=== PATIENT | male | born 1960 | race Caucasian/White ===

== ENCOUNTER 2017-11-12 08:33 | Emergency (ER) | payer MEDICAID ==
[~2017-11-12] VITALS: Ht 172.7 cm; Wt 99.8 kg
[~2017-11-12 08:33] MED LIST: ALPR1T; ASP325T PO; ATN50T; BPR100T PO; CLOP75TA PO; ENAL20TA PO; ENLP5T; HCT25T PO; HYDR-3714; HYDR-3714 PO; HYDR-3720; ISOS20TA6; LEVO500T69 PO; NAPROSYN; NFMULT50DR; NTR.4SL PO; OMEP20CA12; OMG1KC PO; PRED20TA PO; RISP2TAB18 PO; SIMV40TA2; SIMV80TA3; [UNRECOGNIZED DRUG - OTHER]
[2017-11-12] MEDS ORDERED: NS IV 1000 ML 1,000 ML IV SCH ×2 (08:42→11:15)
[2017-11-12] MEDS ORDERED: RT-ALBUTEROL/IPRATROPIUM 3 ML (DUONEB) VIAL INH ONE (08:45)
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
[2017-11-12 09:00] LABS: BASOPHILS % (AUTO) 0 % (0-10); EOSINOPHILS % (AUTO) 0 % (0-10); HEMATOCRIT 43 % (40-54); HEMOGLOBIN 13.7 G/DL (13.3-17.7); LYMPHOCYTES # (AUTO) 2.1 X 10^3 (1.0-4.0); LYMPHOCYTES % (AUTO) 14 % (12-44); MEAN CORPUSCULAR HEMOGLOBIN 27 PG (25-34); MEAN CORPUSCULAR HGB CONC 32 G/DL (32-36); MEAN CORPUSCULAR VOLUME 84 FL (80-99); MEAN PLATELET VOLUME 10.7 FL (7.4-10.4); MONOCYTES # (AUTO) 1.2 X 10^3 (0.0-1.0); MONOCYTES % (AUTO) 8 % (0-12); NEUTROPHILS # (AUTO) 12.1 X 10^3 (1.8-7.8); NEUTROPHILS % (AUTO) 78 % (42-75); PLATELET COUNT 323 10^3/uL (130-400); RED BLOOD COUNT 5.13 10^6/uL (4.35-5.85); RED CELL DISTRIBUTION WIDTH 16.3 % (10.0-14.5); WHITE BLOOD COUNT 15.4 10^3/uL (4.3-11.0)
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
--- OUTSIDE RECORDS SUMMARY | 2017-11-12 09:12 | XMS REPORT ---
Author Author PAOLA LEE [facility] eClinicalWorks Address Unknown Phone Unavailable Care Team Providers Care Engagement Quality Consultant Name Role Phone PAOLA LEE CP Unavailable Allergies No Known Allergies Problems Problem Type Condition ICD-9 Code Onset Dates Condition Status Problem BPH (benign prostatic hyperplasia) 600.00 Active Problem Hyperlipidemia 272.4 Active Problem Depression 311 Active Problem Cervicalgia 723.1 Active Problem Hypopotassemia 276.8 Active Problem Simple schizophrenia, unspecified condition 295.00 Active Problem Carotid occlusion, right 433.10 Active Problem Hypertension 401.9 Active Problem Pain in joint, forearm 719.43 Active Problem Nondependent tobacco use disorder 305.1 Active Problem Pulmonary hypertension 416.8 Active Problem Peripheral arterial disease 443.9 Active Problem 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 Medications No Known Medications Results No Known Results Summary Purpose eClinicalWorks Submission
--- OUTSIDE RECORDS SUMMARY | 2017-11-12 09:13 | XMS REPORT ---
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 Active Problem Hypokalemia E87.6 Active Problem Paranoid schizophrenia F20.0 Active Problem Carotid occlusion, right I65.21 Active Problem Essential hypertension I10 Active Problem Primary osteoarthritis of wrist, 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
--- OUTSIDE RECORDS SUMMARY | 2017-11-12 09:13 | XMS REPORT ---
Author Author PAOLA LEE [facility] eClinicalWorks Address Unknown Phone Unavailable Care Team Providers Care Archaeologist Name Role Phone PAOLA LEE CP Unavailable [...]
--- OUTSIDE RECORDS SUMMARY | 2017-11-12 09:13 | XMS REPORT ---
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 Active Problem Essential hypertension I10 Active Problem Mixed hyperlipidemia E78.2 Active Problem Paranoid schizophrenia F20.0 Active Problem Osteoarthritis of spine with radiculopathy, 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 Active Problem Oral candidiasis B37.0 Active Problem Tobacco use Z72.0 Active Problem Carotid occlusion, right I65.21 Active Problem Hypokalemia E87.6 Active Problem Primary osteoarthritis of wrist, 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 Active Assessment Hematuria R31.9 Active Assessment Essential hypertension I10 Active Assessment Ureteropelvic junction calculus N20.0 Active Problem Peripheral arterial disease I73.9 Active Problem History of intravenous drug use in remission Z87.898 Active Problem Chronic diastolic congestive heart failure I50.32 Active Problem Benign non-nodular prostatic hyperplasia with lower urinary tract symptoms N40.1 Active Problem Pulmonary hypertension I27.2 Active Problem History of suicide attempt Z91.5 Active Medications Medication Code System Code Instructions Start Date End Date Status Dosage Zocor [facility] 20359102171 80 TAKE ONE TABLET BY MOUTH DAILY MUST HAVE FASTING LIPIDS FOR REFILL Risperdal [facility] [address]-61 1 MG Orally in morning Once a day Jun 26, 2015 1 tablet Risperdal [facility] [address]-62 2 MG Orally at bedtime Once a day Jun 26, 2015 1 tablet Plavix [facility] 37944590681 75 TAKE ONE TABLET BY MOUTH DAILY Hydrochlorothiazide [facility] 52541362488 25 TAKE ONE TABLET BY MOUTH DAILY Flomax [facility] 11344780130 0.4 TAKE ONE CAPSULE BY MOUTH DAILY Nitrostat [facility] [address]405040851 0.[address] PL[address] ONE TABLET UNDER THE TONGUE THREE TIMES A DAY NEEDED FOR CHEST PAIN. MAY REPEAT TWO TIMES EVERY FIVE MINUTES. Mirtazapine [facility] [address]-68 15 MG Orally Once a day Jun 26, 2015 1 tablet before bedtime in the evening Isosorbide Dinitrate [facility] 88634513118 20 TAKE TWO TABLETS ( 40MG ) BY MOUTH DAILY Fish Oil [facility] [address]-04 1000 MG Orally Once a day 2 capsule Aspirin Adult Low Dose [facility] [address]-14 81 MG Orally Once a day 1 tablet Colace [facility] [address]-47 100 MG Orally Once a day 2 capsules as needed Wellbutrin XL [facility] [address]-45 300 Orally Once a day 1 tablet in the morning Ativan [facility] [address]-28 0.5 MG Orally Twice a day 1 tablet as needed Multi-Vitamin [facility] [address]-49 - Orally Once a day 2 tablets Procedures Procedure Coding System Code Date URINALYSIS, AUTO, W/O SCOPE CPT-4 76286 Jan 14, 2016 VENIPUNCT, ROUTINE* CPT-4 89893 Jan 14, 2016 [facility] CPT-4 NOBLL Jan 14, 2016 Office Visit, Est Pt., Level 4 CPT-4 21990 Jan 14, 2016 Vital Signs Date/Time: Jan 14, 2016 Cardiac Monitoring Heart Rate 84 bpm Weight 207.5 lbs Height 67 in BMI 32.50 Index Blood Pressure Diastolic 90 mmHg Blood Pressure Systolic 144 mmHg Results No Known Results Summary Purpose eClinicalWorks Submission
--- OUTSIDE RECORDS SUMMARY | 2017-11-12 09:13 | XMS REPORT ---
Author Author PAOLA LEE eClinicalWorks Address Unknown Phone Unavailable Care Team Providers Care Reverse Unit Operator Name Role Phone PAOLA LEE CP Unavailable [...]
--- OUTSIDE RECORDS SUMMARY | 2017-11-12 09:13 | XMS REPORT ---
Author Author MIRELLA GONZALES Organization 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 Active 467014473 Problem Neuropathy G62.9 Active 906629724 Problem Cigarette nicotine dependence without complication F17.210 Active 33734514 Problem Essential hypertension I10 Active 50509519 Problem History of suicide attempt Z91.5 Active 867050586 Problem Coronary artery disease involving [place] coronary artery of [place] heart without angina pectoris I25.10 Active 3211671477890 Problem Oral candidiasis B37.0 Active 35375554 Problem Hypokalemia E87.6 Active 377721168 Problem Mixed hyperlipidemia E78.2 Active 999790020 Problem Tobacco use Z72.0 Active 448195441 Problem Paranoid schizophrenia F20.0 Active 05972392 Problem Benign non-nodular prostatic hyperplasia with lower urinary tract symptoms N40.1 Active 109035963 Problem Peripheral arterial disease I73.9 Active 197712486 Problem Pulmonary hypertension I27.2 Active 28247086 Problem History of intravenous drug use in remission Z87.898 Active 47410686 Problem Chronic diastolic congestive heart failure I50.32 Active 372246488 Problem 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 [address] [id number] [address] Jul, Essential hypertension I10 [facility] [address] [id number], [place] [address] Jul, [facility] [id number] [place] [address] 04526- 8494 Jul, [facility] [id number] [place] [address] 31351 -6299 May, Left foot pain M79.672 and Contusion of left foot, initial encounter S90.32XA [place] [address] [address] Apr, [facility] [id number] [place] [address] 86121- 2654 Apr, [place] [address] 67248- 5289 Mar, Neuropathy G62.9 and Essential hypertension I10 [place] [address] [address]50- 7674 Mar, [place] [address] 61472- 8385 Mar, Essential hypertension I10 ; Neuropathy G62.9 ; Coronary artery disease involving [place] coronary artery of [place] heart without angina pectoris I25.10 and Cigarette nicotine dependence without complication F17.210 [place] [id number] [place] [address] 31838- 2134 Jan, [facility] [id number] [place] [address] 40202 -0227 Dec, Neuropathy G62.9 [facility] [id number] [place] [address] 39561- 0573 Nov, Essential hypertension I10 [place] [address] 52399- 2492 Mar, [place] [id number] [place] [address] 40384- 9485 Feb, [place] [address] 28039- 4966 Feb, [facility] [id number] [place] [address] 18782- 1059 07 Feb, 2016 Essential hypertension I10 ; Peripheral arterial disease I73.9 ; Coronary artery disease involving [place] coronary artery of [place] heart without angina pectoris I25.10 ; Cigarette nicotine dependence without complication F17.210 and Encounter for immunization Z23 [facility] [address] [address]- [address]20 Dec, [facility] [address] 09799- 2967 Dec, Essential hypertension I10 ; Hematuria R31.9 and Ureteropelvic junction calculus N20.0 [facility] [address] [address] -[address]49 Dec, Kellie infection of mouth B37.0 [facility] [address] 25058 [address]013 Nov, Oral candidiasis B37.0 [facility] [id number] [place] [address] 02613- 6728 Nov, [facility] [address] [address]441- 9878 Nov, [facility] [id number] [place] [address] 99279- 1025 Nov, Hematuria R31.9 [facility] [address] [address]72- 3994 Oct, [facility] [id number] [place] [address] 95895- 5658 Jul, [facility] [address] 62115- 7226 Jul, [facility] [id number] [place] [address] 47565- 9363 Jul, [facility] [address] 60802- 3113 Jul, [facility] [id number] [place] [address] 18362- 8267 Jul, [facility] [id number] [place] [address] 30406- 1096 May, Paranoid schizophrenia F20.0 ; Major depression F32.9 and Generalized anxiety disorder F41.1 [facility] [id number] [place] [address] 33813- 1565 May, [facility] [id number] [place] [address] 31423- 6497 May, [facility] [id number] [place] [address] 19712- 8913 May, Paranoid schizophrenia F20.0 ; Essential hypertension I10 [address] [facility] [id number] [place] [address] 41280- 9547 Apr, Paranoid schizophrenia F20.0 [facility] [id number] [place] [address] 20176- 7921 Apr, [facility] [id number] [place] [address] 96381- 2959 Mar, [facility] [id number] [place] [address] 14614- 7173 Mar, [facility] [id number] [place] [address] 45355- 5724 Feb, 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 [id number] [place] [address] 58763- 6839 Feb, [facility] [address] [id number] [address]- 9639 Jan, Cervicalgia 723.1 ; 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 and Traumatic hematoma of left hand 923.20 [facility] [address], [place] [address] 1556 Jan, [facility] [id number] [place] [address] 36447- 3787 Jan, [facility] [id number] [place] [address] 20886- 4320 Dec, [facility] [id number] [place] [address] 174044- 1884 Dec, Pain in joint, forearm 719.43 ; Cervicalgia 723.[address] [facility] [address] [id number] [address] Dec, [facility] [id number] [place] [address] 31222- 6571 Nov, Cervicalgia 723.1 ; Hyperlipidemia 272.4 ; 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 ; Carotid occlusion, right 433.10 and Peripheral arterial disease 443.9 [facility] [address] [address] 7617 Nov, [facility] [address] [address]- 8057 Oct, [facility] [id number] [place] [address] 99806- 2332 Oct, [facility] [address] [place] [address] 69122- 6496 Oct, [facility] [address] [place] [address] 43518744- 9742 September, [facility] [address] [address] [address] Aug, [facility] [address] [address]- 5502 Aug, [facility] [place] [facility] [address] [id number] [place] [address]- 0495 Jul, [facility] [place] [facility] [address] [id number] [place] [address]- 0979 Jul, [facility] [place] [facility] [address] [id number] [place] [address]- 2146 Jul, [facility] [place] [facility] [address] [id number] [place] [address]- 3488 Jul, [facility] [place] [facility] [address] [id number] [place] [address]- 5736 Jul, [facility] [place] [facility] [address] [facility] [id number] [place] [address]- 3503 Jul, [facility] [place] [facility] [address] [facility] [id number] [place] [address]- 2568 Jul, [facility] [place] [facility] [address] [id number] [place] [address]- 7164 Jul, [facility] [place] [facility] [address] [facility] [id number] [place] [address]- 0792 Jul, [facility] [place] [facility] [address] [facility] [id number] [place] [address]- 4958 Jul, [facility] [place] [facility] [address] [facility] [id number] [place] [address]- 3493 Jul, [facility] [place] [facility] [address] [facility] [id number] [place] [address]- 7228 Jul, [facility] [place] [facility] [address] [id number] [place] [address]- 8823 Jul, [facility] [place] [facility] [address] [facility] [id number] [place] 9145 May, [facility] [place] [facility] [address] [facility] [id number] [place] [address]- 7578 May, [facility] [place] [facility] [address] [id number] [place] [address]- 4221 May, [facility] [place] [facility] [address] [id number] [place] [address]- 3178 May, [facility] [place] [facility] [address] [id number] [place] [address]- 6192 May, [facility] [place] [facility] [address] [id number] [place] [address]- 9147 May, [facility] [place] [facility] [address] [id number] [place] [address]- 9223 May, [facility] [place] [facility] [address] [id number] [place] [address]- 1522 May, [facility] [place] [facility] [address] [id number] [place] [address]- 4185 May, [facility] [place] [facility] [address] [id number] [place] [address]- 1938 May, [facility] [place] [facility] [address] [id number] [place] [address]- 2023 May, [facility] [place] [facility] [address] [id number] [place] [address]- 4072 May, [facility] [place] [facility] [address] [id number] [address]- 6689 May, [facility] [place] [facility] [address] [id number], [place] [address]- 6879 May, [facility] [place] [facility] [address] [id number] [place] [address]- 1030 May, [facility] [place] [facility] [address] [id number] [place] [address]- 1083 May, [facility] [place] [facility] [address] [id number] [place] [address]- 3650 May, [facility] [place] [facility] [address] [id number] [place] [address]- 1039 30 Apr, 2014 [facility] [place] [facility] [address] [id number] [place] [address]- 0576 Apr, [facility] [place] [facility] [address] [id number] [place] [address]- 6006 Apr, [facility] [place] [facility] [address] [id number] [place] [address]- 9636 Apr, [facility] [place] [facility] [address] [id number] [place] [address]- 0935 Apr, [facility] [place] [facility] [address] [id number] [place] 2793 Apr, [facility] [place] [facility] [address] [id number] [place] [address]- 2503 Apr, [facility] [place] [facility] [address] [id number] [place] [address]- 7694 Apr, [facility] [place] [facility] [address] [id number] [place] [address]- 4371 Apr, [facility] [place] [facility] [address] [id number] [place] [address]- 4212 Apr, [facility] [place] [facility] [address] [id number] [place] [address]- 6751 Apr, [facility] [place] [facility] [address] [id number] [place] [address]- 9462 Apr, [facility] [place] [facility] [address] [id number] [place] [address]- 2329 Mar, [facility] [place] [facility] [address] [id number] [place] [address]- 0517 Mar, [facility] [place] [facility] [address] [id number] [place] [address]- 3366 Mar, [facility] [place] [facility] [address] [id number] [place] [address]- 1500 Mar, [facility] [place] [facility] [address] [id number] [place] [address]- 8032 Feb, [facility] [place] [facility] [address] [id number] [place] [address]- 7870 Feb, [facility] [place] [facility] [address] [id number] [place] [address]- 4997 Feb, [facility] [place] [facility] [address] [id number] [place] [address]- 0163 Feb, [facility] [place] [facility] [address] [id number] [place] [address]- 2465 Feb, [facility] [place] [facility] [address] [id number] [place] [address]- 6832 Feb, [facility] [place] [facility] [address] [id number] [place] [address]- 2092 Nov, [facility] [place] [facility] [address] [id number] [place] [address]- 0349 Nov, [facility] [place] [facility] [address] [id number] [place] [address]- 3181 Oct, [facility] [place] [facility] [address] [id number] [place] [address]- 3243 Oct, [facility] [place] [facility] [address] [id number] [place] [address]- 1456 Oct, [facility] [place] [facility] [address] [id number] [place] [address]- 1929 Oct, [facility] [place] [facility] [address] [id number] [place] [address]- 9265 Oct, [facility] [place] [facility] [address] [id number] [place] [address]- 1276 Oct, [facility] [place] [facility] [address] [id number] [place] [address]- 4594 Oct, [facility] [place] [facility] [address] [id number] [place] [address]- 1914 Oct, [facility] [place] [facility] [address] [id number] [place] [address]- 5874 Oct, [facility] [place] [facility] [address] [id number] [place] [address]- 0122 Oct, [facility] [place] [facility] [address] [id number] [place] [address]- 8234 September, [facility] [place] [facility] [address] [id number] [place] [address]- 5264 September, [facility] [place] [facility] [address] [id number] [place] 6394 September, [facility] [place] [facility] [address] [id number] [place] [address]- 6842 September, [facility] [place] [facility] [address] [id number] [place] [address]- 8467 September, [facility] [place] [facility] [address] [id number] [place] [address]- 5298 September, [facility] [place] [facility] [address] [id number] [place] [address]- 0657 Aug, [facility] [place] [facility] [address] [id number] [place] [address]- 9716 Aug, [facility] [place] [facility] [address] [id number] [place] [address]- 3551 Aug, [facility] [place] [facility] [address] [id number] [place] [address]- 6206 Aug, [facility] [place] [facility] [address] [id number] [place] [address]- 8712 Jul, [facility] [place] [facility] [address] [id number] [place] [address]- 3989 Jul, [facility] [place] [facility] [address] [id number] [place] [address]- 6995 Jul, [facility] [place] [facility] [address] [id number] [place] [address]- 0820 Jul, [facility] [place] [facility] [address] [id number] [place] [address]- 0430 Jul, [facility] [place] [facility] [address] [id number] [place] [address]- 7061 Jul, [facility] [place] [facility] [address] [id number] [place] [address]- 1508 Jul, [facility] [place] [facility] [address] [id number] [place] [address]- 3847 Jul, [facility] [place] [facility] [address] [id number] [place] [address]- 7531 Jul, [facility] [place] [facility] [address] [id number] [place] [address]- 2886 Jul, [facility] [place] [facility] [address] [id number] [place] [address]- 0900 May, [facility] [place] [facility] [address] [id number] [place] [address]- 9301 May, [facility] [place] [facility] [address] [id number] [place] [address]- 2434 May, [facility] [place] [facility] [address] [id number] [place] [address]- 5056 May, [facility] [place] [facility] [address] [id number] [place] [address]- 8778 Apr, [facility] [place] [facility] [address] [id number] [place] [address]- 5796 Apr, [facility] [place] [facility] [address] [id number] [place] [address]- 2301 Mar, [facility] [place] [facility] [address] [id number] [place] 9090 Mar, [facility] [place] [facility] [address] [id number] [place] [address]- 9454 Mar, [facility] [place] [facility] [address] [id number] [place] [address]- 3874 Mar, [facility] [place] [facility] [address] [id number] [place] [address]- 8115 Mar, [facility] [place] [facility] [address] [id number] [place] [address]- 9217 Mar, [facility] [place] [facility] [address] [id number] [place] [address]- 4963 Feb, [facility] [place] [facility] [address] [id number] [place] [address]- 1659 Feb, [facility] [place] [facility] [address] [id number] [place] [address]- 0715 Feb, [facility] [place] [facility] [address] [id number] [place] [address]- 0915 Feb, [facility] [place] [facility] [address] [id number] [place] [address]- 4961 Feb, [facility] [place] [facility] [address] [id number] [place] [address]- 4295 Jan, [facility] [place] [facility] [address] [id number] [place] [address]- 3755 Jan, [facility] [place] [facility] [address] [id number] [place] [address]- 0210 Jan, [facility] [place] [facility] [address] [id number] [place] [address]- 7204 Jan, [facility] [place] [facility] [address] [id number] [place] [address]- 9360 Dec, [facility] [place] [facility] [address] [id number] [place] [address]- 6185 Dec, [facility] [place] [facility] [address] [id number] [place] [address]- 6114 Dec, [facility] [place] [facility] [address] [id number] [place] [address]- 1619 15 Dec, 2012 [facility] [address] [id number] [place] [address]- 8492 Dec, [facility] [address] [id number] [place] [address]- 0112 Dec, [facility] [address] [id number] [place] [address]- 3027 Nov, [facility] [address] [id number] [place] [address]- 4105 Nov, [facility] [address] [id number] [place] [address]- 2236 Oct, [facility] [address] [id number] [place] [address]- 0096 Oct, [facility] [address] [id number] [place] [address]- 6930 Oct, [facility] [address] [id number] [place] [address]- 2741 September, [facility] [address] [id number] [place] [address]- 5247 Aug, [facility] [address] [id number] [place] [address] Aug, [facility] [address] [id number] [place] [address] Aug, [facility] [address] [id number] [place] [address] Aug, [facility] [address] [id number] [place] [address] Aug, [facility] [address] [id number] [place] [address] Aug, [facility] [address] [id number] [place] [address] Aug, [facility] [address] [id number] [place] [address] 26 Jul, 2012 [facility] [place] [facility] [address] [id number] [place] [address] 21 Jul, 2012 [facility] [address] [id number] [place] [address] 15 Jul, 2012 [facility] [place] [facility] [address] [id number] [place] [address] 14 Jul, 2012 [facility] [address] [id number] [place] [address] Jul, [facility] [place] [facility] [address] [id number] [place] [address]- [address] 13 Jul, 2012 [facility] [address] [id number] [place] [address] Jul, [facility] [address] [id number] [place] [address] 04 Jul, 2012 [facility] [address] [id number] [place] [address] 18 Jul, 2012 [facility] [place] [facility] [address] [id number] [place] [address] Jul, [facility] [place] [facility] [address] [id number] [place] [address] May, [facility] [place] [facility] [address] [id number], [place] [address] May, [facility] [place] [facility] [address] [id number] [place] [address]47 15 May, 2012 [facility] [place] [facility] [address] [id number] [place] [address] 14 May, 2012 [facility] [place] [facility] [address] [id number] [place] [address] 18 Apr, 2012 [facility] [place] [facility] [address] [id number] [place] [address] Apr, [facility] [place] [facility] [address] [id number] [place] [address] Apr, [facility] [place] [facility] [address] [id number] [place] [address] Apr, [facility] [place] [facility] [address] [id number] [place] [address] Apr, [facility] [place] [facility] [address] [id number] [place] [address] Mar, [facility] [place] [facility] [address] [id number] [place] [address] Mar, [facility] [place] [facility] [address] [id number] [place] [address] Feb, [facility] [place] [facility] [address] [id number] [place] [address] Dec, [facility] [place] [facility] [address] [id number] [place] [address] Dec, [facility] [place] [facility] [address] [id number] [place] [address] Nov, [facility] [place] [facility] [address] [id number] [place] [address] Nov, [facility] [place] [facility] [address] [id number] [place] [address] Nov, [facility] [place] [facility] [address] [id number] [place] [address] Oct, [facility] [place] [facility] [address] [id number] [place] [address] Aug, [facility] [place] [facility] [address] [id number] [place] [address] Aug, [facility] [place] [facility] [address] [id number] [place] [address] [address], [address] [facility] [address] [facility] [id number] [address] [address], [address] [facility] [address] [facility] [id number], [place] [address] Aug, [facility] [address] [facility] [id number], [place] [address] [address], [address] [facility] [id number] [address] [address], [address] [facility] [address] [facility] [id number], [place] [address] 15 Mar, [address] [facility] [id number] [address] [address] [address], [address] [facility] [id number] [address] [address] Apr, [facility] [id number], [place] [address] 30 Mar, [address] [facility] [id number], [place] [address] 18 Feb, [address] [facility] [id number], [place] [address] 14 Apr, 2009 [facility] [id number], [place] [address] [address], [address] [facility] [id number], [place] [address] Mar, [facility] [address] [id number], [place] [id number] 15 Feb, 2009 [facility] [id number], [place] [id number] 15 Feb, 2009 IMMUNIZATIONS No Known Immunizations SOCIAL HISTORY Never Assessed REASON FOR VISIT At- 04/06 PLAN OF CARE VITAL SIGNS MEDICATIONS Medication Instructions Dosage Frequency Start Date End Date Duration Status Ativan 0.5 mg Orally 2 times a day 1 tablet 12h 30 Active RESULTS No Results PROCEDURES No Known procedures INSTRUCTIONS MEDICATIONS ADMINISTERED No Known Medications MEDICAL (GENERAL) HISTORY Type Description Date Medical History cardiovascular disorder-multi vessel CAD-nonoperable, PVD- carotid artery disease (right 100% blockage, left 40% block) Medical History hypertension Medical History hyperlipidemia Medical History chronic pain-neck and back Medical History depression Medical History anxiety Medical History heart disease Medical History Hx of drug addiction (meth-IV) was clean 5-6 years prior to relapse 02/2009 Medical History schizophrenia Surgical History cholecystectomy Hospitalization History drug OD/suicide attempt (required mechanical vent) Hospitalization History suicide attempt-cut wrists 03/2010 Hospitalization History suicide attempt-injected insulin 04/2010 Hospitalization History [facility] Methamphetamine 2015
--- OUTSIDE RECORDS SUMMARY | 2017-11-12 09:14 | XMS REPORT ---
Author Author PAOLA LEE [facility] [employer] Address Unknown Phone Unavailable Care Team Providers Care Primary Care Provider Name Role Phone PAOLA LEE CP Unavailable [...]
--- OUTSIDE RECORDS SUMMARY | 2017-11-12 09:14 | XMS REPORT ---
Author Author PAOLA LEE [facility] [employer] Address Unknown Phone Unavailable Care Team Providers Care Pick Up Worker Name Role Phone PAOLA LEE CP Unavailable [...]
--- OUTSIDE RECORDS SUMMARY | 2017-11-12 09:14 | XMS REPORT ---
Author Author MIRELLA GONZALES Organization [employer] Address Unknown Phone Unavailable Care Team Providers Care Bottle Capper Name Role Phone MIRELLA GONZALES CP Unavailable Allergies No Known Allergies Problems Problem Type Condition Code Onset Dates Condition Status Problem Essential hypertension I10 Active Problem Tobacco use Z72.0 Active Problem Carotid occlusion, right I65.21 Active Problem Cigarette nicotine dependence without complication F17.210 Active Problem Oral candidiasis B37.0 Active Problem Coronary artery disease involving [place] coronary artery of [place] heart without angina pectoris I25.10 Active Problem Hypokalemia E87.6 Active Problem Primary osteoarthritis of wrist, 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 Active Problem Paranoid schizophrenia F20.0 Active Problem Osteoarthritis of spine with radiculopathy, 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 Active Problem Chronic diastolic congestive heart failure I50.32 Active Problem Pulmonary hypertension I27.2 Active Problem Benign non-nodular prostatic hyperplasia with lower urinary tract symptoms N40.1 Active Problem History of suicide attempt Z91.5 Active Problem Peripheral arterial disease I73.9 Active Problem 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 Active Problem History of intravenous drug use in remission Z87.898 Active Problem Mixed hyperlipidemia E78.2 Active Medications Medication Code System Code Instructions Start Date End Date Status Dosage Meloxicam [facility] [address]-25 15 MG Orally Once a day 1 tablet Flomax [facility] 50295303783 0.4 TAKE ONE CAPSULE BY MOUTH DAILY Isosorbide Dinitrate [facility] 06033089453 20 TAKE TWO TABLETS ( 40MG ) BY MOUTH DAILY Wellbutrin XL [facility] [address]-39 300 Orally Once a day 1 tablet in the morning Plavix [facility] 82415097631 75 TAKE ONE TABLET BY MOUTH DAILY Zocor [facility] 12023037521 80 TAKE ONE TABLET BY MOUTH DAILY Hydrochlorothiazide [facility] 15529925819 25 TAKE ONE TABLET BY MOUTH DAILY Results No Known Results Summary Purpose eClinicalWorks Submission
--- OUTSIDE RECORDS SUMMARY | 2017-11-12 09:14 | XMS REPORT ---
Author Author MIRELLA GONZALES Organization 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 Active 583228024 Problem Neuropathy G62.9 Active 761028154 Problem Cigarette nicotine dependence without complication F17.210 Active 51309755 Problem Essential hypertension I10 Active 98532952 Problem History of suicide attempt Z91.5 Active 976742642 Problem Coronary artery disease involving [place] coronary artery of [place] heart without angina pectoris I25.10 Active 3006961798823 Problem Oral candidiasis B37.0 Active 75392101 Problem Hypokalemia E87.6 Active 799897303 Problem Mixed hyperlipidemia E78.2 Active 053582692 Problem Tobacco use Z72.0 Active 324916059 Problem Paranoid schizophrenia F20.0 Active 80140313 Problem Benign non-nodular prostatic hyperplasia with lower urinary tract symptoms N40.1 Active 873785575 Problem Peripheral arterial disease I73.9 Active 472214208 Problem Pulmonary hypertension I27.2 Active 80551205 Problem History of intravenous drug use in remission Z87.898 Active 64976964 Problem Chronic diastolic congestive heart failure I50.32 Active 850536254 Problem 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 [address] [id number], [place] [address] Jul, Essential hypertension I10 [facility] [address] [id number], [place] [address] Jul, [facility] [id number] [place] [address] 05787- 7946 Jul, [facility] [id number] [place] [address]71 -6920 May, Left foot pain M79.672 and Contusion of left foot, initial encounter S90.32XA [place] [address] [address] Apr, [facility] [id number] [place] [address] 39725- 9869 Apr, [place] [address] [address]- [address]31 Mar, Neuropathy G62.9 and Essential hypertension I10 [place] [address] [address]- [address] Mar, [place] [address] [address]- 5497 Mar, Essential hypertension I10 ; Neuropathy G62.9 ; Coronary artery disease involving [place] coronary artery of [place] heart without angina pectoris I25.10 and Cigarette nicotine dependence without complication F17.210 [place] [id number] [place] [address] 82830- 4602 Jan, [facility] [id number] [place] [address]38 -[address]681 Dec, [address]62.9 [facility] [id number] [place] [address] 64671- 7503 Nov, Essential hypertension I10 [place] [address] 87889- 4411 Mar, [place] [id number] [place] [address] 79969- 7779 Feb, [place] [address] [address]- [address] Feb, [facility] [id number] [place] [address] 85086- 3843 07 Feb, 2016 Essential hypertension I10 ; Peripheral arterial disease I73.9 ; Coronary artery disease involving [place] coronary artery of [place] heart without angina pectoris I25.10 ; Cigarette nicotine dependence without complication F17.210 and Encounter for immunization Z23 [facility] [address] [address]- [address]16 Dec, [facility] [address] 92192- 9464 Dec, Essential hypertension I10 ; Hematuria R31.9 and Ureteropelvic junction calculus N20.0 [facility] [address] [address] -[address]605 Dec, Kellie infection of mouth B37.0 [facility] [address] [address]67 Nov, Oral candidiasis B37.0 [facility] [id number] [place] [address] 11052- 0421 Nov, [facility] [address] [address]81- 6252 Nov, [facility] [id number] [place] [address] 61944- 1378 Nov, Hematuria R31.9 [facility] [address] 87786- 8807 Oct, [facility] [id number] [place] [address] 82015- 4926 Jul, [facility] [address] [address]245- 3348 Jul, [facility] [id number] [place] [address] 25536- 3073 Jul, [facility] [address] 79972- 1383 Jul, [facility] [id number] [place] [address] 36945- 5080 Jul, [facility] [id number] [place] [address] 98371- 2972 May, Paranoid schizophrenia F20.0 ; Major depression F32.9 and Generalized anxiety disorder F41.1 [facility] [id number] [place] [address] 77425- 0284 May, [facility] [id number] [place] [address] 05689- 9739 May, [facility] [id number] [place] [address] 57582- 1508 May, Paranoid schizophrenia F20.0 ; Essential hypertension I10 [address]45[address]1 [facility] [id number] [place] [address] 24017- 2039 Apr, Paranoid schizophrenia F20.0 [facility] [id number] [place] [address] 20288- 1485 Apr, [facility] [id number] [place] [address] 05451- 2894 Mar, [facility] [id number] [place] [address] 36694- 9602 Mar, [facility] [id number] [place] [address] 41722- 2806 Feb, 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 [id number] [place] [address] 94222- 3336 Feb, [facility] [address] [id number] [address] Jan, Cervicalgia 723.1 ; 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 and Traumatic hematoma of left hand 923.20 [facility] [address], [place] [address] Jan, [facility] [id number] [place] [address] 60838- 1565 Jan, [facility] [id number] [place] [address] 81793- 8503 Dec, [facility] [id number] [place] [address] 345636- 9247 Dec, Pain in joint, forearm 719.43 ; Cervicalgia 723.[address] [facility] [id number], [place] [address] Dec, [facility] [id number] [place] [address] 56079- 7727 Nov, Cervicalgia 723.1 ; Hyperlipidemia 272.4 ; 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 ; Carotid occlusion, right 433.10 and Peripheral arterial disease 443.9 [facility] [address], [place] [address] Nov, [facility] [address] [address] 0943 Oct, [facility] [id number] [place] [address] 38468- 0275 Oct, [facility] [address] [place] [address] 38245- 1328 Oct, [facility] [address] [place] [address] 25339791- 1773 September, [facility] [address] [address] Aug, [facility] [address] [place] [address]- 8678 Aug, [facility] [place] [facility] [address] [id number] [place] [address]- 6734 Jul, [facility] [place] [facility] [address] [id number] [place] [address]- 2182 Jul, [facility] [place] [facility] [address] [id number] [place] [address]- 3565 Jul, [facility] [place] [facility] [address] [id number] [place] [address]- 4413 Jul, [facility] [place] [facility] [address] [id number] [place] [address]- 6817 Jul, [facility] [place] [facility] [address] [facility] [id number] [place] [address]- 2520 Jul, [facility] [place] [facility] [address] [facility] [id number] [place] [address]- 5547 Jul, [facility] [place] [facility] [address] [id number] [place] [address]- 1418 Jul, [facility] [place] [facility] [address] [facility] [id number] [place] [address]- 8475 Jul, [facility] [place] [facility] [address] [facility] [id number] [place] [address]- 0843 Jul, [facility] [place] [facility] [address] [facility] [id number] [place] [address]- 7349 Jul, [facility] [place] [facility] [address] [facility] [id number] [place] [address]- 6387 Jul, [facility] [place] [facility] [address] [id number] [place] [address]- 1485 Jul, [facility] [place] [facility] [address] [facility] [id number] [place] 6701 May, [facility] [place] [facility] [address] [facility] [id number] [place] [address]- 9654 May, [facility] [place] [facility] [address] [id number] [place] [address]- 2610 May, [facility] [place] [facility] [address] [id number] [place] [address]- 1267 May, [facility] [place] [facility] [address] [id number] [place] [address]- 8384 May, [facility] [place] [facility] [address] [id number] [place] [address]- 8943 May, [facility] [place] [facility] [address] [id number] [place] [address]- 6608 May, [facility] [place] [facility] [address] [id number] [place] [address]- 5237 May, [facility] [place] [facility] [address] [id number] [place] [address]- 5539 May, [facility] [place] [facility] [address] [id number] [place] [address]- 7927 May, [facility] [place] [facility] [address] [id number] [place] [address]- 9648 May, [facility] [place] [facility] [address] [id number] [place] [address]- 7513 May, [facility] [place] [facility] [address] [id number] [address]- 7298 May, [facility] [place] [facility] [address] [id number], [place] [address]- 3432 May, [facility] [place] [facility] [address] [id number] [place] [address]- 6234 May, [facility] [place] [facility] [address] [id number] [place] [address]- 2044 May, [facility] [place] [facility] [address] [id number] [place] [address]- 8709 May, [facility] [place] [facility] [address] [id number] [place] [address]- 8674 30 Apr, 2014 [facility] [place] [facility] [address] [id number] [place] [address]- 6636 Apr, [facility] [place] [facility] [address] [id number] [place] [address]- 5186 Apr, [facility] [place] [facility] [address] [id number] [place] [address]- 3576 Apr, [facility] [place] [facility] [address] [id number] [place] [address]- 6379 Apr, [facility] [place] [facility] [address] [id number] [place] 9318 Apr, [facility] [place] [facility] [address] [id number] [place] [address]- 3895 Apr, [facility] [place] [facility] [address] [id number] [place] [address]- 1933 Apr, [facility] [place] [facility] [address] [id number] [place] [address]- 1098 Apr, [facility] [place] [facility] [address] [id number] [place] [address]- 5489 Apr, [facility] [place] [facility] [address] [id number] [place] [address]- 5701 Apr, [facility] [place] [facility] [address] [id number] [place] [address]- 4276 Apr, [facility] [place] [facility] [address] [id number] [place] [address]- 9210 Mar, [facility] [place] [facility] [address] [id number] [place] [address]- 2029 Mar, [facility] [place] [facility] [address] [id number] [place] [address]- 1775 Mar, [facility] [place] [facility] [address] [id number] [place] [address]- 1614 Mar, [facility] [place] [facility] [address] [id number] [place] [address]- 3040 Feb, [facility] [place] [facility] [address] [id number] [place] [address]- 3281 Feb, [facility] [place] [facility] [address] [id number] [place] [address]- 1804 Feb, [facility] [place] [facility] [address] [id number] [place] [address]- 8703 Feb, [facility] [place] [facility] [address] [id number] [place] [address]- 6513 Feb, [facility] [place] [facility] [address] [id number] [place] [address]- 7103 Feb, [facility] [place] [facility] [address] [id number] [place] [address]- 7663 Nov, [facility] [place] [facility] [address] [id number] [place] [address]- 5915 Nov, [facility] [place] [facility] [address] [id number] [place] [address]- 3712 Oct, [facility] [place] [facility] [address] [id number] [place] [address]- 3434 Oct, [facility] [place] [facility] [address] [id number] [place] [address]- 4716 Oct, [facility] [place] [facility] [address] [id number] [place] [address]- 4676 Oct, [facility] [place] [facility] [address] [id number] [place] [address]- 3729 Oct, [facility] [place] [facility] [address] [id number] [place] [address]- 5652 Oct, [facility] [place] [facility] [address] [id number] [place] [address]- 6307 Oct, [facility] [place] [facility] [address] [id number] [place] [address]- 1990 Oct, [facility] [place] [facility] [address] [id number] [place] [address]- 3632 Oct, [facility] [place] [facility] [address] [id number] [place] [address]- 7587 Oct, [facility] [place] [facility] [address] [id number] [place] [address]- 2793 September, [facility] [place] [facility] [address] [id number] [place] [address]- 4974 September, [facility] [place] [facility] [address] [id number] [place] 6385 September, [facility] [place] [facility] [address] [id number] [place] [address]- 1089 September, [facility] [place] [facility] [address] [id number] [place] [address]- 1624 September, [facility] [place] [facility] [address] [id number] [place] [address]- 3306 September, [facility] [place] [facility] [address] [id number] [place] [address]- 4832 Aug, [facility] [place] [facility] [address] [id number] [place] [address]- 7689 Aug, [facility] [place] [facility] [address] [id number] [place] [address]- 4070 Aug, [facility] [place] [facility] [address] [id number] [place] [address]- 7362 Aug, [facility] [place] [facility] [address] [id number] [place] [address]- 0709 Jul, [facility] [place] [facility] [address] [id number] [place] [address]- 0112 Jul, [facility] [place] [facility] [address] [id number] [place] [address]- 2994 Jul, [facility] [place] [facility] [address] [id number] [place] [address]- 4146 Jul, [facility] [place] [facility] [address] [id number] [place] [address]- 0694 Jul, [facility] [place] [facility] [address] [id number] [place] [address]- 4898 Jul, [facility] [place] [facility] [address] [id number] [place] [address]- 5960 Jul, [facility] [place] [facility] [address] [id number] [place] [address]- 2941 Jul, [facility] [place] [facility] [address] [id number] [place] [address]- 1971 Jul, [facility] [place] [facility] [address] [id number] [place] [address]- 8632 Jul, [facility] [place] [facility] [address] [id number] [place] [address]- 8891 May, [facility] [place] [facility] [address] [id number] [place] [address]- 9783 May, [facility] [place] [facility] [address] [id number] [place] [address]- 5043 May, [facility] [place] [facility] [address] [id number] [place] [address]- 8237 May, [facility] [place] [facility] [address] [id number] [place] [address]- 5163 Apr, [facility] [place] [facility] [address] [id number] [place] [address]- 4977 Apr, [facility] [place] [facility] [address] [id number] [place] [address]- 1523 Mar, [facility] [place] [facility] [address] [id number] [place] 4546 Mar, [facility] [place] [facility] [address] [id number] [place] [address]- 2572 Mar, [facility] [place] [facility] [address] [id number] [place] [address]- 6447 Mar, [facility] [place] [facility] [address] [id number] [place] [address]- 1927 Mar, [facility] [place] [facility] [address] [id number] [place] [address]- 6113 Mar, [facility] [place] [facility] [address] [id number] [place] [address]- 9235 Feb, [facility] [place] [facility] [address] [id number] [place] [address]- 8755 Feb, [facility] [place] [facility] [address] [id number] [place] [address]- 8736 Feb, [facility] [place] [facility] [address] [id number] [place] [address]- 7557 Feb, [facility] [place] [facility] [address] [id number] [place] [address]- 4102 Feb, [facility] [place] [facility] [address] [id number] [place] [address]- 5388 Jan, [facility] [place] [facility] [address] [id number] [place] [address]- 9269 Jan, [facility] [place] [facility] [address] [id number] [place] [address]- 6822 Jan, [facility] [place] [facility] [address] [id number] [place] [address]- 6910 Jan, [facility] [place] [facility] [address] [id number] [place] [address]- 2510 Dec, [facility] [place] [facility] [address] [id number] [place] [address]- 3977 Dec, [facility] [place] [facility] [address] [id number] [place] [address]- 5507 Dec, [facility] [place] [facility] [address] [id number] [place] [address]- 7497 15 Dec, 2012 [facility] [address] [id number] [place] [address]- 1334 Dec, [facility] [address] [id number] [place] [address]- 8053 Dec, [facility] [address] [id number] [place] [address]- 8898 Nov, [facility] [address] [id number] [place] [address]- 0765 Nov, [facility] [address] [id number] [place] [address]- 5716 Oct, [facility] [address] [id number] [place] [address]- 9924 Oct, [facility] [address] [id number] [place] [address]- 4520 Oct, [facility] [address] [id number] [place] [address]- 8567 September, [facility] [address] [id number] [place] [address]- 3124 Aug, [facility] [address] [id number] [place] [address]- 6285 Aug, [facility] [address] [id number] [place] [address]- 8431 Aug, [facility] [address] [id number] [place] [address] Aug, [facility] [address] [id number] [place] [address] Aug, [facility] [address] [id number] [place] [address] Aug, [facility] [address] [id number] [place] [address] Aug, [facility] [address] [id number] [place] [address] 26 Jul, 2012 [facility] [place] [facility] [address] [id number] [place] [address] 21 Jul, 2012 [facility] [address] [id number] [place] [address] 15 Jul, 2012 [facility] [place] [facility] [address] [id number] [place] [address] 14 Jul, 2012 [facility] [address] [id number] [place] [address] Jul, [facility] [place] [facility] [address] [id number] [place] [address] 13 Jul, 2012 [facility] [address] [id number] [place] [address] Jul, [facility] [address] [id number] [place] [address] 04 Jul, 2012 [facility] [address] [id number] [place] [address] 18 Jul, 2012 [facility] [place] [facility] [address] [id number] [place] [address] Jul, [facility] [place] [facility] [address] [id number] [place] [address] May, [facility] [place] [facility] [address] [id number], [place] [address] May, [facility] [place] [facility] [address] [id number] [place] [address] 15 May, 2012 [facility] [place] [facility] [address] [id number] [place] [address] 14 May, 2012 [facility] [place] [facility] [address] [id number] [place] [address] 18 Apr, 2012 [facility] [place] [facility] [address] [id number] [place] [address] Apr, [facility] [place] [facility] [address] [id number] [place] [address] Apr, [facility] [place] [facility] [address] [id number] [place] [address] Apr, [facility] [place] [facility] [address] [id number] [place] [address] Apr, [facility] [place] [facility] [address] [id number] [place] [address] Mar, [facility] [place] [facility] [address] [id number] [place] [address] Mar, [facility] [place] [facility] [address] [id number] [place] [address] Feb, [facility] [place] [facility] [address] [id number] [place] [address] Dec, [facility] [place] [facility] [address] [id number] [place] [address] Dec, [facility] [place] [facility] [address] [id number] [place] [address] Nov, [facility] [place] [facility] [address] [id number] [place] [address] Nov, [facility] [place] [facility] [address] [id number] [place] [address] Nov, [facility] [place] [facility] [address] [id number] [place] [address] Oct, [facility] [place] [facility] [address] [id number] [place] [address] Aug, [facility] [place] [facility] [address] [id number] [place] [address] Aug, [facility] [place] [facility] [address] [id number] [place] [address]68 [address], [address] [facility] [address] [facility] [id number], [place] [address] [address], [address] [facility] [address] [facility] [id number], [place] [address] [address], [address] [facility] [address] [facility] [id number], [place] [address] [address], [address] [facility] [address] [facility] [id number], [place] [address] [address], [address] [facility] [address] [facility] [id number], [place] [address]247 [address], [address] [facility] [address] [facility] [id number], [place] [address]697 [address], [address] [facility] [address] [facility] [id number] [address], [address] [facility] [id number], [place] [address] 30 Mar, [address] [facility] [id number], [place] [address] 18 [address], [address] [facility] [id number], [place] [address] [address], [address] [facility] [id number], [place] [address] 14 Apr, 2009 [facility] [id number], [place] [address] 17 Mar, [address] [facility] [id number], [place] [address] 15 Feb, 2009 [facility] [id number], [place] [address] 15 Feb, 2009 IMMUNIZATIONS No Known Immunizations SOCIAL HISTORY Never Assessed REASON FOR VISIT Refill request PLAN OF CARE VITAL SIGNS MEDICATIONS Medication Instructions Dosage Frequency Start Date End Date Duration Status Plavix 75 mg TAKE ONE TABLET BY MOUTH DAILY 30 Active Hydrochlorothiazide 25 mg TAKE ONE TABLET BY MOUTH DAILY 90 Active Wellbutrin XL 300 mg TAKE ONE TABLET BY MOUTH EVERY MORNING 30 Active Risperdal 2 mg TAKE ONE TABLET BY MOUTH EVERY NIGHT AT BEDTIME 30 Active RESULTS No Results PROCEDURES No [...]
--- OUTSIDE RECORDS SUMMARY | 2017-11-12 09:15 | XMS REPORT ---
Author Author ИРИНА DELVALLE Organization [employer] Address Unknown Phone Unavailable Care Team Providers Care Matcher Name Role Phone ИРИНА DELVALLE CP Unavailable Allergies No Known Allergies Problems [...] Active Problem Peripheral arterial disease I73.9 Active Assessment Paranoid schizophrenia F20.0 Active Problem History of intravenous drug use in remission Z87.898 Active Problem Chronic diastolic congestive heart failure I50.32 Active Problem Benign non-nodular prostatic hyperplasia with lower urinary tract symptoms N40.1 Active Medications No Known Medications Procedures Procedure Coding System Code Date Psych diagnostic evaluation, established patient CPT-4 74673 May 28, 2015 Results No Known Results Summary Purpose [employer] Submission
--- OUTSIDE RECORDS SUMMARY | 2017-11-12 09:15 | XMS REPORT ---
Author Author PAOLA LEE [facility] [employer] Address Unknown Phone Unavailable Care Team Providers Care Fax Machine Operator Name Role Phone PAOLA LEE CP [...]
--- OUTSIDE RECORDS SUMMARY | 2017-11-12 09:15 | XMS REPORT ---
Author Author ARIEL MANNING [facility] [employer] Address Unknown Phone Unavailable Care Team Providers Care Front Office Administrator Name Role Phone ARIEL MANNING CP Unavailable Allergies, Adverse Reactions, Alerts Substance [...] of wrist, 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 Active Assessment Oral candidiasis B37.0 Active Problem Peripheral arterial disease I73.9 Active Problem History of intravenous drug use in remission Z87.898 Active Problem Chronic diastolic congestive heart failure I50.32 Active Problem Benign non-nodular prostatic hyperplasia with lower urinary tract symptoms N40.1 Active Problem Pulmonary hypertension I27.2 Active Problem History of suicide attempt Z91.5 Active Medications Medication Code System Code Instructions Start Date End Date Status Dosage Caltrate 600+D Plus Minerals [facility] [address]-81 600 mg calcium- 400 unit September 09, 2011 not defined Isosorbide Dinitrate CR [facility] [address]-51 40 MG Orally Once a day 1 capsule Furosemide [facility] [address]-39 20 mg September 14, 2012 1 tablet by Oral route 1 time per day Fish Oil [facility] [address]-82 1000 MG Orally Once a day 2 capsule Hydrochlorothiazide [facility] 48562635756 25 TAKE ONE TABLET BY MOUTH DAILY Risperdal [facility] [address]-40 2 MG Orally at bedtime Once a day Jun 26, 2015 1 tablet Potassium Chloride Janay ER [facility] [address]-89 20 MEQ Orally Twice a day 1 tablet Isosorbide Dinitrate [facility] 33612647525 20 TAKE TWO TABLETS ( 40MG ) BY MOUTH DAILY MiraLax [facility] [address]-79 17 gm/dose Orally Once a day 17 grams mixed in 8 oz of water or juice Nystatin [facility] [address]-73 239710 UNIT/ML Mouth/Throat 4 times daily, continue until 7 days past improvement, swish and swallow December 18, 2015 December 25, 2015 as directed Flomax [facility] 66879837437 0.4 TAKE ONE CAPSULE BY MOUTH DAILY Plavix [facility] 48992035501 75 TAKE ONE TABLET BY MOUTH DAILY Wellbutrin XL [facility] [address]-30 300 Orally Once a day 1 tablet in the morning Zocor [facility] 09046663518 80 TAKE ONE TABLET BY MOUTH DAILY MUST HAVE FASTING LIPIDS FOR REFILL Lisinopril [facility] [address]-54 10 MG Orally Once a day Jun 04, 2015 1 tablet Mirtazapine [facility] [address]-37 15 MG Orally Once a day Jun 26, 2015 1 tablet before bedtime in the evening Ativan [facility] [address]-60 0.5 MG Orally Twice a day 1 tablet as needed Aspirin Adult Low Dose [facility] [address]-17 81 MG Orally Once a day 1 tablet Nitrostat [facility] [address]62[address] ONE TABLET UNDER THE TONGUE THREE TIMES A DAY NEEDED FOR CHEST PAIN. MAY REPEAT TWO TIMES EVERY FIVE MINUTES. Risperdal [facility] [address]-10 1 MG Orally in morning Once a day Jun 26, 2015 1 tablet Procedures Procedure Coding System Code Date Office Visit, Est Pt., Level 3 CPT-4 87618 December 18, 2015 Vital Signs Date/Time: December 18, 2015 Cardiac Monitoring Heart Rate 104 bpm Weight 212.0 lbs Height 67 in Blood Pressure Diastolic 90 mmHg Blood Pressure Systolic 142 mmHg Results No Known Results Summary Purpose [employer] Submission
--- OUTSIDE RECORDS SUMMARY | 2017-11-12 09:15 | XMS REPORT ---
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 Active 670414094 Problem Neuropathy G62.9 Active 174980770 Problem Cigarette nicotine dependence without complication F17.210 Active 26840403 Problem Essential hypertension I10 Active 06915612 Problem History of suicide attempt Z91.5 Active 621659984 Problem Coronary artery disease involving flandreau coronary 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.10 Active 0065502255916 Problem Oral candidiasis B37.0 Active 59068516 Problem Hypokalemia E87.6 Active 410746259 Problem Mixed hyperlipidemia E78.2 Active 226199987 Problem Tobacco use Z72.0 Active 760314446 Problem Paranoid schizophrenia F20.0 Active 20889341 Problem Benign non-nodular prostatic hyperplasia with lower urinary tract symptoms N40.1 Active 429408089 Problem Peripheral arterial disease I73.9 Active 304501413 Problem Pulmonary hypertension I27.2 Active 51252808 Problem History of intravenous drug use in remission Z87.898 Active 71431529 Problem Chronic diastolic congestive heart failure I50.32 Active 218650269 Problem 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 Active 29009106 ALLERGIES No Information ENCOUNTERS Encounter Location Date Diagnosis [facility] [id number] [address] Jul, Essential hypertension I10 [facility] [address] [id number] [address] Jul, [facility] [id number] [place] [address] 65366- 2362 Jul, [facility] [id number] [place] [address] 73718 -0435 May, Left foot pain M79.672 and Contusion of left foot, initial encounter S90.32XA [place] [address] [address] Apr, [facility] [id number] [place] [address] 98199- 1815 Apr, [place] [address] 25867- 3169 Mar, Neuropathy G62.9 and Essential hypertension I10 [place] [address] 13152- 8490 Mar, [place] [address] 15713- 0548 Mar, Essential hypertension I10 ; Neuropathy G62.9 ; Coronary artery disease involving flandreau coronary 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.10 and Cigarette nicotine dependence without complication F17.210 [place] [id number] [place] [address] 75781- 4936 Jan, [facility] [id number] [place] [address] 24307 -9409 Dec, Neuropathy G62.9 [facility] [id number] [place] [address] 55548- 0087 Nov, Essential hypertension I10 [place] [address] 69613- 2034 Mar, [place] [id number] [place] [address] 36810- 2659 Feb, [place] [address] 55747- 2594 Feb, [facility] [id number] [place] [address] 46789- 5872 07 Feb, 2016 Essential hypertension I10 ; Peripheral arterial disease I73.9 ; Coronary artery disease involving flandreau coronary 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.10 ; Cigarette nicotine dependence without complication F17.210 and Encounter for immunization Z23 [facility] [address] 33072- 3781 Dec, [facility] [address] 41286- 3469 Dec, Essential hypertension I10 ; Hematuria R31.9 and Ureteropelvic junction calculus N20.0 [facility] [address] 22446 -4726 Dec, Kellie infection of mouth B37.0 [facility] [address] 52164 -3212 Nov, Oral candidiasis B37.0 [facility] [id number] [place] [address] 82377- 9643 Nov, [facility] [address] 26435- 4826 Nov, [facility] [id number] [place] [address] 82684- 0397 Nov, Hematuria R31.9 [facility] [address] 74725- 2931 Oct, [facility] [id number] [place] [address] 71716- 1378 Jul, [facility] [address] 48395- 5162 Jul, [facility] [id number] [place] [address] 99059- 8729 Jul, [facility] [address] 59512- 5678 Jul, [facility] [id number] [place] [address] 52805- 5605 Jul, [facility] [id number] [place] [address] 29552- 0224 May, Paranoid schizophrenia F20.0 ; Major depression F32.9 and Generalized anxiety disorder F41.1 [facility] [id number] [place] [address] 56556- 7508 May, [facility] [id number] [place] [address] 47374- 5636 May, [facility] [id number] [place] [address] 34061- 3740 May, Paranoid schizophrenia F20.0 ; Essential hypertension I10 and Agitation R45.1 [facility] [id number] [place] [address] 97718- 1131 Apr, Paranoid schizophrenia F20.0 [facility] [id number] [place] [address] 18280- 6764 Apr, [facility] [id number] [place] [address] 18601- 6436 Mar, [facility] [id number] [place] [address] 49652- 2642 Mar, [facility] [id number] [place] [address] 15646- 1358 Feb, [facility] [id number] [place] [address] 09039- 7974 Feb, Osteoarthritis of spine with radiculopathy, 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 ; Encounter for immunization Z23 ; Primary osteoarthritis of wrist, 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 ; Essential hypertension I10 and Opiate use F11.90 [facility] [id number] [place] [address] 44647- 5040 Feb, [facility] [address] [id number] [address] Jan, Cervicalgia 723.1 ; 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 and Traumatic hematoma of left hand 923.20 [facility] [address], [place] [address]- 6412 Jan, [facility] [id number] [place] [address] 23143- 9093 Jan, [facility] [id number] [place] [address] 34928- 1489 Dec, [facility] [id number] [place] [address] 305906- 7475 Dec, Pain in joint, forearm 719.43 ; Cervicalgia 723.1 and Hyperlipidemia 272.4 [facility] [id number] [address]- 2172 Dec, [facility] [id number] [place] [address] 93877- 2979 Nov, Cervicalgia 723.1 ; Hyperlipidemia 272.4 ; 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 ; Carotid occlusion, right 433.10 and Peripheral arterial disease 443.9 [facility] [address], [place] [address]- 0400 Nov, [facility] [address] [address]- 3422 Oct, [facility] [id number] [place] [address] 73328- 5676 Oct, [facility] [address] [place] [address] 11731- 5236 Oct, [facility] [id number] [place] [address] [id number]- 8332 September, [facility] [address] [address] [address]64 Aug, [facility] [address] [place] [address]- 4353 Aug, [facility] [place] [facility] [address] [id number] [place] [address]- 0387 Jul, [facility] [place] [facility] [address] [id number] [place] [address]- 6039 Jul, [facility] [place] [facility] [address] [id number] [place] [address]- 6577 Jul, [facility] [place] [facility] [address] [id number] [place] [address]- 4384 Jul, [facility] [place] [facility] [address] [id number] [place] [address]- 9390 Jul, [facility] [place] [facility] [address] [facility] [id number] [place] [address]- 0938 Jul, [facility] [place] [facility] [address] [facility] [id number] [place] [address]- 4071 Jul, [facility] [place] [facility] [address] [id number] [place] [address]- 2414 Jul, [facility] [place] [facility] [address] [facility] [id number] [place] [address]- 0372 Jul, [facility] [place] [facility] [address] [facility] [id number] [place] [address]- 8806 Jul, [facility] [place] [facility] [address] [facility] [id number] [place] [address]- 4444 Jul, [facility] [place] [facility] [address] [facility] [id number] [place] [address]- 9754 Jul, [facility] [place] [facility] [address] [id number] [place] [address]- 2245 Jul, [facility] [place] [facility] [address] [facility] [id number] [place] 4952 May, [facility] [place] [facility] [address] [facility] [id number] [place] [address]- 6191 May, [facility] [place] [facility] [address] [id number] [place] [address]- 2406 May, [facility] [place] [facility] [address] [id number] [place] [address]- 2106 May, [facility] [place] [facility] [address] [id number] [place] [address]- 9202 May, [facility] [place] [facility] [address] [id number] [place] [address]- 3396 May, [facility] [place] [facility] [address] [id number] [place] [address]- 4715 May, [facility] [place] [facility] [address] [id number] [place] [address]- 2266 May, [facility] [place] [facility] [address] [id number] [place] [address]- 1187 May, [facility] [place] [facility] [address] [id number] [place] [address]- 4734 May, [facility] [place] [facility] [address] [id number] [place] [address]- 6253 May, [facility] [place] [facility] [address] [id number] [place] [address]- 5730 May, [facility] [place] [facility] [address] [id number] [address]- 4444 May, [facility] [place] [facility] [address] [id number] [address]- 4818 May, [facility] [place] [facility] [address] [id number] [place] [address]- 2708 May, [facility] [place] [facility] [address] [id number] [place] [address]- 8605 May, [facility] [place] [facility] [address] [id number] [place] [address]- 8900 May, [facility] [place] [facility] [address] [id number] [place] [address]- 5756 30 Apr, 2014 [facility] [place] [facility] [address] [id number] [place] [address]- 0916 Apr, [facility] [place] [facility] [address] [id number] [place] [address]- 2736 Apr, [facility] [place] [facility] [address] [id number] [place] [address]- 8186 Apr, [facility] [place] [facility] [address] [id number] [place] [address]- 3541 Apr, [facility] [place] [facility] [address] [id number] [place]24 Apr, [facility] [place] [facility] [address] [id number] [place] [address]- 1583 Apr, [facility] [place] [facility] [address] [id number] [place] [address]- 2075 Apr, [facility] [place] [facility] [address] [id number] [place] [address]- 1690 Apr, [facility] [place] [facility] [address] [id number] [place] [address]- 5610 Apr, [facility] [place] [facility] [address] [id number] [place] [address]- 3340 Apr, [facility] [place] [facility] [address] [id number] [place] [address]- 8342 Apr, [facility] [place] [facility] [address] [id number] [place] [address]- 5194 Mar, [facility] [place] [facility] [address] [id number] [place] [address]- 0340 Mar, [facility] [place] [facility] [address] [id number] [place] [address]- 8627 Mar, [facility] [place] [facility] [address] [id number] [place] [address]- 5333 Mar, [facility] [place] [facility] [address] [id number] [place] [address]- 4214 Feb, [facility] [place] [facility] [address] [id number] [place] [address]- 3292 Feb, [facility] [place] [facility] [address] [id number] [place] [address]- 6355 Feb, [facility] [place] [facility] [address] [id number] [place] [address]- 6632 Feb, [facility] [place] [facility] [address] [id number] [place] [address]- 5830 Feb, [facility] [place] [facility] [address] [id number] [place] [address]- 8804 Feb, [facility] [place] [facility] [address] [id number] [place] [address]- 2184 Nov, [facility] [place] [facility] [address] [id number] [place] [address]- 9756 Nov, [facility] [place] [facility] [address] [id number] [place] [address]- 2479 Oct, [facility] [place] [facility] [address] [id number] [place] [address]- 7981 Oct, [facility] [place] [facility] [address] [id number] [place] [address]- 6094 Oct, [facility] [place] [facility] [address] [id number] [place] [address]- 5013 Oct, [facility] [place] [facility] [address] [id number] [place] [address]- 0309 Oct, [facility] [place] [facility] [address] [id number] [place] [address]- 4534 Oct, [facility] [place] [facility] [address] [id number] [place] [address]- 2091 Oct, [facility] [place] [facility] [address] [id number] [place] [address]- 4352 Oct, [facility] [place] [facility] [address] [id number] [place] [address]- 3122 Oct, [facility] [place] [facility] [address] [id number] [place] [address]- 2455 Oct, [facility] [place] [facility] [address] [id number] [place] [address]- 4673 September, [facility] [place] [facility] [address] [id number] [place] [address]- 2716 September, [facility] [place] [facility] [address] [id number] [place] 7073 September, [facility] [place] [facility] [address] [id number] [place] [address]- 5850 September, [facility] [place] [facility] [address] [id number] [place] [address]- 1294 September, [facility] [place] [facility] [address] [id number] [place] [address]- 0868 September, [facility] [place] [facility] [address] [id number] [place] [address]- 7579 Aug, [facility] [place] [facility] [address] [id number] [place] [address]- 8793 Aug, [facility] [place] [facility] [address] [id number] [place] [address]- 6882 Aug, [facility] [place] [facility] [address] [id number] [place] [address]- 9334 Aug, [facility] [place] [facility] [address] [id number] [place] [address]- 4858 Jul, [facility] [place] [facility] [address] [id number] [place] [address]- 7060 Jul, [facility] [place] [facility] [address] [id number] [place] [address]- 4741 Jul, [facility] [place] [facility] [address] [id number] [place] [address]- 6601 Jul, [facility] [place] [facility] [address] [id number] [place] [address]- 0304 Jul, [facility] [place] [facility] [address] [id number] [place] [address]- 7720 Jul, [facility] [place] [facility] [address] [id number] [place] [address]- 0726 Jul, [facility] [place] [facility] [address] [id number] [place] [address]- 4907 Jul, [facility] [place] [facility] [address] [id number] [place] [address]- 5154 Jul, [facility] [place] [facility] [address] [id number] [place] [address]- 9701 Jul, [facility] [place] [facility] [address] [id number] [place] [address]- 1188 May, [facility] [place] [facility] [address] [id number] [place] [address]- 5472 May, [facility] [place] [facility] [address] [id number] [place] [address]- 5527 May, [facility] [place] [facility] [address] [id number] [place] [address]- 3287 May, [facility] [place] [facility] [address] [id number] [place] [address]- 8504 Apr, [facility] [place] [facility] [address] [id number] [place] [address]- 9364 Apr, [facility] [place] [facility] [address] [id number] [place] [address]- 0876 Mar, [facility] [place] [facility] [address] [id number] [place] 3500 Mar, [facility] [place] [facility] [address] [id number] [place] [address]- 6275 Mar, [facility] [place] [facility] [address] [id number] [place] [address]- 0739 Mar, [facility] [place] [facility] [address] [id number] [place] [address]- 2834 Mar, [facility] [place] [facility] [address] [id number] [place] [address]- 6493 Mar, [facility] [place] [facility] [address] [id number] [place] [address]- 9915 Feb, [facility] [place] [facility] [address] [id number] [place] [address]- 7946 Feb, [facility] [place] [facility] [address] [id number] [place] [address]- 6767 Feb, [facility] [place] [facility] [address] [id number] [place] [address]- 0379 Feb, [facility] [place] [facility] [address] [id number] [place] [address]- 3182 Feb, [facility] [place] [facility] [address] [id number] [place] [address]- 8957 Jan, [facility] [place] [facility] [address] [id number] [place] [address]- 9208 Jan, [facility] [place] [facility] [address] [id number] [place] [address]- 5777 Jan, [facility] [place] [facility] [address] [id number] [place] [address]- 1424 Jan, [facility] [place] [facility] [address] [id number] [place] [address]- 4106 Dec, [facility] [place] [facility] [address] [id number] [place] [address]- 2868 Dec, [facility] [place] [facility] [address] [id number] [place] [address]- 2733 Dec, [facility] [place] [facility] [address] [id number] [place] [address]- 9464 15 Dec, 2012 [facility] [address] [id number] [place] [address]- 5217 Dec, [facility] [address] [id number] [place] [address]- 6251 Dec, [facility] [address] [id number] [place] [address]- 0407 Nov, [facility] [address] [id number] [place] [address]- 7240 Nov, [facility] [address] [id number] [place] [address]- 5141 Oct, [facility] [address] [id number] [place] [address] Oct, [facility] [address] [id number] [place] [address] Oct, [facility] [address] [id number] [place] [address] September, [facility] [address] [id number] [place] [address] Aug, [facility] [address] [id number] [place] [address] Aug, [facility] [address] [id number] [place] [address] Aug, [facility] [address] [id number] [place] [address] Aug, [facility] [address] [id number] [place] [address] Aug, [facility] [address] [id number] [place] [address] Aug, [facility] [address] [id number] [place] [address] Aug, [facility] [address] [id number] [place] [address] 26 Jul, 2012 [facility] [place] [facility] [address] [id number] [place] [address] 21 Jul, 2012 [facility] [address] [id number] [place] [address] 15 Jul, 2012 [facility] [place] [facility] [address] [id number] [place] [address] 14 Jul, 2012 [facility] [address] [id number] [place] [address] Jul, [facility] [place] [facility] [address] [id number] [place] [address] 13 Jul, 2012 [facility] [address] [id number] [place] [address] Jul, [facility] [address] [id number] [place] [address] 04 Jul, 2012 [facility] [address] [id number] [place] [address] 18 Jul, 2012 [facility] [place] [facility] [address] [id number] [place] [address] Jul, [facility] [place] [facility] [address] [id number] [place] [address] May, [facility] [place] [facility] [address] [id number], [place] [address] May, [facility] [place] [facility] [address] [id number] [place] [address] 15 May, 2012 [facility] [place] [facility] [address] [id number] [place] [address] 14 May, 2012 [facility] [place] [facility] [address] [id number] [place] [address] 18 Apr, 2012 [facility] [place] [facility] [address] [id number] [place] [address] Apr, [facility] [place] [facility] [address] [id number] [place] [address] Apr, [facility] [place] [facility] [address] [id number] [place] [address] Apr, [facility] [place] [facility] [address] [id number] [place] [address] Apr, [facility] [place] [facility] [address] [id number] [place] [address] Mar, [facility] [place] [facility] [address] [id number] [place] [address] Mar, [facility] [place] [facility] [address] [id number] [place] [address] Feb, [facility] [place] [facility] [address] [id number] [place] [address] Dec, [facility] [place] [facility] [address] [id number] [place] [address] Dec, [facility] [place] [facility] [address] [id number] [place] [address] Nov, [facility] [place] [facility] [address] [id number] [place] [address] Nov, [facility] [place] [facility] [address] [id number] [place] [address] Nov, [facility] [place] [facility] [address] [id number] [place] [address] Oct, [facility] [place] [facility] [address] [id number] [place] [address]47 Aug, [facility] [place] [facility] [address] [id number] [place] [address] Aug, [facility] [place] [facility] [address] [id number] [place] [address] 16 Aug, 2011 [facility] [address] [facility] [id number], [place] [address] 12 Aug, 2011 [facility] [id number], [place] [address] Aug, [facility] [id number], [place] [address] 28 Jul, 2011 [facility] [id number] [place] [address] 27 Jul, 2011 [facility] [address] [facility] [id number][place] [address] 15 Mar, 2011 [facility] [id number] [place] [address] 28 Apr, 2010 [facility] [id number] [address] Apr, [facility] [id number], [place] [address] 30 Mar, 2010 [facility] [id number], [place] [address] 18 Feb, 2010 [facility] [address] [id number], [place] [address] 14 Apr, 2009 [facility] [id number], [place] [address] 14 Apr, 2009 [facility] [id number], [place] [address] Mar, [facility] [id number] [address] 15 Feb, 2009 [facility] [id number] [id number] 15 Feb, 2009 IMMUNIZATIONS No Known Immunizations SOCIAL HISTORY Never Assessed REASON FOR VISIT [facility] PLAN OF CARE VITAL SIGNS MEDICATIONS Medication [...]
--- OUTSIDE RECORDS SUMMARY | 2017-11-12 09:16 | XMS REPORT ---
Author Author MIRELLA GONZALES [facility] eClinicalWorks Address Unknown Phone Unavailable Care Team Providers Care Stogie Packer Name Role Phone MIRELLA GONZALES CP Unavailable Allergies, Adverse Reactions, Alerts Substance Reaction Event Type morphine pale Drug Allergy Problems Problem Type Condition Code Onset Dates Condition Status Problem Essential hypertension I10 Active Problem Tobacco use Z72.0 Active Problem Carotid occlusion, right I65.21 Active Problem Cigarette nicotine dependence without complication F17.210 Active Assessment Coronary artery disease involving [place]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.10 Active Problem Oral candidiasis B37.0 Active Assessment Cigarette nicotine dependence without complication F17.210 Active Assessment Encounter for immunization Z23 Active Problem Coronary artery disease involving [place]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.10 Active Problem Hypokalemia E87.6 Active Problem Primary osteoarthritis of wrist, 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 Active Problem Paranoid schizophrenia F20.0 Active Problem Osteoarthritis of spine with radiculopathy, 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 Active Problem Chronic diastolic congestive heart failure I50.32 Active Problem Pulmonary hypertension I27.2 Active Assessment Peripheral arterial disease I73.9 Active Assessment Essential hypertension I10 Active Problem Benign non-nodular prostatic hyperplasia with [...] Instructions Start Date End Date Status Dosage Wellbutrin XL [facility] [address]-05 300 Orally Once a day 1 tablet in the morning Meloxicam [facility] [address]-14 15 MG Orally Once a day 1 tablet Ativan [facility] [address]-95 0.5 MG Orally Twice a day 1 tablet as needed Nitrostat [facility] [address]31926[address] ONE TABLET UNDER THE TONGUE THREE TIMES A DAY NEEDED FOR CHEST PAIN. MAY REPEAT TWO TIMES EVERY FIVE MINUTES. Zocor [facility] 25076188914 80 TAKE ONE TABLET BY MOUTH DAILY Hydrochlorothiazide [facility] 86905684760 25 TAKE ONE TABLET BY MOUTH DAILY Colace [facility] [address]-61 100 MG Orally Once a day 2 capsules as needed Mirtazapine [facility] [address]-27 15 MG Orally Once a day Jun 26, 2015 1 tablet before bedtime in the evening Risperdal [facility] [address]-39 2 MG Orally at bedtime Once a day Jun 26, 2015 1 tablet Fish Oil [facility] [address]-17 1000 MG Orally Once a day 2 capsule Plavix [facility] 47407600556 75 TAKE ONE TABLET BY MOUTH DAILY Isosorbide Dinitrate [facility] 47825403005 20 TAKE TWO TABLETS ( 40MG ) BY MOUTH DAILY Multi-Vitamin [facility] [address]-77 - Orally Once a day 2 tablets Flomax [facility] 24711123012 0.4 TAKE ONE CAPSULE BY MOUTH DAILY Aspirin [facility] [address]-38 325 MG Orally Once a day 1 tablet Procedures Procedure Coding System Code Date FLUARIX QUAD P-FREE 3 AND UP .50 2015 CPT-4 49142 Mar 06, 2016 SINGLE IMMUNIZATION ADMIN CPT-4 39205 Mar 06, 2016 Office Visit, Est Pt., Level 4 CPT-4 12816 Mar 06, 2016 Vital Signs Date/Time: Mar 06, 2016 Cardiac Monitoring Heart Rate 82 bpm Weight 209.3 lbs Height 67 in BMI 32.78 Index Blood Pressure Diastolic 90 mmHg Blood Pressure Systolic 120 mmHg Results No Known Results Immunizations Vaccine Administration Date FLUARIX QUAD P-FREE 3 AND UP .50 2015Mar 06, 2016 Summary Purpose eClinicalWorks Submission
--- OUTSIDE RECORDS SUMMARY | 2017-11-12 09:16 | XMS REPORT ---
Author Author PAOLA LEE eClinicalWorks Address Unknown Phone Unavailable Care Team Providers Care Logging Contractor Name Role Phone PAOLA LEE CP Unavailable [...]
--- OUTSIDE RECORDS SUMMARY | 2017-11-12 09:16 | XMS REPORT ---
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 Active Problem Chronic diastolic congestive heart failure I50.32 Active Problem Benign non-nodular prostatic hyperplasia with lower urinary tract symptoms N40.1 Active Medications Medication Code System Code Instructions Start Date End Date Status Dosage Metformin HCl [facility] 98118176911 1000 MG Orally Twice a day 1 tablet with meals Hydrochlorothiazide [facility] 08488909698 25 TAKE ONE TABLET BY MOUTH DAILY Zocor [facility] 00182903656 80 TAKE ONE TABLET BY MOUTH DAILY MUST HAVE FASTING LIPIDS FOR REFILL Wellbutrin XL [facility] [address]-93 300 Orally Once a day 1 tablet in the morning Potassium Chloride Janay ER [facility] [address]-02 20 MEQ Orally Twice a day 1 tablet MiraLax [facility] [address]-75 17 gm/dose Orally Once a day 17 grams mixed in 8 oz of water or juice Flomax [facility] 08077770350 0.4 TAKE ONE CAPSULE BY MOUTH DAILY Aspirin Adult Low Dose [facility] [address]-32 81 MG Orally Once a day 1 tablet Plavix [facility] 29894635770 75 TAKE ONE TABLET BY MOUTH DAILY Risperdal [facility] [address]-59 1 MG Orally in morning Once a day Jun 26, 2015 1 tablet Mirtazapine [facility] [address]-87 15 MG Orally Once a day Jun 26, 2015 1 tablet before bedtime in the evening Nitrostat [facility] [address] ONE TABLET UNDER THE TONGUE THREE TIMES A DAY NEEDED FOR CHEST PAIN. MAY REPEAT TWO TIMES EVERY FIVE MINUTES. Fish Oil [facility] [address]-57 1000 MG Orally Once a day 2 capsule Lisinopril [facility] [address]-25 10 MG Orally Once a day Jun 04, 2015 1 tablet Isosorbide Dinitrate [facility] 35907224114 20 TAKE TWO TABLETS ( 40MG ) BY MOUTH DAILY Caltrate 600+D Plus Minerals [facility] [address]-04 600 mg calcium- 400 unit September 09, 2011 not defined Risperdal [facility] [address]-97 2 MG Orally at bedtime Once a day Jun 26, 2015 1 tablet Isosorbide Dinitrate CR [facility] [address]-14 40 MG Orally Once a day 1 capsule Ativan [facility] [address]-27 0.5 MG Orally Twice a day 1 tablet as needed Furosemide [facility] [address]-46 20 mg September 14, 2012 1 tablet by Oral route 1 time per day Procedures Procedure Coding System Code Date Psych diagnostic evaluation w/medical services, established patient CPT-4 57297 Jun 26, 2015 Vital Signs Date/Time: Jun 26, 2015 Cardiac Monitoring Heart Rate 76 bpm Weight 215 lbs Height 67 in BMI 33.67 Index Blood Pressure Diastolic 70 mmHg Blood Pressure Systolic 122 mmHg Results No Known Results Summary Purpose eClinicalWorks Submission
--- OUTSIDE RECORDS SUMMARY | 2017-11-12 09:16 | XMS REPORT ---
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 Active 655457240 Problem Neuropathy G62.9 Active 704593147 Problem Cigarette nicotine dependence without complication F17.210 Active 24168257 Problem Essential hypertension I10 Active 29162303 Problem History of suicide attempt Z91.5 Active 870113956 Problem Coronary artery disease involving [place] coronary artery of [place] heart without angina pectoris I25.10 Active 1035423184739 Problem Oral candidiasis B37.0 Active 50973866 Problem Hypokalemia E87.6 Active 816362687 Problem Mixed hyperlipidemia E78.2 Active 925533075 Problem Tobacco use Z72.0 Active 784158912 Problem Paranoid schizophrenia F20.0 Active 11680257 Problem Benign non-nodular prostatic hyperplasia with lower urinary tract symptoms N40.1 Active 306494893 Problem Peripheral arterial disease I73.9 Active 963145988 Problem Pulmonary hypertension I27.2 Active 32756057 Problem History of intravenous drug use in remission Z87.898 Active 94196157 Problem Chronic diastolic congestive heart failure I50.32 Active 294332332 Problem 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 [address] [facility] [id number] [address] Jul, Essential hypertension I10 [facility] [id number] [place] [address] 98950- 9756 Jul, [facility] [id number] [place] [address] 29127- 4244 Jul, [facility] [id number] [place] [address] 23221 -9165 May, Left foot pain M79.672 and Contusion of left foot, initial encounter S90.32XA [facility] [address] [address]- [address]13 Apr, [facility] [address] 61439- 0157 Apr, [facility] [address] 17556- 9239 Mar, Neuropathy G62.9 and Essential hypertension I10 [place] [address] [address]- [address]40 Mar, [facility] [id number] [place] [address] 63173- 4442 Mar, Essential hypertension I10 ; Neuropathy G62.9 ; Coronary artery disease involving [place] coronary artery of [place] heart without angina pectoris I25.10 and Cigarette nicotine dependence without complication F17.210 [facility] [id number] [place] [address] 20412- 9740 Jan, [facility] [id number] [place] [address] 60690 -3349 Dec, Neuropathy G62.9 [facility] [id number] [place] [address] 98764- 1937 Nov, Essential hypertension I10 [facility] [id number] [place] [address] 34040- 5212 Mar, [facility] [id number] [place] [address] 13675- 2106 Feb, [facility] [address] 03203- 0156 Feb, [facility] [id number] [place] [address] 44365- 7571 Feb, Essential hypertension I10 ; Peripheral arterial disease I73.9 ; Coronary artery disease involving [place] coronary artery of [place] heart without angina pectoris I25.10 ; Cigarette nicotine dependence without complication F17.210 and Encounter for immunization Z23 [facility] [id number] [place] [address] 95188- 8313 Dec, [facility] [id number] [place] [address] 84272- 8024 Dec, Essential hypertension I10 ; Hematuria R31.9 and Ureteropelvic junction calculus N20.0 [facility] [id number] [place] [address] 29187 -3999 Dec, Kellie infection of mouth B37.0 [facility] [id number] [place] [address] 86058 -3357 Nov, Oral candidiasis B37.0 [facility] [id number] [place] [address] 57846- 9610 Nov, [facility] [id number] [place] [address] 15192- 9443 Nov, [facility] [id number] [place] [address] 03989- 6889 Nov, Hematuria R31.9 [facility] [id number] [place] [address] 53213- 6799 Oct, [facility] [address] [address]14 Jul, [facility] [id number] [place] [address] 57633- 4438 Jul, [facility] [address] [address] 1413 Jul, [facility] [id number] [place] [address] 25182- 3041 Jul, [facility] [address] 78712- 0083 Jul, [facility] [address] 35705- 8227 May, Paranoid schizophrenia F20.0 ; Major depression F32.9 and Generalized anxiety disorder F41.1 [facility] [address] 48046- 3999 May, [facility] [address] 45892- 7319 May, [place] [address] 56566- 2379 May, Paranoid schizophrenia F20.0 ; Essential hypertension I10 and Agitation R45.1 [place] [address] 21210- 0052 Apr, Paranoid schizophrenia F20.0 [place] [id number] [place] [address] 11438- 5969 Apr, [place] [address] 64260- 1879 Mar, [place] [id number] [place] [address] 01154- 9911 Mar, [place] [id number] [place] [address] 76964- 3910 Feb, 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 [address] 12505- 1876 Feb, [facility] [address] [address]- 4072 Jan, Cervicalgia 723.1 ; 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 and Traumatic hematoma of left hand 923.20 [facility] [address] [address] Jan, [facility] [id number] [place] [address] 26706- 2786 Jan, [facility] [id number] [place] [address] 53917- 3541 Dec, [facility] [id number] [place] [address] 308262- 0258 Dec, Pain in joint, forearm 719.43 ; Cervicalgia 723.[address] [facility] [id number] [place] [address] 37628- 1086 Dec, [facility] [id number] [place] [address] 21926- 3680 Nov, Cervicalgia 723.1 ; Hyperlipidemia 272.4 ; 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 ; Carotid occlusion, right 433.10 and Peripheral arterial disease 443.9 [facility] [address] [id number] [address]- 3501 Nov, [facility] [id number] [place] [address] 17161- 0857 Oct, [facility] [id number] [place] [address] 72647- 2956 Oct, [facility] [id number] [place] [address] 61717- 3421 Oct, [facility] [address] [id number] 1466 September, [facility] [id number] [place] [address] 781403- 2524 Aug, [facility] [place] [facility] [address] [id number] [place] [address]- 9041 Aug, [facility] [place] [facility] [address] [id number] [place] [address]- 6701 Jul, [facility] [place] [facility] [address] [id number] [place] 2960 Jul, [facility] [place] [facility] [address] [id number] [place] [address]- 3119 Jul, [facility] [place] [facility] [address] [id number] [place] [address]- 9945 Jul, [facility] [place] [facility] [address] [id number] [place] [address]- 6466 Jul, [facility] [place] [facility] [address] [facility] [id number] [place] [address]- 0487 Jul, [facility] [place] [facility] [address] [id number] [place] [address]- 8833 Jul, [facility] [place] [facility] [address] [id number] [place] [address]- 8845 Jul, [facility] [place] [facility] [address] [facility] [id number] [place] [address]- 6805 Jul, [facility] [place] [facility] [address] [facility] [id number] [place] [address]- 0998 Jul, [facility] [place] [facility] [address] [id number] [place] [address]- 2802 Jul, [facility] [place] [facility] [address] [id number] [place] [address]- 7838 Jul, [facility] [place] [facility] [address] [facility] [id number] [place] [address]- 7957 Jul, [facility] [place] [facility] [address] [facility] [id number] [place] [address]- 9520 May, [facility] [place] [facility] [address] [id number] [place] [address]- 5630 May, [facility] [address] [id number] [place] [address]- 8777 May, [facility] [place] [facility] [address] [id number] [place] [address]- 7268 May, [facility] [place] [facility] [address] [id number] [place] [address]- 2140 May, [facility] [place] [facility] [address] [id number] [place] [address]- 6679 May, [facility] [place] [facility] [address] [id number] [place] [address]- 1668 May, [facility] [place] [facility] [address] [id number] [place] [address]- 7785 May, [facility] [place] [facility] [address] [id number] [place] [address]- 9728 May, [facility] [place] [facility] [address] [id number] [place] [address]- 1987 May, [facility] [place] [facility] [address] [id number] [place] [address]- 9111 May, [facility] [place] [facility] [address] [id number] [place] [address]- 1202 May, [facility] [place] [facility] [address] [id number] [place] [address]- 8351 May, [facility] [place] [facility] [address] [id number] [place] [address]- 8765 May, [facility] [place] [facility] [address] [id number] [place] [address]- 7206 May, [facility] [place] [facility] [address] [id number] [place] [address]- 9045 May, [facility] [place] [facility] [address] [id number] [place] [address]- 1773 May, [facility] [place] [facility] [address] [id number] [place] [address]- 3714 Apr, [facility] [place] [facility] [address] [id number] [place] [address]- 4254 Apr, [facility] [place] [facility] [address] [id number] [place] [address]- 0528 Apr, [facility] [place] [facility] [address] [id number] [place] [address]- 3427 Apr, [facility] [place] [facility] [address] [id number] [place] [address]- 0125 Apr, [facility] [place] [facility] [address] [id number] [place] [address]- 8202 Apr, [facility] [place] [facility] [address] [id number] [place] [address]- 5740 Apr, [facility] [place] [facility] [address] [id number] [place] [address]- 8425 Apr, [facility] [place] [facility] [address] [id number] [place] [address]- 2710 Apr, [facility] [place] [facility] [address] [id number] [place] [address]- 0717 Apr, [facility] [place] [facility] [address] [id number] [place] [address]- 8309 Apr, [facility] [place] [facility] [address] [id number] [place] [address]- 5971 Apr, [facility] [place] [facility] [address] [id number] [place] [address]- 8499 Mar, [facility] [place] [facility] [address] [id number] [place] 6439 Mar, [facility] [place] [facility] [address] [id number] [place] 0543 Mar, [facility] [place] [facility] [address] [id number] [place] [address]- 8234 Mar, [facility] [place] [facility] [address] [id number] [place] [address]- 5987 Feb, [facility] [place] [facility] [address] [id number] [place] [address]- 0982 Feb, [facility] [place] [facility] [address] [id number] [place] [address]- 3095 Feb, [facility] [place] [facility] [address] [id number] [place] [address]- 7621 Feb, [facility] [place] [facility] [address] [id number] [place] [address]- 6116 Feb, [facility] [place] [facility] [address] [id number] [place] [address]- 1531 Feb, [facility] [place] [facility] [address] [id number] [place] [address]- 9654 Nov, [facility] [place] [facility] [address] [id number] [place] [address]- 1071 Nov, [facility] [place] [facility] [address] [id number] [place] [address]- 7586 Oct, [facility] [place] [facility] [address] [facility] [id number] [place] [address]- 1733 Oct, [facility] [place] [facility] [address] [id number] [place] [address]- 9039 Oct, [facility] [place] [facility] [address] [id number] [place] [address]- 4201 Oct, [facility] [place] [facility] [address] [id number] [place] [address]- 9008 Oct, [facility] [place] [facility] [address] [id number] [place] [address]- 6795 Oct, [facility] [place] [facility] [address] [facility] [id number] [place] [address]- 1873 Oct, [facility] [place] [facility] [address] [id number] [place] [address]- 2128 Oct, [facility] [place] [facility] [address] [id number] [place] [address]- 4791 Oct, [facility] [place] [facility] [address] [id number] [place] [address]- 5401 Oct, [facility] [place] [facility] [address] [id number] [place] [address]- 9531 September, [facility] [place] [facility] [address] [id number] [place] [address]- 6934 September, [facility] [place] [facility] [address] [id number] [place] [address]- 8512 September, [facility] [place] [facility] [address] [id number] [place] [address]- 7786 September, [facility] [place] [facility] [address] [id number] [place] [address]- 4491 September, [facility] [place] [facility] [address] [id number] [place] [address]- 3550 September, [facility] [place] [facility] [address] [id number] [place] [address]- 0820 Aug, [facility] [place] [facility] [address] [id number] [place] [address]- 7183 Aug, [facility] [place] [facility] [address] [id number] [place] [address]- 7609 Aug, [facility] [place] [facility] [address] [id number] [place] [address]- 1814 Aug, [facility] [place] [facility] [address] [id number] [place] [address]- 8398 Jul, [facility] [place] [facility] [address] [id number] [place] [address]- 6429 Jul, [facility] [place] [facility] [address] [id number] [place] [address]- 5187 Jul, [facility] [place] [facility] [address] [id number] [place] [address]- 0606 Jul, [facility] [place] [facility] [address] [id number] [place] [address]- 0087 Jul, [facility] [place] [facility] [address] [id number] [place] [address]- 5582 Jul, [facility] [place] [facility] [address] [id number] [place] [address]- 7235 Jul, [facility] [place] [facility] [address] [id number] [place] [address]- 3567 Jul, [facility] [place] [facility] [address] [id number] [place] [address]- 9168 Jul, [facility] [place] [facility] [address] [id number] [place] [address]- 9833 Jul, [facility] [place] [facility] [address] [id number] [place] [address]- 7770 May, [facility] [place] [facility] [address] [id number] [place] [address]- 6443 May, [facility] [place] [facility] [address] [id number] [place] [address]- 1388 May, [facility] [place] [facility] [address] [id number] [place] [address]- 1695 May, [facility] [place] [facility] [address] [id number] [place] [address]- 4877 Apr, [facility] [place] [facility] [address] [id number] [place] [address]- 6154 Apr, [facility] [place] [facility] [address] [id number] [place] [address]- 7436 Mar, [facility] [place] [facility] [address] [id number] [place] [address]- 3996 Mar, [facility] [place] [facility] [address] [id number] [place] [address]- 5399 Mar, [facility] [place] [facility] [address] [id number] [place] [address]- 1626 Mar, [facility] [place] [facility] [address] [id number] [place] [address]- 5805 Mar, [facility] [place] [facility] [address] [id number] [place] [address]- 0639 Mar, [facility] [place] [facility] [address] [id number] [place] [address]- 1311 Feb, [facility] [place] [facility] [address] [id number] [place] [address]- 9373 Feb, [facility] [place] [facility] [address] [id number] [place] [address]- 7086 Feb, [facility] [place] [facility] [address] [id number] [place] [address]- 7724 Feb, [facility] [place] [facility] [address] [id number] [place] [address]- 6248 Feb, [facility] [place] [facility] [address] [id number] [place] [address]- 7734 Jan, [facility] [place] [facility] [address] [id number] [place] [address]- 5641 Jan, [facility] [place] [facility] [address] [id number] [place] [address]- 2180 Jan, [facility] [place] [facility] [address] [id number] [place] [address]- 9285 Jan, [facility] [place] [facility] [address] [id number] [place] [address]- 1343 Dec, [facility] [place] [facility] [address] [id number] [place] [address]- 4456 Dec, [facility] [place] [facility] [address] [id number] [place] [address]- 9932 Dec, [facility] [address] [id number] [place] [address]- 8399 Dec, [facility] [place] [facility] [address] [id number] [place] [address] Dec, [facility] [place] [facility] [address] [id number] [place] [address] Dec, [facility] [place] [facility] [address] [id number] [place] [address] Nov, [facility] [address] [id number] [place] [address] Nov, [facility] [place] [facility] [address] [id number] [place] [address] Oct, [facility] [place] [facility] [address] [id number] [place] [address] Oct, [facility] [place] [facility] [address] [id number] [place] [address] Oct, [facility] [place] [facility] [address] [id number] [place] [address] September, [facility] [place] [facility] [address] [id number] [place] [address] Aug, [facility] [place] [facility] [address] [id number] [place] [address] 47[address] Aug, [facility] [place] [facility] [address] [id number] [address] Aug, [facility] [place] [facility] [address] [id number] [place] [address] Aug, [facility] [place] [facility] [address] [id number] [place] [address] Aug, [facility] [place] [facility] [address] [id number] [place] [address] Aug, [facility] [place] [facility] [address] [id number] [place] [address] 04 Aug, 2012 [facility] [address] [id number] [place] [address] 26 Jul, 2012 [facility] [address] [id number] [place] [address] 21 Jul, 2012 [facility] [address] [id number] [place] [address] 15 Jul, 2012 [facility] [place] [facility] [address] [id number] [place] [address] 14 Jul, 2012 [facility] [address] [id number] [place] [address]90 13 Jul, 2012 [facility] [address] [id number] [place] [address] 13 Jul, 2012 [facility] [address] [id number] [place] [address] 47[address] 11 Jul, 2012 [facility] [address] [id number] [place] [address]- [address] 04 Jul, 2012 [facility] [address] [id number] [place] [address]791 18 Jul, 2012 [facility] [address] [id number] [place] [address] Jul, [facility] [address] [id number] [place] [address] 28 May, 2012 [facility] [place] [facility] [address] [id number] [place] [address] 15 May, 2012 [facility] [place] [facility] [address] [id number] [place] [address]703 15 May, 2012 [facility] [place] [facility] [address] [id number] [place] [address]448 14 May, 2012 [facility] [place] [facility] [address] [id number] [place] [address] Apr, [facility] [place] [facility] [address] [id number] [place] [address] Apr, [facility] [place] [facility] [address] [id number] [place] [address] 9516 Apr, [facility] [place] [facility] [address] [id number] [place] [address] Apr, [facility] [place] [facility] [address] [id number] [place] [address] Apr, [facility] [place] [facility] [address] [id number] [place] [address] Mar, [facility] [place] [facility] [address] [id number] [place] [address] Mar, [facility] [address] [id number] [place] [address] Feb, [facility] [place] [facility] [address] [id number] [place] [address]277 Dec, [facility] [place] [facility] [address] [id number] [place] [address] Dec, [facility] [place] [facility] [address] [id number] [place] [address] Nov, [facility] [place] [facility] [address] [id number] [place] [address] 7968 Nov, [facility] [place] [facility] [address] [id number] [place] [address] 9916 Nov, [facility] [place] [facility] [address] [id number] [place] [address] Oct, [facility] [place] [facility] [address] [id number] [place] [address] 79[address] Aug, [facility] [place] [facility] [address] [id number] [place] [address] Aug, [facility] [place] [facility] [address] [id number], [place] [address] [address] [facility] [id number] [address] [address], [address] [facility] [address] [facility] [id number], [place] [address] Aug, [facility] [id number] [place] [address] [address], [address] [facility] [address] [facility] [id number], [place] [address] [address], [address] [facility] [address] [facility] [id number], [place] [address] [address] [address] [facility] [facility] [id number] [id number] 28 Apr, 2010 [facility] [id number] [address] [address], [address] [facility] [id number] [address] [address] Mar, [address] [facility] [id number] [address] 18 Feb, [address] [facility] [id number] [address] [address], [address] [facility] [id number] [address] [address], [address] [facility] [id number] [address] 17 Mar, [address] [facility] [id number] [address] [address] Feb, [address] [facility] [id number] [address] Feb, IMMUNIZATIONS No Known Immunizations SOCIAL HISTORY Never Assessed REASON FOR VISIT Hypertension, foot pain, needs refills on medications-Bladimir GALLOWAY PLAN OF CARE Activity Details Follow Up 3 Months Reason: VITAL SIGNS Height 67 in 2017-04-02 Weight 213.9 lbs 2017-04-02 Temperature 98.5 degrees Fahrenheit 2017-04-02 Heart Rate 82 bpm 2017-04-02 Respiratory Rate 22 2017-04-02 BMI 33.50 kg/m2 2017-04-02 Blood pressure systolic 144 mmHg 2017-04-02 Blood pressure diastolic 100 mmHg 2017-04-02 MEDICATIONS Medication Instructions Dosage Frequency Start Date End Date Duration Status Ativan 0.5 TAKE ONE TABLET BY MOUTH TWICE A DAY NEEDED FOR ANXIETY/ AGITATION . MUST LAST 30 DAYS [address] TABLET UNDER THE TONGUE THREE TIMES A DAY NEEDED FOR CHEST PAIN. MAY REPEAT TWO TIMES EVERY FIVE MINUTES. 8 Active Lisinopril-Hydrochlorothiazide 20-25 MG Orally Once a day 1 tablet 24h Mar, 30 day(s) Active Risperdal Consta 37.5 MG/2ML Active Zocor 80 TAKE ONE TABLET BY MOUTH DAILY 90 Active Clopidogrel Bisulfate 75 MG Orally Once a day 1 tablet 24h Active Risperdal 2 MG Orally at bedtime Once a day 1 tablet 24h May, 30 day(s) Active Colace 100 MG Orally Once a day 2 capsules as needed 24h Active Meloxicam 15 MG Orally Once a day 1 tablet 24h Active Flomax 0.4 TAKE ONE CAPSULE BY MOUTH DAILY 90 Active Risperdal 2 mg TAKE ONE TABLET BY MOUTH EVERY NIGHT AT BEDTIME 30 Active Plavix 75 mg TAKE ONE TABLET BY MOUTH DAILY 30 Active Aspirin 81 MG Orally Once a day 1 tablet 24h Active Neurontin 600 MG Orally 3 times a day 1 capsule 8h Dec, 30 day( s) Active Isosorbide Dinitrate 20 mg Orally 2 times a day 2 tablet 12h 90 days Active Ativan 0.5 MG Orally Twice a day 1 tablet as needed 12h Active Wellbutrin XL 300 mg TAKE ONE TABLET BY MOUTH EVERY MORNING 30 Active Mirtazapine 15 MG Orally Once a day 1 tablet before bedtime in the evening 24h May, 30 day(s) Active Multi-Vitamin - Orally Once a day 2 tablets 24h Active Fish Oil 1000 MG Orally Once a day 2 capsule 24h Active RESULTS No Results PROCEDURES No Known [...] attempt-injected insulin 04/2010 Hospitalization History [facility] Methamphetamine 2016
--- OUTSIDE RECORDS SUMMARY | 2017-11-12 09:16 | XMS REPORT ---
Author Author PAOLA LEE [facility] eClinicalWorks Address Unknown Phone Unavailable Care Team Providers Care Support Manager Name Role Phone PAOLA LEE CP Unavailable [...]
--- OUTSIDE RECORDS SUMMARY | 2017-11-12 09:16 | XMS REPORT ---
Author Author MIRELLA GONZALES [facility] eClinicalWorks Address Unknown Phone Unavailable Care Team Providers Care Construction Carpenters Helper Name Role Phone MIRELLA GONZALES CP Unavailable Allergies No Known Allergies Problems Problem Type Condition Code Onset Dates Condition Status Problem Essential hypertension I10 Active Problem Tobacco use Z72.0 Active Problem Carotid occlusion, right I65.21 Active Problem Cigarette nicotine dependence without complication F17.210 Active Problem Oral candidiasis B37.0 Active Problem Coronary artery disease involving [place] coronary artery of [place] heart without angina pectoris I25.10 Active Problem [...] Instructions Start Date End Date Status Dosage Ativan [facility] [address]-72 0.5 MG Orally Twice a day 1 tablet as needed Results No Known Results Summary Purpose eClinicalWorks Submission
--- OUTSIDE RECORDS SUMMARY | 2017-11-12 09:16 | XMS REPORT ---
Author Author PAOLA LEE [facility] eClinicalWorks Address Unknown Phone Unavailable Care Team Providers Care [employer] Driver Name Role Phone PAOLA LEE CP Unavailable [...]
--- OUTSIDE RECORDS SUMMARY | 2017-11-12 09:17 | XMS REPORT ---
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 Active 768779720 Problem Neuropathy G62.9 Active 535797144 Problem Cigarette nicotine dependence without complication F17.210 Active 52033746 Problem Essential hypertension I10 Active 62467078 Problem History of suicide attempt Z91.5 Active 070416227 Problem Coronary artery 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 Active 7411167288270 Problem Oral candidiasis B37.0 Active 09632199 Problem Hypokalemia E87.6 Active 554576852 Problem Mixed hyperlipidemia E78.2 Active 992785852 Problem Tobacco use Z72.0 Active 889895524 Problem Paranoid schizophrenia F20.0 Active 18986424 Problem Benign non-nodular prostatic hyperplasia with lower urinary tract symptoms N40.1 Active 220403066 Problem Peripheral arterial disease I73.9 Active 508218132 Problem Pulmonary hypertension I27.2 Active 67767105 Problem History of intravenous drug use in remission Z87.898 Active 26952477 Problem Chronic diastolic congestive heart failure I50.32 Active 028928510 Problem 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 Active 43307470 ALLERGIES No Information ENCOUNTERS Encounter Location Date Diagnosis [facility] [id number] [address] Jul, Essential hypertension I10 [facility] [address] [id number], [place] [address] Jul, [facility] [id number] [place] [address] 98216- 1646 Jul, [facility] [id number] [place] [address] 07892 -8232 May, Left foot pain M79.672 and Contusion of left foot, initial encounter S90.32XA [place] [address] [address]- [address]147 Apr, [facility] [id number] [place] [address] 97808- 4419 Apr, [place] [address] [address]47- 2604 Mar, Neuropathy G62.9 and Essential hypertension I10 [place] [address] 92642- 5971 Mar, [place] [address] 44069- 1492 Mar, Essential hypertension I10 ; Neuropathy G62.9 ; Coronary artery 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 and Cigarette nicotine dependence without complication F17.210 [place] [id number] [place] [address] 76099- 9054 Jan, [facility] [id number] [place] [address] 67956 -6524 Dec, Neuropathy G62.9 [facility] [id number] [place] [address] 14957- 2348 Nov, Essential hypertension I10 [place] [address] 32266- 5107 Mar, [place] [id number] [place] [address] 63192- 1344 Feb, [place] [address] 59763- 5246 Feb, [facility] [id number] [place] [address] 06655- 1984 07 Feb, 2016 Essential hypertension I10 ; Peripheral arterial disease I73.9 ; Coronary artery 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 ; Cigarette nicotine dependence without complication F17.210 and Encounter for immunization Z23 [facility] [address] 92594- 8133 Dec, [facility] [address] 95406- 7207 Dec, Essential hypertension I10 ; Hematuria R31.9 and Ureteropelvic junction calculus N20.0 [facility] [address] 59832 -5473 Dec, Kellie infection of mouth B37.0 [facility] [address] 55909 -9683 Nov, Oral candidiasis B37.0 [facility] [id number] [place] [address] 97056- 0834 Nov, [facility] [address] 81282- 3817 Nov, [facility] [id number] [place] [address] 36097- 3730 Nov, Hematuria R31.9 [facility] [address] 43760- 8007 Oct, [facility] [id number] [place] [address] 93181- 6606 Jul, [facility] [address] 19259- 1789 Jul, [facility] [id number] [place] [address] 50293- 3117 Jul, [facility] [address] 17933- 1264 Jul, [facility] [id number] [place] [address] 30970- 1531 Jul, [facility] [id number] [place] [address] 42622- 2022 May, Paranoid schizophrenia F20.0 ; Major depression F32.9 and Generalized anxiety disorder F41.1 [facility] [id number] [place] [address] 41664- 4874 May, [facility] [id number] [place] [address] 15554- 4837 May, [facility] [id number] [place] [address] 49654- 0585 May, Paranoid schizophrenia F20.0 ; Essential hypertension I10 and Agitation R45.1 [facility] [id number] [place] [address] 80834- 5244 Apr, Paranoid schizophrenia F20.0 [facility] [id number] [place] [address] 32855- 1994 Apr, [facility] [id number] [place] [address] 45058- 3073 Mar, [facility] [id number] [place] [address] 14627- 0072 Mar, [facility] [id number] [place] [address] 07225- 3609 Feb, [facility] [id number] [place] [address] 27704- 0271 Feb, Encounter for immunization Z23 ; Osteoarthritis of spine with radiculopathy, 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 ; Primary osteoarthritis of wrist, 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 ; Essential hypertension I10 and Opiate use F11.90 [facility] [id number] [place] [address] 32809- 1474 Feb, [facility] [address] [address] 8073 Jan, Cervicalgia 723.1 ; 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 and Traumatic hematoma of left hand 923.20 [facility] [address], [place] [address]- 5703 Jan, [facility] [id number] [place] [address] 75927- 4950 Jan, [facility] [id number] [place] [address] 92407- 8758 Dec, [facility] [id number] [place] [address] 616113- 7541 Dec, Pain in joint, forearm 719.43 ; Cervicalgia 723.1 and Hyperlipidemia 272.4 [facility] [id number] [address]- 4120 Dec, [facility] [id number] [place] [address] 87976- 8252 Nov, Cervicalgia 723.1 ; Hyperlipidemia 272.4 ; 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 ; Carotid occlusion, right 433.10 and Peripheral arterial disease 443.9 [facility] [address], [place] [address]- 6392 Nov, [facility] [address] [address]- 9581 Oct, [facility] [id number] [place] [address] 18107- 2803 Oct, [facility] [id number] [place] [address] 12526- 7303 Oct, [facility] [id number] [place] [address] 80175538- 7109 September, [facility] [address] [address] Aug, [facility] [address] [address]- 4941 Aug, [facility] [place] [facility] [address] [id number] [place] [address]- 4721 Jul, [facility] [place] [facility] [address] [id number] [place] [address]- 7803 Jul, [facility] [place] [facility] [address] [id number] [place] [address]- 8458 Jul, [facility] [place] [facility] [address] [id number] [place] [address]- 5362 Jul, [facility] [place] [facility] [address] [id number] [place] [address]- 8443 Jul, [facility] [place] [facility] [address] [facility] [id number] [place] [address]- 2734 Jul, [facility] [place] [facility] [address] [facility] [id number] [place] [address]- 2369 Jul, [facility] [place] [facility] [address] [id number] [place] [address]- 0818 Jul, [facility] [place] [facility] [address] [facility] [id number] [place] [address]- 9162 Jul, [facility] [place] [facility] [address] [facility] [id number] [place] [address]- 6702 Jul, [facility] [place] [facility] [address] [facility] [id number] [place] [address]- 7037 Jul, [facility] [place] [facility] [address] [facility] [id number] [place] [address]- 9597 Jul, [facility] [place] [facility] [address] [id number] [place] [address]- 7372 Jul, [facility] [place] [facility] [address] [facility] [id number] [place] 0950 May, [facility] [place] [facility] [address] [facility] [id number] [place] [address]- 8065 May, [facility] [place] [facility] [address] [id number] [place] [address]- 8923 May, [facility] [place] [facility] [address] [id number] [place] [address]- 0538 May, [facility] [place] [facility] [address] [id number] [place] [address]- 1859 May, [facility] [place] [facility] [address] [id number] [place] [address]- 7712 May, [facility] [place] [facility] [address] [id number] [place] [address]- 6418 May, [facility] [place] [facility] [address] [id number] [place] [address]- 3109 May, [facility] [place] [facility] [address] [id number] [place] [address]- 0988 May, [facility] [place] [facility] [address] [id number] [place] [address]- 0143 May, [facility] [place] [facility] [address] [id number] [place] [address]- 3414 May, [facility] [place] [facility] [address] [id number] [place] [address]- 8139 May, [facility] [place] [facility] [address] [id number] [address]- 6951 May, [facility] [place] [facility] [address] [id number], [place] [address]- 7946 May, [facility] [place] [facility] [address] [id number] [place] [address]- 9453 May, [facility] [place] [facility] [address] [id number] [place] [address]- 7163 May, [facility] [place] [facility] [address] [id number] [place] [address]- 3874 May, [facility] [place] [facility] [address] [id number] [place] [address]- 8898 30 Apr, 2014 [facility] [place] [facility] [address] [id number] [place] [address]- 9746 Apr, [facility] [place] [facility] [address] [id number] [place] [address]- 3046 Apr, [facility] [place] [facility] [address] [id number] [place] [address]- 9306 Apr, [facility] [place] [facility] [address] [id number] [place] [address]- 5525 Apr, [facility] [place] [facility] [address] [id number] [place] 0408 Apr, [facility] [place] [facility] [address] [id number] [place] [address]- 7515 Apr, [facility] [place] [facility] [address] [id number] [place] [address]- 9528 Apr, [facility] [place] [facility] [address] [id number] [place] [address]- 0151 Apr, [facility] [place] [facility] [address] [id number] [place] [address]- 1175 Apr, [facility] [place] [facility] [address] [id number] [place] [address]- 9916 Apr, [facility] [place] [facility] [address] [id number] [place] [address]- 2667 Apr, [facility] [place] [facility] [address] [id number] [place] [address]- 7056 Mar, [facility] [place] [facility] [address] [id number] [place] [address]- 2377 Mar, [facility] [place] [facility] [address] [id number] [place] [address]- 4888 Mar, [facility] [place] [facility] [address] [id number] [place] [address]- 0399 Mar, [facility] [place] [facility] [address] [id number] [place] [address]- 5988 Feb, [facility] [place] [facility] [address] [id number] [place] [address]- 3613 Feb, [facility] [place] [facility] [address] [id number] [place] [address]- 8310 Feb, [facility] [place] [facility] [address] [id number] [place] [address]- 3934 Feb, [facility] [place] [facility] [address] [id number] [place] [address]- 2555 Feb, [facility] [place] [facility] [address] [id number] [place] [address]- 3988 Feb, [facility] [place] [facility] [address] [id number] [place] [address]- 3374 Nov, [facility] [place] [facility] [address] [id number] [place] [address]- 8310 Nov, [facility] [place] [facility] [address] [id number] [place] [address]- 5234 Oct, [facility] [place] [facility] [address] [id number] [place] [address]- 5786 Oct, [facility] [place] [facility] [address] [id number] [place] [address]- 1146 Oct, [facility] [place] [facility] [address] [id number] [place] [address]- 8009 Oct, [facility] [place] [facility] [address] [id number] [place] [address]- 1529 Oct, [facility] [place] [facility] [address] [id number] [place] [address]- 0702 Oct, [facility] [place] [facility] [address] [id number] [place] [address]- 1378 Oct, [facility] [place] [facility] [address] [id number] [place] [address]- 8741 Oct, [facility] [place] [facility] [address] [id number] [place] [address]- 8991 Oct, [facility] [place] [facility] [address] [id number] [place] [address]- 2992 Oct, [facility] [place] [facility] [address] [id number] [place] [address]- 0769 September, [facility] [place] [facility] [address] [id number] [place] [address]- 8848 September, [facility] [place] [facility] [address] [id number] [place] 8720 September, [facility] [place] [facility] [address] [id number] [place] [address]- 7388 September, [facility] [place] [facility] [address] [id number] [place] [address]- 9882 September, [facility] [place] [facility] [address] [id number] [place] [address]- 9902 September, [facility] [place] [facility] [address] [id number] [place] [address]- 0671 Aug, [facility] [place] [facility] [address] [id number] [place] [address]- 1232 Aug, [facility] [place] [facility] [address] [id number] [place] [address]- 3115 Aug, [facility] [place] [facility] [address] [id number] [place] [address]- 0553 Aug, [facility] [place] [facility] [address] [id number] [place] [address]- 6819 Jul, [facility] [place] [facility] [address] [id number] [place] [address]- 8731 Jul, [facility] [place] [facility] [address] [id number] [place] [address]- 9673 Jul, [facility] [place] [facility] [address] [id number] [place] [address]- 7773 Jul, [facility] [place] [facility] [address] [id number] [place] [address]- 8044 Jul, [facility] [place] [facility] [address] [id number] [place] [address]- 8877 Jul, [facility] [place] [facility] [address] [id number] [place] [address]- 5441 Jul, [facility] [place] [facility] [address] [id number] [place] [address]- 5307 Jul, [facility] [place] [facility] [address] [id number] [place] [address]- 0818 Jul, [facility] [place] [facility] [address] [id number] [place] [address]- 6873 Jul, [facility] [place] [facility] [address] [id number] [place] [address]- 4336 May, [facility] [place] [facility] [address] [id number] [place] [address]- 0332 May, [facility] [place] [facility] [address] [id number] [place] [address]- 1840 May, [facility] [place] [facility] [address] [id number] [place] [address]- 9823 May, [facility] [place] [facility] [address] [id number] [place] [address]- 1157 Apr, [facility] [place] [facility] [address] [id number] [place] [address]- 7764 Apr, [facility] [place] [facility] [address] [id number] [place] [address]- 5659 Mar, [facility] [place] [facility] [address] [id number] [place] 7970 Mar, [facility] [place] [facility] [address] [id number] [place] [address]- 9304 Mar, [facility] [place] [facility] [address] [id number] [place] [address]- 8908 Mar, [facility] [place] [facility] [address] [id number] [place] [address]- 9804 Mar, [facility] [place] [facility] [address] [id number] [place] [address]- 6328 Mar, [facility] [place] [facility] [address] [id number] [place] [address]- 9812 Feb, [facility] [place] [facility] [address] [id number] [place] [address]- 1451 Feb, [facility] [place] [facility] [address] [id number] [place] [address]- 9527 Feb, [facility] [place] [facility] [address] [id number] [place] [address]- 5483 Feb, [facility] [place] [facility] [address] [id number] [place] [address]- 5811 Feb, [facility] [place] [facility] [address] [id number] [place] [address]- 6480 Jan, [facility] [place] [facility] [address] [id number] [place] [address]- 9273 Jan, [facility] [place] [facility] [address] [id number] [place] [address]- 5181 Jan, [facility] [place] [facility] [address] [id number] [place] [address]- 8574 Jan, [facility] [place] [facility] [address] [id number] [place] [address]- 2125 Dec, [facility] [place] [facility] [address] [id number] [place] [address]- 7669 Dec, [facility] [place] [facility] [address] [id number] [place] [address]- 1387 Dec, [facility] [place] [facility] [address] [id number] [place] [address]- 5851 15 Dec, 2012 [facility] [address] [id number] [place] [address]- 9968 Dec, [facility] [address] [id number] [place] [address]- 8897 Dec, [facility] [address] [id number] [place] [address]- 2807 Nov, [facility] [address] [id number] [place] [address]- 2124 Nov, [facility] [address] [id number] [place] [address]- 5262 Oct, [facility] [address] [id number] [place] [address]- 0965 Oct, [facility] [address] [id number] [place] [address]- 8896 Oct, [facility] [address] [id number] [place] [address]- 6674 September, [facility] [address] [id number] [place] [address]- 2638 Aug, [facility] [address] [id number] [place] [address]- 9439 Aug, [facility] [address] [id number] [place] [address]- 4977 Aug, [facility] [address] [id number] [place] [address]- 7498 Aug, [facility] [address] [id number] [place] [address]- 8180 Aug, [facility] [address] [id number] [place] [address]- 1457 Aug, [facility] [address] [id number] [place] [address]- 4843 Aug, [facility] [address] [id number] [place] [address]- 1484 26 Jul, 2012 [facility] [place] [facility] [address] [id number] [place] [address] 21 Jul, 2012 [facility] [address] [id number] [place] [address] 15 Jul, 2012 [facility] [place] [facility] [address] [id number] [place] [address] 14 Jul, 2012 [facility] [address] [id number] [place] [address] Jul, [facility] [place] [facility] [address] [id number] [place] [address] 13 Jul, 2012 [facility] [address] [id number] [place] [address] Jul, [facility] [address] [id number] [place] [address] 04 Jul, 2012 [facility] [address] [id number] [place] [address] 18 Jul, 2012 [facility] [place] [facility] [address] [id number] [place] [address] Jul, [facility] [place] [facility] [address] [id number] [place] [address] May, [facility] [place] [facility] [address] [id number], [place] [address] May, [facility] [place] [facility] [address] [id number] [place] [address] 15 May, 2012 [facility] [place] [facility] [address] [id number] [place] [address] 14 May, 2012 [facility] [place] [facility] [address] [id number] [place] [address] 18 Apr, 2012 [facility] [place] [facility] [address] [id number] [place] [address] Apr, [facility] [place] [facility] [address] [id number] [place] [address] Apr, [facility] [place] [facility] [address] [id number] [place] [address] Apr, [facility] [place] [facility] [address] [id number] [place] [address] Apr, [facility] [place] [facility] [address] [id number] [place] [address] Mar, [facility] [place] [facility] [address] [id number] [place] [address] 97[address] Mar, [facility] [place] [facility] [address] [id number] [place] [address] Feb, [facility] [place] [facility] [address] [id number] [place] [address] Dec, [facility] [place] [facility] [address] [id number] [place] [address] Dec, [facility] [place] [facility] [address] [id number] [place] [address] Nov, [facility] [place] [facility] [address] [id number] [place] [address] Nov, [facility] [place] [facility] [address] [id number] [place] [address] Nov, [facility] [place] [facility] [address] [id number] [place] [address] Oct, [facility] [place] [facility] [address] [id number] [place] [address] Aug, [facility] [place] [facility] [address] [id number] [place] [address] Aug, [facility] [place] [facility] [address] [id number] [place] [address] 16 Aug, 2011 [facility] [address] [facility] [id number], [place] [address] 12 Aug, 2011 [facility] [id number] [address] Aug, [facility] [address] [address] 28 Jul, 2011 [facility] [id number] [place] [address] 27 Jul, 2011 [facility] [address] [facility] [id number], [place] [address] 15 Mar, 2011 [facility] [id number] [place] [address] 28 Apr, 2010 [facility] [address], [place] [address] Apr, [facility] [id number] [place] [address] 30 Mar, 2010 [facility] [address] [address] Feb, [facility] [address], [place] [address] Apr, [facility] [address] [address] 14 Apr, 2009 [facility] [address] [place] [address] Mar, [facility] [id number] [address] [address] 15 Feb, 2009 [facility] [address] [address] [address] 15 Feb, 2009 IMMUNIZATIONS No Known Immunizations SOCIAL HISTORY Never Assessed REASON FOR VISIT Refill request PLAN OF CARE VITAL SIGNS MEDICATIONS Medication Instructions Dosage Frequency Start Date End Date Duration Status Nitrostat 0.[address] TABLET UNDER THE TONGUE THREE TIMES A DAY NEEDED FOR CHEST PAIN. MAY REPEAT TWO TIMES EVERY FIVE MINUTES. Active RESULTS No Results PROCEDURES No Known [...]
--- OUTSIDE RECORDS SUMMARY | 2017-11-12 09:17 | XMS REPORT ---
Author Author PAOLA LEE [employer] Address Unknown Phone Unavailable Care Team Providers Care Abrasive Grader Name Role Phone PAOLA LEE CP Unavailable [...]
--- OUTSIDE RECORDS SUMMARY | 2017-11-12 09:17 | XMS REPORT ---
Author Author ARIEL MANNING [facility] eClinicalWorks Address Unknown Phone Unavailable Care Team Providers Care System Analyst Name Role Phone ARIEL MANNING CP Unavailable [...] of wrist, 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 Active Assessment Kellie infection of mouth B37.0 Active Problem Peripheral arterial disease I73.9 Active Problem History of intravenous drug use in remission Z87.898 Active Problem Chronic diastolic congestive heart failure I50.32 Active Problem Benign non-nodular prostatic hyperplasia with lower urinary tract symptoms N40.1 Active Problem Pulmonary hypertension I27.2 Active Problem History of suicide attempt Z91.5 Active Medications Medication Code System Code Instructions Start Date End Date Status Dosage Diflucan [facility] [address]-68 200 MG Orally one time dose Jan 11, 2016Dec 1 tablet Potassium Chloride Janay ER [facility] [address]-36 20 MEQ Orally Twice a day 1 tablet Zocor [facility] 82508442476 80 TAKE ONE TABLET BY MOUTH DAILY MUST HAVE FASTING LIPIDS FOR REFILL Fish Oil [facility] [address]-51 1000 MG Orally Once a day 2 capsule Furosemide [facility] [address]-91 20 mg September 14, 2012 1 tablet by Oral route 1 time per day Ativan [facility] [address]-53 0.5 MG Orally Twice a day 1 tablet as needed Risperdal [facility] [address]-46 2 MG Orally at bedtime Once a day Jun 26, 2015 1 tablet Wellbutrin XL [facility] [address]-35 300 Orally Once a day 1 tablet in the morning Hydrochlorothiazide [facility] 41877320822 25 TAKE ONE TABLET BY MOUTH DAILY Flomax [facility] 08926523763 0.4 TAKE ONE CAPSULE BY MOUTH DAILY Plavix [facility] 41027684518 75 TAKE ONE TABLET BY MOUTH DAILY Mirtazapine [facility] [address]-90 15 MG Orally Once a day Jun 26, 2015 1 tablet before bedtime in the evening Isosorbide Dinitrate CR [facility] [address]-91 40 MG Orally Once a day 1 capsule Risperdal [facility] [address]-07 1 MG Orally in morning Once a day Jun 26, 2015 1 tablet Isosorbide Dinitrate [facility] 31094713724 20 TAKE TWO TABLETS ( 40MG ) BY MOUTH DAILY Nitrostat [facility] [address]3223571996 [address] ONE TABLET UNDER THE TONGUE THREE TIMES A DAY NEEDED FOR CHEST PAIN. MAY REPEAT TWO TIMES EVERY FIVE MINUTES. Aspirin Adult Low Dose [facility] [address]-80 81 MG Orally Once a day 1 tablet Procedures Procedure Coding System Code Date Office Visit, Est Pt., Level 3 CPT-4 11539 Jan 11, 2016 Vital Signs Date/Time: Jan 11, 2016 Cardiac Monitoring Heart Rate 88 bpm Weight 206.4 lbs Height 67 in BMI 32.32 Index Blood Pressure Diastolic 86 mmHg Blood Pressure Systolic 140 mmHg Results No Known Results Summary Purpose eClinicalWorks Submission
--- OUTSIDE RECORDS SUMMARY | 2017-11-12 09:17 | XMS REPORT ---
Author Author PAOLA LEE e[employer] Address Unknown Phone Unavailable Care Team Providers Care Epic Director Name Role Phone PAOLA LEE CP Unavailable [...]
--- OUTSIDE RECORDS SUMMARY | 2017-11-12 09:17 | XMS REPORT ---
Author Author PAOLA LEE e[employer] Address Unknown Phone Unavailable Care Team Providers Care Channel Marketing Coordinator Name Role Phone PAOLA LEE CP Unavailable Allergies, Adverse Reactions, Alerts Substance Reaction Event Type morphine Info Not Available Drug Allergy Problems Problem Type Condition Code Onset Dates Condition Status Problem BPH (benign prostatic hyperplasia) 600.00 Active Problem Hyperlipidemia 272.4 Active Problem Depression 311 Active Problem Cervicalgia 723.1 Active Problem Hypopotassemia 276.8 Active Problem Simple schizophrenia, unspecified condition 295.00 Active Problem Carotid occlusion, right 433.10 Active Problem Hypertension 401.9 Active Problem Pain in joint, forearm 719.43 Active Problem Nondependent tobacco use disorder 305.1 Active Assessment Cervicalgia 723.1 Active Problem Pulmonary hypertension 416.8 Active Assessment Traumatic hematoma of left hand 923.20 Active Problem Peripheral arterial disease 443.9 Active Assessment 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 Problem 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 Medications Medication Code System Code Instructions Start Date End Date Status Dosage Furosemide [facility] [address]-09 20 mg September 14, 2012 1 tablet by Oral route 1 time per day Hydrocodone-Acetaminophen [facility] [address]-84 5-325 MG Orally every 6 hrs October 17, 2013 1 tablet as needed Plavix [facility] 93705975065 75 TAKE ONE TABLET BY MOUTH DAILY Zocor [facility] 01399321772 80 TAKE ONE TABLET BY MOUTH DAILY MUST HAVE FASTING LIPIDS FOR REFILL Wellbutrin XL [facility] 96213313265 300 TAKE ONE TABLET BY MOUTH DAILY Ativan [facility] [address]-64 0.5 MG Orally Twice a day 1 tablet as needed Flomax [facility] 69290836782 0.4 TAKE ONE CAPSULE BY MOUTH DAILY Hydrochlorothiazide [facility] 55747580657 25 TAKE ONE TABLET BY MOUTH DAILY OxyContin [facility] [address]-31 10 MG Orally every 12 hrs Feb 20, 2015 1 tablet Isosorbide Dinitrate CR [facility] [address]-58 40 MG Orally Once a day 1 capsule Zyprexa [facility] 93655586568 10 TAKE ONE TABLET BY MOUTH DAILY Potassium Chloride Janay ER [facility] [address]-68 20 MEQ Orally Twice a day 1 tablet Caltrate 600+D Plus Minerals [facility] [address]-85 600 mg calcium- 400 unit September 09, 2011 not defined Procedures Procedure Coding System Code Date Office Visit, Est Pt., Level 3 CPT-4 92161 Feb 20, 2015 DRUG SCREEN NON TLC DEVICES CPT-4 44032 Feb 20, 2015 Vital Signs Date/Time: Feb 20, 2015 Temperature 98.0 F Weight 201.4 lbs Height 97 in BMI 15.05 Index Blood Pressure Diastolic 78 mmHg Blood Pressure Systolic 130 mmHg Cardiac Monitoring Heart Rate 98 bpm Results Name Result Date Reference Range Unit Abnormality Flag URINE DRUG SCREEN (IN HOUSE) Summary Purpose eClinicalWorks Submission
--- OUTSIDE RECORDS SUMMARY | 2017-11-12 09:18 | XMS REPORT ---
Author Author PAOLA LEE [facility] eClinicalWorks Address Unknown Phone Unavailable Care Team Providers Care Vice President Of Compliance Name Role Phone PAOLA LEE CP Unavailable [...]
--- OUTSIDE RECORDS SUMMARY | 2017-11-12 09:18 | XMS REPORT ---
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 Active 973924759 Problem Neuropathy G62.9 Active 101143635 Problem Cigarette nicotine dependence without complication F17.210 Active 29053559 Problem Essential hypertension I10 Active 96634431 Problem History of suicide attempt Z91.5 Active 579983973 Problem Coronary artery disease involving [place] coronary artery of [place] heart without angina pectoris I25.10 Active [id number] Problem Oral candidiasis B37.0 Active 50598795 Problem Hypokalemia E87.6 Active 094413257 Problem Mixed hyperlipidemia E78.2 Active 609803879 Problem Tobacco use Z72.0 Active 624677292 Problem Paranoid schizophrenia F20.0 Active 19120554 Problem Benign non-nodular prostatic hyperplasia with lower urinary tract symptoms N40.1 Active 205851015 Problem Peripheral arterial disease I73.9 Active 850320192 Problem Pulmonary hypertension I27.2 Active 36768136 Problem History of intravenous drug use in remission Z87.898 Active 68637865 Problem Chronic diastolic congestive heart failure I50.32 Active 557333255 Problem 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 Active 68326283 ALLERGIES Substance Reaction Event Type Date Status morphine pale Drug Allergy Dec, Active ENCOUNTERS Encounter Location Date Diagnosis [facility] [address] [facility] [id number], [place] [address] Jul, Essential hypertension I10 [facility] [id number] [place] [address] 38177- 7827 Jul, [facility] [id number] [place] [address] 70893- 7229 Jul, [facility] [id number] [place] [address] 13653 -4875 May, Left foot pain M79.672 and Contusion of left foot, initial encounter S90.32XA [facility] [address] [address]- [address] Apr, [facility] [id number] [place] [address] 57861- 6109 Apr, [place] [address] [address]- 7270 Mar, Neuropathy G62.9 and Essential hypertension I10 [place] [address] [address]039- 9961 Mar, [facility] [address] 8[address]- 8554 Mar, Essential hypertension I10 ; Neuropathy G62.9 ; Coronary artery disease involving [place] coronary artery of [place] heart without angina pectoris I25.10 and Cigarette nicotine dependence without complication F17.210 [place] [id number] [place] [address] 99963- 9415 Jan, [facility] [id number] [place] [address] 94226 -4529 Dec, Neuropathy G62.9 [facility] [id number] [place] [address] 93587- 0865 Nov, Essential hypertension I10 [facility] [address] 05808- 3845 Mar, [facility] [id number] [place] [address] 17454- 8752 Feb, [facility] [address] 70979- 3082 Feb, [facility] [id number] [place] [address] 85495- 4048 07 Feb, 2016 Essential hypertension I10 ; Peripheral arterial disease I73.9 ; Coronary artery disease involving [place] coronary artery of [place] heart without angina pectoris I25.10 ; Cigarette nicotine dependence without complication F17.210 and Encounter for immunization Z23 [facility] [address] 94592- 7737 Dec, [facility] [address] 87318- 0480 Dec, Essential hypertension I10 ; Hematuria R31.9 and Ureteropelvic junction calculus N20.0 [facility] [id number] [place] [address] 46234 -9607 Dec, Kellie infection of mouth B37.0 [facility] [id number] [place] [address] 87669 -6418 Nov, Oral candidiasis B37.0 [facility] [id number] [place] [address] 05486- 1834 Nov, [facility] [id number] [place] [address] 56412- 2392 Nov, [facility] [id number] [place] [address] 10990- 7584 Nov, Hematuria R31.9 [facility] [id number] [place] [address] 28095- 1717 Oct, [facility] [id number] [place] [address] 30523- 1608 Jul, [facility] [id number] [place] [address] 92975- 7268 Jul, [facility] [id number] [place] [address] 91998- 4523 Jul, [facility] [address] [place] [address]- 2045 Jul, [facility] [id number] [place] [address] 52049- 9052 Jul, [facility] [id number] [place] [address] 98329- 0910 May, Paranoid schizophrenia F20.0 ; Major depression F32.9 and Generalized anxiety disorder F41.1 [facility] [address] 49162- 9059 May, [facility] [address] 36452- 0327 May, [facility] [id number] [place] [address] 33322- 3685 May, Paranoid schizophrenia F20.0 ; Essential hypertension I10 and Agitation R45.1 [facility] [address] 85150- 3995 Apr, Paranoid schizophrenia F20.0 [facility] [id number] [place] [address] 59056- 4315 Apr, [facility] [id number] [place] [address] 58582- 5439 Mar, [facility] [id number] [place] [address] 72489- 2562 Mar, [facility] [id number] [place] [address] 03917- 3803 Feb, [facility] [id number] [place] [address] 68495- 5691 Feb, Osteoarthritis of spine with radiculopathy, 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 ; Encounter for immunization Z23 ; Primary osteoarthritis of wrist, 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 ; Essential hypertension I10 and Opiate use F11.90 [facility] [id number] [place] [address] 74048- 2017 Feb, [facility] [address] [address]20 23 Jan, 2015 Cervicalgia 723.1 ; 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 and Traumatic hematoma of left hand 923.20 [facility] [address] [address] 3826 Jan, [facility] [id number] [place] [address] 48115- 1357 Jan, [facility] [id number] [place] [address] 84764- 6161 Dec, [facility] [id number] [place] [address] 14240- 9748 Dec, Pain in joint, forearm 719.43 ; Cervicalgia 723.1 and Hyperlipidemia 272.4 [facility] [id number] [place] [address] 43056- 6072 Dec, [facility] [id number] [place] [address] 71470- 6473 Nov, Cervicalgia 723.1 ; Hyperlipidemia 272.4 ; 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 ; Carotid occlusion, right 433.10 and Peripheral arterial disease 443.9 [facility] [address] [address]- 9933 Nov, [facility] [address], [place] [address]- 6145 Oct, [facility] [address] [id number] [address]- 3047 Oct, [facility] [id number] [place] [address] 10120- 1461 Oct, [facility] [address] 0347 September, [facility] [id number] [place] [address] 78884- 0461 Aug, [facility] [place] [facility] [address] [id number] [place] [address]- 7527 Aug, [facility] [place] [facility] [address] [id number] [place] [address]- 6725 Jul, [facility] [place] [facility] [address] [id number] [place] [address] Jul, [facility] [place] [facility] [address] [id number] [place] [address]- 7536 Jul, [facility] [place] [facility] [address] [id number] [place] [address]- 0822 Jul, [facility] [place] [facility] [address] [id number] [place] [address]- 6902 Jul, [facility] [place] [facility] [address] [facility] [id number] [place] [address]- 2479 Jul, [facility] [place] [facility] [address] [id number] [place] [address]- 0466 Jul, [facility] [place] [facility] [address] [id number] [place] [address]- 9589 Jul, [facility] [place] [facility] [address] [facility] [id number] [place] [address]- 7352 Jul, [facility] [place] [facility] [address] [id number] [place] [address]- 8682 Jul, [facility] [place] [facility] [address] [id number] [place] [address]- 7817 Jul, [facility] [place] [facility] [address] [id number] [place] [address]- 9305 Jul, [facility] [place] [facility] [address] [id number] [place] [address]- 0107 Jul, [facility] [place] [facility] [address] [facility] [id number] [place] [address]- 9145 May, [facility] [place] [facility] [address] [id number] [place] [address]- 2333 May, [facility] [address] [id number] [place] [address]- 7548 May, [facility] [address] [id number] [place] [address]- 8916 May, [facility] [address] [id number] [place] [address]- 2888 May, [facility] [address] [id number] [place] [address]- 9541 May, [facility] [address] [id number] [place] [address]- 1375 May, [facility] [address] [id number] [place] [address]- 1781 May, [facility] [address] [id number] [place] [address]- 1553 May, [facility] [address] [id number] [place] [address]- 8358 May, [facility] [address] [id number] [place] [address]- 1791 May, [facility] [address] [id number] [place] [address]- 2405 May, [facility] [address] [id number] [place] [address]- 2781 May, [facility] [place] [facility] [address] [id number] [place] [address]- 2393 May, [facility] [place] [facility] [address] [id number] [place] [address]- 2723 May, [facility] [place] [facility] [address] [id number] [place] [address]- 7290 May, [facility] [place] [facility] [address] [id number] [place] [address]- 2515 May, [facility] [place] [facility] [address] [id number] [place] [address]- 3332 Apr, [facility] [place] [facility] [address] [id number] [place] 4689 Apr, [facility] [place] [facility] [address] [id number] [place] [address]- 4339 Apr, [facility] [place] [facility] [address] [id number] [place] 5717 Apr, [facility] [place] [facility] [address] [id number] [place] 5095 Apr, [facility] [place] [facility] [address] [id number] [place] [address]- 7478 Apr, [facility] [place] [facility] [address] [id number] [place] [address]- 9812 Apr, [facility] [place] [facility] [address] [id number] [place] [address]- 8013 Apr, [facility] [place] [facility] [address] [id number] [place] [address]- 5720 Apr, [facility] [place] [facility] [address] [id number] [place] [address]- 7829 Apr, [facility] [place] [facility] [address] [id number] [place] [address]- 9052 Apr, [facility] [place] [facility] [address] [id number] [place] [address]- 8129 Apr, [facility] [place] [facility] [address] [id number] [place] [address]- 4968 Mar, [facility] [place] [facility] [address] [id number] [place] [address]- 6879 Mar, [facility] [place] [facility] [address] [id number] [place] [address]- 2852 Mar, [facility] [place] [facility] [address] [id number], [place] [address]- 2114 Mar, [facility] [place] [facility] [address] [id number] [place] [address]- 3114 Feb, [facility] [place] [facility] [address] [id number] [place] [address]- 8783 Feb, [facility] [place] [facility] [address] [id number] [place] [address]- 3106 Feb, [facility] [place] [facility] [address] [id number] [place] [address]- 2199 Feb, [facility] [place] [facility] [address] [id number] [place] [address]- 8784 Feb, [facility] [place] [facility] [address] [id number] [place] [address]- 9777 Feb, [facility] [place] [facility] [address] [id number] [place] [address]- 2297 Nov, [facility] [place] [facility] [address] [id number] [place] [address]- 7143 Nov, [facility] [place] [facility] [address] [id number] [place] [address]- 1305 Oct, [facility] [place] [facility] [address] [id number] [place] [address]- 3227 Oct, [facility] [place] [facility] [address] [id number], [place] [address]- 5664 Oct, [facility] [place] [facility] [address] [id number], [place] [address]- 5224 Oct, [facility] [place] [facility] [address] [id number] [place] [address]- 7126 Oct, [facility] [place] [facility] [address] [id number] [place] [address]- 1076 Oct, [facility] [place] [facility] [address] [id number] [place] [address]- 8274 Oct, [facility] [place] [facility] [address] [id number] [place] [address]- 5669 Oct, [facility] [place] [facility] [address] [id number] [place] [address]- 5381 Oct, [facility] [place] [facility] [address] [id number] [place] [address]- 4406 Oct, [facility] [place] [facility] [address] [id number] [place] [address]- 2823 September, [facility] [place] [facility] [address] [id number] [place] [address]- 4032 September, [facility] [place] [facility] [address] [id number] [place] [address]- 2381 September, [facility] [place] [facility] [address] [id number] [place] [address]- 7583 September, [facility] [place] [facility] [address] [id number] [place] [address]- 2934 September, [facility] [place] [facility] [address] [id number] [place] [address]- 0721 September, [facility] [place] [facility] [address] [id number] [place] [address]- 3848 Aug, [facility] [place] [facility] [address] [id number] [place] [address]- 3884 Aug, [facility] [place] [facility] [address] [id number] [place] [address]- 2103 Aug, [facility] [place] [facility] [address] [id number] [place] [address]- 1102 Aug, [facility] [place] [facility] [address] [id number] [place] [address]- 1929 Jul, [facility] [place] [facility] [address] [id number] [place] [address]- 6596 Jul, [facility] [place] [facility] [address] [id number] [place] [address]- 8525 Jul, [facility] [place] [facility] [address] [id number] [place] [address]- 5077 Jul, [facility] [place] [facility] [address] [id number] [place] [address]- 3491 Jul, [facility] [place] [facility] [address] [id number] [place] [address]- 2983 Jul, [facility] [place] [facility] [address] [id number] [place] [address]- 6044 Jul, [facility] [place] [facility] [address] [id number] [place] [address]- 0664 Jul, [facility] [place] [facility] [address] [id number] [place] [address]- 5836 Jul, [facility] [place] [facility] [address] [id number] [place] [address]- 1483 Jul, [facility] [place] [facility] [address] [id number] [place] [address]- 6400 May, [facility] [place] [facility] [address] [id number] [place] [address]- 7546 May, [facility] [place] [facility] [address] [id number] [place] [address]- 1388 May, [facility] [place] [facility] [address] [id number] [place] [address]- 8281 May, [facility] [place] [facility] [address] [id number] [place] [address]- 7791 Apr, [facility] [place] [facility] [address] [id number] [place] [address]- 8477 Apr, [facility] [place] [facility] [address] [id number] [place] [address]- 9947 Mar, [facility] [place] [facility] [address] [id number] [place] [address]- 5504 Mar, [facility] [place] [facility] [address] [id number] [place] [address]- 4096 Mar, [facility] [address] [id number] [place] [address]- 4539 Mar, [facility] [place] [facility] [address] [id number] [place] [address]- 7915 Mar, [facility] [address] [id number] [place] [address]- 5794 Mar, [facility] [place] [facility] [address] [id number] [place] [address]- 5407 Feb, [facility] [place] [facility] [address] [id number] [place] [address]- 2925 Feb, [facility] [place] [facility] [address] [id number] [place] [address]- 3182 Feb, [facility] [address] [id number] [place] [address]- 9029 Feb, [facility] [address] [id number] [place] [address]- 2737 Feb, [facility] [place] [facility] [address] [id number] [place] [address]- 2928 23 Jan, 2013 [facility] [place] [facility] [address] [id number] [place] [address]- 0137 Jan, [facility] [place] [facility] [address] [id number] [place] [address]- 2547 06 Jan, 2013 [facility] [place] [facility] [address] [id number] [place] [address]- 7266 Jan, [facility] [place] [facility] [address] [id number] [place] 3952 Dec, [facility] [place] [facility] [address] [id number] [place] [address]- 1888 Dec, [facility] [place] [facility] [address] [id number] [place] [address]- 2146 Dec, [facility] [place] [facility] [address] [id number] [place] [address]- 4739 Dec, [facility] [address] [id number] [place] [address]- 8288 Dec, [facility] [address] [id number] [place] [address]- 3780 Dec, [facility] [place] [facility] [address] [id number] [place] [address]- 6320 Nov, [facility] [address] [id number] [place] [address]- 2698 Nov, [facility] [address] [id number] [place] [address]- 0476 Oct, [facility] [address] [id number] [place] [address]- 5819 Oct, [facility] [address] [id number] [place] [address]- 1306 Oct, [facility] [address] [id number] [place] [address]- 9615 September, [facility] [address] [id number] [place] [address]- 0687 Aug, [facility] [place] [facility] [address] [id number] [place] [address]- 6095 Aug, [facility] [place] [facility] [address] [id number], [place] [address] Aug, [facility] [place] [facility] [address] [id number] [place] [address] Aug, [facility] [place] [facility] [address] [id number] [place] [address] Aug, [facility] [place] [facility] [address] [id number] [place] [address] Aug, [facility] [place] [facility] [address] [id number], [place] [address] 04 Aug, 2012 [facility] [address] [id number] [place] [address] 26 Jul, 2012 [facility] [address] [id number] [place] [address] 21 Jul, 2012 [facility] [address] [id number] [place] [address] 15 Jul, 2012 [facility] [address] [id number] [place] [address] 14 Jul, 2012 [facility] [address] [id number] [place] [address] 13 Jul, 2012 [facility] [address] [id number] [place] [address] 13 Jul, 2012 [facility] [address] [id number] [place] [address] Jul, [facility] [address] [id number] [place] [address] 04 Jul, 2012 [facility] [address] [id number] [place] [address]134 18 Jul, 2012 [facility] [address] [id number] [place] [address] Jul, [facility] [address] [id number], [place] [address] 28 May, 2012 [facility] [address] [id number], [place] [address] 15 May, 2012 [facility] [place] [facility] [address] [id number] [place] [address] 15 May, 2012 [facility] [place] [facility] [address] [id number] [place] [address] 14 May, 2012 [facility] [address] [id number] [place] [address] 18 Apr, 2012 [facility] [place] [facility] [address] [id number] [place] [address] Apr, [facility] [place] [facility] [address] [id number] [place] [address] 1689 Apr, [facility] [place] [facility] [address] [id number] [place] [address] 9066 Apr, [facility] [place] [facility] [address] [id number] [place] [address] Apr, [facility] [place] [facility] [address] [id number] [place] [address] Mar, [facility] [place] [facility] [address] [id number] [place] [address] Mar, [facility] [place] [facility] [address] [id number] [place] [address] Feb, [facility] [place] [facility] [address] [id number] [place] [address] Dec, [facility] [place] [facility] [address] [id number] [place] [address] Dec, [facility] [place] [facility] [address] [id number] [place] [address] Nov, [facility] [place] [facility] [address] [id number] [place] [address] 3216 Nov, [facility] [place] [facility] [address] [id number] [place] [address] 5626 Nov, [facility] [place] [facility] [address] [id number] [place] [address] Oct, [facility] [place] [facility] [address] [id number] [place] [address] Aug, [facility] [place] [facility] [address] [id number] [place] [address] Aug, [facility] [place] [facility] [address] [id number] [place] [address] 16 Aug, 2011 [facility] [id number], [place] [address] 12 Aug, 2011 [facility] [address] [facility] [id number], [place] [address] 11 Aug, 2011 [facility] [id number], [place] [address] 28 Jul, 2011 [facility] [id number] [place] [address] 27 Jul, 2011 [facility] [id number] [place] [address]- [address] 15 Mar, 2011 [facility] [id number] [place] [address]- [address] 28 Apr, 2010 [facility] [id number], [place] [address] 28 Apr, 2010 [facility] [id number], [place] [address] 30 Mar, 2010 [facility] [id number], [place] [address] 18 Feb, 2010 [facility] [facility] [address], [place] [address] 14 Apr, 2009 [facility] [address], [place] [address] 14 Apr, 2009 [facility] [id number], [place] [address] 17 Mar, 2009 [facility] [address], [place] [address] 15 Feb, 2009 [facility] [address], [place] [address] 15 Feb, 2009 IMMUNIZATIONS No Known Immunizations SOCIAL HISTORY Never Assessed REASON FOR VISIT bilateral foot pain. reports pain and burning in the bottoms of both feet. has been going on for 2 months...last 2-3 nights have been worse. [email or web address] PLAN OF CARE VITAL SIGNS Height 67 in 2016-12-30 Weight 213.8 lbs 2016-12-30 Temperature 97.5 degrees Fahrenheit 2016-12-30 Heart Rate 80 bpm 2016-12-30 Respiratory Rate 20 2016-12-30 BMI 33.48 kg/m2 2016-12-30 Blood pressure systolic 136 mmHg 2016-12-30 Blood pressure diastolic 90 mmHg 2016-12-30 MEDICATIONS Medication Instructions Dosage Frequency Start Date End Date Duration Status Multi-Vitamin - Orally Once a day 2 tablets 24h Active Ativan 0.5 TAKE ONE TABLET BY MOUTH TWICE A DAY NEEDED FOR ANXIETY/ AGITATION . MUST LAST 30 DAYS 30 Active Neurontin 300 MG Orally 2 times a day 1 capsule 12h Dec, 30 day (s) Active Risperdal 2 MG Orally at bedtime Once a day 1 tablet 24h May, 30 day(s) Active Risperdal Consta 37.5 MG/2ML Active Wellbutrin XL 300 TAKE ONE TABLET BY MOUTH EVERY MORNING 30 Active Plavix 75 TAKE ONE TABLET BY MOUTH DAILY 30 Active Clopidogrel Bisulfate 75 MG Orally Once a day 1 tablet 24h Active Flomax 0.4 TAKE ONE CAPSULE BY MOUTH DAILY 90 Active Hydrochlorothiazide 25 TAKE ONE TABLET BY MOUTH DAILY [address] ONE TABLET UNDER THE TONGUE THREE TIMES A DAY NEEDED FOR CHEST PAIN. MAY REPEAT TWO TIMES EVERY FIVE MINUTES. 8 Active Isosorbide Dinitrate 20 mg Orally 2 times a day 2 tablet 12h 90 days Active Ativan 0.5 MG Orally Twice a day 1 tablet as needed 12h Active Mirtazapine 15 MG Orally Once a day 1 tablet before bedtime in the evening 24h May, 30 day(s) Active Zocor 80 TAKE ONE TABLET BY MOUTH DAILY 90 Active Aspirin 81 MG Orally Once a day 1 tablet 24h Active Risperdal 2 TAKE ONE TABLET BY MOUTH EVERY NIGHT [...]
--- OUTSIDE RECORDS SUMMARY | 2017-11-12 09:18 | XMS REPORT ---
Author Author MIRELLA GONZALES Organization [employer] Address Unknown Phone Unavailable Care Team Providers Care Staff Electronic Warfare Officer Name Role Phone MIRELLA GONZALES CP Unavailable Allergies No Known Allergies Problems Problem Type Condition Code Onset Dates Condition Status Problem Essential hypertension I10 Active Problem Tobacco use Z72.0 Active Problem Carotid occlusion, right I65.21 Active Problem Cigarette nicotine dependence without complication F17.210 Active Problem Oral candidiasis B37.0 Active Problem Coronary artery disease involving [place] coronary artery of [place] heart without angina pectoris I25.10 Active Problem [...] Instructions Start Date End Date Status Dosage Plavix [facility] 14947673928 75 TAKE ONE TABLET BY MOUTH DAILY Zocor [facility] 77024670710 80 TAKE ONE TABLET BY MOUTH DAILY Isosorbide Dinitrate [facility] 94685922048 20 TAKE TWO TABLETS ( 40MG ) BY MOUTH DAILY Wellbutrin XL [facility] [address]-14 300 Orally Once a day 1 tablet in the morning Flomax [facility] 29296893121 0.4 TAKE ONE CAPSULE BY MOUTH DAILY Risperdal [facility] [address]-73 2 MG Orally at bedtime Once a day Jun 26, 2015 1 tablet Hydrochlorothiazide [facility] 71982503346 25 TAKE ONE TABLET BY MOUTH DAILY Results No Known Results Summary Purpose [employer] Submission
--- OUTSIDE RECORDS SUMMARY | 2017-11-12 09:19 | XMS REPORT ---
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 Active Problem Chronic diastolic congestive heart failure I50.32 Active Problem Benign non-nodular prostatic hyperplasia with lower urinary tract symptoms N40.1 Active Medications Medication Code System Code Instructions Start Date End Date Status Dosage Metformin HCl [facility] 14668975521 1000 MG Orally Twice a day 1 tablet with meals Plavix [facility] 97243073206 75 TAKE ONE TABLET BY MOUTH DAILY Isosorbide Dinitrate CR [facility] [address]-97 40 MG Orally Once a day 1 capsule Risperdal [facility] [address]-70 2 MG Orally Once a day Jun 04, 2015 1 tablet Lisinopril [facility] [address]-14 10 MG Orally Once a day Jun 04, 2015 1 tablet Wellbutrin XL [facility] 76264262340 300 TAKE ONE TABLET BY MOUTH DAILY Caltrate 600+D Plus Minerals [facility] [address]-70 600 mg calcium- 400 unit September 09, 2011 not defined Furosemide [facility] [address]-44 20 mg September 14, 2012 1 tablet by Oral route 1 time per day Isosorbide Dinitrate [facility] 92514164205 20 TAKE TWO TABLETS ( 40MG ) BY MOUTH DAILY Flomax [facility] 44312449508 0.4 TAKE ONE CAPSULE BY MOUTH DAILY Potassium Chloride Janay ER [facility] [address]-70 20 MEQ Orally Twice a day 1 tablet Ativan [facility] [address]-86 0.5 MG Orally Twice a day 1 tablet as needed Zocor [facility] 98970391830 80 TAKE ONE TABLET BY MOUTH DAILY MUST HAVE FASTING LIPIDS FOR REFILL Hydrochlorothiazide [facility] 45091856476 25 TAKE ONE TABLET BY MOUTH DAILY Procedures Procedure Coding System Code Date Office Visit, Est Pt., Level 3 CPT-4 59287 Jun 04, 2015 Vital Signs Date/Time: Jun 04, 2015 Temperature 97.9 F Weight 215.6 lbs Height 67 in BMI 33.76 Index Blood Pressure Diastolic 90 mmHg Blood Pressure Systolic 160 mmHg Results No Known Results Summary Purpose [employer] Submission
--- OUTSIDE RECORDS SUMMARY | 2017-11-12 09:19 | XMS REPORT ---
Author Author PAOLA LEE [employer] Address Unknown Phone Unavailable Care Team Providers Care Senior Examiner Name Role Phone PAOLA LEE CP Unavailable Allergies, Adverse Reactions, Alerts Substance Reaction Event Type morphine Info Not Available Drug Allergy Problems Problem Type Condition ICD-9 Code Onset [...] Nondependent tobacco use disorder 305.1 Active Assessment Pain in joint, forearm 719.43 Active Problem Pulmonary hypertension 416.8 Active Assessment Hyperlipidemia 272.4 Active Problem Peripheral arterial disease 443.9 Active Assessment Cervicalgia 723.1 Active Problem 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 Medications Medication Code System Code Instructions Start Date End Date Status Dosage Zocor [facility] 57194985941 80 TAKE ONE TABLET BY MOUTH DAILY MUST HAVE FASTING LIPIDS FOR REFILL Hydrochlorothiazide [facility] [address]-54 25 MG Orally Once a day [address] [facility] [address]-53 20 mg September 14, 2012 1 tablet by Oral route 1 time per day Potassium Chloride Janay ER [facility] [address]-14 20 MEQ Orally Twice a day [address] [facility] [address]-50 15 MG Orally Once a day 1 tablet Hydrocodone-Acetaminophen [facility] [address]-69 5-325 MG Orally every 6 hrs October 17, 2013 1 tablet as needed Caltrate 600+D Plus Minerals [facility] [address]-01 600 mg calcium- 400 unit September 09, 2011 not defined Zyprexa [facility] 64543219614 10 TAKE ONE TABLET BY MOUTH DAILY Isosorbide Dinitrate CR [facility] [address]-42 40 MG Orally Once a day [address] [facility] [address]-29 0.5 MG Orally Twice a day 1 tablet as needed Plavix [facility] 42954200470 75 TAKE ONE TABLET BY MOUTH DAILY MiraLax [facility] [address]-25 17 gm/dose Orally Once a day 17 grams mixed in 8 oz of water or juice Fish Oil [facility] [address]-79 1000 MG Orally Once a day 2 capsule Wellbutrin XL [facility] 87582250498 300 TAKE ONE TABLET BY MOUTH DAILY Flomax [facility] 38745013302 0.4 TAKE ONE CAPSULE BY MOUTH DAILY Nitrostat [facility] [address]-83 0.4 MG Sublingual 3 times a day as needed 1 tablet Procedures Procedure Coding System Code Date Office Visit, Est Pt., Level 3 CPT-4 61212 Jan 23, 2015 No Charge CPT-4 04187 Jan 23, 2015 Vital Signs Date/Time: Jan 23, 2015 Temperature 97.1 F Weight 201.4 lbs Height 97 in BMI 15.05 Index Blood Pressure Diastolic 86 mmHg Blood Pressure Systolic 134 mmHg Cardiac Monitoring Heart Rate 100 bpm Results No Known Results Summary Purpose [employer] Submission
--- OUTSIDE RECORDS SUMMARY | 2017-11-12 09:19 | XMS REPORT ---
Author Author PAOLA LEE [facility] [employer] Address Unknown Phone Unavailable Care Team Providers Care Safety Inspector Name Role Phone PAOLA LEE CP Unavailable [...] Date End Date Status Dosage Wellbutrin XL [facility] [address]-08 300 Orally Once a day 1 tablet in the morning Results No Known Results Summary Purpose [employer] Submission
--- OUTSIDE RECORDS SUMMARY | 2017-11-12 09:19 | XMS REPORT ---
Author Author PAOLA LEE [facility] [employer] Address Unknown Phone Unavailable Care Team Providers Care Train Starter Name Role Phone PAOLA LEE Unavailable Allergies No Known Allergies Problems Problem [...] Instructions Start Date End Date Status Dosage Hydrocodone-Acetaminophen [facility] [address]-11 5-325 MG Orally every 6 hrs October 17, 2013 1 tablet as needed Results No Known Results Summary Purpose [employer] Submission
--- OUTSIDE RECORDS SUMMARY | 2017-11-12 09:19 | XMS REPORT ---
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.898 Active Problem Chronic diastolic congestive heart failure I50.32 Active Problem Benign non-nodular prostatic hyperplasia with lower urinary tract symptoms N40.1 Active Medications Medication Code System Code Instructions Start Date End Date Status Dosage Hydrochlorothiazide [facility] 07087104076 25 TAKE ONE TABLET BY MOUTH DAILY Zocor [facility] 68827419275 80 TAKE ONE TABLET BY MOUTH DAILY MUST HAVE FASTING LIPIDS FOR REFILL Potassium Chloride Janay ER [facility] [address]-59 20 MEQ Orally Twice a day 1 tablet Wellbutrin XL [facility] 97084558339 300 TAKE ONE TABLET BY MOUTH DAILY Isosorbide Dinitrate CR [facility] [address]-27 40 MG Orally Once a day 1 capsule Furosemide [facility] [address]-13 20 mg September 14, 2012 1 tablet by Oral route 1 time per day Flomax [facility] 07495198881 0.4 TAKE ONE CAPSULE BY MOUTH DAILY Ativan [facility] [address]-02 0.5 MG Orally Twice a day 1 tablet as needed OxyContin [facility] [address]-01 15 MG Orally every 12 hrs Mar 22, 2015 1 tablet Plavix [facility] 64088680945 75 TAKE ONE TABLET BY MOUTH DAILY Caltrate 600+D Plus Minerals [facility] [address]-52 600 mg calcium- 400 unit September 09, 2011 not defined Hydrocodone-Acetaminophen [facility] [address]-16 5-325 MG Orally every 6 hrs October 17, 2013 1 tablet as needed Zyprexa [facility] 19720715427 10 TAKE ONE TABLET BY MOUTH DAILY Procedures Procedure Coding System Code Date Office Visit, Est Pt., Level 3 CPT-4 29815 Mar 22, 2015 FLUARIX QUAD (3 & UP)-Digital Air Strike-2014 CPT-4 82316 Mar 22, 2015 No Charge CPT-4 23688 Mar 22, 2015 SINGLE IMMUNIZATION ADMIN CPT-4 35327 Mar 22, 2015 Vital Signs Date/Time: Mar 22, 2015 Temperature 97.6 F Weight 204.4 lbs Height 67 in BMI 32.01 Index Blood Pressure Diastolic 94 mmHg Blood Pressure Systolic 158 mmHg Cardiac Monitoring Heart Rate 96 bpm Results No Known Results Immunizations Vaccine Administration Date FLUARIX QUAD (3 & UP)-GSK-2014Mar 22, 2015 Summary Purpose eClinicalWorks Submission
--- OUTSIDE RECORDS SUMMARY | 2017-11-12 09:20 | XMS REPORT | Continuity of Care Document ---
Author Author [facility] Address Unknown Phone Unavailable Allergies Active Description Code Type Severity Reaction Onset Reported/Identified Relationship to Patient Clinical Status Yes NO KNOWN DRUG ALLERGIES UNKNOWN NO KNOWN DRUG ALLERG Yes morphine Drug Allergy N/A N/A 07/26/2008 Yes morphine Drug Allergy 07/26/2008 Yes acetaminophen [id number] Drug Allergy Unknown TAKES LORTAB AT 08/03/2008 Yes morphine [id number] Drug Allergy Unknown TAKES LORTAB AT 08/03/2008 Yes Seroquel 50 mg Tablet Drug Allergy N/A N/A 09/24/2011 Yes Seroquel 50 mg Tablet Drug Allergy 09/24/2011 Medications Medication Packaging Start Date Stop Date Route Dosage Sig COLCHICINE TAB 0.6 MG (COLCRYS) MG 06/26/2017 06/26/2017 ONCE&1906 TRAMADOL TAB 50 MG (ULTRAM) MG 06/26/2017 ONCE&1907 CEPHALEXIN CAP 500 MG (KEFLEX) MG 06/26/2017 06/26/2017 ONCE&1950 COLCHICINE TAB 0.6 MG (COLCRYS) MG 06/26/2017 06/26/2017 ONCE&2010 Problems Date Dx Coded Attending Type Code Diagnosis Diagnosed By 02/09/2008 300.00 anxiety 02/09/2008 401.1 HYPERTENSION, BENIGN ESSENTIAL 02/09/2008 414.01 CAD 02/09/2008 NARESH GROVE DARREN K 300.00 anxiety 02/09/2008 NARESH GROVE DARREN K 401.1 HYPERTENSION, BENIGN ESSENTIAL 02/09/2008 WILBERTO INFANTE DOA K 414.01 CAD 02/09/2008 NARESH GROVE DARREN K 300.00 anxiety 02/09/2008 NARESH GROVE DARREN K 401.1 HYPERTENSION, BENIGN ESSENTIAL 02/09/2008 INFANTE DO DARREN K 414.01 CAD 02/09/2008 KARLA SOARES APRN 300.00 anxiety 02/09/2008 SOARES LUMP RECEIVER, KARLA R 401.1 HYPERTENSION, BENIGN ESSENTIAL 02/09/2008 KARLA SOARES APRN R 414.01 CAD 02/09/2008 INFANTE DO, DARREN K 300.00 anxiety 02/09/2008 INFANTE DO, DARREN K 401.1 HYPERTENSION, BENIGN ESSENTIAL 02/09/2008 INFANTE DO, DARREN K 414.01 CAD 02/09/2008 300.00 anxiety 02/09/2008 401.1 HYPERTENSION, BENIGN ESSENTIAL 02/09/2008 414.01 CAD 02/09/2008 300.00 anxiety 02/09/2008 401.1 HYPERTENSION, BENIGN ESSENTIAL 02/09/2008 414.01 CAD 02/09/2008 INFANTE DO, DARREN K 300.00 anxiety 02/09/2008 INFANTE DO, DARREN K 401.1 HYPERTENSION, BENIGN ESSENTIAL 02/09/2008 INFANTE DO, DARREN K 414.01 CAD 02/09/2008 INFANTE DO, DARREN K 300.00 anxiety 02/09/2008 INFANTE DO, DARREN K 401.1 HYPERTENSION, BENIGN ESSENTIAL 02/09/2008 INFANTE DO, DARREN K 414.01 CAD 02/09/2008 INFANTE DO, DARREN K 300.00 anxiety 02/09/2008 INFANTE DO, DARREN K 401.1 HYPERTENSION, BENIGN ESSENTIAL 02/09/2008 INFANTE DO, DARREN K 414.01 CAD 02/09/2008 INFANTE DO, DARREN K 300.00 anxiety 02/09/2008 INFANTE DO, DARREN K 401.1 HYPERTENSION, BENIGN ESSENTIAL 02/09/2008 INFANTE DO, DARREN K 414.01 CAD 02/09/2008 JOVANNY AMADOR APRN 300.00 anxiety 02/09/2008 JOVANNY AMADOR APRN 401.1 HYPERTENSION, BENIGN ESSENTIAL 02/09/2008 JOVANNY AMADOR APRN 414.01 CAD 02/09/2008 PAOLA LEE MD N 300.00 anxiety 02/09/2008 PAOLA LEE MD 401.1 HYPERTENSION, BENIGN ESSENTIAL 02/09/2008 PAOLA LEE MD N 414.01 CAD 02/09/2008 PAOLA LEE MD N 300.00 anxiety 02/09/2008 PAOLA LEE MD N 401.1 HYPERTENSION, BENIGN ESSENTIAL 02/09/2008 PAOLA LEE MD N 414.01 CAD 02/09/2008 PAOLA LEE MD N 300.00 anxiety 02/09/2008 PAOLA LEE MD N 401.1 HYPERTENSION, BENIGN ESSENTIAL 02/09/2008 PAOLA LEE MD N 414.01 CAD 02/09/2008 PAOLA LEE MD N 300.00 anxiety 02/09/2008 PAOLA LEE MD N 401.1 HYPERTENSION, BENIGN ESSENTIAL 02/09/2008 PAOLA LEE MD N 414.01 CAD 02/09/2008 PAOLA LEE MD N 300.00 anxiety 02/09/2008 PAOLA LEE MD N 401.1 HYPERTENSION, BENIGN ESSENTIAL 02/09/2008 PAOLA LEE MD N 414.01 CAD 04/21/2008 272.4 HYPERLIPIDEMIA UNSPECIFIED 04/21/2008 NARESH DO DARREN K 272.4 HYPERLIPIDEMIA UNSPECIFIED 04/21/2008 NARESH GROVE DARREN K 272.4 HYPERLIPIDEMIA UNSPECIFIED 04/21/2008 KARLA SOARES APRN 272.4 HYPERLIPIDEMIA UNSPECIFIED 04/21/2008 INFANTE DO DARREN K 272.4 HYPERLIPIDEMIA UNSPECIFIED 04/21/2008 272.4 HYPERLIPIDEMIA UNSPECIFIED 04/21/2008 272.4 HYPERLIPIDEMIA UNSPECIFIED 04/21/2008 INFANTE DO DARREN K 272.4 HYPERLIPIDEMIA UNSPECIFIED 04/21/2008 INFANTE DO, DARREN K 272.4 HYPERLIPIDEMIA UNSPECIFIED 04/21/2008 INFANTE DO DARREN K 272.4 HYPERLIPIDEMIA UNSPECIFIED 04/21/2008 INFANTE DO DARREN K 272.4 HYPERLIPIDEMIA UNSPECIFIED 04/21/2008 JOVANNY AMADOR APRN 272.4 HYPERLIPIDEMIA UNSPECIFIED 04/21/2008 PAOLA LEE MD N 272.4 HYPERLIPIDEMIA UNSPECIFIED 04/21/2008 PAOLA LEE MD N 272.4 HYPERLIPIDEMIA UNSPECIFIED 04/21/2008 PAOLA LEE MD N 272.4 HYPERLIPIDEMIA UNSPECIFIED 04/21/2008 PAOLA LEE MD N 272.4 HYPERLIPIDEMIA UNSPECIFIED 04/21/2008 PAOLA LEE MD N 272.4 HYPERLIPIDEMIA UNSPECIFIED 07/26/2008 413.9 OTHER AND UNSPECIFIED ANGINA PECTORIS 07/26/2008 414.00 CORONARY ATHEROSCLEROSIS OF UNSPECIFIED TYPE OF VESSEL [place] TRIBE OR GRAFT 07/26/2008 433.10 OCCLUSION AND STENOSIS OF CAROTID ARTERY WITHOUT CEREBRAL INFARCTION 07/26/2008 DARREN INFANTE DO K 413.9 OTHER AND UNSPECIFIED ANGINA PECTORIS 07/26/2008 INFANTE DO, DARREN K 414.00 CORONARY ATHEROSCLEROSIS OF UNSPECIFIED TYPE OF VESSEL [place] TRIBE OR GRAFT 07/26/2008 INFANTE DO, DARREN K 433.10 OCCLUSION AND STENOSIS OF CAROTID ARTERY WITHOUT CEREBRAL INFARCTION 07/26/2008 INFANTE DO, DARREN K 413.9 OTHER AND UNSPECIFIED ANGINA PECTORIS 07/26/2008 INFANTE DO, DARREN K 414.00 CORONARY ATHEROSCLEROSIS OF UNSPECIFIED TYPE OF VESSEL [place] TRIBE OR GRAFT 07/26/2008 INFANTE DO, DARREN K 433.10 OCCLUSION AND STENOSIS OF CAROTID ARTERY WITHOUT CEREBRAL INFARCTION 07/26/2008 SOARES LUMP RECEIVER, KARLA R 413.9 OTHER AND UNSPECIFIED ANGINA PECTORIS 07/26/2008 SOARES LUMP RECEIVER, KARLA R 414.00 CORONARY ATHEROSCLEROSIS OF UNSPECIFIED TYPE OF VESSEL [place] TRIBE OR GRAFT 07/26/2008 SOARES LUMP RECEIVER, KARLA R 433.10 OCCLUSION AND STENOSIS OF CAROTID ARTERY WITHOUT CEREBRAL INFARCTION 07/26/2008 INFANTE DO, DARREN K 413.9 OTHER AND UNSPECIFIED ANGINA PECTORIS 07/26/2008 INFANTE DO, DARREN K 414.00 CORONARY ATHEROSCLEROSIS OF UNSPECIFIED TYPE OF VESSEL [place] TRIBE OR GRAFT 07/26/2008 INFANTE DO, DARREN K 433.10 OCCLUSION AND STENOSIS OF CAROTID ARTERY WITHOUT CEREBRAL INFARCTION 07/26/2008 413.9 OTHER AND UNSPECIFIED ANGINA PECTORIS 07/26/2008 414.00 CORONARY ATHEROSCLEROSIS OF UNSPECIFIED TYPE OF VESSEL [place] TRIBE OR GRAFT 07/26/2008 433.10 OCCLUSION AND STENOSIS OF CAROTID ARTERY WITHOUT CEREBRAL INFARCTION 07/26/2008 413.9 OTHER AND UNSPECIFIED ANGINA PECTORIS 07/26/2008 414.00 CORONARY ATHEROSCLEROSIS OF UNSPECIFIED TYPE OF VESSEL [place] TRIBE OR GRAFT 07/26/2008 433.10 OCCLUSION AND STENOSIS OF CAROTID ARTERY WITHOUT CEREBRAL INFARCTION 07/26/2008 INFANTE DO, DARREN K 413.9 OTHER AND UNSPECIFIED ANGINA PECTORIS 07/26/2008 INFANTE DO, DARREN K 414.00 CORONARY ATHEROSCLEROSIS OF UNSPECIFIED TYPE OF VESSEL [place] TRIBE OR GRAFT 07/26/2008 INFANTE DO, DARREN K 433.10 OCCLUSION AND STENOSIS OF CAROTID ARTERY WITHOUT CEREBRAL INFARCTION 07/26/2008 INFANTE DO, DARREN K 413.9 OTHER AND UNSPECIFIED ANGINA PECTORIS 07/26/2008 INFANTE DO, DARREN K 414.00 CORONARY ATHEROSCLEROSIS OF UNSPECIFIED TYPE OF VESSEL [place] TRIBE OR GRAFT 07/26/2008 INFANTE DO, DARREN K 433.10 OCCLUSION AND STENOSIS OF CAROTID ARTERY WITHOUT CEREBRAL INFARCTION 07/26/2008 INFANTE DO, DARREN K 413.9 OTHER AND UNSPECIFIED ANGINA PECTORIS 07/26/2008 INFANTE DO, DARREN K 414.00 CORONARY ATHEROSCLEROSIS OF UNSPECIFIED TYPE OF VESSEL [place] TRIBE OR GRAFT 07/26/2008 INFANTE DO, DARREN K 433.10 OCCLUSION AND STENOSIS OF CAROTID ARTERY WITHOUT CEREBRAL INFARCTION 07/26/2008 INFANTE DO DARREN K 413.9 OTHER AND UNSPECIFIED ANGINA PECTORIS 07/26/2008 INFANTE DO, DARREN K 414.00 CORONARY ATHEROSCLEROSIS OF UNSPECIFIED TYPE OF VESSEL [place] TRIBE OR GRAFT 07/26/2008 INFANTE DO, DARREN K 433.10 OCCLUSION AND STENOSIS OF CAROTID ARTERY WITHOUT CEREBRAL INFARCTION 07/26/2008 JOVANNY AMADOR APRN 413.9 OTHER AND UNSPECIFIED ANGINA PECTORIS 07/26/2008 JOVANNY AMADOR APRN 414.00 CORONARY ATHEROSCLEROSIS OF UNSPECIFIED TYPE OF VESSEL [place] TRIBE OR GRAFT 07/26/2008 JOVANNY AMADOR APRN 433.10 OCCLUSION AND STENOSIS OF CAROTID ARTERY WITHOUT CEREBRAL INFARCTION 07/26/2008 PAOLA LEE MD 413.9 OTHER AND UNSPECIFIED ANGINA PECTORIS 07/26/2008 PAOLA LEE MD N 414.00 CORONARY ATHEROSCLEROSIS OF UNSPECIFIED TYPE OF VESSEL [place] TRIBE OR GRAFT 07/26/2008 PAOLA LEE MD N 433.10 OCCLUSION AND STENOSIS OF CAROTID ARTERY WITHOUT CEREBRAL INFARCTION 07/26/2008 PAOLA LEE MD N 413.9 OTHER AND UNSPECIFIED ANGINA PECTORIS 07/26/2008 PAOLA LEE MD N 414.00 CORONARY ATHEROSCLEROSIS OF UNSPECIFIED TYPE OF VESSEL [place] TRIBE OR GRAFT 07/26/2008 PAOLA LEE MD N 433.10 OCCLUSION AND STENOSIS OF CAROTID ARTERY WITHOUT CEREBRAL INFARCTION 07/26/2008 PAOLA LEE MD N 413.9 OTHER AND UNSPECIFIED ANGINA PECTORIS 07/26/2008 PAOLA LEE MD N 414.00 CORONARY ATHEROSCLEROSIS OF UNSPECIFIED TYPE OF VESSEL [place] TRIBE OR GRAFT 07/26/2008 PAOLA LEE MD N 433.10 OCCLUSION AND STENOSIS OF CAROTID ARTERY WITHOUT CEREBRAL INFARCTION 07/26/2008 PAOLA LEE MD N 413.9 OTHER AND UNSPECIFIED ANGINA PECTORIS 07/26/2008 PAOLA LEE MD N 414.00 CORONARY ATHEROSCLEROSIS OF UNSPECIFIED TYPE OF VESSEL [place] TRIBE OR GRAFT 07/26/2008 PAOLA LEE MD N 433.10 OCCLUSION AND STENOSIS OF CAROTID ARTERY WITHOUT CEREBRAL INFARCTION 07/26/2008 PAOLA LEE MD N 413.9 OTHER AND UNSPECIFIED ANGINA PECTORIS 07/26/2008 PAOLA LEE MD N 414.00 CORONARY ATHEROSCLEROSIS OF UNSPECIFIED TYPE OF VESSEL [place] TRIBE OR GRAFT 07/26/2008 PAOLA LEE MD N 433.10 OCCLUSION AND STENOSIS OF CAROTID ARTERY WITHOUT CEREBRAL INFARCTION 09/06/2008 401.9 UNSPECIFIED ESSENTIAL HYPERTENSION 09/06/2008 443.9 PERIPHERAL VASCULAR DISEASE UNSPECIFIED 09/06/2008 INFANTE DO, DARREN K 401.9 UNSPECIFIED ESSENTIAL HYPERTENSION 09/06/2008 INFANET DO, DARREN K 443.9 PERIPHERAL VASCULAR DISEASE UNSPECIFIED 09/06/2008 INFANTE DO, DARREN K 401.9 UNSPECIFIED ESSENTIAL HYPERTENSION 09/06/2008 INFANTE DO, DARREN K 443.9 PERIPHERAL VASCULAR DISEASE UNSPECIFIED 09/06/2008 KARLA SOARES APRN R 401.9 UNSPECIFIED ESSENTIAL HYPERTENSION 09/06/2008 KARLA SOARES APRN R 443.9 PERIPHERAL VASCULAR DISEASE UNSPECIFIED 09/06/2008 INFANTE DO, DARREN K 401.9 UNSPECIFIED ESSENTIAL HYPERTENSION 09/06/2008 INFANTE DO, DARREN K 443.9 PERIPHERAL VASCULAR DISEASE UNSPECIFIED 09/06/2008 401.9 UNSPECIFIED ESSENTIAL HYPERTENSION 09/06/2008 443.9 PERIPHERAL VASCULAR DISEASE UNSPECIFIED 09/06/2008 401.9 UNSPECIFIED ESSENTIAL HYPERTENSION 09/06/2008 443.9 PERIPHERAL VASCULAR DISEASE UNSPECIFIED 09/06/2008 INFANTE DO, DARREN K 401.9 UNSPECIFIED ESSENTIAL HYPERTENSION 09/06/2008 INFANTE DO, DARREN K 443.9 PERIPHERAL VASCULAR DISEASE UNSPECIFIED 09/06/2008 INFANTE DO, DARREN K 401.9 UNSPECIFIED ESSENTIAL HYPERTENSION 09/06/2008 INFANTE DO, DARREN K 443.9 PERIPHERAL VASCULAR DISEASE UNSPECIFIED 09/06/2008 INFANTE DO, DARREN K 401.9 UNSPECIFIED ESSENTIAL HYPERTENSION 09/06/2008 INFANTE DO, DARREN K 443.9 PERIPHERAL VASCULAR DISEASE UNSPECIFIED 09/06/2008 INFANTE DO, DARREN K 401.9 UNSPECIFIED ESSENTIAL HYPERTENSION 09/06/2008 INFANTE DO, DARREN K 443.9 PERIPHERAL VASCULAR DISEASE UNSPECIFIED 09/06/2008 JOVANNY AMADOR APRN 401.9 UNSPECIFIED ESSENTIAL HYPERTENSION 09/06/2008 JOVANNY AMADOR APRN 443.9 PERIPHERAL VASCULAR DISEASE UNSPECIFIED 09/06/2008 PAOLA LEE MD N 401.9 UNSPECIFIED ESSENTIAL HYPERTENSION 09/06/2008 PAOLA LEE MD N 443.9 PERIPHERAL VASCULAR DISEASE UNSPECIFIED 09/06/2008 PAOLA LEE MD N 401.9 UNSPECIFIED ESSENTIAL HYPERTENSION 09/06/2008 PAOLA LEE MD N 443.9 PERIPHERAL VASCULAR DISEASE UNSPECIFIED 09/06/2008 PAOLA LEE MD N 401.9 UNSPECIFIED ESSENTIAL HYPERTENSION 09/06/2008 PAOLA LEE MD N 443.9 PERIPHERAL VASCULAR DISEASE UNSPECIFIED 09/06/2008 PAOLA LEE MD N 401.9 UNSPECIFIED ESSENTIAL HYPERTENSION 09/06/2008 PAOLA LEE MD N 443.9 PERIPHERAL VASCULAR DISEASE UNSPECIFIED 09/06/2008 PAOLA LEE MD N 401.9 UNSPECIFIED ESSENTIAL HYPERTENSION 09/06/2008 PAOLA LEE MD N 443.9 PERIPHERAL VASCULAR DISEASE UNSPECIFIED 06/06/2009 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, RECURRENT WITH PSYCHOTIC FEATURES 06/06/2009 307.89 OTHER PAIN DISORDERS RELATED TO PSYCHOLOGICAL FACTORS 06/06/2009 DARREN INFANTE DO 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, RECURRENT WITH PSYCHOTIC FEATURES 06/06/2009 DARREN INFANTE DO 307.89 OTHER PAIN DISORDERS RELATED TO PSYCHOLOGICAL FACTORS 06/06/2009 DARREN INFANTE DO 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, RECURRENT WITH PSYCHOTIC FEATURES 06/06/2009 DARREN INFANTE DO 307.89 OTHER PAIN DISORDERS RELATED TO PSYCHOLOGICAL FACTORS 06/06/2009 KARLA SOARES APRN R 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, RECURRENT WITH PSYCHOTIC FEATURES 06/06/2009 KARLA SOARES APRN R 307.89 OTHER PAIN DISORDERS RELATED TO PSYCHOLOGICAL FACTORS 06/06/2009 DARREN INFANTE DO 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, RECURRENT WITH PSYCHOTIC FEATURES 06/06/2009 DARREN INFANTE DO 307.89 OTHER PAIN DISORDERS RELATED TO PSYCHOLOGICAL FACTORS 06/06/2009 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, RECURRENT WITH PSYCHOTIC FEATURES 06/06/2009 307.89 OTHER PAIN DISORDERS RELATED TO PSYCHOLOGICAL FACTORS 06/06/2009 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, RECURRENT WITH PSYCHOTIC FEATURES 06/06/2009 307.89 OTHER PAIN DISORDERS RELATED TO PSYCHOLOGICAL FACTORS 06/06/2009 DARREN INFANTE DO 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, RECURRENT WITH PSYCHOTIC FEATURES 06/06/2009 INFANTE DO, DARREN K 307.89 OTHER PAIN DISORDERS RELATED TO PSYCHOLOGICAL FACTORS 06/06/2009 INFANTE DO, DARREN K 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, RECURRENT WITH PSYCHOTIC FEATURES 06/06/2009 INFANTE DO, DARREN K 307.89 OTHER PAIN DISORDERS RELATED TO PSYCHOLOGICAL FACTORS 06/06/2009 INFANTE DO, DARREN K 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, RECURRENT WITH PSYCHOTIC FEATURES 06/06/2009 INFANTE DO, DARREN K 307.89 OTHER PAIN DISORDERS RELATED TO PSYCHOLOGICAL FACTORS 06/06/2009 INFANTE DO DARREN K 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, RECURRENT WITH PSYCHOTIC FEATURES 06/06/2009 INFANTE DO, DARREN K 307.89 OTHER PAIN DISORDERS RELATED TO PSYCHOLOGICAL FACTORS 06/06/2009 JOVANNY AMADOR APRN 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, RECURRENT WITH PSYCHOTIC FEATURES 06/06/2009 JOVANNY AMADOR APRN 307.89 OTHER PAIN DISORDERS RELATED TO PSYCHOLOGICAL FACTORS 06/06/2009 PAOLA LEE MD 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, RECURRENT WITH PSYCHOTIC FEATURES 06/06/2009 PAOLA LEE MD 307.89 OTHER PAIN DISORDERS RELATED TO PSYCHOLOGICAL FACTORS 06/06/2009 PAOLA LEE MD 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, RECURRENT WITH PSYCHOTIC FEATURES 06/06/2009 PAOLA LEE MD N 307.89 OTHER PAIN DISORDERS RELATED TO PSYCHOLOGICAL FACTORS 06/06/2009 PAOLA LEE MD 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, RECURRENT WITH PSYCHOTIC FEATURES 06/06/2009 PAOLA LEE MD N 307.89 OTHER PAIN DISORDERS RELATED TO PSYCHOLOGICAL FACTORS 06/06/2009 PAOLA LEE MD 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, RECURRENT WITH PSYCHOTIC FEATURES 06/06/2009 PAOLA LEE MD N 307.89 OTHER PAIN DISORDERS RELATED TO PSYCHOLOGICAL FACTORS 06/06/2009 PAOLA LEE MD 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, RECURRENT WITH PSYCHOTIC FEATURES 06/06/2009 PAOLA LEE MD N 307.89 OTHER PAIN DISORDERS RELATED TO PSYCHOLOGICAL FACTORS 10/12/2009 Ot 311 10/12/2009 Ot 881.02 10/12/2009 Ot E000.8 10/12/2009 Ot E030 10/12/2009 Ot E956 10/12/2009 Ot V06.1 05/19/2010 Ot 272.4 05/19/2010 Ot 305.1 05/19/2010 Ot 311 05/19/2010 Ot 401.9 05/19/2010 Ot 414.00 05/19/2010 Ot 433.10 05/19/2010 Ot 491.9 05/19/2010 Ot 962.3 05/19/2010 Ot E849.0 05/19/2010 Ot E950.4 05/19/2010 Ot V45.81 07/07/2010 338.4 CHRONIC PAIN SYNDROME 07/07/2010 V04.81 FLU SHOT 07/07/2010 V58.69 taking high- risk medication 07/07/2010 DARREN INFANTE DO K 338.4 CHRONIC PAIN SYNDROME 07/07/2010 INFANTE WILBERTO GROVEA K V04.81 FLU SHOT 07/07/2010 INFANTE WILBERTO GROVEA K V58.69 taking high-risk medication 07/07/2010 INFANTE WILBERTO GROVEA K 338.4 CHRONIC PAIN SYNDROME 07/07/2010 INFANTE WILBERTO GROVEA K V04.81 FLU SHOT 07/07/2010 INFANTE WILBERTO GROVEA K V58.69 taking high-risk medication 07/07/2010 TAHIR SOARES APRNIA R 338.4 CHRONIC PAIN SYNDROME 07/07/2010 SOARES LUMP RECEIVERCAMILA TavarezKARLA R V04.81 FLU SHOT 07/07/2010 CAMILA SOARES APRNRICIA R V58.69 taking high-risk medication 07/07/2010 DARREN INFANTE DO K 338.4 CHRONIC PAIN SYNDROME 07/07/2010 INFANTE WILBERTO GROVEA K V04.81 FLU SHOT 07/07/2010 INFANTE WILBERTO GROVEA K V58.69 taking high-risk medication 07/07/2010 338.4 CHRONIC PAIN SYNDROME 07/07/2010 V04.81 FLU SHOT 07/07/2010 V58.69 taking high- risk medication 07/07/2010 338.4 CHRONIC PAIN SYNDROME 07/07/2010 V04.81 FLU SHOT 07/07/2010 V58.69 taking high- risk medication 07/07/2010 INFANTE WILBERTO GROVEA K 338.4 CHRONIC PAIN SYNDROME 07/07/2010 INFANTE WILBERTO GROVEA K V04.81 FLU SHOT 07/07/2010 INFANTE WILBERTO GROVEA K V58.69 taking high-risk medication 07/07/2010 INFANTE WILBERTO GROVEA K 338.4 CHRONIC PAIN SYNDROME 07/07/2010 INFANTE WILBERTO GROVEA K V04.81 FLU SHOT 07/07/2010 INFANTE WILBERTO GROVEA K V58.69 taking high-risk medication 07/07/2010 DARREN INFANET DO K 338.4 CHRONIC PAIN SYNDROME 07/07/2010 INFANTE DARREN GROVE K V04.81 FLU SHOT 07/07/2010 INFANTE DARREN GROVE K V58.69 taking high-risk medication 07/07/2010 DARREN INFANTE DO K 338.4 CHRONIC PAIN SYNDROME 07/07/2010 DARREN INFANTE DO K V04.81 FLU SHOT 07/07/2010 DARREN INFANTE DO K V58.69 taking high-risk medication 07/07/2010 JOVANNY AMADOR APRN 338.4 CHRONIC PAIN SYNDROME 07/07/2010 JOVANNY AMADOR APRN V04.81 FLU SHOT 07/07/2010 JOVANNY AMADOR APRN V58.69 taking high-risk medication 07/07/2010 PAOLA LEE MD 338.4 CHRONIC PAIN SYNDROME 07/07/2010 PAOLA LEE MD V04.81 FLU SHOT 07/07/2010 PAOLA LEE MD V58.69 taking high-risk medication 07/07/2010 PAOLA LEE MD 338.4 CHRONIC PAIN SYNDROME 07/07/2010 PAOLA LEE MD V04.81 FLU SHOT 07/07/2010 PAOLA LEE MD V58.69 taking high-risk medication 07/07/2010 PAOLA LEE MD 338.4 CHRONIC PAIN SYNDROME 07/07/2010 PAOLA LEE MD V04.81 FLU SHOT 07/07/2010 PAOLA LEE MD V58.69 taking high-risk medication 07/07/2010 PAOLA LEE MD 338.4 CHRONIC PAIN SYNDROME 07/07/2010 PAOLA LEE MD V04.81 FLU SHOT 07/07/2010 PAOLA LEE MD V58.69 taking high-risk medication 07/07/2010 PAOLA LEE MD 338.4 CHRONIC PAIN SYNDROME 07/07/2010 PAOLA LEE MD V04.81 FLU SHOT 07/07/2010 PAOLA LEE MD V58.69 taking high-risk medication 06/13/2012 DARREN INFANTE DO 719.43 PAIN IN JOINT INVOLVING FOREARM 06/13/2012 INFANTE DO, DARREN K 788.41 URINARY FREQUENCY 06/13/2012 INFANTE DO, DARREN K 788.43 NOCTURIA 06/13/2012 KARLA SOARES APRN R 719.43 joint pain, localized in the wrist 06/13/2012 CAMILA SOARES APRNRICIA R 788.41 URINARY FREQUENCY 06/13/2012 TAHIR SOARES APRNIA R 788.43 NOCTURIA 06/13/2012 INFANTE DO, DARREN K 719.43 joint pain, localized in the wrist 06/13/2012 INFANTE DO, DARREN K 788.41 URINARY FREQUENCY 06/13/2012 INFANTE DO, DARREN K 788.43 NOCTURIA 06/13/2012 719.43 joint pain, localized in the wrist 06/13/2012 788.41 URINARY FREQUENCY 06/13/2012 788.43 NOCTURIA 06/13/2012 719.43 joint pain, localized in the wrist 06/13/2012 788.41 URINARY FREQUENCY 06/13/2012 788.43 NOCTURIA 06/13/2012 INFANTE DO, DARREN K 719.43 joint pain, localized in the wrist 06/13/2012 INFANTE DO, DARREN K 788.41 URINARY FREQUENCY 06/13/2012 INFANTE DO, DARREN K 788.43 NOCTURIA 06/13/2012 INFANTE DO, DARREN K 719.43 joint pain, localized in the wrist 06/13/2012 INFANTE DO, DARREN K 788.41 URINARY FREQUENCY 06/13/2012 INFANTE DO, DARREN K 788.43 NOCTURIA 06/13/2012 INFANTE DO, DARREN K 719.43 joint pain, localized in the wrist 06/13/2012 INFANTE DO, DARREN K 788.41 URINARY FREQUENCY 06/13/2012 INFANTE DO, DARREN K 788.43 NOCTURIA 06/13/2012 INFANTE DO, DARREN K 719.43 joint pain, localized in the wrist 06/13/2012 INFANTE DO, DARREN K 788.41 URINARY FREQUENCY 06/13/2012 INFANTE DO, DARREN K 788.43 NOCTURIA 06/13/2012 JOVANNY AMADOR APRN 719.43 joint pain, localized in the wrist 06/13/2012 JOVANNY AMADOR APRN 788.41 URINARY FREQUENCY 06/13/2012 JOVANNY AMADOR APRN 788.43 NOCTURIA 06/13/2012 PAOLA LEE MD N 719.43 joint pain, localized in the wrist 06/13/2012 PAOLA LEE MD N 788.41 URINARY FREQUENCY 06/13/2012 PAOLA LEE MD N 788.43 NOCTURIA 06/13/2012 PAOLA LEE MD N 719.43 joint pain, localized in the wrist 06/13/2012 PAOLA LEE MD N 788.41 URINARY FREQUENCY 06/13/2012 PAOLA LEE MD N 788.43 NOCTURIA 06/13/2012 PAOLA LEE MD N 719.43 joint pain, localized in the wrist 06/13/2012 PAOLA LEE MD N 788.41 URINARY FREQUENCY 06/13/2012 PAOLA LEE MD N 788.43 NOCTURIA 06/13/2012 PAOLA LEE MD N 719.43 joint pain, localized in the wrist 06/13/2012 PAOLA LEE MD N 788.41 URINARY FREQUENCY 06/13/2012 PAOLA LEE MD N 788.43 NOCTURIA 06/13/2012 PAOLA LEE MD N 719.43 joint pain, localized in the wrist 06/13/2012 PAOLA LEE MD N 788.41 URINARY FREQUENCY 06/13/2012 PAOLA LEE MD N 788.43 NOCTURIA 07/21/2013 DARREN INFANTE DO K 305.1 TOBACCO ABUSE 07/21/2013 WILBERTO INFNATE DOA K 785.9 CAROTID BRUIT 07/21/2013 WILBERTO INFANTE DOA K 305.1 TOBACCO ABUSE 07/21/2013 WILBERTO INFANTE DOA K 785.9 CAROTID BRUIT 07/21/2013 WILBERTO INFANTE DOA K 305.1 TOBACCO ABUSE 07/21/2013 WILBERTO INFANTE DOA K 785.9 CAROTID BRUIT 07/21/2013 JOVANNY AMADOR APRN 305.1 TOBACCO ABUSE 07/21/2013 JOVANNY AMADOR APRN 785.9 CAROTID BRUIT 07/21/2013 PAOLA LEE MD N 305.1 TOBACCO ABUSE 07/21/2013 PAOLA LEE MD N 785.9 CAROTID BRUIT 07/21/2013 PAOLA LEE MD N 305.1 TOBACCO ABUSE 07/21/2013 PAOLA LEE MD N 785.9 CAROTID BRUIT 07/21/2013 PAOLA LEE MD N 305.1 TOBACCO ABUSE 07/21/2013 PAOLA LEE MD N 785.9 CAROTID BRUIT 07/21/2013 PAOLA LEE MD N 305.1 TOBACCO ABUSE 07/21/2013 PAOLA LEE MD N 785.9 CAROTID BRUIT 07/21/2013 PAOLA LEE MD N 305.1 TOBACCO ABUSE 07/21/2013 PAOLA LEE MD N 785.9 CAROTID BRUIT 10/17/2013 INFANTE DO, DARREN K 847.2 SPRAIN LUMBAR REGION 10/17/2013 JOVANNY AMADOR APRN 847.2 SPRAIN LUMBAR REGION 10/17/2013 PAOLA LEE MD N 847.2 SPRAIN LUMBAR REGION 10/17/2013 PAOLA LEE MD N 847.2 SPRAIN LUMBAR REGION 10/17/2013 PAOLA LEE MD N 847.2 SPRAIN LUMBAR REGION 10/17/2013 PAOLA LEE MD N 847.2 SPRAIN LUMBAR REGION 10/17/2013 PAOLA LEE MD N 847.2 SPRAIN LUMBAR REGION 10/31/2013 JOVANNY AMADOR APRN 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 10/31/2013 JOVANNY AMADOR APRN 564.00 CONSTIPATION 10/31/2013 PAOLA LEE MD N 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 10/31/2013 PAOLA LEE MD N 564.00 CONSTIPATION 10/31/2013 PAOLA LEE MD N 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 10/31/2013 PAOLA LEE MD N 564.00 CONSTIPATION 10/31/2013 PAOLA LEE MD N 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 10/31/2013 PAOLA LEE MD N 564.00 CONSTIPATION 10/31/2013 PAOLA LEE MD N 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 10/31/2013 PAOLA LEE MD N 564.00 CONSTIPATION 10/31/2013 PAOLA LEE MD N 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 10/31/2013 PAOLA LEE MD N 564.00 CONSTIPATION 05/09/2014 PAOLA LEE MD N 723.1 PAIN NECK 05/09/2014 PAOLA LEE MD N 729.5 PAIN- HAND 05/09/2014 PAOLA LEE MD N 723.1 PAIN NECK 05/09/2014 PAOLA LEE MD N 729.5 PAIN- HAND 05/09/2014 PAOLA LEE MD N 723.1 PAIN NECK 05/09/2014 PAOLA LEE MD N 729.5 PAIN- HAND 05/09/2014 PAOLA LEE MD N 723.1 PAIN NECK 05/09/2014 PAOLA LEE MD N 729.5 PAIN- HAND 05/22/2014 BENNETT-ADELIA PA, JACQUES K Ot 272.4 05/22/2014 GUAJARDO-ADELIA PA, JACQUES K Ot 305.1 05/22/2014 GUAJARDO-ADELIA PA, JACQUES K Ot 397.0 05/22/2014 GUAJRADO-ADELIA PA, JACQUES K Ot 401.9 05/22/2014 GUAJARDO-ADELIA PA, JACQUES K Ot 414.00 05/22/2014 GUAJARDO-ADELIA PA, JACQUES K Ot 416.8 05/22/2014 GUAJARDO-ADELIA PA, JACQUES K Ot 424.0 05/22/2014 GUAJARDO-ADELIA PA, JACQUES K Ot 433.10 05/22/2014 GUAJARDO-ADELIA PA, JACQUES K Ot 443.9 05/22/2014 GUAJARDO-ADELIA PA, JACQUES K Ot 785.9 05/22/2014 GUAJARDO-ADELIA PA, JACQUES K Ot 793.2 05/22/2014 GUAJARDO-ADELIA PA, JACQUES K Ot 272.4 05/22/2014 GUAJARDO-ADELIA PA, JACQUES K Ot 305.1 05/22/2014 GUAJARDO-ADELIA PA, JACQUES K Ot 401.9 05/22/2014 GUAJARDO-ADELIA PA, JACQUES K Ot 414.00 05/22/2014 GUAJARDO-ADELIA PA, JACQUES K Ot 443.0 05/22/2014 JACQUES FERNANDES Ot 785.9 06/08/2014 ROSA POWELL, PAOLA N 295.00 SIMPLE TYPE SCHIZOPHRENIA UNSPECIFIED STATE 06/08/2014 PAOLA LEE MD N 295.00 SIMPLE TYPE SCHIZOPHRENIA UNSPECIFIED STATE 07/10/2014 ROSA POWELL, PAOLA N 276.8 HYPOPOTASSEMIA 12/15/2014 VIVEK POWELL, KING T Ot 724.2 LUMBAGO 12/15/2014 KING DOYLE MD T Ot 847.2 SPRAIN LUMBAR REGION 12/15/2014 KING DOYLE MD T Ot E000.8 OTHER EXTERNAL CAUSE STATUS 12/15/2014 KING DOYLE MD Ot E001.0 ACTIVITIES INVOLVING WALKING, MARCHING A 12/15/2014 KING DOYLE MD Ot E849.0 ACCIDENT IN HOME 12/15/2014 KING DOYLE MD Ot E883.9 FALL INTO OTHER HOLE 03/05/2015 ROSA POWELL, PAOLA N Ot 723.1 03/05/2015 PAOLA LEE MD Ot 729.5 11/15/2015 JACQUES FERNANDES Ot 272.4 HYPERLIPIDEMIA NEC/NOS 11/15/2015 JACQUES FERNANDES Ot 305.1 TOBACCO USE DISORDER 11/15/2015 JACQUES FERNANDES Ot 397.0 TRICUSPID VALVE DISEASE 11/15/2015 JACQUES FERNANDES Ot 401.9 HYPERTENSION NOS 11/15/2015 JACQUES FERNANDES Ot 414.00 CORON ATHEROSCLER NOS TYPE VESSEL, NATIV 11/15/2015 JACQUES FERNANDES Ot 416.8 CHR PULMON HEART DIS NEC 11/15/2015 JCAQUES FERNANDES Ot 424.0 MITRAL VALVE DISORDER 11/15/2015 JACQUES FERNANDES Ot 433.10 CAROTID ARTERY OCCLUSION W O CEREBRAL IN 11/15/2015 JACQUES FERNANDES Ot 443.9 PERIPH VASCULAR DIS NOS 11/15/2015 JACQUES FERNANDES Ot 785.9 CARDIOVAS SYS SYMP NEC 11/15/2015 AJCQUES FERNANDES Ot 793.2 NOSP (ABN) FINDINGS ON RADIOLOGICAL OT 11/15/2015 JACQUES FERNANDES Ot 272.4 HYPERLIPIDEMIA NEC/NOS 11/15/2015 JACQUES FERNANDES Ot 305.1 TOBACCO USE DISORDER 11/15/2015 JACQUES FERNANDES Ot 401.9 HYPERTENSION NOS 11/15/2015 JACQUES FERNANDES Ot 414.00 CORON ATHEROSCLER NOS TYPE VESSEL, NATIV 11/15/2015 JACQUES FERNANDES Ot 443.0 RAYNAUD'S SYNDROME 11/15/2015 JACQUES FERNANDES Ot 785.9 CARDIOVAS SYS SYMP NEC 11/15/2015 PAOLA LEE MD Ot 723.1 CERVICALGIA 11/15/2015 PAOLA LEE MD Ot 729.5 PAIN IN LIMB 11/15/2015 PHILLIP POWELL, MARIA GUADALUPE Armas Ot F15.10 OTHER STIMULANT ABUSE, UNCOMPLICATED 11/15/2015 MARIA GUADALUPE FISHER MD Ot F17.210 NICOTINE DEPENDENCE, CIGARETTES, UNCOMPL 11/15/2015 MARIA GUADALUPE FISHER MD Ot F23 BRIEF PSYCHOTIC DISORDER 11/15/2015 MARIA GUADALUPE FISHER MD Ot Z91.14 PATIENT'S OTHER NONCOMPLIANCE WITH MEDIC 01/13/2016 VIKKI FRANCIS MD Ot N13.2 HYDRONEPHROSIS WITH RENAL AND URETERAL C 01/13/2016 VIKKI FRANCIS MD Ot N28.1 CYST OF KIDNEY, ACQUIRED 01/13/2016 VIKKI FRANCIS MD Ot R10.32 LEFT LOWER QUADRANT PAIN 01/15/2016 VIKKI FRANCIS MD Ot N13.2 HYDRONEPHROSIS WITH RENAL AND URETERAL C 01/15/2016 VIKKI FRANCIS MD Ot N28.1 CYST OF KIDNEY, ACQUIRED 01/15/2016 VIKKI FRANCIS MD Ot R10.32 LEFT LOWER QUADRANT PAIN 01/24/2016 VIKKI FRANCIS MD Ot N13.2 HYDRONEPHROSIS WITH RENAL AND URETERAL C 01/24/2016 VIKKI FRANCIS MD Ot N28.1 CYST OF KIDNEY, ACQUIRED 01/24/2016 PENNY POWELL, VIKKI Jimenez Ot R10.32 LEFT LOWER QUADRANT PAIN 01/25/2016 PENNY POWELL, VIKKI Jimenez Ot N13.2 HYDRONEPHROSIS WITH RENAL AND URETERAL C 01/25/2016 PENNY POWELL, VIKKI Jimenez Ot N28.1 CYST OF KIDNEY, ACQUIRED 01/25/2016 PENNY POWELL, VIKKI Jimenez Ot R10.32 LEFT LOWER QUADRANT PAIN 06/26/2017 Beryl Perkins W 274.9 GOUT, UNSPECIFIED 06/26/2017 Ramiro Perkinsya W 681.10 CELLULITIS AND ABSCESS OF TOE, UNSPECIFIED 06/26/2017 Beryl Perkins A 729.5 PAIN IN LIMB 06/26/2017 Beryl Perkins W L03.032 CELLULITIS OF LEFT TOE 06/26/2017 Beryl Perkins W M10.9 GOUT, UNSPECIFIED 06/26/2017 Beryl Perkins A M79.675 PAIN IN LEFT TOE(S) Procedures Code Description [place] [address] ROUTINE VENIPUNCTURE 06/13/2012 15426 CMP 06/13/2012 2401165 GFR CALC (RESULT ONLY) 06/13/2012 47520 PSA FREE AND TOTAL 06/14/2012 63430 XRAY WRIST RIGHT 2 VIEWS 08/01/2012 RADHIKA STILL 08/12/2012 36128 NUCLEAR STRESS TESTING 07/21/2013 03635 LIPID PANEL 07/21/2013 60880 LIVER PANEL (LFT) 07/21/2013 84562 ECHO 2D 07/21/2013 87515 US CAROTID DOPPLER 07/21/2013 61561 LIBERTY 07/21/2013 41513 STRESS TEST, CARDIAC ( SPECIFY TYPE) 09/11/2013 75683 XRAY LUMBAR SPINE 2 OR 3 VIEWS 10/17/2013 34005 XRAY CERVICAL SPINE, 2 OR 3 VIEWS 05/09/2014 19907 MRI SPINE (CERVICAL) W/O CONTRAST 05/09/2014 98479 XRAY WRIST RIGHT 2 VIEWS 05/09/2014 62486 XRAY HAND RIGHT 2 VIEWS 05/09/2014 70488 ROUTINE VENIPUNCTURE 07/10/2014 18950 BMP 07/10/2014 Results Test Result Range Complete blood count (CBC) with automated white blood cell (WBC) differential - 01/13/16 16:00 Blood leukocytes automated count (number/volume) 10.2 10*3/uL 4.3-11.0 Blood erythrocytes automated count (number/volume) 5.43 10*6/uL 4.35-5.85 Venous blood hemoglobin measurement (mass/volume) 14.4 g/dL 13.3-17.7 Blood hematocrit (volume fraction) 44 % 40-54 Automated erythrocyte mean corpuscular volume 82 [foz_us] 80-99 Automated erythrocyte mean corpuscular hemoglobin (mass per erythrocyte) 27 pg 25-34 Automated erythrocyte mean corpuscular hemoglobin concentration measurement ( mass/volume) 33 g/dL 32-36 Automated erythrocyte distribution width ratio 15.6 % 10.0-14.5 Automated blood platelet count (count/volume) 354 10*3/uL 130-400 Automated blood platelet mean volume measurement 10.4 [foz_us] 7.4-10.4 Automated blood neutrophils/100 leukocytes 64 % 42-75 Automated blood lymphocytes/100 leukocytes 22 % 12-44 Blood monocytes/100 leukocytes 11 % 0-12 Automated blood eosinophils/100 leukocytes 2 % 0-10 Automated blood basophils/100 leukocytes 0 % 0-10 Blood neutrophils automated count (number/volume) 6.5 10*3 1.8-7.8 Blood lymphocytes automated count (number/volume) 2.3 10*3 1.0-4.0 Blood monocytes automated count (number/volume) 1.1 10*3 0.0-1.0 Automated eosinophil count 0.2 10*3/uL 0.0-0.3 Automated blood basophil count (count/volume) 0.0 10*3/uL 0.0-0.1 Comprehensive metabolic panel - 01/13/16 16:00 Serum or plasma sodium measurement (moles/volume) 137 mmol/L 135-145 Serum or plasma potassium measurement (moles/volume) 4.0 mmol/L 3.6-5.0 Serum or plasma chloride measurement (moles/volume) 105 mmol/L 98-107 Carbon dioxide 21 mmol/L 21-32 Serum or plasma anion gap determination (moles/volume) 11 mmol/L 5-14 Serum or plasma urea nitrogen measurement (mass/volume) 20 mg/dL 7-18 Serum or plasma creatinine measurement (mass/volume) 1.16 mg/dL 0.60-1.30 Serum or plasma urea nitrogen/creatinine mass ratio 17 NRG Serum or plasma creatinine measurement with calculation of estimated glomerular filtration rate > NRG Serum or plasma glucose measurement (mass/volume) 111 mg/dL 70-105 Serum or plasma calcium measurement (mass/volume) 9.5 mg/dL 8.5-10.1 Serum or plasma total bilirubin measurement (mass/volume) 0.3 mg/dL 0.1-1.0 Serum or plasma alkaline phosphatase measurement (enzymatic activity/volume) 91 U/L 40-136 Serum or plasma aspartate aminotransferase measurement (enzymatic activity/ volume) 16 U/L 5-34 Serum or plasma alanine aminotransferase measurement (enzymatic activity/volume ) 18 U/L 0-55 Serum or plasma protein measurement (mass/volume) 7.8 g/dL 6.4-8.2 Serum or plasma albumin measurement (mass/volume) 4.0 g/dL 3.2-4.5 Serum or plasma troponin i.cardiac measurement (mass/volume) - 01/13/16 16:00 Serum or plasma troponin i.cardiac measurement (mass/volume) < ng/ mL <0.30 Lipase - 01/13/16 16:00 Lipase 17 U/L 8-78 Complete urinalysis with reflex to culture - 01/13/16 18:05 Urine color determination YELLOW NRG Urine clarity determination CLEAR NRG Urine pH measurement by test strip 6.5 5-9 Specific gravity of urine by test strip 1.015 1.016- 1.022 Urine protein assay by test strip, semi-quantitative 1+ NEGATIVE Urine glucose detection by automated test strip NEGATIVE NEGATIVE Erythrocytes detection in urine sediment by light microscopy NEGATIVE NEGATIVE Urine ketones detection by automated test strip NEGATIVE NEGATIVE Urine nitrite detection by test strip NEGATIVE NEGATIVE Urine total bilirubin detection by test strip NEGATIVE NEGATIVE Urine urobilinogen measurement by automated test strip (mass/volume) 1 mg/dL NORMAL Urine leukocyte esterase detection by dipstick 1+ NEGATIVE Automated urine sediment erythrocyte count by microscopy (number/high power field) NONE NRG Automated urine sediment leukocyte count by microscopy (number/high power field ) [HPF] NRG Bacteria detection in urine sediment by light microscopy NEGATIVE NRG Squamous epithelial cells detection in urine sediment by light microscopy NONE NRG Crystals detection in urine sediment by light microscopy PRESENT NRG Casts detection in urine sediment by light microscopy NONE NRG Mucus detection in urine sediment by light microscopy NEGATIVE NRG Complete urinalysis with reflex to culture YES NRG Calcium oxalate crystals detection in urine sediment by light microscopy RARE NRG Bacterial urine culture - 01/13/16 18:05 Bacterial urine culture NG NRG CBC with Auto Diff - 06/26/17 18:47 Baso% 0.20 % 0.00-2.50 Eos 0.4 K/uL 0.0-0.7 Eos% 3.8 % 0.0-7.0 Hct 40.2 % 42.0-52.0 Hgb 13.1 g/dL 14.0-17.0 Lym 2.30 K/uL 0.60-3.40 Lym% 23.1 % 10.0-50.0 MCH 27.2 pg 27.0-31.2 MCHC 32.6 g/dL 32.0-36.0 MCV 83.4 fL 80.0-97.0 [place]% 9.2 % 0.0-12.0 MPV 11.0 fL 7.4-10.0 Christopher% 63.7 % 37.0-80.0 Plt 268 K/uL 150-400 RBC 4.82 M/uL 4.20-5.40 RDW 16.4 % 11.6-14.8 WBC 9.97 K/uL 5.00-10.00 Christopher 6.35 K/uL 2.00-6.90 [place] 0.9 K/uL 0.0-0.9 Baso 0.0 K/uL 0.0-0.2 Encounters ACCT No. Visit Date/Time Discharge Status Pt. Type Provider Facility Loc./Unit Complaint [id number] 07/10/2014 16:12:00 07/10/2014 23:59:59 CLS Outpatient PAOLA LEE MD N [id number] 06/08/2014 14:48:00 06/08/2014 23:59:59 CLS Outpatient PAOLA LEE MD [id number] 05/09/2014 09:10:00 05/09/2014 23:59:59 CLS Outpatient PAOLA LEE MD [id number] 05/09/2014 09:10:00 05/09/2014 23:59:59 CLS Outpatient PAOLA LEE MD [id number] 03/28/2014 10:54:00 03/28/2014 23:59:59 CLS Outpatient PAOLA LEE MD [id number] 10/31/2013 16:23:00 10/31/2013 23:59:59 CLS Outpatient JOVANNY AMADOR APRN [id number] 10/17/2013 09:12:00 10/17/2013 23:59:59 CLS Outpatient DARREN INFANTE DO [id number] 07/21/2013 09:53:00 07/21/2013 23:59:59 CLS Outpatient DARREN INFANTE DO [id number] 07/21/2013 09:53:00 07/21/2013 23:59:59 CLS Outpatient DARREN INFANTE DO [id number] 01/04/2013 09:39:00 01/04/2013 23:59:59 CLS Outpatient DARREN INFANTE DO [id number] 08/12/2012 10:10:00 08/12/2012 23:59:59 CLS Outpatient DARREN INFANTE DO [id number] 08/01/2012 16:42:00 08/01/2012 23:59:59 CLS Outpatient KARLA SOARES APRN [id number] 06/13/2012 11:40:00 06/13/2012 23:59:59 [place] [id number] 09/24/2011 10:39:00 09/24/2011 23:59:59 CLS Outpatient [id number] 09/24/2011 10:39:00 09/24/2011 23:59:59 CLS Outpatient DARREN INFANTE DO [id number] 09/15/2012 15:04:00 Document Registration [id number] 09/14/2012 16:08:00 Document Registration [id number] 02/18/2015 13:25:29 ACT Document Registration [id number] 06/26/2017 09:30:00 06/26/2017 23:59:59 CLS Outpatient CHRISTIAN POWELL, MIRELLA [facility] [id number] 06/26/2017 18:39:00 06/26/2017 20:07:00 DIS [place] [facility] [place] [id number] 06/26/2017 19:06:22 Document Registration [id number] 01/13/2016 15:10:00 01/13/2016 19:18:00 DIS Emergency PENNY POWELL, VIKKI [facility] ER ABD PAIN,BACK PAIN [id number] 11/15/2015 12:12:00 11/15/2015 15:35:00 DIS Emergency PHILLIP POWELL, MARIA GUADALUPE Armas [facility] ER [id number] 02/18/2015 13:24:00 02/18/2015 23:59:59 CLS Outpatient PAOLA LEE MD [facility] RAD [id number] 12/15/2014 15:48:00 12/15/2014 17:12:00 DIS Emergency VIVEK POWELL, KING Ibarra [facility] ER [id number] 05/28/2014 08:00:00 05/28/2014 23:59:59 CLS Preadmit PAOLA LEE MD [facility] RAD [id number] 09/11/2013 08:20:00 09/11/2013 23:59:59 CLS Outpatient JACQUES FERNANDES [facility] RAD [id number] 08/08/2013 09:02:00 08/08/2013 23:59:59 CLS Outpatient JACQUES FERNANDES [facility] CARD [id number] 05/22/2014 11:24:00 Document Registration [id number] 05/18/2010 23:30:00 Document Registration [id number] 10/12/2009 09:46:00 Document Registration
[2017-11-12 09:24] LABS: ALANINE AMINOTRANSFERASE 19 U/L (0-55); ALKALINE PHOSPHATASE 83 U/L (40-136); BILIRUBIN,TOTAL 0.6 MG/DL (0.1-1.0); BUN/CREATININE RATIO 24; CALCIUM 9.5 MG/DL (8.5-10.1); CARBON DIOXIDE 25 MMOL/L (21-32); CHLORIDE 106 MMOL/L (98-107); CREATINE KINASE 413 U/L (30-200); CREATININE SERUM 0.93 MG/DL (0.60-1.30); GFR ESTIMATED > 60; GLUCOSE 105 MG/DL (70-105); POTASSIUM 3.5 MMOL/L (3.6-5.0); SALICYLATE < 5.0 MG/DL (5.0-20.0); SODIUM 142 MMOL/L (135-145); TOTAL PROTEIN 7.6 GM/DL (6.4-8.2)
[2017-11-12 09:33] LABS: BAND NEUTROPHILS 1 %; BASOPHILS % (MANUAL) 0 %; EOSINOPHILS % (MANUAL) 0 %; LYMPHOCYTES % (MANUAL) 13 %; MONOCYTES % (MANUAL) 4 %; NEUTROPHILS % (MANUAL) 78 %
[2017-11-12 09:34] LABS: RBC MORPH NORMAL; REACTIVE LYMPHOCYTES 4 %
--- NOTE | 2017-11-12 09:44 | Diagnostic Imaging Report ---
INDICATION: Altered metal status PA and lateral chest obtained at 9:51 a.m. and compared to 05/18/2010. There is borderline heart size with poststernotomy change. There is no acute infiltrate or pneumothorax or pleural fluid. IMPRESSION: Poststernotomy change with borderline heart size. No focal infiltrate or pneumothorax or pleural fluid. Dictated by: Dictated on workstation # [id number]
--- NOTE | 2017-11-12 09:55 | Diagnostic Imaging Report ---
PROCEDURE: CT head and CT cervical spine without contrast. TECHNIQUE: Multiple contiguous axial images were obtained through the brain and cervical spine without the use of intravenous contrast. Sagittal and coronal reformations through the cervical spine were then performed. INDICATION: Found down with sunburn and altered mental status. COMPARISON: Head CT of 05/18/2010. Cervical CT correlated with an MRI C-spine performed on 02/18/2015. FINDINGS: CT HEAD: There is no intracranial hemorrhage and there is no hydrocephalus. There are no findings of vasogenic or cytotoxic edema. There are chronic atherosclerotic vascular calcifications, most notably at the distal right vertebral artery and the intracranial ICAs. There is no abnormal density along the unopacified and unenhanced dural venous sinuses. There is no sulcal effacement. No loss of the elkins/white matter interfaces. The basilar cisterns are patent. No calvarial fracture deformity. There is no mastoid effusion. The paranasal sinuses are unremarkable. CT CERVICAL SPINE: The cervical vertebral body heights are maintained and their alignment is stable and anatomic. Degenerative changes to the discs, endplates, facets, and uncovertebral joints remain most advanced at the C5-6 and C6-7 levels. No bony destructive process or fracture. No paravertebral mass, hemorrhage, or fluid collection. Carotid atherosclerotic vascular calcifications are most notably at the bulbs, greater left than right. IMPRESSION: CT HEAD: No hemorrhage, edema, or acute appearing abnormality. CT CERVICAL SPINE: Chronic degenerative change without fracture or malalignment. Dictated by: Dictated on workstation # [id number]
[2017-11-12 10:00] LABS: ACETAMINOPHEN < 10 UG/ML (10-30)
[2017-11-12 10:31] LABS: MYOGLOBIN SERUM 163.7 NG/ML (10.0-92.0)
[2017-11-12 13:14] LABS: BILIRUBIN,URINE NEGATIVE (NEGATIVE); CLARITY,URINE CLEAR; COLOR,URINE YELLOW; GLUCOSE, URINE (UA) NEGATIVE (NEGATIVE); KETONES,URINE NEGATIVE (NEGATIVE); LEUKOCYTE ESTERASE ,URINE 1+ (NEGATIVE); NITRITE,URINE NEGATIVE (NEGATIVE); PH,URINE 5 (5-9); PROTEIN,URINE 2+ (NEGATIVE); UROBILINOGEN,URINE 1 MG/DL (NORMAL)
[2017-11-12 13:18] VITALS: BP 123/87
[2017-11-12 13:23] LABS: BACTERIA,URINE NEGATIVE /HPF; WBC,URINE 0-2 /HPF
== END 2017-11-12 13:18 | disposition left against medical advice (07) ==
LOC: EDUNIT# 08:33 → ER 08:34
DX: T67.9XXA Effect of heat and light, unspecified, initial encounter (principal); F15.10 Other stimulant abuse, uncomplicated; I25.10 Atherosclerotic heart disease of native coronary artery without angina pectoris; E78.00 Pure hypercholesterolemia, unspecified; I10 Essential (primary) hypertension; I73.9 Peripheral vascular disease, unspecified; Z88.5 Allergy status to narcotic agent; Z88.8 Allergy status to other drugs, medicaments and biological substances; Z79.82 Long term (current) use of aspirin; Z79.02 Long term (current) use of antithrombotics/antiplatelets; Z79.52 Long term (current) use of systemic steroids; Z91.5 Personal history of self-harm; X30.XXXA Exposure to excessive natural heat, initial encounter
CPT/HCPCS: 36415; 70450; 71046; 72125; 80053; 80320; 80329; 81000; 82550; 83874; 84484; 85007; 85027; 93005; 93041; 94640; 96360; 96361

== ENCOUNTER 2018-09-09 14:36 | Inpatient (IN) | payer MEDICAID ==
[~2018-09-09] VITALS: Ht 170.2 cm; Wt 97.2 kg
[2018-09-09] VITALS (8 sets, daily range): BP systolic 105–146; BP diastolic 81–94
[2018-09-09] MEDS ORDERED: NS IV 1000 ML 1,000 ML IV SCH (14:45)
--- NOTE | 2018-09-09 14:53 | ED Neurological Problem ---
General Chief Complaint: Lower Extremity Stated Complaint: LEG PAIN Nursing Triage Note: PATIENT ARRIVED VIA [facility] WITH COMPLAINT OF BILATERAL HIP PAIN. PER EMS PATIENT HAS BEEN WALKING FOR SEVERAL DAYS AND TODAY HE COMPLAINS OF NOT BEING ABLE TO WALK AND PAIN TO BILATERAL HIPS. PER EMS PATIENT HAS HAD NO RECENT FALLS. HE HAS SMOKED METH FOR 8 DAYS. PER EMS PATIENT HAD MADE SUICIDAL THREATS TO HIS BUT HE HAS NOT MADE ANY SUICIDAL THREATS TO EMS. SOMEONE CALLED ON THE ER PHONE PATIENT WAS CHECKING IN AND STATES PATIENT NORMALLY TAKES SEROQUEL. TODAY THE BOTTLE IS EMPTY. IT IS SUPPOSED TO HAVE 29 TABLETS IN THE BOTTLE. PATIENT STATES HE HE DID TAKE SEROQUEL EARLIER BUT ONLY TOOK 1-2 TABLETS. HE STATES HE THREW THE REST OF THE TABLETS ON THE GROUND. Nursing Sepsis Screen: No Definite Risk Source: patient, EMS Exam Limitations: clinical condition History of Present Illness Date Seen by Provider: Sep 09, 2018 Time Seen by Provider: 14:48 Initial Comments This 58-year-old white male presents after prolonged use of meth for the last week. In addition there is a history that patient take his bottle of 30 tablets of Seroquel. The police called the paramedics as he was unable to maneuver, stand up, or walk. The patient is not an accurate historian. He admits to using meth and possibly taking more of his Seroquel was prescribed. However he is unable to quantitate the amount of his recreational drugs or the overdose/abuse of his Seroquel. Patient denies associated fever, chills productive cough, shortness of breath, chest pain or palpitations, nausea vomiting or diarrhea, dysuria frequency or flank pain, headache stiff neck or photophobia. Allergies and Home Medications Allergies Coded Allergies: acetaminophen (Verified Allergy, Unknown, TAKES LORTAB AT HOME, 08/03/08) morphine (Verified Allergy, Unknown, TAKES LORTAB AT HOME, 08/03/08) Home Medications Aspirin 325 Mg Tab, 325 MG PO DAILY, (Reported) Bupropion Hcl 100 Mg Tablet, 100 MG PO DAILY, (Reported) Clopidogrel Bisulfate 75 Mg Tablet, 75 MG PO DAILY, (Reported) Hydrochlorothiazide 25 Mg Tablet, 25 MG PO DAILY, (Reported) Hydrocodone Bit/Acetaminophen 1 Tab Tablet, 1 TAB PO Q6H PRN for PAIN Prescribed by: KING GARCIAS on 12/15/14 1706 Nitroglycerin 0.4 Mg Tab, 0.4 MG PO NEEDED, (Reported) [place] 3 Polyunsat Fatty Acids 1,000 Mg Cap, 1,000 MG PO TID, (Reported) Prednisone 20 Mg Tablet, 20 MG PO DAILY Prescribed by: KING GARCIAS on 12/15/14 170 Risperidone 2 Mg Tablet, 2 MG PO DAILY, (Reported) Patient Home Medication List Home Medication List Reviewed: Yes Review of Systems Review of Systems Constitutional: No chills, No diaphoresis Eyes: Denies Blurred Vision, Denies Photophobia Ears, Nose, Mouth, Throat: denies ear pain Respiratory: No cough Cardiovascular: No chest pain Gastrointestinal: No abdominal pain, No diarrhea, No vomiting Genitourinary: No dysuria, No frequency Musculoskeletal: No back pain, No joint pain Skin: No change in color, No rash Psychiatric/Neurological: See HPI, Depressed; Denies Emotional Problems, Denies Cognitive Dysfunction, Denies Headache, Denies Numbness, Denies Tingling Endocrine: No Symptoms Reported Hematologic/Lymphatic: No Symptoms Reported Past Sikxjyr-Rsfxic-Hhiqxm Hx Past Med/Social Hx: Reviewed Nursing Past Med/Soc Hx Patient Social History Drug of Choice: meth Recent Foreign Travel: No Contact w/Someone Who Travel: No Recent Infectious Disease Expo: No Recent Hopitalizations: Yes (01/04 triple bypass [facility], dr guerra) Past Medical History Surgeries: Yes (gallbladder [facility] ?) CABG, Gallbladder Respiratory: No Cardiac: Yes Coronary Artery Disease, High Cholesterol, Hypertension, Peripheral Vascular Neurological: No Reproductive Disorders: No Gastrointestinal: No Musculoskeletal: No Endocrine: No Cancer: No Psychosocial: No Integumentary: No Blood Disorders: No Family Medical History Diabetes, Hypertension Physical Exam Vital Signs Vital Signs - First Documented 09/09/18 14:37 Temp 96.1 Pulse 104 Resp 18 B/P (MAP) 127/80 (96) Pulse Ox 100 O2 Delivery Nasal Cannula O2 Flow Rate 2.00 Capillary Refill : Less Than 3 Seconds Height, Weight, BMI Height: 5'7.00" Weight: 200lbs. oz. 90.186601ap; BMI Method:Stated General Appearance: WD/WN, no apparent distress HEENT: normal ENT inspection Neck: full range of motion, supple Respiratory: chest non-tender, lungs clear, normal breath sounds Cardiovascular: normal peripheral pulses, regular rate, rhythm Gastrointestinal: normal bowel sounds, non tender, soft, no organomegaly, no pulsatile mass Back: normal inspection, no CVA tenderness, no vertebral tenderness Extremities: normal range of motion, non-tender, normal inspection Neurologic/Psychiatric: no motor/sensory deficits Crainal Nerves: normal hearing, normal speech Skin: normal color, warm/dry; No rash Progress/Results/Core Measures Results/Orders Lab Results Laboratory Tests Test 09/09/18 14:40 09/09/18 16:07 09/09/18 16:15 Range/Units White Blood Count 13.8 H 4.3-11.0 10^3/uL Red Blood Count 5.38 4.35-5.85 10^6/uL Hemoglobin 14.8 13.3-17.7 G/DL Hematocrit 44 40-54 % Mean Corpuscular Volume 82 80-99 FL Mean Corpuscular Hemoglobin 28 25-34 PG Mean Corpuscular Hemoglobin Concent 33 32-36 G/DL Red Cell Distribution Width 16.3 H 10.0-14.5 % Platelet Count 275 130-400 10^3/uL Mean Platelet Volume 10.7 H 7.4-10.4 FL Neutrophils (%) (Auto) 86 H 42-75 % Lymphocytes (%) (Auto) 8 L 12-44 % Monocytes (%) (Auto) 7 0-12 % Eosinophils (%) (Auto) 0 0-10 % Basophils (%) (Auto) 0 0-10 % Neutrophils # (Auto) 11.8 H 1.8-7.8 X 10^3 Lymphocytes # (Auto) 1.0 1.0-4.0 X 10^3 Monocytes # (Auto) 0.9 0.0-1.0 X 10^3 Eosinophils # (Auto) 0.0 0.0-0.3 10^3/uL Basophils # (Auto) 0.0 0.0-0.1 10^3/uL Sodium Level 144 135-145 MMOL/L Potassium Level 3.0 L 3.6-5.0 MMOL/L Chloride Level 105 98-107 MMOL/L Carbon Dioxide Level 17 L 21-32 MMOL/L Anion Gap 22 H 5-14 MMOL/L Blood Urea Nitrogen 18 7-18 MG/DL Creatinine 0.83 0.60-1.30 MG/DL Estimat Glomerular Filtration Rate > 60 BUN/Creatinine Ratio 22 Glucose Level 113 H 70-105 MG/DL Calcium Level 9.8 8.5-10.1 MG/DL Corrected Calcium 9.6 8.5-10.1 MG/DL Total Bilirubin 0.6 0.1-1.0 MG/DL Aspartate Amino Transf (AST/SGOT) 188 H 5-34 U/L Alanine Aminotransferase (ALT/SGPT) 66 H 0-55 U/L Alkaline Phosphatase 102 40-136 U/L Total Protein 7.7 6.4-8.2 GM/DL Albumin 4.2 3.2-4.5 GM/DL Salicylates Level < 5.0 L 5.0-20.0 MG/DL Acetaminophen Level < 10 L 10-30 UG/ML Serum Alcohol < 10 <10 MG/DL Urine Opiates Screen NEGATIVE NEGATIVE Urine Oxycodone Screen NEGATIVE NEGATIVE Urine Methadone Screen NEGATIVE NEGATIVE Urine Propoxyphene Screen NEGATIVE NEGATIVE Urine Barbiturates Screen NEGATIVE NEGATIVE Ur Tricyclic Antidepressants Screen POSITIVE H NEGATIVE Urine Phencyclidine Screen NEGATIVE NEGATIVE Urine Amphetamines Screen POSITIVE H NEGATIVE Urine Methamphetamines Screen NEGATIVE NEGATIVE Urine Benzodiazepines Screen POSITIVE H NEGATIVE Urine Cocaine Screen NEGATIVE NEGATIVE Urine Cannabinoids Screen POSITIVE H NEGATIVE Blood Gas Puncture Site RR Blood Gas Patient Temperature 97.1 Arterial Blood pH 7.37 7.37-7.43 Arterial Blood Partial Pressure CO2 33 L 35-45 MMHG Arterial Blood Partial Pressure O2 82 79-93 MMHG Arterial Blood HCO3 19 L 23-27 MMOL/L Arterial Blood Total CO2 19.6 L 21.0-31.0 MMOL/L Arterial Blood Oxygen Saturation 97 94-100 % Arterial Blood Base Excess -6.0 L -2.5-2.5 MMOL/L Puma Test YES-POS Blood Gas Ventilator Setting NO Blood Gas Inspired Oxygen 2 My Orders Orders - VIKKI FRANICS MD Drug Screen Stat (Urine) (09/09/18 14:42) Cbc With Automated Diff (09/09/18 14:42) Comprehensive Metabolic Panel (09/09/18 14:42) Ekg Tracing (09/09/18 14:42) Chest 1 View, Ap/Pa Only (09/09/18 14:42) Ns Iv 1000 Ml (Sodium Chloride 0.9%) (09/09/18 14:45) Acetaminophen (09/09/18 15:54) Salicylate (09/09/18 15:54) Alcohol (09/09/18 15:54) Arterial Blood Gas (09/09/18 16:16) Comprehensive Metabolic Panel (09/09/18 16:24) Arterial Blood Draw (09/09/18 ) Vital Signs/I&O 09/09/18 09/09/18 14:37 15:12 Temp 96.1 Pulse 104 94 Resp 18 18 B/P (MAP) 127/80 (96) 146/94 (111) Pulse Ox 100 100 O2 Delivery Nasal Cannula Nasal Cannula O2 Flow Rate 2.00 2.00 Blood Pressure Mean: 96 Progress Progress Note : Time: 14:53 Progress Note Nurses arrival find a peripheral IV site. I established a left external jugular IV. Labs were drawn. IV was started. The patient's called. She believes the patient took a bottle of Seroquel in a suicide attempt. Patient's laboratory evaluation was essentially unremarkable. ABGs were adequate on 2 L per nasal cannula. Telephone consultation was undertaken with Dr. Jackson who is kind enough to admit the patient. Patient was given a bending ICU. Orders were written. Departure Communication (Admissions) Time/Spoke to Admitting Phy: 16:00 Dr. Jackson. Impression Primary Impression: Methamphetamine abuse Additional Impressions: Drug overdose Qualified Codes: T50.902A - Poisoning by unspecified drugs, medicaments and biological substances, intentional self-harm, initial encounter Suicidal ideation Disposition: ADMITTED INPATIENT Condition: Improved Admissions Decision to Admit Reason: Admit from ER (General) Decision to Admit/Date: Sep 09, 2018 Time/Decision to Admit Time: 17:01 Departure-Patient Inst. Referrals: PAOLA LEE MD (PCP/Family) Primary Care Physician VIKKI FRANCIS MD Sep 09, 2018 14:53
[2018-09-09 14:57] LABS: BASOPHILS % (AUTO) 0 % (0-10); EOSINOPHILS % (AUTO) 0 % (0-10); HEMATOCRIT 44 % (40-54); HEMOGLOBIN 14.8 G/DL (13.3-17.7); LYMPHOCYTES % (AUTO) 8 % (12-44); MEAN CORPUSCULAR HEMOGLOBIN 28 PG (25-34); MEAN CORPUSCULAR HGB CONC 33 G/DL (32-36); MEAN CORPUSCULAR VOLUME 82 FL (80-99); MEAN PLATELET VOLUME 10.7 FL (7.4-10.4); MONOCYTES # (AUTO) 0.9 X 10^3 (0.0-1.0); MONOCYTES % (AUTO) 7 % (0-12); NEUTROPHILS # (AUTO) 11.8 X 10^3 (1.8-7.8); NEUTROPHILS % (AUTO) 86 % (42-75); PLATELET COUNT 275 10^3/uL (130-400); RED CELL DISTRIBUTION WIDTH 16.3 % (10.0-14.5); WHITE BLOOD COUNT 13.8 10^3/uL (4.3-11.0)
[2018-09-09 15:12] LABS: ALANINE AMINOTRANSFERASE 66 U/L (0-55); ALBUMIN 4.2 GM/DL (3.2-4.5); ALKALINE PHOSPHATASE 102 U/L (40-136); BILIRUBIN,TOTAL 0.6 MG/DL (0.1-1.0); BUN/CREATININE RATIO 22; CALCIUM 9.8 MG/DL (8.5-10.1); CARBON DIOXIDE 17 MMOL/L (21-32); CHLORIDE 105 MMOL/L (98-107); CREATININE SERUM 0.83 MG/DL (0.60-1.30); GFR ESTIMATED > 60; GLUCOSE 113 MG/DL (70-105); SODIUM 144 MMOL/L (135-145); TOTAL PROTEIN 7.7 GM/DL (6.4-8.2)
--- NOTE | 2018-09-09 15:42 | Diagnostic Imaging Report ---
INDICATION: Coronary artery disease. COMPARISON: 11/12/2017. FINDINGS: Single view of the chest demonstrates minimal atelectasis and/or scarring in the right base. The left lung is clear. The heart is prominent but stable. There is no pulmonary edema. No pneumothorax or effusion is seen. There is no acute infiltrate. Sternal wires are midline. IMPRESSION: 1. Atelectasis and/or scarring in the right lung base. No acute infiltrate identified. 2. No pulmonary edema. Dictated by: Dictated on workstation # [id number]
[2018-09-09 16:15] LABS: SALICYLATE < 5.0 MG/DL (5.0-20.0)
[2018-09-09 16:27] LABS: ACETAMINOPHEN < 10 UG/ML (10-30)
[2018-09-09 16:27] LABS: ABG OXYGEN SATURATION 97 % (94-100); ABG PCO2 33 MMHG (35-45); ABG PH 7.37 (7.37-7.43); ABG PO2 82 MMHG (79-93); ABG TCO2 19.6 MMOL/L (21.0-31.0)
[2018-09-09 16:28] LABS: ALLENS TEST YES-POS; INSPIRED O2 2; PATIENT TEMP 97.1; VENTILATOR NO
[2018-09-09 16:30] LABS: AMPHETAMINE SCREEN, URINE POSITIVE (NEGATIVE); BARBITURATE SCREEN URINE NEGATIVE (NEGATIVE); BENZODIAZEPINES SCREEN URINE POSITIVE (NEGATIVE); CANNABINOID SCREEN, URINE POSITIVE (NEGATIVE); COCAINE SCREEN URINE NEGATIVE (NEGATIVE); METHAMPHETAMINE SCREEN URINE S NEGATIVE (NEGATIVE); OPIATE SCREEN URINE NEGATIVE (NEGATIVE); TRICYCLIC ANTIDEPRESSANTS SCRE POSITIVE (NEGATIVE)
[2018-09-09 16:31] LABS: METHADONE STAT NEGATIVE (NEGATIVE); OXYCODONE STAT NEGATIVE (NEGATIVE); PROPOXYPHENE STAT NEGATIVE (NEGATIVE)
--- NOTE | 2018-09-09 17:19 | NUR ---
JENNIFER BUSTAMANTE admitted to room CU8-1, with an admitting diagnosis of Overdose, on 09/09/18 from ER via bed, accompanied by STONE RIGGER. JENNIFER BUSTAMANTE introduced to surroundings, call light, bed controls, phone, TV, temperature control, lights, meal times, smoking policy, visitor policy, side rail policy, bathrooms and showers. Patient Rights given to patient in the handbook. JENNIFER BUSTAMANTE verbalizes understanding that [facility] is not responsible for the loss or damage to any personal effects or valuables that are kept in the patients possession during their hospitalization. JENNIFER BUSTAMANTE verbalizes understanding of Interdisciplinary Patient Education. Patient and/or family were informed about the Rapid Response Team and its purpose.
[2018-09-09] MEDS: NS IV 1000 ML 1,000 ML IV SCH (18:30)
[2018-09-09] MEDS ORDERED: CATHETER FLUSH 10 ML SYR IV PRN (19:15)
[2018-09-09] MEDS: POTASSIUM CL 10MEQ/50ML IVPB 50 ML IV SCH ×3 (19:55→23:02)
[2018-09-09] MEDS ORDERED: POTASSIUM CL 10MEQ/50ML IVPB 50 ML IV ONE (20:00)
[2018-09-10] VITALS (14 sets, daily range): BP systolic 113–159; BP diastolic 66–99
[2018-09-10] MEDS: POTASSIUM CL 10MEQ/50ML IVPB 50 ML IV SCH (00:03)
[2018-09-10 03:37] LABS: BASOPHILS % (AUTO) 0 % (0-10); EOSINOPHILS % (AUTO) 0 % (0-10); HEMATOCRIT 43 % (40-54); HEMOGLOBIN 14.3 G/DL (13.3-17.7); LYMPHOCYTES # (AUTO) 1.5 X 10^3 (1.0-4.0); LYMPHOCYTES % (AUTO) 12 % (12-44); MEAN CORPUSCULAR HEMOGLOBIN 27 PG (25-34); MEAN CORPUSCULAR HGB CONC 34 G/DL (32-36); MEAN CORPUSCULAR VOLUME 81 FL (80-99); MEAN PLATELET VOLUME 10.8 FL (7.4-10.4); MONOCYTES # (AUTO) 1.1 X 10^3 (0.0-1.0); MONOCYTES % (AUTO) 9 % (0-12); NEUTROPHILS # (AUTO) 10.3 X 10^3 (1.8-7.8); NEUTROPHILS % (AUTO) 80 % (42-75); PLATELET COUNT 228 10^3/uL (130-400); RED CELL DISTRIBUTION WIDTH 16.8 % (10.0-14.5); WHITE BLOOD COUNT 12.9 10^3/uL (4.3-11.0)
[2018-09-10] MEDS: NS IV 1000 ML 1,000 ML IV SCH ×4 (03:50→13:55)
[2018-09-10 04:00] LABS: ALANINE AMINOTRANSFERASE 67 U/L (0-55); ALBUMIN 3.5 GM/DL (3.2-4.5); ALKALINE PHOSPHATASE 86 U/L (40-136); BILIRUBIN,TOTAL 0.5 MG/DL (0.1-1.0); BUN/CREATININE RATIO 18; CALCIUM 8.6 MG/DL (8.5-10.1); CARBON DIOXIDE 18 MMOL/L (21-32); CHLORIDE 111 MMOL/L (98-107); CREATININE SERUM 0.77 MG/DL (0.60-1.30); GFR ESTIMATED > 60; GLUCOSE 88 MG/DL (70-105); MAGNESIUM 2.2 MG/DL (1.8-2.4); POTASSIUM 3.7 MMOL/L (3.6-5.0); SODIUM 140 MMOL/L (135-145); TOTAL PROTEIN 6.5 GM/DL (6.4-8.2)
[2018-09-10] MEDS ORDERED: POTASSIUM CL 10MEQ/50ML IVPB 50 ML IV SCH (06:00)
[2018-09-10] MEDS ORDERED: KCL 20 MEQ TAB (K-DUR) PO SCH (06:00)
[2018-09-10] MEDS ORDERED: MAGNESIUM 1 GM/100 ML IVPB 100 ML IV SCH (06:00)
--- NOTE | 2018-09-10 09:20 | Cardiology Progress Note ---
Subjective Date Seen by Provider: Sep 10, 2018 Time Seen by Provider: 09:15 Subjective/Events-last exam 58 years old gentleman with history of depression. Tobaccoism, multiple illicit drug use. Reportedly has been using methamphetamine and noted that he had an empty bottle of Seroquel, it had 29 pills. Patient is saying that he dropped the pills and did not take more than 2 there was multiple suicide threat. Upper my evaluation was sleepy. Denied any chest pain. Denied any palpitation. Denied any syncope or near syncopal episodes. Denied any claudications. Review of Systems General: No Chills, No Night Sweats; Fatigue, Malaise; No Appetite, No Other HEENT: No Head Aches, No Visual Changes, No Eye Pain, No Ear Pain, No Dysphasia , No Sinus Congestion, No Post Nasal Drip, No Sore Throat, No Other Pulmonary: No Dyspnea, No Cough, No Pleuritic Chest Pain, No Other Cardiovascular: No: Chest Pain, Palpitations, Orthopnea, Paroxysmal Noc. Dyspnea, Edema, Lt Headedness, Other Objective-Cardiology Exam Last Set of Vital Signs Vital Signs 09/09/18 09/10/18 09/10/18 17:29 08:00 09:00 Temp 99.2 Pulse 82 Resp 16 B/P (MAP) 146/86 (106) Pulse Ox 95 O2 Delivery Room Air O2 Flow Rate 2.00 Capillary Refill : Less Than 3 Seconds I&O Intake and Output 09/10/18 00:00 Intake Total 1200 ml Balance 1200 ml Intake Oral 50 ml IV Total 1150 ml Daily Weight Change No General: Alert, Oriented X3, Cooperative HEENT: Atraumatic, PERRLA Neck: Supple, No JVD, No Thyromegaly Lungs: Clear to Auscultation, Normal Air Movement, Other (bilateral wheezing) Heart: Regular Rate, Normal S1, Normal S2, Other (sys murmur at the left sternal border) Abdomen: Normal Bowel Sounds, Soft, No Tenderness, No Hepatosplenomegaly, No Masses Extremities: No Clubbing, No Cyanosis, No Edema, Normal Pulses, No Tenderness/ Swelling Skin: No Rashes, No Breakdown, No Significant Lesion Neuro: Normal Gait, Normal Speech, Strength at 5/5 X4 Ext, Normal Tone, Sensation Intact Psych/Mental Status: Mental Status NL, Mood NL Results Lab Laboratory Tests 09/09/18 14:40 09/10/18 03:13 A/P-Cardiology Admission Diagnosis Suicidal attempts Hypertension Hyperlipidemia Tobaccoism Assessment/Plan Questionable suicidal attempt with Seroquel. EKG showed borderline QT prolongation, still within normal limits. Recommend monitoring. Systolic murmur at the left sternal border, history of illicit drug use. Planning to evaluate echocardiogram Wheezing and shortness of breath, tobaccoism, educated on avoiding tobacco products. Depression. Hypertension, continue to monitor blood pressure Hyperlipidemia. Maintained on simvastatin History of stress test in 2013, no further workup or follow-up was made Clinical Quality Measures DVT/VTE Risk/Contraindication: Risk Factor Score Per Nursin RFS Level Per Nursing on Admit: 4+=Very High LOIS LUNA MD Sep 10, 2018 09:20
--- NOTE | 2018-09-10 11:37 | Short Stay Summary-Hospitalist ---
History of Present Illness HPI/Chief Complaint CC: Found down with bottle of Seroquel HPI: This is a 58-year-old white male who is homeless and a history of mental illness including schizophrenia and illicit drug abuse who presented to the ER after family found him after being missing for several days completely passed out with an empty bottle of Seroquel. It was assumed he was attempting suicide. He does have prior suicide attempts. He was found to have multiple illicit drugs in his system including methamphetamine so poison control was notified patient was placed on supportive care in the ICU with IV fluids. Patient reports he cannot walk which I am unclear of the etiology of that so will provide supportive care and initiate therapy on Wednesday to get out of bed and await disposition. Patient denies suicidal ideations. Source: patient Exam Limitations: no limitations Date Seen 09/10/18 Time Seen by a Provider: 10:30 Attending Physician Jenn Jackson Bethany N MD Referring Physician Date of Admission Sep 09, 2018 at 16:30 Home Medications & Allergies Home Medications Reviewed patient Home Medication Reconciliation performed by pharmacy medication reconciliations it help desk technician and/or nursing. Patients Allergies have been reviewed. Allergies Allergies Coded Allergies acetaminophen (Verified Allergy, Unknown, TAKES LORTAB AT HOME, 08/03/08) morphine (Verified Allergy, Unknown, TAKES LORTAB AT HOME, 08/03/08) Past Hbhtacn-Ornynh-Jpotfc Hx Past Med/Social Hx: Reviewed Nursing Past Med/Soc Hx, Reviewed and Corrections made Patient Social History Marrital Status: single Employed/Student: unemployed Alcohol Use: Denies Use Recreational Drug Use: Yes Drug of Choice: METH Smoking Status: Current Everyday Smoker Type Used: Cigarettes 2nd Hand Smoke Exposure: Yes Recent Foreign Travel: No Contact w/other who traveled: No Recent Hopitalizations: Yes (OVERDOSE ON PILLS AT [facility] ) Recent Infectious Disease Expo: No Immunizations Up To Date Pediatric: Yes Date of Pneumonia Vaccine: May 31, 2015 Seasonal Allergies Seasonal Allergies: No Past Medical History Surgeries: Cardiac, Gallbladder Cardiac: Coronary Artery Disease, High Cholesterol, Hypertension Reproductive: No Psychosocial: Suicide Attempts, Schizophrenia History of Blood Disorders: No Family History Patient reports no known family medical history. Diabetes, Hypertension Review of Systems Constitutional: see HPI EENTM: no symptoms reported Respiratory: no symptoms reported Cardiovascular: no symptoms reported Gastrointestinal: no symptoms reported Genitourinary: no symptoms reported Musculoskeletal: muscle weakness Skin: no symptoms reported Psychiatric/Neurological: Weakness All Other Systems Reviewed Negative Unless Noted: Yes Physical Exam Physical Exam Vital Signs Vital Signs - First Documented 09/09/18 14:37 Temp 96.1 Pulse 104 Resp 18 B/P (MAP) 127/80 (96) Pulse Ox 100 O2 Delivery Nasal Cannula O2 Flow Rate 2.00 Capillary Refill : Less Than 3 Seconds Height, Weight, BMI Height: 5'7.00" Weight: 220lbs. 6.0oz. 99.435349fj; 31.3 BMI Method:Stated General Appearance: No Apparent Distress, WD/WN, Chronically ill, Other ( dishelved ) Eyes: Bilateral Eye Normal Inspection, Bilateral Eye PERRL HEENT: PERRL/EOMI, Normal ENT Inspection, Pharynx Normal Neck: Full Range of Motion, Normal Inspection, Non Tender, Supple, Carotid Bruit Respiratory: Chest Non Tender, Lungs Clear, Normal Breath Sounds, No Accessory Muscle Use, No Respiratory Distress Cardiovascular: Regular Rate, Rhythm, No Edema, No Gallop, No JVD, No Murmur, Normal Peripheral Pulses Gastrointestinal: Normal Bowel Sounds, No Organomegaly, No Pulsatile Mass, Non Tender, Soft Back: Normal Inspection, No CVA Tenderness, No Vertebral Tenderness Extremity: Normal Capillary Refill, Normal Inspection, Normal Range of Motion, Non Tender, No Calf Tenderness, No Pedal Edema Neurologic/Psychiatric: Alert, Oriented x3, No Motor/Sensory Deficits, Normal Mood/Affect Skin: Normal Color, Warm/Dry Lymphatic: No Adenopathy Results Results/Procedures Labs Laboratory Tests 09/09/18 14:40 09/10/18 03:13 Patient resulted labs reviewed. Short Stay Diagnosis Discharge Diagnosis-Short Stay Admission Diagnosis Questionable OD on Seroquel Homelessness Smoker HETAL Meth use Cannot ambulate Final Discharge Diagnosis Questionable OD on Seroquel Homelessness Smoker HETAL Meth use Cannot ambulate Conclusion Plan Supportive care Monitor closely Homeless Diagnosis/Problems Diagnosis/Problems (1) Drug overdose Status: Acute Qualifiers: Qualified Codes: T50.902A - Poisoning by unspecified drugs, medicaments and biological substances, intentional self-harm, initial encounter (2) Hypertension Status: Chronic Qualifiers: Qualified Codes: I10 - Essential (primary) hypertension (3) Hyperlipidemia Status: Chronic Qualifiers: Qualified Codes: E78.2 - Mixed hyperlipidemia (4) Unable to ambulate (5) Homeless Status: Chronic (6) Suicidal ideation Status: Acute (7) Methamphetamine abuse Status: Chronic (8) Schizophrenia, acute Status: Chronic Clinical Quality Measures DVT/VTE Risk/Contraindication: Risk Factor Score Per Nursin RFS Level Per Nursing on Admit: 4+=Very High JENN JACKSON DO Sep 10, 2018 11:37
--- NOTE | 2018-09-10 12:35 | NUR ---
PT TRANSFERRED TO [facility] W/ STAFF/PERSONAL BELONGINGS. REPORT GIVEN TO JU VIERA, NO QUESTIONS/CONCERNS VOICED.
--- NOTE | 2018-09-10 20:22 | NUR ---
PT HAS TEMP OF 99.9. SPOKE WITH DR. STANTON AND INFORMED HER OF PTS TEMP. TELEPHONE ORDERS RECEIVED FOR TYLENOL 650MG PO Q6HRS PRN AND NOTHING MORE FOR PAIN. WILL CARRY OUT ORDERS AND CONTINUE TO MONITOR PT.
[2018-09-10] MEDS ORDERED: ACETAMINOPHEN 325 MG TABLET PO PRN (20:45)
[2018-09-10] MEDS ORDERED: ACETAMINOPHEN 325 MG TABLET ONE (21:13)
[2018-09-11] VITALS: BP_SYST 115; BP_SYST 135; BP_DIAS 71; BP_DIAS 81
[2018-09-11 04:00] VITALS: BP 115/73
[2018-09-11 05:57] LABS: BUN/CREATININE RATIO 19; CALCIUM 8.8 MG/DL (8.5-10.1); CARBON DIOXIDE 18 MMOL/L (21-32); CHLORIDE 110 MMOL/L (98-107); GFR ESTIMATED > 60; GLUCOSE 103 MG/DL (70-105); MAGNESIUM 2.1 MG/DL (1.8-2.4); POTASSIUM 3.4 MMOL/L (3.6-5.0); SODIUM 141 MMOL/L (135-145)
[2018-09-11 08:00] VITALS: BP 134/69
[2018-09-11] MEDS: NS IV 1000 ML 1,000 ML IV SCH (08:37)
--- NOTE | 2018-09-11 08:54 | NUR ---
HERE. REPORTS NO ALLERGY TO TYLENOL. STATES DOES NOT TAKE R/T LIVER DISEASE. REMOVED FROM ALLERGY LIST.
--- NOTE | 2018-09-11 09:26 | Cardiology Progress Note ---
Subjective Date Seen by Provider: Sep 11, 2018 Time Seen by Provider: 09:22 Subjective/Events-last exam Patient is in bed, reporting that he is unable to lift both legs, still able to push legs down, no other weakness, no chest pain or shortness of breath Review of Systems General: No Chills, No Night Sweats, No Fatigue, No Malaise, No Appetite, No Other HEENT: No Head Aches, No Visual Changes, No Eye Pain, No Ear Pain, No Dysphasia , No Sinus Congestion, No Post Nasal Drip, No Sore Throat, No Other Pulmonary: No Dyspnea, No Cough, No Pleuritic Chest Pain, No Other Cardiovascular: No: Chest Pain, Palpitations, Orthopnea, Paroxysmal Noc. Dyspnea, Edema, Lt Headedness, Other Objective-Cardiology Exam Last Set of Vital Signs Vital Signs 09/09/18 09/11/18 17:29 04:00 Temp 98.3 Pulse 85 Resp 18 B/P (MAP) 115/73 (87) Pulse Ox 95 O2 Delivery Room Air O2 Flow Rate 2.00 Capillary Refill : Less Than 3 Seconds I&O Intake and Output 09/11/18 00:00 Intake Total 1110 ml Output Total 975 ml Balance 135 ml Intake Oral 1010 ml IV Total 100 ml Output Urine Total 975 ml Bladder Scan Volume Amount 456 ml General: Alert, Oriented X3, Cooperative HEENT: Atraumatic, PERRLA Neck: Supple, No JVD, No Thyromegaly Lungs: Clear to Auscultation, Normal Air Movement, Other (bilateral wheezing) Heart: Regular Rate, Normal S1, Normal S2, Other (sys murmur at the left sternal border) Abdomen: Normal Bowel Sounds, Soft, No Tenderness, No Hepatosplenomegaly, No Masses Extremities: No Clubbing, No Cyanosis, No Edema, Normal Pulses, No Tenderness/ Swelling Skin: No Rashes, No Breakdown, No Significant Lesion Neuro: Normal Gait, Normal Speech, Normal Tone, Sensation Intact, Other ( unable to extend his legs) Psych/Mental Status: Mental Status NL, Mood NL Results Lab Laboratory Tests 09/11/18 05:06 A/P-Cardiology Admission Diagnosis Suicidal attempts Hypertension Hyperlipidemia Tobaccoism Assessment/Plan Questionable suicidal attempt with Seroquel. EKG showed borderline QT prolongation, still within normal limits. No changes were recommended. Weakness in the lower extremity bilaterally, mainly with weakness and extending his legs, his muscle strength is normal in flexing his legs. Upper extremities were normal. Reported that he started few days ago and it is progressive. Consider physical therapy evaluation, managed by primary care physician Echocardiogram done on September 10, 2018 showing normal LV size and function with ejection fraction 55-65 percent, grade 1 diastolic dysfunction, mild mitral regurgitation, PA pressure 15-20 mmHg. No significant abnormality was noted Wheezing and shortness of breath, tobaccoism, educated on avoiding tobacco products. Depression. Hypertension, well controlled at this time. Continue to monitor blood pressure Hyperlipidemia. Maintained on simvastatin, I will discontinue simvastatin due to the lower extremities weakness History of stress test in 2013, no further workup or follow-up was made Clinical Quality Measures DVT/VTE Risk/Contraindication: Risk Factor Score Per Nursin RFS Level Per Nursing on Admit: 4+=Very High LOIS LUNA MD Sep 11, 2018 09:26
--- NOTE | 2018-09-11 10:00 | NUR ---
GOT PT UP AND WALKED TO BATHROOM. PT SHOWERED WITH ASSIST AND AMBULATED BACK TO BED. USED DANIELA LEGS TO PUSH HIMSELF UP IN BED. WALKING DOES RESEMBLE PENGUIN WALKING, WHICH STATES IS A LITTLE DIFFERENT THAN NORMAL. ABLE TO LIFT BOTH LEGS OFF BED WHEN ASKED.
--- NOTE | 2018-09-11 11:27 | Progress Note-Hospitalist ---
Subjective HPI/CC On Admission Date Seen by Provider: Sep 11, 2018 Time Seen by Provider: 11:45 CC: Found down with bottle of Seroquel HPI: This is a 58-year-old white male who is homeless and a history of mental illness including schizophrenia and illicit drug abuse who presented to the ER after family found him after being missing for several days completely passed out with an empty bottle of Seroquel. It was assumed he was attempting suicide. He does have prior suicide attempts. He was found to have multiple illicit drugs in his system including methamphetamine so poison control was notified patient was placed on supportive care in the ICU with IV fluids. Patient reports he cannot walk which I am unclear of the etiology of that so will provide supportive care and initiate therapy on Wednesday to get out of bed and await disposition. Patient denies suicidal ideations. Subjective/Events-last exam Patient doing much better Wheezing noted so will order nebulizer treatments Dr. Schwartz was concerned because he couldn't walk but took him into the bathroom gave him a shower and this seems to be a routine Aversa says he always walks like a penguin Son said he has tried to kill himself 10 times so he wants him evaluated by psych Review of Systems General: Fatigue Gastrointestinal: Constipation Objective Exam Vital Signs Vital Signs Date Time Temp Pulse Resp B/P (MAP) Pulse Ox O2 Delivery O2 Flow Rate FiO2 09/11/18 12:00 97.9 74 18 146/79 (101) 94 Room Air 09/09/18 17:29 2.00 Capillary Refill : Less Than 3 SecondsLess Than 3 Seconds General Appearance: No Apparent Distress, WD/WN, Chronically ill, Other ( dishelved ) HEENT: PERRL/EOMI, Normal ENT Inspection, Pharynx Normal Neck: Full Range of Motion, Normal Inspection, Non Tender, Supple, Carotid Bruit Respiratory: Chest Non Tender, No Accessory Muscle Use, No Respiratory Distress , Crackles, Wheezing Cardiovascular: Regular Rate, Rhythm, No Edema, No Gallop, No JVD, No Murmur, Normal Peripheral Pulses Gastrointestinal: Normal Bowel Sounds, No Organomegaly, No Pulsatile Mass, Non Tender, Soft Back: Normal Inspection, No CVA Tenderness, No Vertebral Tenderness Extremity: Normal Capillary Refill, Normal Inspection, Normal Range of Motion, Non Tender, No Calf Tenderness, No Pedal Edema Neurologic/Psychiatric: Alert, Oriented x3, No Motor/Sensory Deficits, Depressed Affect Skin: Normal Color, Warm/Dry Lymphatic: No Adenopathy Results/Procedures Lab Laboratory Tests 09/11/18 05:06 Patient resulted labs reviewed. Assessment/Plan Assessment and Plan Assess & Plan/Chief Complaint (1) Drug overdose Status: Acute Qualifiers: Qualified Codes: T50.902A - Poisoning by unspecified drugs, medicaments and biological substances, intentional self-harm, initial encounter (2) Hypertension Status: Chronic Qualifiers: Qualified Codes: I10 - Essential (primary) hypertension (3) Hyperlipidemia Status: Chronic Qualifiers: Qualified Codes: E78.2 - Mixed hyperlipidemia (4) Unable to ambulate-resolved and now back to baseline (5) Homeless Status: Chronic (6) Suicidal ideation Status: Acute (7) Methamphetamine abuse Status: Chronic (8) Schizophrenia, acute Status: Chronic 9. Wheezing 10. Smoker Plan: Supportive care Monitor closely Homeless Nebs psych eval tomorrow Diagnosis/Problems Diagnosis/Problems (1) Drug overdose Status: Acute Qualifiers: Encounter type: initial encounter Injury intent: intentional self-harm Qualified Codes: T50.902A - Poisoning by unspecified drugs, medicaments and biological substances, intentional self-harm, initial encounter (2) Hypertension Status: Chronic Qualifiers: Hypertension type: essential hypertension Qualified Codes: I10 - Essential (primary) hypertension (3) Hyperlipidemia Status: Chronic Qualifiers: Hyperlipidemia type: mixed hyperlipidemia Qualified Codes: E78.2 - Mixed hyperlipidemia (4) Unable to ambulate (5) Homeless Status: Chronic (6) Suicidal ideation Status: Acute (7) Methamphetamine abuse Status: Chronic (8) Schizophrenia, acute Status: Chronic Clinical Quality Measures DVT/VTE Risk/Contraindication: Risk Factor Score Per Nursin RFS Level Per Nursing on Admit: 4+=Very High NAVA STANTON DO Sep 11, 2018 11:27
[2018-09-11 12:00] VITALS: BP 146/79
[2018-09-11] MEDS: LACTULOSE SYRUP 10GM/15ML (ENULOSE) 30ML UDC PO SCH ×2 (14:01→21:14)
[2018-09-11] MEDS: SENNA W/DOCUSATE (SENOKOT S) TABLET PO SCH ×2 (14:01→21:15)
[2018-09-11] MEDS: RT-ALBUTEROL/IPRATROPIUM 3 ML (DUONEB) VIAL INH SCH ×2 (14:27→20:12)
[2018-09-11 16:35] VITALS: BP 123/74
--- NOTE | 2018-09-11 17:21 | NUR ---
REFUSED LUNCH. ENCOURAGED PT TO ORDER DINNER. STATES HE WILL ORDER SHORTLY.
--- NOTE | 2018-09-11 20:00 | NUR ---
PATIENT REFUSED VITAL SIGNS
--- NOTE | 2018-09-11 21:15 | NUR ---
PATIENT IS WITHDRAWN WITH FLAT AFFECT. REFUSES ALL MEDICATIONS AND ALL TREATMENTS.
[2018-09-12 00:56] VITALS: BP 131/85
[2018-09-12] MEDS: RT-ALBUTEROL/IPRATROPIUM 3 ML (DUONEB) VIAL INH SCH ×4 (02:57→21:07)
[2018-09-12 04:00] VITALS: BP 124/75
[2018-09-12 08:00] VITALS: BP 133/83
[2018-09-12] MEDS: LACTULOSE SYRUP 10GM/15ML (ENULOSE) 30ML UDC PO SCH ×2 (09:55→23:22)
[2018-09-12] MEDS: SENNA W/DOCUSATE (SENOKOT S) TABLET PO SCH ×2 (09:55→23:23)
--- NOTE | 2018-09-12 10:02 | Cardiology Progress Note ---
Subjective Date Seen by Provider: Sep 12, 2018 Time Seen by Provider: 10:00 Subjective/Events-last exam patient is laying down in bed, still complaining of weakness, unable to walk but was able to walk outside to smoke a cigarette Review of Systems General: No Chills, No Night Sweats; Fatigue, Malaise; No Appetite, No Other HEENT: No Head Aches, No Visual Changes, No Eye Pain, No Ear Pain, No Dysphasia , No Sinus Congestion, No Post Nasal Drip, No Sore Throat, No Other Pulmonary: No Dyspnea, No Cough, No Pleuritic Chest Pain, No Other Cardiovascular: No: Chest Pain, Palpitations, Orthopnea, Paroxysmal Noc. Dyspnea, Edema, Lt Headedness, Other Objective-Cardiology Exam Last Set of Vital Signs Vital Signs 09/09/18 09/12/18 17:29 08:00 Temp 98.0 Pulse 80 Resp 20 B/P (MAP) 133/83 (100) Pulse Ox 93 O2 Delivery Room Air O2 Flow Rate 2.00 Capillary Refill : Less Than 3 SecondsLess Than 3 Seconds I&O Intake and Output 09/12/18 00:00 Intake Total 1620 ml Output Total 950 ml Balance 670 ml Intake Oral 1620 ml Output Urine Total 950 ml # Voids 2 General: Alert, Oriented X3, Cooperative HEENT: Atraumatic, PERRLA Neck: Supple, No JVD, No Thyromegaly Lungs: Clear to Auscultation, Normal Air Movement, Other (bilateral wheezing) Heart: Regular Rate, Normal S1, Normal S2, Other (sys murmur at the left sternal border) Abdomen: Normal Bowel Sounds, Soft, No Tenderness, No Hepatosplenomegaly, No Masses Extremities: No Clubbing, No Cyanosis, No Edema, Normal Pulses, No Tenderness/ Swelling Skin: No Rashes, No Breakdown, No Significant Lesion Neuro: Normal Gait, Normal Speech, Normal Tone, Sensation Intact, Other ( unable to extend his legs) Psych/Mental Status: Mental Status NL, Mood NL A/P-Cardiology Admission Diagnosis Suicidal attempts Hypertension Hyperlipidemia Tobaccoism Assessment/Plan Questionable suicidal attempt with Seroquel. EKG showed borderline QT prolongation, still within normal limits. No changes were recommended. Weakness in the lower extremity bilaterally, mainly with weakness and extending his legs, his muscle strength is normal in flexing his legs. Upper extremities were normal. Reported that he started few days ago and it is progressive. Consider physical therapy evaluation, managed by primary care physician Echocardiogram done on September 10, 2018 showing normal LV size and function with ejection fraction 55-65 percent, grade 1 diastolic dysfunction, mild mitral regurgitation, PA pressure 15-20 mmHg. No significant abnormality was noted Wheezing and shortness of breath, tobaccoism, still an active smoker, educated on avoiding tobacco products. Depression, schizophrenia, managed by primary care physician Hypertension, well controlled at this time. Continue to monitor blood pressure Hyperlipidemia. Maintained on simvastatin, I will discontinue simvastatin due to the lower extremities weakness History of stress test in 2013, no further workup or follow-up was made I will sign off at this point, reconsult if needed Clinical Quality Measures DVT/VTE Risk/Contraindication: Risk Factor Score Per Nursin RFS Level Per Nursing on Admit: 4+=Very High LOIS LUNA MD Sep 12, 2018 10:02
--- NOTE | 2018-09-12 10:43 | NUR ---
[facility] responded to consult for SS. Spoke with the patient and his family (son and ex-). The son did most of the talking,stating that this has been going on for 7-8 yrs since patient had a heart surgery. Since then he has used drugs ie)marijuana and methamphetamines and has had several suicide attempts. Patient has had multiple placements for MH and A/D treatment. Patient denied suicidal ideation at this time, he is willing to go to an inpatient psych placement. Spoke with Alex, patient's A/D counselor at [facility], he is working on inpatient A/D treatment set up. Will work on inpatient psych placement and then patient will attend inpatient A/D treatment when bed date available. Addendum: 09/12/18 at 1059 by VIK SWAN Inpatient Psych Placement: [facility]- they do have a bed available, information faxed to them and they will review. [facility] does not want this facility due to previous experience there [facility]- Information faxed and it will be reviewed. [facility]- does not accept medicaid.
[2018-09-12] MEDS ORDERED: IBUPROFEN 600 MG (MOTRIN) TAB PO PRN (11:00)
--- NOTE | 2018-09-12 13:55 | Physical Therapy Progress Note ---
Therapy Progress Note Attempted PT eval. pt had just returned from going outdoors with his son. Son reports he was able to walk outdoors and part of the way back with a FWW. Required a w/c to make it the full way back. Pt declined PT eval at this time due to having just walked. Will recheck in the morning. ERMA SMITH PT Sep 12, 2018 13:55
--- NOTE | 2018-09-12 14:00 | NUR ---
Pastoral care visit.
--- NOTE | 2018-09-12 14:48 | Progress Note (SOAP) ---
Subjective Subjective/Events-last exam Patient and family complaining about right extremity weakness and abnormal gait. Patient denies pain. Tolerating PO diet w/o coughing. Review of Systems Date Seen by Provider: Sep 12, 2018 Time Seen by Provider: 10:00 HEENT: No Dysphasia, No Sore Throat Pulmonary: No Dyspnea Cardiovascular: No: Chest Pain, Palpitations Gastrointestinal: No: Nausea, Vomiting, Abdominal Pain Genitourinary: No Dysuria, No Frequency Musculoskeletal: other (right extremity weakness) Neurological: Other (abnormal gait) Objective Exam Last Set of Vital Signs Vital Signs Date Time Temp Pulse Resp B/P (MAP) Pulse Ox O2 Delivery O2 Flow Rate FiO2 09/12/18 10:08 91 Room Air 09/12/18 08:00 98.0 80 20 133/83 (100) 09/09/18 17:29 2.00 Capillary Refill : Less Than 3 SecondsLess Than 3 Seconds I&O Intake and Output 09/12/18 00:00 Intake Total 1620 ml Output Total 950 ml Balance 670 ml Intake Oral 1620 ml Output Urine Total 950 ml # Voids 2 General: Alert, Oriented X3, Cooperative, No Acute Distress HEENT: Mucous Memb Moist/[place] Lungs: Clear to Auscultation, Normal Air Movement Heart: Regular Rate, No Murmurs Abdomen: Normal Bowel Sounds, Soft, No Tenderness, No Hepatosplenomegaly, No Masses Extremities: No Edema, No Tenderness/Swelling Skin: No Rashes, No Breakdown (Right upper and lower 2/5 strength, UE drift) Psych/Mental Status: Other (+ Suicidal ideation with plans) Results/Procedures Lab Microbiology 09/09/18 MRSA Screen - Final, Complete MRSA not isolated Assessment/Plan Assessment/Plan Admission Status: Inpatient Order (span 2 midnights) (1) Weakness of right lower extremity Status: Acute Assessment & Plan: - PT ordered to see and evaluate patient, MRI pending for possible stroke (2) Weakness of right upper extremity Status: Acute (3) Elevated LFTs Status: Acute Assessment & Plan: - ? h/o Hep C per ex-, Acute hepatitis panel pending, Hepatic US pending (4) Hypertension Status: Chronic Assessment & Plan: - Continue home meds Qualifiers: Qualified Codes: I10 - Essential (primary) hypertension (5) Hyperlipidemia Status: Chronic Assessment & Plan: - Statin Qualifiers: Qualified Codes: E78.2 - Mixed hyperlipidemia (6) Methamphetamine abuse Status: Chronic (7) Schizophrenia, acute Status: Chronic (8) Suicidal ideation Status: Acute Assessment & Plan: - Looking for inpatient placement (9) Drug overdose Status: Acute Assessment & Plan: - Has bed at the end of the month for drug rehab Qualifiers: Qualified Codes: T50.902A - Poisoning by unspecified drugs, medicaments and biological substances, intentional self-harm, initial encounter (10) DVT prophylaxis Assessment & Plan: - Lovenox Clinical Quality Measures DVT/VTE Risk/Contraindication: Risk Factor Score Per Nursin RFS Level Per Nursing on Admit: 4+=Very High RASHEED AQUINO MD Sep 12, 2018 14:48
[2018-09-12] MEDS: ENOXAPARIN 40 MG/0.4 ML (LOVENOX) SYR SQ SCH (15:31)
[2018-09-12 15:57] VITALS: BP 133/75
[2018-09-12] MEDS ORDERED: GADOBUTROL 10 MMOL/10 ML (GADAVIST) VIAL IV ONE (16:45)
--- NOTE | 2018-09-12 17:20 | Diagnostic Imaging Report ---
PROCEDURE: US Hepatic (Liver). TECHNIQUE: Multiple real-time grayscale images were obtained over the right upper quadrant in various projections. INDICATION: Elevated liver function tests. Patient has a history of hepatitis C. FINDINGS: Liver measures 15.9 cm in size. Liver parenchyma is somewhat heterogeneous, but no discrete liver mass is identified. The gallbladder is surgically absent. No biliary ductal dilatation is seen. Portal vein is patent and shows normal direction of flow. The pancreas is obscured by bowel gas. Right kidney is unremarkable. There is no ascites. IMPRESSION: 1. Hepatic heterogeneity, but no discrete liver mass is detected. 2. Status post cholecystectomy. Dictated by: Dictated on workstation # [id number]
[2018-09-13 00:14] VITALS: BP 172/80
[2018-09-13] MEDS: RT-ALBUTEROL/IPRATROPIUM 3 ML (DUONEB) VIAL INH SCH ×3 (03:40→14:57)
[2018-09-13 06:41] LABS: BASOPHILS % (AUTO) 1 % (0-10); EOSINOPHILS % (AUTO) 1 % (0-10); HEMATOCRIT 40 % (40-54); HEMOGLOBIN 13.1 G/DL (13.3-17.7); LYMPHOCYTES # (AUTO) 2.2 X 10^3 (1.0-4.0); LYMPHOCYTES % (AUTO) 25 % (12-44); MEAN CORPUSCULAR HEMOGLOBIN 28 PG (25-34); MEAN CORPUSCULAR HGB CONC 33 G/DL (32-36); MEAN CORPUSCULAR VOLUME 84 FL (80-99); MEAN PLATELET VOLUME 10.9 FL (7.4-10.4); MONOCYTES # (AUTO) 0.8 X 10^3 (0.0-1.0); MONOCYTES % (AUTO) 9 % (0-12); NEUTROPHILS # (AUTO) 5.6 X 10^3 (1.8-7.8); NEUTROPHILS % (AUTO) 65 % (42-75); PLATELET COUNT 259 10^3/uL (130-400); RED CELL DISTRIBUTION WIDTH 16.6 % (10.0-14.5); WHITE BLOOD COUNT 8.7 10^3/uL (4.3-11.0)
[2018-09-13 06:59] LABS: ALANINE AMINOTRANSFERASE 44 U/L (0-55); ALBUMIN 3.3 GM/DL (3.2-4.5); ALKALINE PHOSPHATASE 77 U/L (40-136); BILIRUBIN,TOTAL 0.4 MG/DL (0.1-1.0); BUN/CREATININE RATIO 17; CARBON DIOXIDE 21 MMOL/L (21-32); CHLORIDE 108 MMOL/L (98-107); CREATININE SERUM 0.72 MG/DL (0.60-1.30); GFR ESTIMATED > 60; GLUCOSE 92 MG/DL (70-105); POTASSIUM 3.6 MMOL/L (3.6-5.0); SODIUM 140 MMOL/L (135-145); TOTAL PROTEIN 6.4 GM/DL (6.4-8.2)
[2018-09-13 08:08] VITALS: BP 145/78
[2018-09-13] MEDS: SENNA W/DOCUSATE (SENOKOT S) TABLET PO SCH (08:38)
[2018-09-13] MEDS: LACTULOSE SYRUP 10GM/15ML (ENULOSE) 30ML UDC PO SCH (08:38)
--- NOTE | 2018-09-13 09:00 | Diagnostic Imaging Report ---
PROCEDURE: MR imaging cervical spine without contrast. TECHNIQUE: Multiplanar, multisequence MR imaging of the cervical spine was performed without contrast. INDICATION: Right leg weakness. COMPARISON: CT cervical spine without contrast 11/12/2017. FINDINGS: Normal alignment. Vertebral body heights are preserved. Moderate-to- advanced degenerative endplate changes are greatest at C5-C7. Bone marrow signal is otherwise unremarkable. No abnormal signal in the cervical spinal cord. The visualized paravertebral soft tissues are unremarkable. C2-C3: No spinal canal or neural foraminal narrowing. C3-C4: Posterior disc osteophyte complex results in mild spinal canal narrowing. Uncovertebral and facet arthropathy result in advanced right and moderate left neural foraminal narrowing. C4-C5: Posterior disc osteophyte complex results in mild spinal canal narrowing. There is advanced bilateral neural foraminal narrowing. C5-C6: Posterior disc osteophyte complex results in moderate to advanced spinal canal narrowing. There is advanced bilateral neural foraminal narrowing. C6-C7: Posterior disc osteophyte complex results in moderate spinal canal narrowing. There is advanced left and mild right neural foraminal narrowing. C7-T1: Uncovertebral joint hypertrophy results in moderate right neural foraminal narrowing. No spinal canal or left neural foraminal narrowing. IMPRESSION: 1. Spondylotic changes result in multilevel spinal canal narrowing which is greatest at C5-C6. 2. Multilevel high-grade neural foraminal narrowing also detailed above level by level. 3. No acute osseous or ligamentous findings. Dictated by: Dictated on workstation # [id number]
--- NOTE | 2018-09-13 09:50 | Diagnostic Imaging Report ---
PROCEDURE: MR imaging of the brain without contrast. TECHNIQUE: Multiplanar, multisequence MR imaging of the brain was performed without contrast. INDICATION: Right leg weakness. COMPARISON: CT head without contrast 05/18/2010. FINDINGS: Chronic encephalomalacia in the right parietal lobe posteriorly is stable. Moderate nonspecific T2 hyperintensities in the supratentorial white matter, presumed leukoaraiosis. Mild generalized cerebral and cerebellar parenchymal volume loss is age appropriate. Normal morphology of the major midline structures, sella, posterior fossa and cerebellar pontine angle. No restricted water diffusion or hemosiderin deposition. The orbits are unremarkable on this nondedicated exam. The right internal carotid artery flow void appears absent. No hydrocephalus or extra-axial fluid collections. The paranasal sinuses and mastoids are clear. Normal bone marrow signal. IMPRESSION: 1. The right internal carotid artery flow void is absent. This is likely a chronic finding as the right anterior circulation appears reconstituted and there is no evidence of an acute infarct. This finding could be better evaluated with CTA of the head and neck. 2. 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 3. Chronic small vessel ischemic change and generalized parenchymal volume loss is age appropriate. Report was called to [facility] by barron at 9:50 am. Dictated by: Dictated on workstation # [id number]
--- NOTE | 2018-09-13 11:37 | Physical Therapy Evaluation ---
PT Evaluation-General Medical Diagnosis Admission Date Sep 09, 2018 at 16:30 Medical Diagnosis: possible overdose Onset Date: Sep 09, 2018 Therapy Diagnosis Therapy Diagnosis: weakness Height/Weight Height (Feet): 5 Height (Inches): 7.00 Weight (Pounds): 214 Weight (Ounces): 5.0 Precautions Precautions/Isolations: Standard Precautions Weight Bear Status Right Lower Extremity: Right Weight Bearing/Tolerated Left Lower Extremity: Left Weight Bearing/Tolerated Referral Physician: Lawson Reason for Referral: Evaluation/Treatment Medical History Additional Medical History hx of meth use; suicide threats and attempts. Current History Pt was found by family with empty seroquel bottle. Admitted. Complaints of right sided weakness. Reviewed History: Yes Social History Home: Single Level Current Living Status: Spouse Entry Into Home: Stairs With Railing Prior/Core FIM Prior Level of Function Therapy Code Descriptions/Definitions Functional [place] Measure: 0=Not Assessed/NA 4=Minimal Assistance 1=Total Assistance 5=Supervision or Setup 2=Maximal Assistance 6=Modified [place] 3=Moderate Assistance 7=Complete [place] Therapy Quality Codes: 6 Independent with activity with or without an assistive device 5 Patient requires set up or clean up by helper. Patient completes activity by themselves 4 Supervision or touching assist (CGA). Mercedita provide cues , steadying assist 3 The helper provides less than half the effort to complete the activity 2 The helper provides more than half the effort to complete the activity 1 Dependent. The helper does all the effort to complete an activity 7 Patient refused to complete or attempt activity 9 The patient did not perform the activity before the current illness or injury 88 Not attempted due to Medical conditions or safety concerns Functional Abilities and Goals: Independent: Patient completed the activities by him/herself, with or without an assistive device, with no assistance from a helper. Needed Some Help: Patient needed partial assistance from another person to complete activities. Dependent: A helper completed the activities for the patient. Unknown: Not Applicable: Bed Mobility: 7 Transfers (B,C,W/C) (FIM): 7 Gait: 7 Indoor Mobility (Ambulation): Independent Stairs: Independent PT Evaluation-Current Subjective Pt agreeable to PT eval. Pt was returning from being outside with family. He and family report he walked from his room to the front doors and then back. Pt denies pain Pain Numeric Pain Scale: 0-No Pain Location: No Pain Reported Pt/Family Goals Pt reports his goal is to return home. Objective Patient Orientation: Person, Place, Time, Situation Problem Solving: Fair ROM/Strength ROM Lower Extremities WFL Strength Lower Extremities Left LE strength is WNL; Right LE he is able to move through the full range, with manual muscle testing, he resists initially and then breaks. Integumentary/Posture Integumentary intact Bowel Incontinence: No Bladder Incontinence: No Posture slightly rounded shoulders and slight slumped posture. Neuromuscular (Tone, Coordination, Reflexes) intact and functional Sensory Vision: Functional Hearing: Functional Hand Dominance: Right Sensation Right Lower Extremit: Impaired (per pt report it is "tingly") Sensation Left Lower Extremity: Intact Sensation Lower Extremities pt able to sense light touch right LE Transfers Therapy Code Descriptions/Definitions Functional [place] Measure: 0=Not Assessed/NA 4=Minimal Assistance 1=Total Assistance 5=Supervision or Setup 2=Maximal Assistance 6=Modified [place] 3=Moderate Assistance 7=Complete [place] Transfers (B, C, W/C) (FIM): 6 (safety concerns; pt has been moving about room with family present but without help) Supine to/from Sit: 6 Sit to/from Stand: 6 Gait Mode of Locomotion: Walk Anticipated Mode of Locomotion: Walk Gait (FIM): 5 Distance (FIM): 3=150 ft Distance: 150 ft Gait Level of Assist: 5 (SBA for safety) Gait Assistive Device: FWW Comments/Gait Description steady gait; tends to have decreased foot clearance on the right compared to the left but he does shuffle B Balance Sitting Static: Good Sitting Dynamic: Good Standing Static: Fair Standing Dynamic: Fair Treatment Functional transfer training with education on hand placement and safety; Gait training with skilled cues for foot placment and safety. Assessment/Needs Pt presents with slightly diminished strength right LE but appears functional. He is slow with transfers and gait; he requires supervision only for safey concerns; he is able to transfer and mobilize without assit. He will benefit from short term PT to primarily address safety with all mobiltiy. Rehab Potential: Good PT Stonemason Supervisor Goals Stonemason Supervisor Goals PT Retirement Goals Time Frame: Sep 20, 2018 Transfers (B,C,W/C) (FIM): 7 Gait (FIM): 6 Gait distance (FIM): 3=150 ft Gait Assistive Device: FWW PT Plan Problem List Problem List: Activity Tolerance, Functional Strength, Safety, Gait Treatment/Plan Treatment Plan: Continue Plan of Care Treatment Plan: Bed Mobility, Education, Functional Activity Precious, Functional Strength, Gait, Safety, Transfers Treatment Duration: Sep 20, 2018 Frequency: 6 times per week Estimated Hrs Per Day: .5 hour per day Patient and/or Family Agrees t: Yes Safety Risks/Education Patient Education: Safety Issues Teaching Recipient: Patient, Family Teaching Methods: Discussion Response to Teaching: Reinforcement Needed Time/GCodes Time In: 1000 Time Out: 1025 Total Billed Treatment Time: 25 Total Billed Treatment visit EVM 15 FA 10 ERMA SMITH PT Sep 13, 2018 11:37
--- NOTE | 2018-09-13 11:38 | NUR ---
CM/SS [facility] faxed the MRI results. They currently do not have beds but are expecting male discharges this day. [facility] has all necessary information and sounded like he'd have a bed when had one available.
--- NOTE | 2018-09-13 14:09 | NUR ---
CM/SS Hannah called back and stated that they likely were not going to be able to get him to the [facility] this day as they have too many patient in their ER now. Referral sent to [facility] and [facility] inpatient psych facilities.
[2018-09-13 15:40] VITALS: BP 139/71
[2018-09-13] MEDS: ENOXAPARIN 40 MG/0.4 ML (LOVENOX) SYR SQ SCH (16:02)
--- NOTE | 2018-09-13 16:06 | NUR ---
CM/SS psych placement update: [facility]: denied placement Rom[facility]: Message left to try and follow up on referral [facility]: number left on the [facility] pager for call back [facility]- No Beds [facility]: No Beds [facility]: Referral faxed and information being reviewed
--- NOTE | 2018-09-13 16:44 | NUR ---
CM/SS [facility] has no bed available.
--- NOTE | 2018-09-13 17:22 | Progress Note (SOAP) ---
Subjective Subjective/Events-last exam Patient feeling better today. Has been up walking some but still has abnormal gait per ex from his normal. Tolerating PO diet. Review of Systems Date Seen by Provider: Sep 13, 2018 Time Seen by Provider: 11:55 Pulmonary: No Dyspnea; Cough Cardiovascular: No: Chest Pain, Palpitations Gastrointestinal: No: Nausea, Vomiting, Abdominal Pain, Diarrhea, Constipation Objective Exam Last Set of Vital Signs Vital Signs Date Time Temp Pulse Resp B/P (MAP) Pulse Ox O2 Delivery O2 Flow Rate FiO2 09/13/18 15:40 97.9 86 20 139/71 (93) 95 Room Air 09/09/18 17:29 2.00 Capillary Refill : Less Than 3 SecondsLess Than 3 Seconds I&O Intake and Output 09/13/18 00:00 Intake Total 2270 ml Output Total 700 ml Balance 1570 ml Intake Oral 2270 ml Output Urine Total 700 ml # Voids 3 # Bowel Movements 1 General: Alert, Oriented X3, Cooperative Lungs: Clear to Auscultation, Normal Air Movement Heart: Regular Rate, No Murmurs Abdomen: Normal Bowel Sounds, Soft, No Tenderness, No Masses Extremities: No Edema, No Tenderness/Swelling Psych/Mental Status: Other (Denies SI currently but states that when she leaves he calls her and states the thoughts return) Results/Procedures Lab Laboratory Tests 09/13/18 05:26: White Blood Count 8.7, Red Blood Count 4.72, Hemoglobin 13.1L, Hematocrit 40, Mean Corpuscular Volume 84, Mean Corpuscular Hemoglobin 28, Mean Corpuscular Hemoglobin Concent 33, Red Cell Distribution Width 16.6H, Platelet Count 259, Mean Platelet Volume 10.9H, Neutrophils (%) (Auto) 65, Lymphocytes (%) (Auto) 25 , Monocytes (%) (Auto) 9, Eosinophils (%) (Auto) 1, Basophils (%) (Auto) 1, Neutrophils # (Auto) 5.6, Lymphocytes # (Auto) 2.2, Monocytes # (Auto) 0.8, Eosinophils # (Auto) 0.0, Basophils # (Auto) 0.0, Sodium Level 140, Potassium Level 3.6, Chloride Level 108H, Carbon Dioxide Level 21, Anion Gap 11, Blood Urea Nitrogen 12, Creatinine 0.72, Estimat Glomerular Filtration Rate > 60, BUN/ Creatinine Ratio 17, Glucose Level 92, Calcium Level 9.0, Corrected Calcium 9.6 , Total Bilirubin 0.4, Aspartate Amino Transf (AST/SGOT) 44H, Alanine Aminotransferase (ALT/SGPT) 44, Alkaline Phosphatase 77, Total Protein 6.4, Albumin 3.3 Microbiology 09/09/18 MRSA Screen - Final, Complete MRSA not isolated Assessment/Plan Assessment/Plan (1) Weakness of right lower extremity Status: Acute Assessment & Plan: - PT ordered to see and evaluate patient, MRI pending for possible stroke 09/13- Discussed chronic changes on MRI with patient and , continue with PT, patient ambulating independently (2) Weakness of right upper extremity Status: Acute (3) Elevated LFTs Status: Acute Assessment & Plan: - ? h/o Hep C per ex-, Acute hepatitis panel pending, Hepatic US pending 09/13- US normal, panel pending, LFTs improved (4) Hypertension Status: Chronic Assessment & Plan: - Continue home meds Qualifiers: Qualified Codes: I10 - Essential (primary) hypertension (5) Hyperlipidemia Status: Chronic Assessment & Plan: - holding statin due to weakness and elevated LFTs Qualifiers: Qualified Codes: E78.2 - Mixed hyperlipidemia (6) Methamphetamine abuse Status: Chronic (7) Schizophrenia, acute Status: Chronic (8) Suicidal ideation Status: Acute Assessment & Plan: - Looking for inpatient placement 09/13: Waiting for placement (9) Drug overdose Status: Acute Assessment & Plan: - Has bed at the end of the month for drug rehab Qualifiers: Qualified Codes: T50.902A - Poisoning by unspecified drugs, medicaments and biological substances, intentional self-harm, initial encounter (10) DVT prophylaxis Assessment & Plan: - Lovenox Clinical Quality Measures DVT/VTE Risk/Contraindication: Risk Factor Score Per Nursin RFS Level Per Nursing on Admit: 4+=Very High RASHEED AQUINO MD Sep 13, 2018 17:22
[2018-09-13] MEDS ORDERED: LORazepam 0.5 MG (ATIVAN) TABLET PO STA (17:48)
[2018-09-13] MEDS ORDERED: LORazepam 0.5 MG (ATIVAN) TABLET PO PRN (18:00)
[2018-09-13] MEDS ORDERED: NICOTINE 21 MG (NICODERM) PATCH TD NR (18:00)
--- NOTE | 2018-09-13 18:30 | NUR ---
CM/SS [facility] accepted placement of the patient. [facility] was contacted and will provide transportation this day. Dereje updated and updated Patient updated his family.
--- NOTE | 2018-09-13 18:55 | Discharge Summary ---
Diagnosis/Chief Complaint Date of Admission Sep 09, 2018 at 16:30 Date of Discharge 09/13/2018 Admission Diagnosis Admission Diagnosis Altered Mental status Meth Intoxication Drug Overdose Suicidal Ideation HTN Right Extremity weakness HLD Elevated LFTs Discharge Diagnosis See problem list Problems/Diagnosis: (1) Weakness of right lower extremity Assessment & Plan: - PT ordered to see and evaluate patient, MRI pending for possible stroke 09/13- Discussed chronic changes on MRI with patient and , continue with PT, patient ambulating independently Status: Acute (2) Weakness of right upper extremity Status: Acute (3) Elevated LFTs Assessment & Plan: - ? h/o Hep C per ex-, Acute hepatitis panel pending, Hepatic US pending 09/13- US normal, panel pending, LFTs improved Status: Acute (4) Hypertension Assessment & Plan: - Continue home meds Qualifiers: Qualified Codes: I10 - Essential (primary) hypertension Status: Chronic (5) Hyperlipidemia Assessment & Plan: - holding statin due to weakness and elevated LFTs Qualifiers: Qualified Codes: E78.2 - Mixed hyperlipidemia Status: Chronic (6) Methamphetamine abuse Status: Chronic (7) Schizophrenia, acute Status: Chronic (8) Suicidal ideation Assessment & Plan: - Looking for inpatient placement 09/13: Waiting for placement Status: Acute (9) Drug overdose Assessment & Plan: - Has bed at the end of the month for drug rehab Qualifiers: Qualified Codes: T50.902A - Poisoning by unspecified drugs, medicaments and biological substances, intentional self-harm, initial encounter Status: Acute (10) DVT prophylaxis Assessment & Plan: - Lovenox Discharge Summary-Simple/Stand Consultations Dr Schwartz: Cardiology Discharge Physical Examination Allergies: Coded Allergies: morphine (Verified Allergy, Unknown, TAKES LORTAB AT HOME, 08/03/08) Vitals & I&Os Vital Sign - Last 12Hours Date Time Temp Pulse Resp B/P (MAP) Pulse Ox O2 Delivery O2 Flow Rate FiO2 09/13/18 15:40 97.9 86 20 139/71 (93) 95 Room Air 09/09/18 17:29 2.00 Intake and Output 09/13/18 00:00 Intake Total 1910 ml Output Total 200 ml Balance 1710 ml General Appearance: Alert, Oriented X3, Cooperative, No Acute Distress HEENT: Mucous Memb Moist/[place] Respiratory: Clear to Auscultation, Normal Air Movement Cardiovascular: Regular Rate, No Murmurs Abdominal: Normal Bowel Sounds, Soft, No Tenderness, No Masses Extremities: No Edema, No Tenderness/Swelling Skin: No Rashes, No Breakdown Neuro: Normal Speech, Strength at 5/5 X4 Ext, Sensation Intact, Cranial Nerves 3-12 NL Psych/Mental Status: Other (Depressed affect) Hospital Course Was the Problem List Reviewed?: Yes See final discharge diagnosis. Pending Labs ACUTE HEPATITIS PANEL PENDING Discussion & Recommendations 58 yo M with long h/o illicit drug dependence that presented with altered mental status thought to have overdosed on Seroquel and intoxicated on meth. Patient was hydrated and labs improved with hydration. Patient had elevated LFTs and had normal US during admission. Hepatitis panel pending. He complained of abnormal gait and right sided weakness. MRI head showed chronic changes but no acute changes concerning for recent stroke. Patient was suicidal on and off during admission and it was strongly advised that patient go to inpatient psych to help stabilize so that he could then be ready to go to inpatient drug rehab which he has a bed at the end of the month. Patient will be directly transferred to inpatient psych from this hospitalization and will have close follow up with PCP at [facility]. Discharge Condition at discharge stable Instructions to patient/family Please see electronic discharge instructions given to patient. Discharge Medications Reviewed and agree with Discharge Medication list on patient's Discharge Instruction sheet Clinical Quality Measures DVT/VTE Risk/Contraindication: Risk Factor Score Per Nursin RFS Level Per Nursing on Admit: 4+=Very High RASHEED AQUINO MD Sep 13, 2018 18:55
--- NOTE | 2018-09-13 18:58 | Discharge Instructions ---
Discharge [facility] Discharge Medications New, Converted or Re-Newed RX: Other (No new scripts) Continued Medications: Aspirin (Aspirin 325 Mg Tab) 325 Mg Tab 325 MG PO DAILY, 0 Refills Bupropion Hcl (Wellbutrin) 100 Mg Tablet 100 MG PO DAILY Clopidogrel Bisulfate (Plavix 75 Mg) 75 Mg Tablet 75 MG PO DAILY, 0 Refills Hydrochlorothiazide (Hydrochlorothiazide) 25 Mg Tablet 25 MG PO DAILY, 0 Refills Isosorbide Dinitrate (Isordil) 20 Mg Tablet #60 Nitroglycerin (Nitrostat) 0.4 Mg Tab 0.4 MG PO NEEDED, 0 Refills [place] 3 Polyunsat Fatty Acids (Fish Oil) 1,000 Mg Cap 1000 MG PO TID, 0 Refills Discontinued Medications: Hydrocodone Bit/Acetaminophen (Anexsia 5-325 Mg Tablet) 1 Each Tablet #60 Hydrocodone Bit/Acetaminophen (Hydrocodone-Apap 5-325 Tab) 1 Tab Tablet 1 TAB PO Q6H PRN for PAIN, #10 TAB Prednisone (Prednisone) 20 Mg Tablet 20 MG PO DAILY, #5 TAB Risperidone (Risperdal) 2 Mg Tablet 2 MG PO DAILY Simvastatin (Simvastatin) 80 Mg Tablet #30 Patient Instructions Goal/Follow Up Appt: Make sure to call and get appt with PCP once you are discharged from inpatient psych Activity & Diet Discharge Diet: No Restrictions Activity as Tolerated: Yes RASHEED AQUINO MD Sep 13, 2018 18:58
--- NOTE | 2018-09-13 19:40 | NUR ---
PATIENT DISCHARGED TO [facility] [place]. PICKED UP BY [facility] [employer] [employer] [facility] AT 1921. PATIENT LEFT WITH ALL PERSONAL BELONGINGS. NO IV ACCESS. PATIENT WAS IN STABLE CONDITION. REPORT CALLED TO [facility] AT 1931, BRANDIE VIERA TOOK REPORT AND WILL BE THE NURSE TAKING CARE OF HIM. [facility] [facility]OR[facility] CONTACTED AT THIS TIME TO DISCONTINUE TELESITTER.
[2018-09-14 07:38] LABS: HEPATITIS C ANTIBODY C Non-Reactive (Non-Reactive)
--- NOTE | 2018-09-14 08:17 | NUR ---
CM/SS spoke with Alex(A/D counselor at [facility]) he is working to get the patient an inpatient alcohol and drug treatment program. He believes he has a bed date for September 27 at [facility] in [place], [place]. Updated on the psych placement with [facility].
[2018-09-14] MEDS ORDERED: NICOTINE PATCH REMOVAL TP SCH (08:59)
[2018-09-14] MEDS ORDERED: NICOTINE 21 MG (NICODERM) PATCH TD SCH (09:00)
== END 2018-09-13 19:44 | DRG 918 ==
LOC: EDUNIT# 14:36 → ER 14:37 → ICU 16:30 → 4TH 09-10 12:49
PROVIDERS: ADMIT Internal Medicine; ATTEND Internal Medicine
DX: T43.592A Poisoning by other antipsychotics and neuroleptics, intentional self-harm, initial encounter (principal); F15.10 Other stimulant abuse, uncomplicated; M25.551 Pain in right hip; M25.552 Pain in left hip; R26.2 Difficulty in walking, not elsewhere classified; R29.898 Other symptoms and signs involving the musculoskeletal system; I34.0 Nonrheumatic mitral (valve) insufficiency; R06.2 Wheezing; R06.02 Shortness of breath; I25.10 Atherosclerotic heart disease of native coronary artery without angina pectoris; R01.1 Cardiac murmur, unspecified; I10 Essential (primary) hypertension; F20.9 Schizophrenia, unspecified; F32.9 Major depressive disorder, single episode, unspecified; F17.210 Nicotine dependence, cigarettes, uncomplicated; E78.00 Pure hypercholesterolemia, unspecified; I73.9 Peripheral vascular disease, unspecified; Z59.0 Homelessness; Z95.1 Presence of aortocoronary bypass graft; Z91.5 Personal history of self-harm
CPT/HCPCS: 36415; 36600; 51701; 70551; 71045; 72141; 76705; 80048; 80053; 80074; 80306; 80320; 80329; 82805; 83735; 85025; 87081; 93005; 93306; 94640; 94760; 96360; 96361

== ENCOUNTER 2018-11-25 13:13 | Inpatient (IN) | payer MEDICAID ==
[2018-11-25] VITALS (12 sets, daily range): BP systolic 110–129; BP diastolic 71–107
[~2018-11-25] VITALS: Ht 180.3 cm; Wt 97.1 kg
[2018-11-25] MEDS ORDERED: NS IV 1000 ML 1,000 ML IV ONE (13:27)
[2018-11-25 13:34] LABS: ABG BASE EXCESS -0.6 MMOL/L (-2.5-2.5); ABG OXYGEN SATURATION 95 % (94-100); ABG PCO2 34 MMHG (35-45); ABG PH 7.44 (7.37-7.43); ABG PO2 61 MMHG (79-93); ABG TCO2 24.4 MMOL/L (21.0-31.0); ALLENS TEST YES-POS; INSPIRED O2 ROOM AIR; PATIENT TEMP 95.6; VENTILATOR NO
[2018-11-25 13:37] LABS: BASOPHILS % (AUTO) 0 % (0-10); EOSINOPHILS % (AUTO) 0 % (0-10); HEMATOCRIT 43 % (40-54); HEMOGLOBIN 13.8 G/DL (13.3-17.7); LYMPHOCYTES # (AUTO) 1.2 X 10^3 (1.0-4.0); LYMPHOCYTES % (AUTO) 16 % (12-44); MEAN CORPUSCULAR HEMOGLOBIN 27 PG (25-34); MEAN CORPUSCULAR HGB CONC 32 G/DL (32-36); MEAN CORPUSCULAR VOLUME 82 FL (80-99); MEAN PLATELET VOLUME 10.7 FL (7.4-10.4); MONOCYTES # (AUTO) 0.4 X 10^3 (0.0-1.0); MONOCYTES % (AUTO) 5 % (0-12); NEUTROPHILS # (AUTO) 5.7 X 10^3 (1.8-7.8); NEUTROPHILS % (AUTO) 79 % (42-75); PLATELET COUNT 318 10^3/uL (130-400); RED CELL DISTRIBUTION WIDTH 15.6 % (10.0-14.5); WHITE BLOOD COUNT 7.3 10^3/uL (4.3-11.0)
[2018-11-25 13:45] LABS: BILIRUBIN,URINE NEGATIVE (NEGATIVE); CLARITY,URINE CLEAR; COLOR,URINE YELLOW; GLUCOSE, URINE (UA) NEGATIVE (NEGATIVE); KETONES,URINE NEGATIVE (NEGATIVE); LEUKOCYTE ESTERASE ,URINE 1+ (NEGATIVE); NITRITE,URINE NEGATIVE (NEGATIVE); PH,URINE 7 (5-9); PROTEIN,URINE 1+ (NEGATIVE); UROBILINOGEN,URINE 4 MG/DL (NORMAL)
[2018-11-25 13:56] LABS: BACTERIA,URINE MODERATE /HPF
[2018-11-25 13:58] LABS: AMPHETAMINE SCREEN, URINE NEGATIVE (NEGATIVE); BARBITURATE SCREEN URINE NEGATIVE (NEGATIVE); BENZODIAZEPINES SCREEN URINE NEGATIVE (NEGATIVE); CANNABINOID SCREEN, URINE NEGATIVE (NEGATIVE); COCAINE SCREEN URINE NEGATIVE (NEGATIVE); METHADONE STAT NEGATIVE (NEGATIVE); METHAMPHETAMINE SCREEN URINE S NEGATIVE (NEGATIVE); OPIATE SCREEN URINE NEGATIVE (NEGATIVE); OXYCODONE STAT NEGATIVE (NEGATIVE); PROPOXYPHENE STAT NEGATIVE (NEGATIVE); TRICYCLIC ANTIDEPRESSANTS SCRE POSITIVE (NEGATIVE)
[2018-11-25 13:59] LABS: ALANINE AMINOTRANSFERASE 56 U/L (0-55); ALBUMIN 3.7 GM/DL (3.2-4.5); ALKALINE PHOSPHATASE 106 U/L (40-136); BILIRUBIN,TOTAL 0.7 MG/DL (0.1-1.0); BUN/CREATININE RATIO 19; CARBON DIOXIDE 20 MMOL/L (21-32); CHLORIDE 103 MMOL/L (98-107); CREATININE SERUM 1.01 MG/DL (0.60-1.30); GFR ESTIMATED > 60; GLUCOSE 122 MG/DL (70-105); MAGNESIUM 2.3 MG/DL (1.8-2.4); POTASSIUM 3.9 MMOL/L (3.6-5.0); SALICYLATE < 5.0 MG/DL (5.0-20.0); SODIUM 135 MMOL/L (135-145); TOTAL PROTEIN 6.8 GM/DL (6.4-8.2)
[2018-11-25 14:06] LABS: ACETAMINOPHEN < 10 UG/ML (10-30)
--- NOTE | 2018-11-25 14:21 | Diagnostic Imaging Report ---
INDICATION: Overdose, unresponsive. FINDINGS: Central catheter via right IJ is placed, tip at the lower SVC. There is rightward rotation limiting exam sensitivity. The heart does appear genuinely increased in size and there is likely increased venous congestion. There is elevation of the right diaphragm and some increased right basilar infiltrate or atelectasis. There is no pneumothorax. IMPRESSION: Central line placed. No pneumothorax. Increased cardiomegaly, vascular congestion and some basilar atelectasis. Dictated by: Dictated on workstation # [id number]
--- NOTE | 2018-11-25 14:52 | ED General ---
General Chief Complaint: Unresponsive Stated Complaint: OVERDOSE,AMS Nursing Triage Note: PT PRESENTS TO ED VIA [facility] FOR UNRESPONSIVENESS. PT WAS DUE TO CHECK OUT OF HIS HOTEL ROOM THIS MORNING AND HOTEL STAFF CALLED PD WHEN HE DIDNT CHECK OUT OR NSWER THE DOOR. PD FOUND PT UNRESPONSIVE ON THE HOTEL BED WITH EMPTY PILL BOTTLES NEAR BY. EMS REPORTS PT WAS RESPONSIVE TO PAINFUL ST[place]ULI ONLY FOR THEM AND HAD [place]INT PUPILS. Nursing Sepsis Screen: No Definite Risk Source of Information: EMS Exam Limitations: Physical Impairments History of Present Illness Date Seen by Provider: Nov 25, 2018 Time Seen by Provider: 13:15 Initial Comments Here by EMS with report of being unresponsive. Apparently he was in his hotel room and was due for checkout. He had not checked out and staff checked the room and found the door locked on the inside. They could see him lying on top of the bed. Law enforcement was called. Ultimately they gain entry to the room and found the patient unresponsive. EMS notified and found the patient unresponsive. They brought him here. He did have 3 pill bottles next to him that appear to have mixed medications including Seroquel, risperidone and lisinopril. He apparently has some clonazepam in the bottle as well. Unsure what he took or what he did. Patient does moan to painful stimuli. Otherwise does not respond. Blood pressure initially 80 systolic but improved with fluid challenge per EMS. O2 saturations normal. Heart rate in the 70s and 80s. On arrival remains the same. Timing/Duration: Other (unknown onset) Severity: Moderate, Severe Associated Systoms: Other (unresponsive) Allergies and Home Medications Allergies Coded Allergies: morphine (Verified Allergy, Unknown, TAKES LORTAB AT HOME, 08/03/08) Home Medications Aspirin 325 Mg Tab, 325 MG PO DAILY, (Reported) Bupropion Hcl 100 Mg Tablet, 100 MG PO DAILY, (Reported) Clopidogrel Bisulfate 75 Mg Tablet, 75 MG PO DAILY, (Reported) Hydrochlorothiazide 25 Mg Tablet, 25 MG PO DAILY, (Reported) Nitroglycerin 0.4 Mg Tab, 0.4 MG PO NEEDED, (Reported) [place] 3 Polyunsat Fatty Acids 1,000 Mg Cap, 1,000 MG PO TID, (Reported) Patient Home Medication List Home Medication List Reviewed: Yes Review of Systems Review of Systems Constitutional: see HPI Patient unresponsive and unable to provide details for review of systems. Past [id number]-[id number]-[id number] Hx Past Med/Social Hx: Reviewed Nursing Past Med/Soc Hx Patient Social History Alcohol Use: Occasionally Uses Recreational Drug Use: Yes (SMOKES 2 PPD) Drug of Choice: METH Smoking Status: Current Everyday Smoker Type Used: Cigarettes 2nd Hand Smoke Exposure: Yes Recent Foreign Travel: No Contact w/Someone Who Travel: No Recent Infectious Disease Expo: No Recent Hopitalizations: Yes (OVERDOSE ON PILLS AT [facility] ) Immunizations Up To Date PED Vaccines UTD: Yes Date of Pneumonia Vaccine: May 31, 2015 Seasonal Allergies Seasonal Allergies: No Past Medical History Cardiac, Gallbladder Respiratory: No Cardiac: Yes Coronary Artery Disease, High Cholesterol, Hypertension Neurological: No Reproductive Disorders: No Genitourinary: No Gastrointestinal: No Musculoskeletal: No Endocrine: No HEENT: No Cancer: No Psychosocial: Yes Suicide Attempts, Schizophrenia Integumentary: No Blood Disorders: No Family Medical History Patient reports no known family medical history. Diabetes, Hypertension Per record review Physical Exam Vital Signs Vital Signs - First Documented 11/25/18 11/25/18 13:28 13:45 Temp 95.6 Pulse 84 Resp 20 B/P (MAP) 95/59 (71) Pulse Ox 94 O2 Delivery Room Air O2 Flow Rate 2.00 Capillary Refill : Less Than 3 Seconds Height, Weight, BMI Height: 5'11.00" Weight: 230lbs. 5.0oz. [id number]; 31.3 BMI Method:Estimated General Appearance: Other (unresponsive but in no distress) HEENT: Pharynx Normal, Other (pupils pinpoint) Neck: Non Tender, Supple Respiratory: Lungs Clear, Normal Breath Sounds Cardiovascular: Regular Rate, Rhythm, No Murmur Gastrointestinal: Normal Bowel Sounds, No Organomegaly, No Pulsatile Mass, Soft Extremity: No Pedal Edema, Pelvis Stable Neurologic/Psychiatric: Other (unresponsive except to painful stimuli) Skin: Normal Color, Warm/Dry Progress/Results/Core Measures Suspected Sepsis Recent Fever Within 48 Hours: No Infection Criteria Present: None New/Unexplained Altered Menta: Yes Sepsis Screen: No Definite Risk SIRS Temperature:95.6 Pulse: 84 Respiratory Rate: 20 Laboratory Tests 11/25/18 13:19: White Blood Count 7.3 Blood Pressure 95 /59 Mean: 71 Laboratory Tests 11/25/18 13:19: Creatinine 1.01, Platelet Count 318, Total Bilirubin 0.7 Results/Orders Lab Results Laboratory Tests Test 11/25/18 13:19 11/25/18 13:27 11/25/18 13:28 Range/Units White Blood Count 7.3 4.3-11.0 10^3/uL Red Blood Count 5.19 4.35-5.85 10^6/uL Hemoglobin 13.8 13.3-17.7 G/DL Hematocrit 43 40-54 % Mean Corpuscular Volume 82 80-99 FL Mean Corpuscular Hemoglobin 27 25-34 PG Mean Corpuscular Hemoglobin Concent 32 32-36 G/DL Red Cell Distribution Width 15.6 H 10.0-14.5 % Platelet Count 318 130-400 10^3/uL Mean Platelet Volume 10.7 H 7.4-10.4 FL Neutrophils (%) (Auto) 79 H 42-75 % Lymphocytes (%) (Auto) 16 12-44 % Monocytes (%) (Auto) 5 0-12 % Eosinophils (%) (Auto) 0 0-10 % Basophils (%) (Auto) 0 0-10 % Neutrophils # (Auto) 5.7 1.8-7.8 X 10^3 Lymphocytes # (Auto) 1.2 1.0-4.0 X 10^3 Monocytes # (Auto) 0.4 0.0-1.0 X 10^3 Eosinophils # (Auto) 0.0 0.0-0.3 10^3/uL Basophils # (Auto) 0.0 0.0-0.1 10^3/uL Sodium Level 135 135-145 MMOL/L Potassium Level 3.9 3.6-5.0 MMOL/L Chloride Level 103 98-107 MMOL/L Carbon Dioxide Level 20 L 21-32 MMOL/L Anion Gap 12 5-14 MMOL/L Blood Urea Nitrogen 19 H 7-18 MG/DL Creatinine 1.01 0.60-1.30 MG/DL Estimat Glomerular Filtration Rate > 60 BUN/Creatinine Ratio 19 Glucose Level 122 H 70-105 MG/DL Calcium Level 9.0 8.5-10.1 MG/DL Corrected Calcium 9.2 8.5-10.1 MG/DL Magnesium Level 2.3 1.8-2.4 MG/DL Total Bilirubin 0.7 0.1-1.0 MG/DL Aspartate Amino Transf (AST/SGOT) 72 H 5-34 U/L Alanine Aminotransferase (ALT/SGPT) 56 H 0-55 U/L Alkaline Phosphatase 106 40-136 U/L C-Reactive Protein High Sensitivity 1.56 H 0.00-0.50 MG/DL Total Protein 6.8 6.4-8.2 GM/DL Albumin 3.7 3.2-4.5 GM/DL Thyroid Stimulating Hormone (TSH) 0.74 0.35-4.94 UIU/ML Salicylates Level < 5.0 L 5.0-20.0 MG/DL Acetaminophen Level < 10 L 10-30 UG/ML Serum Alcohol < 10 <10 MG/DL Urine Color YELLOW Urine Clarity CLEAR Urine pH 7 5-9 Urine Specific [place] 1.010 L 1.016-1.022 Urine Protein 1+ H NEGATIVE Urine Glucose (UA) NEGATIVE NEGATIVE Urine Ketones NEGATIVE NEGATIVE Urine Nitrite NEGATIVE NEGATIVE Urine Bilirubin NEGATIVE NEGATIVE Urine Urobilinogen 4 H NORMAL MG/DL Urine Leukocyte Esterase 1+ H NEGATIVE Urine RBC (Auto) NEGATIVE NEGATIVE Urine RBC NONE /HPF Urine WBC 10-25 H /HPF Urine Crystals NONE /LPF Urine Bacteria MODERATE H /HPF Urine Casts PRESENT /LPF Urine Hyaline Casts 2-5 H /LPF Urine Mucus SMALL H /LPF Urine Culture Indicated YES Urine Opiates Screen NEGATIVE NEGATIVE Urine Oxycodone Screen NEGATIVE NEGATIVE Urine Methadone Screen NEGATIVE NEGATIVE Urine Propoxyphene Screen NEGATIVE NEGATIVE Urine Barbiturates Screen NEGATIVE NEGATIVE Ur Tricyclic Antidepressants Screen POSITIVE H NEGATIVE Urine Phencyclidine Screen NEGATIVE NEGATIVE Urine Amphetamines Screen NEGATIVE NEGATIVE Urine Methamphetamines Screen NEGATIVE NEGATIVE Urine Benzodiazepines Screen NEGATIVE NEGATIVE Urine Cocaine Screen NEGATIVE NEGATIVE Urine Cannabinoids Screen NEGATIVE NEGATIVE Blood Gas Puncture Site RT RAD Blood Gas Patient Temperature 95.6 Arterial Blood pH 7.44 H 7.37-7.43 Arterial Blood Partial Pressure CO2 34 L 35-45 MMHG Arterial Blood Partial Pressure O2 61 L 79-93 MMHG Arterial Blood HCO3 23 23-27 MMOL/L Arterial Blood Total CO2 24.4 21.0-31.0 MMOL/L Arterial Blood Oxygen Saturation 95 94-100 % Arterial Blood Base Excess -0.6 -2.5-2.5 MMOL/L [place] Test YES-POS Blood Gas Ventilator Setting NO Blood Gas Inspired Oxygen ROOM AIR My Orders Orders - MARIA GUADALUPE FISHER MD Arterial Blood Gas (11/25/18 13:28) Ed Iv/Invasive Line Start (11/25/18 13:27) Ekg Tracing (11/25/18 13:27) Catheter(Urinary) Insert & Ass 03,15 (11/25/18 13:27) O2 (11/25/18 13:27) Monitor-Rhythm Ecg Trace Only (11/25/18 13:27) End Tidal Co2 (11/25/18 13:27) Chest 1 View, Ap/Pa Only (11/25/18 13:27) Acetaminophen (11/25/18 13:27) Alcohol (11/25/18 13:27) Arterial Blood Gas (11/25/18 13:27) Cbc With Automated Diff (11/25/18 13:27) Comprehensive Metabolic Panel (11/25/18 13:27) Hs C Reactive Protein (11/25/18 13:27) Drug Screen Stat (Urine) (11/25/18 13:27) Magnesium (11/25/18 13:27) Salicylate (11/25/18 13:27) Thyroid Stimulating Hormone (11/25/18 13:27) Ua Culture If Indicated (11/25/18 13:27) Ed Iv/Invasive Line Start (11/25/18 13:27) Ns Iv 1000 Ml (Sodium Chloride 0.9%) (11/25/18 13:27) Arterial Blood Draw (11/25/18 ) Urine Culture (11/25/18 13:27) Ed Iv/Invasive Line Start (11/25/18 14:57) Lactated Ringers (Lr 1000 Ml Iv Solution (11/25/18 14:57) Magnesium (11/25/18 15:10) Medications Given in ED Current Medications Medications Dose Ordered Sig/[place] Route Start Time Stop Time Status Last Admin Dose Admin Sodium Chloride 1,000 ml @ 0 mls/hr Q0M ONCE IV 11/25/18 13:27 11/25/18 13:31 DC 11/25/18 13:28 0 MLS/HR Vital Signs/I&O 11/25/18 11/25/18 13:28 13:45 Temp 95.6 Pulse 84 Resp 20 B/P (MAP) 95/59 (71) Pulse Ox 94 97 O2 Delivery Room Air Nasal Cannula O2 Flow Rate 2.00 Capillary Refill : Less Than 3 Seconds Blood Pressure Mean: 71 Progress Note : Progress Note Seen and evaluated on arrival by EMS. Patient unresponsive on arrival. IV established by EMS with normal saline 1 L bolus running. Orders for second IV, labs, EKG, chest x-ray and repeat normal saline 1 L bolus. Lim catheter ordered. UA and UDS as well as other drug screens ordered. Patient was very difficult IV stick despite multiple attempts by nursing and myself. Ultimately central line placed to right IJ with ultrasound guidance. Tolerated procedure without complications. A third liter of fluid with LR 1 L bolus ordered. Patient's blood pressure maintaining upper 90s to low 100s with fluids. End- tidal CO2 was 29-35. O2 saturations greater than 92%. Patient has respirations of 12-16 per minute. Patient does have gag reflex. Monitor patient. 1512: I did discuss the case with Dr. Chi. She accepts patient for admission to the ICU. Poison control was contacted and is recommending magnesium 2 g IV if QTc interval is greater than 500. On admission we will repeat EKG and then 1 hour later as well as tomorrow morning. Orders for magnesium written for. Admit, inpatient status. Patient remains unresponsive and protecting his airway. ECG Initial ECG Impression Date: Nov 25, 2018 Initial ECG Impression Time: 14:39 Initial ECG Rate: 76 Initial ECG Rhythm: Normal Sinus Comment Sinus rhythm with nonspecific T-wave abnormalities laterally. Normal axis. No evidence of ST elevation [place]. QT 440 and QTc 495 which is prolonged from previous. QT interval change from 09/09/18. Interpreted by me. Diagnostic Imaging Diagonstic Imaging: Xray Plain Films/CT/US/NM/MRI: chest Comments [facility], [place] NAME: JENNIFER BUSTAMANTE Chanda [facility] REC#: [id number] PT STATUS: REG ER : 1960 PHYSICIAN: MARIA GUADALUPE FISHER MD ADMIT DATE: 11/25/18/ER Draft Date of Exam:11/25/18 CHEST 1 VIEW, AP/PA ONLY INDICATION: Overdose, unresponsive. FINDINGS: Central catheter via right IJ is placed, tip at the lower SVC. There is rightward rotation limiting exam sensitivity. The heart does appear genuinely increased in size and there is likely increased venous congestion. There is elevation of the right diaphragm and some increased right basilar infiltrate or atelectasis. There is no pneumothorax. IMPRESSION: Central line placed. No pneumothorax. Increased cardiomegaly, vascular congestion and some basilar atelectasis. Dictated on workstation # [id number] Dict: 11/25/18 1414 Trans: 11/25/18 1421 [id number] Interpreted by: MISHEL NOLASCO Electronically signed by: Departure Communication (Admissions) Time/Spoke to Admitting Phy: 15:12 Impression Primary Impression: Overdose Qualified Codes: T50.904A - Poisoning by unspecified drugs, medicaments and biological substances, undetermined, initial encounter Disposition: ADMITTED INPATIENT Condition: Critical Admissions Decision to Admit Reason: Admit from ER (General) Decision to Admit/Date: Nov 25, 2018 Time/Decision to Admit Time: 15:12 Departure-Patient Inst. Referrals: MIRELLA GONZALES MD (PCP/Family) Primary Care Physician MARIA GUADALUPE FISHER MD Nov 25, 2018 14:52
[2018-11-25] MEDS ORDERED: LACTATED RINGERS 1,000 ML IV ONE (14:57)
[2018-11-25] MEDS ORDERED: ONDANSETRON 4 MG/2 ML (SDV) Z0FRAN IV PRN (17:00)
[2018-11-25] MEDS ORDERED: CATHETER FLUSH 10 ML SYR IV PRN (17:00)
[2018-11-25] MEDS ORDERED: MAGNESIUM 1 GM/D5W 100 ML IVPB IV PRN (17:00)
--- NOTE | 2018-11-25 17:10 | NUR ---
Poison control called for update
[2018-11-25] MEDS: LACTATED RINGERS 1,000 ML IV SCH ×2 (17:20→23:15)
[2018-11-25] MEDS ORDERED: RT-ALBUTEROL/IPRATROPIUM 3 ML (DUONEB) VIAL INH PRN (21:45)
[2018-11-26] VITALS (18 sets, daily range): BP systolic 85–142; BP diastolic 50–91
[2018-11-26 04:06] LABS: BASOPHILS % (AUTO) 0 % (0-10); EOSINOPHILS % (AUTO) 0 % (0-10); HEMATOCRIT 45 % (40-54); HEMOGLOBIN 14.7 G/DL (13.3-17.7); LYMPHOCYTES # (AUTO) 1.1 X 10^3 (1.0-4.0); LYMPHOCYTES % (AUTO) 8 % (12-44); MEAN CORPUSCULAR HEMOGLOBIN 27 PG (25-34); MEAN CORPUSCULAR HGB CONC 33 G/DL (32-36); MEAN CORPUSCULAR VOLUME 82 FL (80-99); MEAN PLATELET VOLUME 11.3 FL (7.4-10.4); MONOCYTES # (AUTO) 1.2 X 10^3 (0.0-1.0); MONOCYTES % (AUTO) 8 % (0-12); NEUTROPHILS # (AUTO) 12.4 X 10^3 (1.8-7.8); NEUTROPHILS % (AUTO) 84 % (42-75); PLATELET COUNT 283 10^3/uL (130-400); RED CELL DISTRIBUTION WIDTH 15.8 % (10.0-14.5); WHITE BLOOD COUNT 14.7 10^3/uL (4.3-11.0)
[2018-11-26 04:29] LABS: ALANINE AMINOTRANSFERASE 77 U/L (0-55); ALBUMIN 3.9 GM/DL (3.2-4.5); ALKALINE PHOSPHATASE 110 U/L (40-136); BILIRUBIN,TOTAL 0.7 MG/DL (0.1-1.0); BUN/CREATININE RATIO 14; CALCIUM 9.6 MG/DL (8.5-10.1); CARBON DIOXIDE 22 MMOL/L (21-32); CHLORIDE 102 MMOL/L (98-107); CREATININE SERUM 1.03 MG/DL (0.60-1.30); GFR ESTIMATED > 60; GLUCOSE 107 MG/DL (70-105); SODIUM 139 MMOL/L (135-145); TOTAL PROTEIN 7.5 GM/DL (6.4-8.2)
[2018-11-26] MEDS: LACTATED RINGERS 1,000 ML IV SCH ×2 (05:50→18:43)
--- NOTE | 2018-11-26 11:45 | Diagnostic Imaging Report ---
PROCEDURE: CT head without contrast. TECHNIQUE: Multiple contiguous axial images were obtained through the brain without the use of intravenous contrast. Auto Exposure Controls were utilized during the CT exam to meet ALARA standards for radiation dose reduction. INDICATION: Leg weakness, overdose. COMPARISON: 11/12/2017. FINDINGS: Ventricles are normal in size, shape, and position. There is no midline shift or mass effect. There is no hemorrhage or evidence of acute ischemia. There is no extra-axial fluid collection. No cerebral edema is identified. The bony calvarium, visualized paranasal sinuses, and mastoids are normal. IMPRESSION: No acute intracranial abnormalities. Dictated by: Dictated on workstation # [id number]
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
[2018-11-26] MEDS ORDERED: ENOXAPARIN 40 MG/0.4 ML (LOVENOX) SYR SQ SCH (16:00)
[2018-11-26] MEDS ORDERED: FUROSEMIDE 40 MG (LASIX) TAB PO ONE (18:00)
--- NOTE | 2018-11-26 18:24 | NUR ---
DR. LEE CONTACTED TO INFORM HER OF MR BUSTAMANTE DESIRE TO LEAVE AMA. THAKUR CATHETER REMOVED WELL THE CENTRAL LINE ORDERED. PATIENT REFUSED TO STAY ANY LONGER REQUESTED. RISKS AND BENEFITS WERE THOROUGHLY DISCUSSED WITH COMPLETE UNDERSTANDING. PATIENT CONTINUED TO REFUSE ANY ATTEMPTS TO PERSUADE HIM TO STAY. AN AMA FORM WAS OBTAINED AND WITNESSED. ATTEMPTS WERE MADE TO CONTACT FAMILY. AND MESSAGES WERE LEFT. ALL BELONGINGS WERE GIVEN TO PATIENT.
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
== END 2018-11-26 19:35 | disposition left against medical advice (07) | DRG 917 ==
LOC: ER 13:13 → EDUNIT# 13:15 → ICU 15:18
PROVIDERS: ADMIT Family Medicine; ATTEND Family Medicine
DX: T43.592A Poisoning by other antipsychotics and neuroleptics, intentional self-harm, initial encounter (principal); T46.4X2A Poisoning by angiotensin-converting-enzyme inhibitors, intentional self-harm, initial encounter; T42.4X2A Poisoning by benzodiazepines, intentional self-harm, initial encounter; R40.20 Unspecified coma; F15.10 Other stimulant abuse, uncomplicated; I11.0 Hypertensive heart disease with heart failure; I50.32 Chronic diastolic (congestive) heart failure; R29.898 Other symptoms and signs involving the musculoskeletal system; R09.89 Other specified symptoms and signs involving the circulatory and respiratory systems; I25.10 Atherosclerotic heart disease of native coronary artery without angina pectoris; F17.210 Nicotine dependence, cigarettes, uncomplicated; E78.00 Pure hypercholesterolemia, unspecified; F20.9 Schizophrenia, unspecified; Z91.5 Personal history of self-harm
CPT/HCPCS: 36415; 36600; 51702; 70450; 71045; 80053; 80306; 80320; 80329; 81000; 82805; 82962; 83735; 84443; 85025; 86141; 87077; 87088; 87186; 93005; 93041

== ENCOUNTER → 2019-01-17 | Outpatient (CLI) | payer MEDICAID ==
--- NOTE | 2019-01-17 17:12 | Diagnostic Imaging Report ---
INDICATION: Throbbing foot. TECHNIQUE: Grayscale, color flow, and duplex Doppler evaluation of right lower extremity arterial system was performed. FINDINGS: Primarily triphasic and biphasic waveforms throughout the right lower extremity arterial system are noted. Velocities are normal. No high-grade stenosis or occlusion is seen. No fluid collections are identified. IMPRESSION: Unremarkable right lower extremity arterial Doppler. Dictated by: Dictated on workstation # [id number]
== END ==
LOC: RAD 12:31
PROVIDERS: ATTEND Internal Medicine
DX: I73.9 Peripheral vascular disease, unspecified (principal)
CPT/HCPCS: 93926

== ENCOUNTER 2019-02-23 11:03 | Day surgery (SDC) | payer MEDICAID ==
[2019-02-23] VITALS (10 sets, daily range): BP systolic 129–154; BP diastolic 82–98
[~2019-02-23] VITALS: Ht 170 cm; Wt 98.0 kg
[2019-02-23] MEDS ORDERED: NS IV 1000 ML 1,000 ML IV SCH (11:05)
[2019-02-23] MEDS ORDERED: LIDOCAINE 1% INJ 20 ML 20 ML VIAL ONE (11:08)
[2019-02-23] MEDS ORDERED: HEParin (CATH LAB) 2,000 ML IV ONE (11:08)
[2019-02-23] MEDS ORDERED: NS IV 1000 ML 1,000 ML ONE (11:08)
[2019-02-23 11:36] LABS: HEMOGLOBIN 15.1 G/DL (13.3-17.7); MEAN PLATELET VOLUME 10.3 FL (7.4-10.4); WHITE BLOOD COUNT 8.9 10^3/uL (4.3-11.0)
[2019-02-23 11:48] LABS: INR 0.9 (0.8-1.4); PROTHROMBIN TIME PATIENT 12.9 SEC (12.2-14.7)
[2019-02-23] MEDS ORDERED: TAMS0.4C98 PO ×2 (11:52)
[2019-02-23] MEDS ORDERED: OMG1KC PO ×2 (11:52)
[2019-02-23] MEDS ORDERED: MULT-974 PO ×2 (11:52)
[2019-02-23] MEDS ORDERED: DOCU-238 PO ×2 (11:53)
[2019-02-23 11:54] LABS: ALANINE AMINOTRANSFERASE 9 U/L (0-55); ALBUMIN 4.2 GM/DL (3.2-4.5); ALKALINE PHOSPHATASE 117 U/L (40-136); BILIRUBIN,TOTAL 0.3 MG/DL (0.1-1.0); BUN/CREATININE RATIO 16; CALCIUM 9.4 MG/DL (8.5-10.1); CARBON DIOXIDE 27 MMOL/L (21-32); CHLORIDE 103 MMOL/L (98-107); CREATININE SERUM 0.86 MG/DL (0.60-1.30); GFR ESTIMATED > 60; GLUCOSE 111 MG/DL (70-105); POTASSIUM 3.8 MMOL/L (3.6-5.0); SODIUM 137 MMOL/L (135-145); TOTAL PROTEIN 7.9 GM/DL (6.4-8.2)
[2019-02-23] MEDS ORDERED: SIMV80TA21 PO ×2 (11:55)
[2019-02-23] MEDS ORDERED: BUPR300T43 PO ×2 (11:57)
[2019-02-23] MEDS ORDERED: GBPN600T PO ×2 (11:58)
[2019-02-23] MEDS ORDERED: MELO15TA39 PO ×2 (11:59)
[2019-02-23] MEDS ORDERED: CARV3.122 PO ×2 (11:59)
[2019-02-23] MEDS ORDERED: LISI1TAB10 PO ×2 (12:00)
[2019-02-23] MEDS ORDERED: MIRT30TA6 PO ×2 (12:01)
[2019-02-23] MEDS ORDERED: MIRT-48 PO (12:01)
[2019-02-23] MEDS ORDERED: fentaNYL INJECTION 100 MCG/2 ML AMP ONE ×3 (12:04→16:29)
[2019-02-23] MEDS ORDERED: MIDAZOLAM 5 MG/5 ML (VERSED) VIAL ONE (12:04)
[2019-02-23] MEDS ORDERED: ISOS20TA6 PO ×2 (12:04)
--- NOTE | 2019-02-23 12:06 | NUR ---
Patient brought a medication list in and it matches what is being filled at [facility].
[2019-02-23] MEDS ORDERED: HEParin 1000 UNIT/ML (10ML VIAL) FOR BOLUS ONE (13:05)
--- NOTE | 2019-02-23 14:01 | Cardiac Procedure Note-CS/ASA ---
Pre-Procedure Note Pre-Op Procedure Note H&P Reviewed The H&P was reviewed, patient examined and no changes noted. Date H&P Reviewed: Feb 23, 2019 Time H&P Reviewed: 12:00 Conscious Sedation Pre-Proced Time 12:00 ASA Score 3 For ASA 3 and 4: Consider anesthesia and medical clearance. Also, for patients with a history of failed moderate sedation consider anesthesia. Airway Lungs Heart ASA score ASA 1: a normal healthy patient ASA 2: a patient with a mild systemic disease (mid diabetes, controlled hypertension, obesity ASA 3: a patient with a severe systemic disease that limits activity (angina, COPD, prior Myocardial infarction) ASA 4: a patient with an incapacitating disease that is a constant threat to life (CHF, renal failure) ASA 5: a moribund patient not expected to survive 24 hrs. (ruptured aneurysm) ASA 6: a declared brain- patient whose organs are being harvested. For emergent operations, add the letter E after the classification Mallampati Classification Grade 1 Sedation Plan Analgesia, Amnesia, Plan communicated to team members, Discussed options with patient/fam, Discussed risks with patient/fam The patient is an appropriate candidate to undergo the planned procedure, sedation, and anesthesia. The patient immediately re-assessed prior to indication. Jess ALLEN MD Feb 23, 2019 14:01
--- NOTE | 2019-02-23 14:01 | Coronary Angiography & PCI ---
Peripheral Angio & Interv DATE OF SERVICE: 02/23/19 PRIMARY PHYSICIAN: Demetri Duckworth MD PERFORMING INTERVENTIONALIST: Dr. Julieth Allen INDICATION: Severe bilateral claudication, severely abnormal LIBERTY. PREOPERATIVE INDICATION: Severe bilateral claudication, severely abnormal LIBERTY. POSTOPERATIVE DIAGNOSIS: Severe left common/external iliac artery stenosis, status post stent placement. HISTORY: This is a 58-year-old gentleman with history of coronary disease on optimal medical therapy for atherosclerotic disease. He has severe bilateral claudication with severely abnormal LIBERTY. Peripheral angiography and intervention is indicated. PROCEDURE PERFORMED: 1. Abdominal angiogram with bilateral lower extremity runoff. 2. Selective left lower extremity angiograms. 3. INSTRUCTIONAL COACH/stent of the left external iliac artery/common iliac artery. SPECIMENS: None. ANESTHESIA: Conscious sedation. BLOOD LOSS: 20 mL. COMPLICATIONS: None. CONTRAST USED: 157 ml. FLUOROSCOPY DOSE: 1900 Mgy. FLUOROSCOPY TIME: 11.7 minutes. ANTICOAGULATION: Heparin DESCRIPTION OF PROCEDURE: The patient was brought to the laborer landscape after informed consent was taken. All the risks and complications were explained in detail. The patient was draped and prepped in the usual sterile fashion. Access was gained in the right femoral artery with a 5 Portuguese sheath. A pigtail catheter was advanced over a 0.035 wire and placed in the mid abdominal aorta. Abdominal aortogram with bilateral lower extremity runoff was performed. We then used a rim catheter to perform a crossover as well as measure of pressure difference across the lesion in the left common iliac artery. Selective left lower extremity angiograms were done. We then took a stork wire and placed the tip of the Storq wire in the left superficial femoral artery. The rim catheter was taken out and we exchanged with a 6 x 45 cm flexor sheath. FINDINGS: Normal abdominal aorta with bilateral renal arteries. Left lower extremity: Moderate to severe disease in the left common iliac artery. Severe subtotal stenosis of the external iliac artery. Patent SFA, popliteal artery. At least 2 vessel runoff below the knee with a posterior tibial and anterior tibial artery. Small deep peroneal artery. Pressure gradi ent across both the lesions showed a gradient of 20-30 mmHg across the distal lesion and another 30-40 mmHg of pressure difference across the proximal stenosis. Right lower extremity: Patent common iliac artery, external iliac artery, proximal SFA. Moderate to severe disease in the distal SFA. Patent popliteal artery. At least 2 vessel runoff below the knee with a posterior tibial and anterior tibial artery. Small deep peroneal artery. RECOMMENDATIONS: INSTRUCTIONAL COACH/stent to the left common/external iliac artery is recommended. INTERVENTIONAL DETAILS: Patient was already on Plavix. IV heparin was given. ACT at the end of the procedure was 191 seconds. The sheath was a 6 x 45 cm flexor sheath. The tip was placed in the proximal left common iliac artery. The lesion was crossed with a stork wire. The tip of the Storq wire was placed in the left superficial femoral artery. We first took a [place] 35 6 x 40 x 80 balloon and 3 lm inflations were done from distal to proximal. The first inflation was 6 minutes for 188 seconds, the second was 6 malcolm for 182 seconds and the third inflation was 12 malcolm for 182 seconds. Good results were noted. We then placed an absolute pro 7 x 80 x 80 self-expanding stent in the external as well as common iliac artery. Postdilatation was done with an [place] 35 7 x 40 x 80 balloon. This distal edge was postdilated at 3 malcolm for 13 seconds. The mid segment was done at 8 malcolm for 37 seconds and 6 malcolm for 182 seconds. The proximal part of the stent was postdilated at 6 malcolm for 61 seconds. Excellent results were noted with brisk flow down to the foot. No residual stenosis. No damage to the bifurcation. The long sheath was taken out and exchange for us short sheath. The sheath will be sutured and pulled later on the floor with manual compression. CONCLUSION: Severe left common/external iliac artery stenosis treated successfully with INSTRUCTIONAL COACH/stent. Continue aggressive secondary prevention measures. Julieth Allen MD, FACP, FACC, [facility] Vascular Medicine and Endovascular Interventions Jess ALLEN MD Feb 23, 2019 14:01
[2019-02-23] MEDS ORDERED: PATIENT MAY USE OWN MEDS, ALL PO SCH (14:15)
[2019-02-23] MEDS: NS IV 1000 ML 1,000 ML IV SCH (15:34)
[2019-02-23] MEDS ORDERED: fentaNYL INJECTION 100 MCG/2 ML AMP IVP ONE (16:15)
[2019-02-23] MEDS ORDERED: ATROPINE INJECTION 1 MG/10 ML SYR (ABBOTT) ONE (16:30)
--- NOTE | 2019-02-23 17:10 | NUR ---
PER PROTOCOL PT SHEATH PULLED AT 1620, SHEATH SIZE 6FR. AYLIN SNOW AND AYLIN HILLS IN ROOM ASSESSING PT FROM 1615 TO 1700 WHILE THIS RN HELD PRESSURE TO R GROIN. PT RECEIVED [address] GRULLON. PRESSURE HELD TO SITE FOR 28 MINUTES. AFTER VERIFYING NO BLEEDING PRESSURE DRESSING APPLIED TO GROIN SITE AND POST CATH PROCEDURES INITIATED PER PROTOCOL.
[2019-02-24] VITALS: BP 136/85
[2019-02-24] MEDS: NS IV 1000 ML 1,000 ML IV SCH ×2 (02:13→10:46)
[2019-02-24 04:00] VITALS: BP 147/86
[2019-02-24 04:02] LABS: HEMOGLOBIN 14.4 G/DL (13.3-17.7); MEAN PLATELET VOLUME 10.7 FL (7.4-10.4); RED CELL DISTRIBUTION WIDTH 15.6 % (10.0-14.5); WHITE BLOOD COUNT 9.2 10^3/uL (4.3-11.0)
[2019-02-24 04:26] LABS: BUN/CREATININE RATIO 21; CALCIUM 9.4 MG/DL (8.5-10.1); CARBON DIOXIDE 23 MMOL/L (21-32); CHLORIDE 105 MMOL/L (98-107); CREATININE SERUM 0.78 MG/DL (0.60-1.30); GFR ESTIMATED > 60; GLUCOSE 106 MG/DL (70-105); POTASSIUM 3.6 MMOL/L (3.6-5.0); SODIUM 139 MMOL/L (135-145)
[2019-02-24 08:00] VITALS: BP 129/86
[2019-02-24] MEDS ORDERED: CLOPIDOGREL 75 MG (PLAVIX) TABLET PO SCH (09:00)
[2019-02-24] MEDS ORDERED: ASPIRIN E.C. 81 MG (ECOTRIN) TAB PO SCH (09:00)
[2019-02-24] MEDS ORDERED: CLOP75TA28 PO ×2 (11:41)
[2019-02-24 12:00] VITALS: BP 170/103
--- NOTE | 2019-02-24 13:11 | Cardiology Discharge Summary ---
Diagnosis/Chief Complaint Date of Admission 02/23/2019 Date of Discharge 02/24/2019 Admission Diagnosis Severe claudication, abnormal LIBERTY Final/Discharge Diagnosis Successful stenting to the left common/external iliac artery. Chief Complaint/HPI Chief Complaint/HPI This is a 58-year-old gentleman with history of CAD on optimal medical therapy who complains of significant claudication. Severely abnormal LIBERTY. Discharge Summary Procedures Successful METAL FABRICATION SUPERVISOR/stenting of the left common/external iliac artery. Moderate to severe distal right SFA stenosis which will be treated as a stage procedure. Discharge Physical Examination Stable. Hospital Course Was the Problem List Reviewed?: Yes Unremarkable. Discussion & Recommendations Discussion Patient will continue dual antiplatelet therapy. Discharge instructions discussed at length. Follow up appt.: Dr. Baker in 3-4 weeks. Dicharge Diet: Cardiac Diet Activity as Tolerated: Yes Home Medications Reviewed patient Home Medication Reconciliation performed by pharmacy medication reconciliations sound recording technician and/or nursing. Patients Allergies have been reviewed. Discharge Home Medications: Reviewed and agree with Discharge Medication list on patient's Discharge Instruction sheet Condition at discharge Stable. Instructions to patient/family Discussed with the patient. Jess BAKER MD Feb 24, 2019 13:11
== END 2019-02-24 12:50 | disposition home or self-care (01) ==
LOC: CATH 11:03 → ICU 14:42 → CATH 02-24 12:50
PROVIDERS: ATTEND Internal Medicine Interventional Cardiology
DX: I70.213 Atherosclerosis of native arteries of extremities with intermittent claudication, bilateral legs (principal); I77.1 Stricture of artery; I10 Essential (primary) hypertension; E78.01 Familial hypercholesterolemia; I49.5 Sick sinus syndrome; F32.9 Major depressive disorder, single episode, unspecified; F17.210 Nicotine dependence, cigarettes, uncomplicated; Z79.899 Other long term (current) drug therapy; Z79.82 Long term (current) use of aspirin; Z79.02 Long term (current) use of antithrombotics/antiplatelets; Z95.1 Presence of aortocoronary bypass graft; Z82.49 Family history of ischemic heart disease and other diseases of the circulatory system; Z83.3 Family history of diabetes mellitus
CPT/HCPCS: 36415; 75630; 80048; 80053; 85027; 85610; 85730; 87081; 93005

== ENCOUNTER → 2019-03-02 | Outpatient (CLI) | payer MEDICAID ==
[~2019-03-02] MED LIST changes: +BUPR300T43 PO; +CARV3.122 PO; +CLOP75TA28 PO; +DOCU-238 PO; +GBPN600T PO; +ISOS20TA6 PO; +LISI1TAB10 PO; +MELO15TA39 PO; +MIRT-48 PO; +MIRT30TA6 PO; +MULT-974 PO; +REGADENOSON 0.4 MG/5 ML SYR (LEXISCAN) IV ONE; +SIMV80TA21 PO; +TAMS0.4C98 PO
[2019-03-02] MEDS: CATHETER FLUSH 10 ML SYR IV PRN ×2 (07:24→08:47)
[2019-03-02 08:44] VITALS: BP 129/84
--- NOTE | 2019-03-02 13:43 | Cardiology Stress Test Report ---
Stress Test Report Type of NM Stress Test: Test Type: LEXISCAN 0.4MG/5ML Date of Procedure/Referring: Date of Procedure: Mar 02, 2019 PCP Jess Allen MD Admitting Physician Demetri Duckworth MD Indications: Shortness of breath, CAD Baseline Heart Rate: 76 Baseline Blood Pressure: Blood Pressure Systolic: 129 Blood Pressure Diastolic: 84 Baseline EKG: Baseline EKG: sinus rhythm Summary & Conclusion: Summary: The patient was brought to the stress lab after informed consent was taken. Stress test was performed according to the Lexiscan protocol. 0.4 mg of IV Lexiscan was given. Low-grade exercise was performed. Baseline EKG showed sinus rhythm at 76 BPM. Initial blood pressure was 122/83 mmHg. Maximum heart rate was 83 bpm and blood pressure 126/83 mmHg. Patient did not have any chest pain, arrhythmias or ST segment changes during the stress test. 10.73 mCi of Myoview were given for rest imaging and 28.7 mCi of Myoview given for stress imaging. Transient ischemic dilatation score 0.99, EF 61 percent. Normal wall motion. Normal myocardial perfusion imaging during rest and stress. Conclusion: Pharmacological stress test was negative for ischemia. Normal LV function with no wall motion abnormalities. Normal myocardial perfusion imaging during rest and stress. Jess ALLEN MD Mar 02, 2019 13:43
== END ==
LOC: CARD 07:10
PROVIDERS: ATTEND Internal Medicine Interventional Cardiology
DX: I25.10 Atherosclerotic heart disease of native coronary artery without angina pectoris (principal); I10 Essential (primary) hypertension; E78.01 Familial hypercholesterolemia; Z72.0 Tobacco use
CPT/HCPCS: 78452; 93017

== ENCOUNTER 2019-03-09 08:11 | Day surgery (SDC) | payer MEDICAID ==
[2019-03-09] VITALS (12 sets, daily range): BP systolic 96–155; BP diastolic 54–74
[~2019-03-09] VITALS: Ht 170.2 cm; Wt 89.5 kg
[~2019-03-09 08:11] MED LIST changes: -REGADENOSON 0.4 MG/5 ML SYR (LEXISCAN) IV ONE
[2019-03-09] MEDS ORDERED: NS IV 1000 ML 1,000 ML ONE ×2 (08:14→11:55)
[2019-03-09] MEDS ORDERED: LIDOCAINE 1% INJ 20 ML 20 ML VIAL ONE ×2 (08:14→11:51)
[2019-03-09] MEDS ORDERED: HEParin (CATH LAB) 2,000 ML IV ONE (08:15)
[2019-03-09 08:47] LABS: HEMOGLOBIN 14.5 G/DL (13.3-17.7); MEAN PLATELET VOLUME 10.3 FL (7.4-10.4); RED CELL DISTRIBUTION WIDTH 16.1 % (10.0-14.5); WHITE BLOOD COUNT 8.8 10^3/uL (4.3-11.0)
--- NOTE | 2019-03-09 08:50 | NUR ---
Spoke to patient he brought a list in and stated he took all his medications today.
[2019-03-09 09:04] LABS: PROTHROMBIN TIME PATIENT 13.2 SEC (12.2-14.7)
[2019-03-09 09:05] LABS: ALANINE AMINOTRANSFERASE 8 U/L (0-55); ALKALINE PHOSPHATASE 96 U/L (40-136); BILIRUBIN,TOTAL 0.3 MG/DL (0.1-1.0); BUN/CREATININE RATIO 17; CALCIUM 9.4 MG/DL (8.5-10.1); CARBON DIOXIDE 25 MMOL/L (21-32); CHLORIDE 101 MMOL/L (98-107); CHOLESTEROL 166 MG/DL (< 200); CREATININE SERUM 0.99 MG/DL (0.60-1.30); GFR ESTIMATED > 60; GLUCOSE 113 MG/DL (70-105); HDL CHOLESTEROL 32 MG/DL (40-60); POTASSIUM 4.3 MMOL/L (3.6-5.0); SODIUM 135 MMOL/L (135-145); TOTAL PROTEIN 7.7 GM/DL (6.4-8.2); TRIGLYCERIDES 222 MG/DL (<150); VLDL CHOLESTEROL 44 MG/DL (5-40)
[2019-03-09] MEDS: NS IV 1000 ML 1,000 ML IV SCH ×6 (09:51→23:54)
[2019-03-09] MEDS ORDERED: HEParin 1000 UNIT/ML (10ML VIAL) FOR BOLUS ONE (10:55)
[2019-03-09] MEDS ORDERED: MIDAZOLAM 5 MG/5 ML (VERSED) VIAL ONE (10:55)
[2019-03-09] MEDS ORDERED: fentaNYL INJECTION 100 MCG/2 ML AMP ONE (10:55)
[2019-03-09] MEDS ORDERED: NITRO DRIP 25000 MCG/D5W 250 ML IV ONE (10:56)
[2019-03-09] MEDS ORDERED: HEParin (CATH LAB) 1,000 ML IV ONE (11:39)
--- NOTE | 2019-03-09 13:16 | Cardiac Procedure Note-CS/ASA ---
Pre-Procedure Note Pre-Op Procedure Note H&P Reviewed The H&P was reviewed, patient examined and no changes noted. Date H&P Reviewed: Mar 09, 2019 Time H&P Reviewed: 10:00 Conscious Sedation Pre-Proced Time 10:00 ASA Score 3 For ASA 3 and 4: Consider anesthesia and medical clearance. Also, for patients with a history of failed moderate sedation consider anesthesia. Airway Lungs Heart ASA score ASA 1: a normal healthy patient ASA 2: a patient with a mild systemic disease (mid diabetes, controlled hypertension, obesity ASA 3: a patient with a severe systemic disease that limits activity (angina, COPD, prior Myocardial infarction) ASA 4: a patient with an incapacitating disease that is a constant threat to life (CHF, renal failure) ASA 5: a moribund patient not expected to survive 24 hrs. (ruptured aneurysm) ASA 6: a declared brain- patient whose organs are being harvested. For emergent operations, add the letter E after the classification Mallampati Classification Grade 1 Sedation Plan Analgesia, Amnesia, Plan communicated to team members, Discussed options with patient/fam, Discussed risks with patient/fam The patient is an appropriate candidate to undergo the planned procedure, sedation, and anesthesia. The patient immediately re-assessed prior to indication. Jess ALLEN MD Mar 09, 2019 1:16 pm
[2019-03-09] MEDS ORDERED: CLOPIDOGREL 75 MG (PLAVIX) TABLET ONE (13:18)
--- NOTE | 2019-03-09 13:27 | Coronary Angiography & PCI ---
Peripheral Angio & Interv DATE OF SERVICE: 03/09/19 PRIMARY PHYSICIAN: Demetri Duckworth MD PERFORMING INTERVENTIONALIST: Dr. Julieth Allen INDICATION: Resting right lower extremity discomfort with known severe PAD. PREOPERATIVE INDICATION: Resting right lower extremity discomfort with known severe PAD. POSTOPERATIVE DIAGNOSIS: Severe right mid/distal SFA stenosis treated with stent. HISTORY: This is a 58-year-old gentleman with previous history of CAD, CABG, active smoking. He has resting discomfort in bilateral lower extremities. Noninvasive testing shows significant bilateral abnormalities. Peripheral angiogram was done on 02/23/2019. Severe left common/external iliac artery stenosis treated with one stent. Known severe mid/distal right SFA stenosis. Staged procedure was planned. I saw the patient in the office and he was complaining of resting right lower extremity discomfort. Therefore peripheral angiography and intervention is recommended. PROCEDURE PERFORMED: 1. Right lower extremity angiogram. 2. Right mid/distal SFA COMMERCIAL ART INSTRUCTOR/stent. SPECIMENS: None. ANESTHESIA: Conscious sedation. BLOOD LOSS: 20 mL. COMPLICATIONS: None. CONTRAST USED: 65 ml. FLUOROSCOPY DOSE: 387 Mgy. FLUOROSCOPY TIME: 14.1 minutes. ANTICOAGULATION: none DESCRIPTION OF PROCEDURE: The patient was brought to the asset availability leader after informed consent was taken. All the risks and complications were explained in detail. The patient was draped and prepped in the usual sterile fashion. Access was gained left femoral artery with a 6 [place] sheath. We then took a stork wire and a rim catheter and did the crossover. The rim catheter was taken out and we went in with a 6 x 55 long sheath. Right lower extremity angiogram was done. FINDINGS: Right lower extremity angiogram shows severe mid/distal SFA stenosis. Patent right popliteal artery. Two-vessel runoff below the knee which is an anterior tibial artery and deep peroneal artery. Posterior tibial artery has occlusive disease. RECOMMENDATIONS: COMMERCIAL ART INSTRUCTOR/stent to the right SFA is recommended. INTERVENTIONAL DETAILS: The lesion was crossed with the angled tapered glide wire. We first took a balloon [place] 35 5 x 120 mm and performed a balloon angioplasty of the lesion at 8 malcolm for 3 minutes. Residual stenosis and mild dissection was noted. Therefore we took an absolute pro 6 x 100 x 135 stent and deployed it. We then took the same balloon and did postdilatation of the distal part at 8 malcolm for 49 seconds. We then pulled the balloon back so that the distal tip of the balloon was within the stent and did another inflation at 12 malcolm for 69 seconds. Post- angiogram showed mild disease distal to the stent. Otherwise stent was well deployed with good flow distally. The wire was taken out. No vascular complications. The left femoral artery was closed with a minx device. CONCLUSION: Long-term dual antiplatelet therapy. Smoking cessation was strongly recommended. Aggressive statin therapy. Julieth Allen MD, FACP, FACC, [facility] Vascular Medicine and Endovascular Interventions Jess ALLEN MD Mar 09, 2019 1:26 pm
[2019-03-09] MEDS ORDERED: PATIENT MAY USE OWN MEDS, ALL PO SCH (13:30)
[2019-03-10] VITALS: BP 108/68
[2019-03-10 02:49] LABS: HEMOGLOBIN 13.4 G/DL (13.3-17.7); MEAN PLATELET VOLUME 10.5 FL (7.4-10.4); RED CELL DISTRIBUTION WIDTH 15.8 % (10.0-14.5); WHITE BLOOD COUNT 8.6 10^3/uL (4.3-11.0)
[2019-03-10 03:08] LABS: BUN/CREATININE RATIO 19; CALCIUM 8.8 MG/DL (8.5-10.1); CARBON DIOXIDE 23 MMOL/L (21-32); CHLORIDE 104 MMOL/L (98-107); CREATININE SERUM 0.79 MG/DL (0.60-1.30); GFR ESTIMATED > 60; GLUCOSE 109 MG/DL (70-105); POTASSIUM 4.3 MMOL/L (3.6-5.0); SODIUM 137 MMOL/L (135-145)
[2019-03-10 04:00] VITALS: BP 121/73
[2019-03-10 08:00] VITALS: BP 115/76
[2019-03-10] MEDS: NS IV 1000 ML 1,000 ML IV SCH (08:50)
[2019-03-10] MEDS ORDERED: ASPIRIN E.C. 81 MG (ECOTRIN) TAB PO SCH (09:00)
[2019-03-10] MEDS ORDERED: CLOPIDOGREL 75 MG (PLAVIX) TABLET PO SCH (09:00)
--- NOTE | 2019-03-10 09:59 | Cardiology Discharge Summary ---
Diagnosis/Chief Complaint Date of Admission 03/09/2019 Date of Discharge 03/10/2019 Admission Diagnosis Severe PAD, resting right lower limb claudication Final/Discharge Diagnosis Severe PAD Chief Complaint/HPI Chief Complaint/HPI This is a 58-year-old gentleman with previous history of CAD, CABG, active smoking. He has resting discomfort in bilateral lower extremities. Noninvasive testing shows significant bilateral abnormalities. Peripheral angiogram was done on 02/23/2019. Severe left common/external iliac artery stenosis treated with one stent. Known severe mid/distal right SFA stenosis. Staged procedure was planned. I saw the patient in the office and he was complaining of resting right lower extremity discomfort. Therefore peripheral angiography and intervention is recommended. Discharge Summary Procedures Severe mid/distal SFA stenosis treated successfully with balloon angioplasty and stent. Discharge Physical Examination Normal cardiovascular examination. Normal respiratory examination. Hospital Course Was the Problem List Reviewed?: Yes Unremarkable. Pending Labs Laboratory Tests 03/10/19 02:41: White Blood Count 8.6, Red Blood Count 5.04, Hemoglobin 13.4, Hematocrit 42, Mean Corpuscular Volume 82, Mean Corpuscular Hemoglobin 27, Mean Corpuscular Hemoglobin Concent 32, Red Cell Distribution Width 15.8, Platelet Count 297, Mean Platelet Volume 10.5, Sodium Level 137, Potassium Level 4.3, Chloride Level 104, Carbon Dioxide Level 23, Anion Gap 10, Blood Urea Nitrogen 15, Creatinine 0.79, Estimat Glomerular Filtration Rate > 60, BUN/Creatinine Ratio 19, Glucose Level 109, Calcium Level 8.8 Discussion & Recommendations Discussion Discharge took over 30 minutes to complete. Discharge instructions were discussed at length with the patient. Compliance with medications including dual antiplatelet therapy was recommended. Healthy living was emphasized. Follow up appt.: Dr. Baker in 4 weeks. Dicharge Diet: Cardiac Diet Activity as Tolerated: Yes Home Medications Reviewed patient Home Medication Reconciliation performed by pharmacy medication reconciliations orthotic technician and/or nursing. Patients Allergies have been reviewed. Discharge Home Medications: Reviewed and agree with Discharge Medication list on patient's Discharge Instruction sheet Condition at discharge Stable. Instructions to patient/family Discussed with the patient and family. Jess BAKER MD Mar 10, 2019 09:59
--- NOTE | 2019-03-10 10:00 | Discharge Inst-Post CATH ---
Discharge Inst-CATH/EP Problems Reviewed?: Yes Final Diagnosis Severe PAD Post Cardiac Cath/EP D/C Inst Follow Up/Plan Dr Baker in four weeks. <b>CARDIAC CATH/EP PROCEDURE DISCHARGE INSTRUCTIONS</b> ACTIVITY * Go Home directly and rest. * Limit activity of the leg (or wrist if it was used) for 7 days including aerobics, swimming, jogging, bicycling, etc. * Restrict stair-climbing for 7 days if possible, if not, climb up with your non-cath leg, then bring together on the same step. * Avoid lifting, pushing, pulling or excessive movement of the affected extremity for 7 days. * Customary sexual activity may be resumed after 2 days-use caution not to use a position that strains or causes pain to the affected extremity. * No driving for 24 hours. * NO SMOKING. * Avoid straining for bowel movements for 7 days. * Gentle walking on level ground is allowed. * Returning to work will depend on the type of procedure and the results. Your doctor will discuss this with you. CALL YOUR DOCTOR FOR ANY OF THE FOLLOWING: *If bleeding from the puncture site occurs- Apply gentle pressure to site with clean cloth and call your doctor or EMS. * If a knot or lump forms under the skin, increases in size, or causes pain. * If bruising appears to be worsening or moving further down your leg instead of disappearing. * Temperature above 101 F. CARE OF YOUR GROIN INCISION; * Bruising or purple discoloration of the skin near the puncture site is common. * You may shower only, no bathtub bathing for 5 days. Be careful to avoid slipping as your leg may feel stiff. * If a closure device was used on your femoral artery, please see the attached guide regarding care of the device and your leg. * Leave dressing on FOR 24 hours. CARE OF YOUR WRIST INCISION; * Bruising or purple discoloration of the skin near the puncture site is common. * You may shower. * DO NOT submerge wrist. * Leave dressing on FOR 24 hours. Jess BAKER MD Mar 10, 2019 10:00
[2019-03-10] MEDS ORDERED: ASPI-983 PO (10:02)
[2019-03-10 11:50] VITALS: BP 110/70
[2019-03-10 12:23] VITALS: BP 110/70
== END 2019-03-10 12:20 | disposition home or self-care (01) ==
LOC: CATH 08:11 → CSD 13:39 → CATH 03-10 12:20
PROVIDERS: ATTEND Internal Medicine Interventional Cardiology
DX: I73.9 Peripheral vascular disease, unspecified (principal); I77.1 Stricture of artery; I11.9 Hypertensive heart disease without heart failure; I34.0 Nonrheumatic mitral (valve) insufficiency; M79.604 Pain in right leg; E78.5 Hyperlipidemia, unspecified; F32.9 Major depressive disorder, single episode, unspecified; F20.9 Schizophrenia, unspecified; F17.210 Nicotine dependence, cigarettes, uncomplicated; Z79.82 Long term (current) use of aspirin; Z88.5 Allergy status to narcotic agent; Z79.02 Long term (current) use of antithrombotics/antiplatelets; Z95.1 Presence of aortocoronary bypass graft; Z79.899 Other long term (current) drug therapy
CPT/HCPCS: 36246; 36415; 37226; 80048; 80053; 80061; 85027; 85347; 85610; 85730; 87081

== ENCOUNTER 2019-12-01 15:57 | Emergency (ER) | payer MEDICAID ==
[~2019-12-01] VITALS: Ht 170.2 cm; Wt 106.6 kg
[~2019-12-01 15:57] MED LIST changes: +ASPI-983 PO; -LISI1TAB10 PO; +LISI1TAB26 PO; -TAMS0.4C98 PO; +TMSL.4C PO
[2019-12-01] MEDS ORDERED: FAMOTIDINE 20MG/2ML IV (PEPCID) IV STA (16:08)
[2019-12-01] MEDS ORDERED: NS IV 1000 ML 1,000 ML IV STA (16:08)
--- NOTE | 2019-12-01 16:13 | ED Abdominal Pain ---
General Stated Complaint: STOMACH PAIN Source of Information: Patient Exam Limitations: No Limitations History of Present Illness Date Seen by Provider: Dec 01, 2019 Time Seen by Provider: 15:59 Initial Comments Patient resents ER by private conveyance from home with chief complaint of progressively worsening 10 days of 8 out of 10 presently sharp abdominal pain in his epigastric region radiating to his left upper and left lower quadrant. He did have some loose stool today but has not been having diarrhea. No nausea or vomiting. No chest pain shortness of air cough. He's had some subjective sweats at night and his will take his temperature but we'll only be 99-100. He has a history of cholecystectomy with some cough, occasional several years ago that required them to put a drain in immediately after. He still has his appendix. 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 He does smoke cigarettes and cannabis. 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 He says he always smokes but does not inject. He was taking ibuprofen for general aches and pains 3 times a day 800 mg but about 2 days ago he thought maybe this was causing his abdominal pain so she stopped using it and now he feels even more pain. He's never had endoscopy. No known history of diverticulitis. Allergies and Home Medications Allergies Coded Allergies: morphine (Verified Allergy, Unknown, TAKES LORTAB AT HOME, 08/03/08) Home Medications Aspirin 81 Mg Tablet.dr, 81 MG PO DAILY Prescribed by: Jess ALLEN on 03/10/19 1002 Bupropion HCl 300 Mg Tab.er.24h, 300 MG PO DAILY, (Reported) Carvedilol 3.125 Mg Tablet, 3.125 MG PO BID, (Reported) Clopidogrel Bisulfate 75 Mg Tablet, 75 MG PO DAILY, (Reported) Docusate Sodium 100 Mg Capsule, 200 MG PO DAILY, (Reported) Gabapentin 600 Mg Tablet, 600 MG PO QID, (Reported) Isosorbide Dinitrate 20 Mg Tablet, 40 MG PO BID, (Reported) Lisinopril/Hydrochlorothiazide 1 Each Tablet, 1 EACH PO DAILY, (Reported) Meloxicam 15 Mg Tablet, 15 MG PO DAILY, (Reported) Mirtazapine 30 Mg Tablet, 30 MG PO DAILY, (Reported) Multivitamin 1 Each Tablet, 1 EACH PO DAILY, (Reported) [place] 3 Polyunsat Fatty Acids 1,000 Mg Cap, 1,000 MG PO DAILY, (Reported) Simvastatin 80 Mg Tablet, 80 MG PO DAILY, (Reported) Tamsulosin HCl 0.4 Mg Cap, 0.4 MG PO DAILY, (Reported) Patient Home Medication List Home Medication List Reviewed: Yes Review of Systems Review of Systems Constitutional: No chills, No diaphoresis EENTM: No Blurred Vision, No Double Vision Respiratory: Denies Cough, Denies Shortness of Air Cardiovascular: Denies Chest Pain, Denies Lightheadedness Gastrointestinal: See HPI; Denies Abdomen Distended; Abdominal Pain; Denies Constipated, Denies Diarrhea, Denies Nausea Genitourinary: Denies Burning, Denies Discharge Musculoskeletal: No back pain, No joint pain Skin: No pruritus, No rash Psychiatric/Neurological: Denies Headache, Denies Numbness All Other Systems Reviewed Negative Unless Noted: Yes Past Sozgzel-Ylhnfn-Jmaegm Hx Patient Social History Alcohol Use: Denies Use Recreational Drug Use: No Drug of Choice: METH Smoking Status: Current Everyday Smoker Type Used: Cigarettes 2nd Hand Smoke Exposure: Yes Recent Foreign Travel: No Contact w/Someone Who Travel: No Recent Hopitalizations: No Immunizations Up To Date PED Vaccines UTD: Yes Date of Pneumonia Vaccine: May 31, 2015 Seasonal Allergies Seasonal Allergies: No Past Medical History CABG, Eye Surgery, Gallbladder Respiratory: No Currently Using CPAP: No Cardiac: Yes Coronary Artery Disease, High Cholesterol, Hypertension Neurological: No Reproductive Disorders: No Genitourinary: No Gastrointestinal: Yes Musculoskeletal: No Endocrine: No HEENT: No Cancer: No Psychosocial: Yes Suicide Attempts, Schizophrenia Integumentary: No Blood Disorders: No Adverse Reaction/Blood Tranf: No Family Medical History Patient reports no known family medical history. Diabetes, Hypertension Physical Exam Vital Signs Vital Signs - First Documented 12/01/19 16:00 Temp 37.3 Pulse 99 Resp 20 B/P (MAP) 140/88 (105) Pulse Ox 97 O2 Delivery Room Air Capillary Refill : Height/Weight/BMI Height: 5'11.00" Weight: 214lbs. 0.0oz. 97.950123ls; 30.89 BMI Method:Estimated General Appearance: WD/WN, moderate distress HEENT: PERRL/EOMI, normal ENT inspection, TMs normal, pharynx normal Neck: full range of motion, supple, normal inspection Respiratory: lungs clear, normal breath sounds, no respiratory distress, no accessory muscle use Cardiovascular: normal peripheral pulses, regular rate, rhythm, no edema, tachy cardia Peripheral Pulses: 2+ Radial Pulses (R), 2+ Radial Pulses (L) Gastrointestinal: normal bowel sounds, non tender, soft Extremities: normal range of motion, non-tender, normal inspection, no pedal edema, no calf tenderness, normal capillary refill Neurologic/Psychiatric: no motor/sensory deficits, alert, normal mood/affect, oriented x 3 Skin: normal color, warm/dry Focused Exam Sepsis Stage: Sepsis Possible Source: Genitouriary Time of Focused Exam: 18:09 Respiratory: Chest Non Tender, Lungs Clear, Normal Breath Sounds, No Accessory Muscle Use, No Respiratory Distress Cardiovascular: Regular Rate, Rhythm (78), No Edema, Normal Peripheral Pulses Capillary Refill: Less Than 3 Seconds Peripheral Pulses: 2+ Radial Pulses (R), 2+ Radial Pulses (L) Skin: normal color, warm/dry Within 3hrs of presentation: Admin fluids, Admin ABX, Blood cultures prior to ABX's, Focus exam, Lactate level Progress/Results/Core Measures Results/Orders Lab Results Laboratory Tests Test 12/01/19 16:13 12/01/19 16:24 Range/Units White Blood Count 16.4 H 4.3-11.0 10^3/uL Red Blood Count 5.23 4.35-5.85 10^6/uL Hemoglobin 13.8 13.3-17.7 G/DL Hematocrit 42 40-54 % Mean Corpuscular Volume 79 L 80-99 FL Mean Corpuscular Hemoglobin 26 25-34 PG Mean Corpuscular Hemoglobin Concent 33 32-36 G/DL Red Cell Distribution Width 17.1 H 10.0-14.5 % Platelet Count 366 130-400 10^3/uL Mean Platelet Volume 10.5 H 7.4-10.4 FL Neutrophils (%) (Auto) 79 H 42-75 % Lymphocytes (%) (Auto) 12 12-44 % Monocytes (%) (Auto) 8 0-12 % Eosinophils (%) (Auto) 1 0-10 % Basophils (%) (Auto) 0 0-10 % Neutrophils # (Auto) 12.9 H 1.8-7.8 X 10^3 Lymphocytes # (Auto) 2.0 1.0-4.0 X 10^3 Monocytes # (Auto) 1.3 H 0.0-1.0 X 10^3 Eosinophils # (Auto) 0.1 0.0-0.3 10^3/uL Basophils # (Auto) 0.0 0.0-0.1 10^3/uL Neutrophils % (Manual) 79 % Lymphocytes % (Manual) 13 % Monocytes % (Manual) 6 % Eosinophils % (Manual) 1 % Blood Morphology Comment NORMAL Sodium Level 132 L 135-145 MMOL/L Potassium Level 4.3 3.6-5.0 MMOL/L Chloride Level 103 98-107 MMOL/L Carbon Dioxide Level 18 L 21-32 MMOL/L Anion Gap 11 5-14 MMOL/L Blood Urea Nitrogen 15 7-18 MG/DL Creatinine 0.97 0.60-1.30 MG/DL Estimat Glomerular Filtration Rate > 60 BUN/Creatinine Ratio 15 Glucose Level 112 H 70-105 MG/DL Calcium Level 9.1 8.5-10.1 MG/DL Corrected Calcium 9.5 8.5-10.1 MG/DL Total Bilirubin 0.3 0.1-1.0 MG/DL Aspartate Amino Transf (AST/SGOT) 18 5-34 U/L Alanine Aminotransferase (ALT/SGPT) 13 0-55 U/L Alkaline Phosphatase 117 40-136 U/L Troponin I < 0.028 <0.028 NG/ML Total Protein 7.9 6.4-8.2 GM/DL Albumin 3.5 3.2-4.5 GM/DL Lipase 27 8-78 U/L Urine Color YELLOW Urine Clarity SL CLOUDY Urine pH 6.0 5-9 Urine Specific [place] 1.025 H 1.016-1.022 Urine Protein TRACE H NEGATIVE Urine Glucose (UA) NEGATIVE NEGATIVE Urine Ketones NEGATIVE NEGATIVE Urine Nitrite NEGATIVE NEGATIVE Urine Bilirubin NEGATIVE NEGATIVE Urine Urobilinogen 1.0 < = 1.0 MG/DL Urine Leukocyte Esterase 1+ H NEGATIVE Urine RBC (Auto) 1+ H NEGATIVE Urine RBC 0-2 /HPF Urine WBC 25-50 H /HPF Urine Crystals NONE /LPF Urine Bacteria TRACE /HPF Urine Casts NONE /LPF Urine Mucus NEGATIVE /LPF Urine Culture Indicated YES Urine Opiates Screen NEGATIVE NEGATIVE Urine Oxycodone Screen NEGATIVE NEGATIVE Urine Methadone Screen NEGATIVE NEGATIVE Urine Propoxyphene Screen NEGATIVE NEGATIVE Urine Barbiturates Screen NEGATIVE NEGATIVE Ur Tricyclic Antidepressants Screen NEGATIVE NEGATIVE Urine Phencyclidine Screen NEGATIVE NEGATIVE Urine Amphetamines Screen NEGATIVE NEGATIVE Urine Methamphetamines Screen NEGATIVE NEGATIVE Urine Benzodiazepines Screen POSITIVE H NEGATIVE Urine Cocaine Screen NEGATIVE NEGATIVE Urine Cannabinoids Screen POSITIVE H NEGATIVE My Orders Orders - BROOKE PARHAM Cbc With Automated Diff (12/01/19 16:02) Comprehensive Metabolic Panel (12/01/19 16:02) Lipase (12/01/19 16:02) Ua Culture If Indicated (12/01/19 16:02) Lidocaine 2% Viscous 15 Ml (Xylocaine Vi (12/01/19 16:15) Ns Iv 1000 Ml (Sodium Chloride 0.9%) (12/01/19 16:08) Antacid Suspension (Mylanta Suspension (12/01/19 16:15) Famotidine Injection (Pepcid Injection) (12/01/19 16:08) Aspirin Chewable Tablet (Baby Aspirin Ch (12/01/19 16:15) Continuous Ekg Monitoring (12/01/19 16:08) Ekg Tracing (12/01/19 16:08) Troponin I (12/01/19 16:08) Drug Screen Stat (Urine) (12/01/19 16:08) Ct Abdomen/Pelvis W (12/01/19 16:08) Manual Differential (12/01/19 16:13) Iohexol Injection (Omnipaque 350 Mg/Ml 1 (12/01/19 16:45) Received Contrast (Hold Metformin- Contr (12/01/19 16:45) Ns (Ivpb) (Sodium Chloride 0.9% Ivpb Bag (12/01/19 16:45) Urine Culture (12/01/19 16:24) Fentanyl Injection (Sublimaze Injection (12/01/19 17:15) Ceftriaxone For Iv Use (Rocephin For I (12/01/19 18:15) Rx-Hydrocodone/Apap 5-325 Mg (Rx-Vicodin (12/01/19 18:15) Medications Given in ED Current Medications Medications Dose Ordered Sig/[place] Route Start Time Stop Time Status Last Admin Dose Admin Al Hydrox/Mg Hydrox/Simethicone 30 ml ONCE ONCE PO 12/01/19 16:15 12/01/19 16:16 DC 12/01/19 16:26 30 ML Aspirin 324 mg ONCE ONCE PO 12/01/19 16:15 12/01/19 16:16 DC 12/01/19 16:26 324 MG Fentanyl Citrate 50 mcg ONCE ONCE IVP 12/01/19 17:15 12/01/19 17:16 DC 12/01/19 17:19 50 MCG Iohexol 100 ml ONCE ONCE IV 12/01/19 16:45 12/01/19 16:46 DC 12/01/19 17:00 100 ML Lidocaine HCl 15 ml ONCE ONCE PO 12/01/19 16:15 12/01/19 16:16 DC 12/01/19 16:26 15 ML Sodium Chloride 100 ml ONCE ONCE IV 12/01/19 16:45 12/01/19 16:46 DC 12/01/19 17:00 100 ML Vital Signs/I&O 12/01/19 16:00 Temp 37.3 Pulse 99 Resp 20 B/P (MAP) 140/88 (105) Pulse Ox 97 O2 Delivery Room Air Progress Progress Note #1: Time: 17:58 Progress Note GI cocktail failed to provide any relief. Fentanyl was ordered. Pyelonephritis seen on CT and urinalysis. Progress Note #2: Time: 18:08 Progress Note Fentanyl did seem to knock him down from a 9 to a 6. Plan to provide him with hydrocodone to help pain. We did then offer the patient stay in the hospital for IV antibiotics but he says he has a lot of anxiety about catching coronavirus and does not want to stay in the hospital if he can avoid it. He has been on the Bactrim for a week so we probably switch him to ciprofloxacin for 10 days and give him a dose of Rocephin. We'll send him home some hydrocodone to get him through tonight. We have given him return precautions and he agrees to come back if he gets worse. Shortly after initiating IV fluids the patient's vital signs were completely aseptic. Initial ECG Impression Date: Dec 01, 2019 Initial ECG Impression Time: 16:41 Initial ECG Rate: 78 Initial ECG Rhythm: Normal Sinus Initial ECG Intervals: Normal Initial ECG Impression: Normal, Nonspecific Changes Comment Normal sinus rhythm without clinically relevant ST elevation or depression. Diagnostic Imaging Diagonstic Imaging: CT Plain Films/CT/US/NM/MRI: abdomen, pelvis Comments NAME: [facility]ENNIF[facility] REC#: [id number] PT STATUS: REG ER : 1960 PHYSICIAN: BROOKE PARHAM MD ADMIT DATE: 12/01/19/ER Draft Date of Exam:12/01/19 CT ABDOMEN/PELVIS W PROCEDURE: CT abdomen and pelvis with contrast. TECHNIQUE: Multiple contiguous axial images were obtained through the abdomen and pelvis after administration of intravenous contrast. Auto Exposure Controls were utilized during the CT exam to meet ALARA standards for radiation dose reduction. DATE: December 01, 2019. COMPARISON: CT abdomen and pelvis January 13, 2016. INDICATION: 59-year-old male, upper and mid abdominal pain extending to the left flank for 8 days. Nausea and diarrhea. FINDINGS: There is a right middle lobe pulmonary nodule on axial image 5 which measures 11 mm in size. This nodule is not able to be identified on January 13, 2016 CT abdomen and pelvis. There is a 2 mm calcified right lower lobe granuloma on axial image 4. There is minimal atelectasis and/or scarring in the right middle lobe. The heart is not enlarged. There is no identified pericardial effusion. The liver is normal in size and contour. There is no identified liver lesion. The main, right and left portal veins are patent. The patient is status post cholecystectomy. There is no intrahepatic or extrahepatic bile duct dilation. The main pancreatic duct is not abnormally dilated. Unremarkable appearance of the pancreatic parenchyma. The spleen is normal in size. The adrenal glands are unremarkable. There are nonobstructing left renal stones on axial image 47 measuring up to 10 mm in size. There is mild left hydroureteronephrosis. There is no currently identified left ureteral stone. The urinary bladder is unremarkable in appearance. The right urinary collecting system is not abnormally distended. There is a nonobstructing 4 mm right renal stone on axial image 49. There is mild perinephric stranding, bilaterally. There is stranding along the length of the left ureter. The intestinal tract is not distended. The appendix is unremarkable. There are atherosclerotic calcifications. There is no identified abnormally enlarged lymph node in the abdomen or pelvis which meets CT size criteria for adenopathy. There is no free intraperitoneal air. There is no drainable fluid collection. There is no free pelvic fluid. There are multilevel degenerative changes of the spine. There are median sternotomy wires. There is no identified acute bony abnormality. IMPRESSION: CT abdomen and pelvis: 1. Mild left hydroureteronephrosis and stranding along the length of the left ureter without currently identified left ureteral stone. Findings are nonspecific although potentially could reflect recent stone passage on the left. Recommend correlation clinically. 2. Nonobstructing renal stones, bilaterally. 3. No otherwise identified acute abnormality in the abdomen or pelvis. 4. 11 mm right middle lobe pulmonary nodule which is not definitely present in December 2015. PET CT is recommended for further evaluation. Dictated on workstation # [id number] Dict: 12/01/19 1707 Trans: 12/01/19 1736 PJ [id number] Interpreted by: GALDINO PALMER MD Electronically signed by: Reviewed: Reviewed by Me Departure Impression Primary Impression: Pyelonephritis Disposition: HOME, SELF-CARE Condition: Improved Departure-Patient Inst. Decision time for Depature: 18:00 Referrals: MIRELLA GONZALES MD (PCP/Family) Primary Care Physician Patient Instructions: Kidney Infection (DC) Add. Discharge Instructions: You have a kidney infection and need to drink lots of fluids to flush it out. We are going to change your antibiotics. Stop taking the Bactrim and start taking the ciprofloxacin twice a day for the next 10 days. Expect to see some improvement in the next 3 days. Plan follow-up with your primary care doctor. If you have fever, worsening pain or other worrisome symptoms please return to the ER. You may use Tylenol 650 mg every 8 hours as necessary. Hydrocodone one tablet every 6 hours for breakthrough pain. Scripts Hydrocodone/Acetaminophen (Hydrocodone-Acetamin 5-325 mg) 1 Each Tablet 1 EACH PO Q6H PRN for PAIN-BREAKTHROUGH, #10 TAB 0 Refills Prov: BROOKE PARHAM 12/01/19 Ciprofloxacin HCl (Ciprofloxacin HCl) 500 Mg Tablet 500 MG PO BID for 10 Days, #20 TAB 0 Refills Prov: BROOKE PARHAM 12/01/19 BROOKE PARHAM Dec 01, 2019 16:13
[2019-12-01] MEDS ORDERED: LIDOCAINE 2% VISCOUS 15 ML UDC PO ONE (16:15)
[2019-12-01] MEDS ORDERED: ANTACID SUSP 30 ML UDC (MYLANTA) PO ONE (16:15)
[2019-12-01] MEDS ORDERED: ASPIRIN 81 MG CHEW (CHILDREN'S ASA) PO ONE (16:15)
[2019-12-01 16:25] LABS: BASOPHILS % (AUTO) 0 % (0-10); EOSINOPHILS # (AUTO) 0.1 10^3/uL (0.0-0.3); EOSINOPHILS % (AUTO) 1 % (0-10); HEMATOCRIT 42 % (40-54); HEMOGLOBIN 13.8 G/DL (13.3-17.7); LYMPHOCYTES % (AUTO) 12 % (12-44); MEAN CORPUSCULAR HEMOGLOBIN 26 PG (25-34); MEAN CORPUSCULAR HGB CONC 33 G/DL (32-36); MEAN CORPUSCULAR VOLUME 79 FL (80-99); MEAN PLATELET VOLUME 10.5 FL (7.4-10.4); MONOCYTES # (AUTO) 1.3 X 10^3 (0.0-1.0); MONOCYTES % (AUTO) 8 % (0-12); NEUTROPHILS # (AUTO) 12.9 X 10^3 (1.8-7.8); NEUTROPHILS % (AUTO) 79 % (42-75); PLATELET COUNT 366 10^3/uL (130-400); RED CELL DISTRIBUTION WIDTH 17.1 % (10.0-14.5); WHITE BLOOD COUNT 16.4 10^3/uL (4.3-11.0)
[2019-12-01 16:30] LABS: BILIRUBIN,URINE NEGATIVE (NEGATIVE); CLARITY,URINE SL CLOUDY; COLOR,URINE YELLOW; GLUCOSE, URINE (UA) NEGATIVE (NEGATIVE); KETONES,URINE NEGATIVE (NEGATIVE); LEUKOCYTE ESTERASE ,URINE 1+ (NEGATIVE); NITRITE,URINE NEGATIVE (NEGATIVE); PROTEIN,URINE TRACE (NEGATIVE)
[2019-12-01 16:33] LABS: ALBUMIN 3.5 GM/DL (3.2-4.5); CHLORIDE 103 MMOL/L (98-107); POTASSIUM 4.3 MMOL/L (3.6-5.0); SODIUM 132 MMOL/L (135-145)
[2019-12-01 16:34] LABS: CALCIUM 9.1 MG/DL (8.5-10.1)
[2019-12-01 16:35] LABS: GLUCOSE 112 MG/DL (70-105)
[2019-12-01 16:36] LABS: TOTAL PROTEIN 7.9 GM/DL (6.4-8.2)
[2019-12-01 16:37] LABS: BILIRUBIN,TOTAL 0.3 MG/DL (0.1-1.0); CARBON DIOXIDE 18 MMOL/L (21-32)
[2019-12-01 16:39] LABS: ALKALINE PHOSPHATASE 117 U/L (40-136); CREATININE SERUM 0.97 MG/DL (0.60-1.30); GFR ESTIMATED > 60
[2019-12-01 16:40] LABS: BUN/CREATININE RATIO 15
[2019-12-01 16:42] LABS: ALANINE AMINOTRANSFERASE 13 U/L (0-55); LIPASE 27 U/L (8-78)
[2019-12-01 16:44] LABS: WBC,URINE 25-50 /HPF
[2019-12-01 16:45] LABS: BACTERIA,URINE TRACE /HPF; RBC,URINE 0-2 /HPF
[2019-12-01] MEDS ORDERED: HOLD METFORMIN - RECEIVED CONTRAST 20 ML VIAL IV SCH (16:45)
[2019-12-01] MEDS ORDERED: IOHEXOL 350 MG/ML 100 ML (OMNIPAQUE 350) VIAL IV ONE (16:45)
[2019-12-01] MEDS ORDERED: NS 100 ML (IVPB) BAG IV ONE (16:45)
[2019-12-01 16:47] LABS: AMPHETAMINE SCREEN, URINE NEGATIVE (NEGATIVE); BARBITURATE SCREEN URINE NEGATIVE (NEGATIVE); BENZODIAZEPINES SCREEN URINE POSITIVE (NEGATIVE); CANNABINOID SCREEN, URINE POSITIVE (NEGATIVE); COCAINE SCREEN URINE NEGATIVE (NEGATIVE); METHADONE STAT NEGATIVE (NEGATIVE); METHAMPHETAMINE SCREEN URINE S NEGATIVE (NEGATIVE); OPIATE SCREEN URINE NEGATIVE (NEGATIVE); OXYCODONE STAT NEGATIVE (NEGATIVE); PROPOXYPHENE STAT NEGATIVE (NEGATIVE); TRICYCLIC ANTIDEPRESSANTS SCRE NEGATIVE (NEGATIVE)
[2019-12-01 17:10] LABS: EOSINOPHILS % (MANUAL) 1 %; LYMPHOCYTES % (MANUAL) 13 %; MONOCYTES % (MANUAL) 6 %; NEUTROPHILS % (MANUAL) 79 %; RBC MORPH NORMAL
[2019-12-01] MEDS ORDERED: fentaNYL INJECTION 100 MCG/2 ML AMP IVP ONE (17:15)
--- NOTE | 2019-12-01 17:37 | Diagnostic Imaging Report ---
PROCEDURE: CT abdomen and pelvis with contrast. TECHNIQUE: Multiple contiguous axial images were obtained through the abdomen and pelvis after administration of intravenous contrast. Auto Exposure Controls were utilized during the CT exam to meet ALARA standards for radiation dose reduction. DATE: December 01, 2019. COMPARISON: CT abdomen and pelvis January 13, 2016. INDICATION: 59-year-old male, upper and mid abdominal pain extending to the left flank for 8 days. Nausea and diarrhea. FINDINGS: There is a right middle lobe pulmonary nodule on axial image 5 which measures 11 mm in size. This nodule is not able to be identified on January 13, 2016 CT abdomen and pelvis. There is a 2 mm calcified right lower lobe granuloma on axial image 4. There is minimal atelectasis and/or scarring in the right middle lobe. The heart is not enlarged. There is no identified pericardial effusion. The liver is normal in size and contour. There is no identified liver lesion. The main, right and left portal veins are patent. The patient is status post cholecystectomy. There is no intrahepatic or extrahepatic bile duct dilation. The main pancreatic duct is not abnormally dilated. Unremarkable appearance of the pancreatic parenchyma. The spleen is normal in size. The adrenal glands are unremarkable. There are nonobstructing left renal stones on axial image 47 measuring up to 10 mm in size. There is mild left hydroureteronephrosis. There is no currently identified left ureteral stone. The urinary bladder is unremarkable in appearance. The right urinary collecting system is not abnormally distended. There is a nonobstructing 4 mm right renal stone on axial image 49. There is mild perinephric stranding, bilaterally. There is stranding along the length of the left ureter. The intestinal tract is not distended. The appendix is unremarkable. There are atherosclerotic calcifications. There is no identified abnormally enlarged lymph node in the abdomen or pelvis which meets CT size criteria for adenopathy. There is no free intraperitoneal air. There is no drainable fluid collection. There is no free pelvic fluid. There are multilevel degenerative changes of the spine. There are median sternotomy wires. There is no identified acute bony abnormality. IMPRESSION: CT abdomen and pelvis: 1. Mild left hydroureteronephrosis and stranding along the length of the left ureter without currently identified left ureteral stone. Findings are nonspecific although potentially could reflect recent stone passage on the left. Recommend correlation clinically. 2. Nonobstructing renal stones, bilaterally. 3. No otherwise identified acute abnormality in the abdomen or pelvis. 4. 11 mm right middle lobe pulmonary nodule which is not definitely present in December 2015. PET CT is recommended for further evaluation. Dictated by: Dictated on workstation # [id number]
[2019-12-01] MEDS ORDERED: cefTRIAXone FOR IV USE 1,000 MG in WATER (STERILE) FOR INJECTION 10 ML IV ONE (18:15)
[2019-12-01] MEDS ORDERED: RX-HYDROCODONE/APAP 5/325 MG #4 TAB PK PO PRN (18:15)
[2019-12-01] MEDS ORDERED: CIPR500T4 PO (18:17)
[2019-12-01] MEDS ORDERED: HYDR-83 PO (18:17)
[2019-12-01 18:43] VITALS: BP 113/90
== END 2019-12-01 18:43 | disposition home or self-care (01) ==
LOC: EDUNIT# 15:57 → ER 15:58
DX: N12 Tubulo-interstitial nephritis, not specified as acute or chronic (principal); I25.10 Atherosclerotic heart disease of native coronary artery without angina pectoris; E78.00 Pure hypercholesterolemia, unspecified; I10 Essential (primary) hypertension; F20.9 Schizophrenia, unspecified; F17.210 Nicotine dependence, cigarettes, uncomplicated; Z95.1 Presence of aortocoronary bypass graft; Z88.5 Allergy status to narcotic agent; Z79.82 Long term (current) use of aspirin; Z79.899 Other long term (current) drug therapy
CPT/HCPCS: 36415; 74177; 80053; 80306; 81000; 83690; 84484; 85007; 85027; 87088; 93005; 96361; 96374; 96375

== ENCOUNTER → 2019-12-19 | Outpatient (CLI) | payer MEDICAID ==
[~2019-12-19] MED LIST changes: +CIPR500T4 PO; +HYDR-83 PO
[2019-12-19 17:33] LABS: BUN/CREATININE RATIO 12; CALCIUM 9.4 MG/DL (8.5-10.1); CARBON DIOXIDE 21 MMOL/L (21-32); CHLORIDE 103 MMOL/L (98-107); CREATININE SERUM 0.81 MG/DL (0.60-1.30); GFR ESTIMATED > 60; GLUCOSE 88 MG/DL (70-105); SODIUM 137 MMOL/L (135-145)
--- NOTE | 2019-12-19 18:34 | Diagnostic Imaging Report ---
Indication: Left flank pain for 3 weeks. Patient has history of kidney stones. Time of exam 5:46 PM Calcific densities in both kidneys are noted consistent with renal calculi. These were seen on recent CT. No definite calculi along the expected course of the ureters is identified. IMPRESSION: Bilateral renal calculi. Dictated by: Dictated on workstation # [id number]
== END ==
LOC: LAB 16:59
PROVIDERS: ATTEND Urology
DX: N20.0 Calculus of kidney (principal)
CPT/HCPCS: 36415; 74018; 80048; 84153

== ENCOUNTER → 2020-01-18 | Outpatient (CLI) | payer MEDICAID ==
[~2020-01-18] MED LIST changes: +HYDR-3812 PO; -HYDR-83 PO
--- NOTE | 2020-01-18 16:34 | Diagnostic Imaging Report ---
INDICATION: Follow-up stent placement. TIME OF EXAM: 3:28 p.m. COMPARISON: Prior abdominal radiograph from 12/19/2019. FINDINGS: There is a left-sided double J nephroureteral stent extending from the left abdomen into the pelvis. There are calcific densities overlying the renal shadows, bilaterally, consistent with renal calculi. No definite calculus along the course of the stent is identified. Patient also has a left iliac stent. Bowel gas pattern is unremarkable. There are surgical clips in the right upper quadrant. IMPRESSION: Bilateral renal calculi. No definite calculus along the course of the left ureteral stent is identified. Dictated by: Dictated on workstation # [id number]
== END ==
LOC: RAD 14:54
PROVIDERS: ATTEND Urology
DX: N20.0 Calculus of kidney (principal); Z20.828 Contact with and (suspected) exposure to other viral communicable diseases
CPT/HCPCS: 74018

== ENCOUNTER 2020-01-22 05:46 | Outpatient (CLI) | payer MEDICAID ==
[~2020-01-22] VITALS: Ht 170 cm; Wt 104.5 kg
[2020-01-22] MEDS ORDERED: ATOR80TA76 PO (12:50)
[2020-01-22] MEDS ORDERED: PREG50CA2 PO (12:50)
[2020-01-22] MEDS ORDERED: CLOP75TA28 PO (12:50)
[2020-01-22] MEDS ORDERED: NF-SOLIF5T PO (12:50)
[2020-01-22] MEDS ORDERED: PREG25CA PO (12:50)
[2020-01-22] MEDS ORDERED: DULO20CA PO (12:50)
[2020-01-23] MEDS ORDERED: TRM50T PO (12:28)
[2020-01-23] MEDS ORDERED: NITR-65 PO (12:28)
[2020-01-23] MEDS ORDERED: TMSL.4C PO (12:28)
== END 2020-01-22 14:51 | disposition home or self-care (01) ==
LOC: PREOP 05:46
PROVIDERS: ATTEND Urology
DX: Z01.818 Encounter for other preprocedural examination (principal)

== ENCOUNTER 2020-01-23 09:06 | Day surgery (SDC) | payer MEDICAID ==
[~2020-01-23] VITALS: Ht 170 cm; Wt 104.5 kg
[2020-01-23] VITALS (9 sets, daily range): BP systolic 114–136; BP diastolic 70–88
[~2020-01-23 09:06] MED LIST changes: +ATOR80TA76 PO; +DULO20CA PO; +NF-SOLIF5T PO; +PREG25CA PO; +PREG50CA2 PO
[2020-01-23] MEDS ORDERED: LACTATED RINGERS 1,000 ML IV PRN (09:15)
[2020-01-23] MEDS ORDERED: cefTRIAXone FOR IV USE 1,000 MG in WATER (STERILE) FOR INJECTION 10 ML IV ONE (09:15)
--- NOTE | 2020-01-23 09:45 | Progress Note-Pre Operative ---
Pre-Operative Progress Note H&P Reviewed The H&P was reviewed, patient examined and no changes noted. Date Seen by Provider: Jan 23, 2020 Time Seen by Provider: 09:45 Date H&P Reviewed: Jan 23, 2020 Time H&P Reviewed: 09:45 Pre-Operative Diagnosis: LT RENAL STONES CALEB NGUYEN MD Jan 23, 2020 09:45
--- NOTE | 2020-01-23 10:03 | Diagnostic Imaging Report ---
INDICATION: Preoperative evaluation. Left renal stone. COMPARISON: 01/18/2020 FINDINGS: Single frontal radiograph view abdomen was obtained and again demonstrates indwelling left-sided double-J ureteral stent. Patency of the stent cannot be assessed, but appears to be in stable position. Extraosseous calcifications are again noted projecting over the inferior pole of the left kidney as well as over the mid region and inferior pole of the right kidney. Metallic stent is also noted within the left hemipelvis. No new unexpected radio opaque foreign bodies are seen. Small bowel loops are nondistended. There is no large collection of free intraperitoneal air. IMPRESSION: 1. Indwelling left-sided double-J ureteral stent with bilateral nephrolithiasis. 2. Nonobstructive small bowel gas pattern. Dictated by: Dictated on workstation # [id number]
[2020-01-23] MEDS ORDERED: fentaNYL INJECTION 100 MCG/2 ML AMP ONE (10:23)
[2020-01-23] MEDS ORDERED: LIDOCAINE PF 2% 5 ML (XYLOCAINE) VIAL ONE (10:23)
[2020-01-23] MEDS ORDERED: ONDANSETRON 4 MG/2 ML (SDV) Z0FRAN ONE (10:23)
[2020-01-23] MEDS ORDERED: proPOfol 200 MG/20 ML (DIPRIVAN) VIAL IV ONE (10:23)
[2020-01-23] MEDS ORDERED: MIDAZOLAM 2 MG/2 ML (VERSED) VIAL ONE (10:23)
[2020-01-23] MEDS ORDERED: SEVOFLURANE (ULTANE) 15 ML INHAL SOLN ONE ×3 (10:26→11:06)
[2020-01-23] MEDS ORDERED: FUROSEMIDE 40 MG/4 ML INJ (LASIX) ONE (10:27)
[2020-01-23] MEDS ORDERED: KETOROLAC 30 MG/ML VIAL ONE (10:27)
--- NOTE | 2020-01-23 10:54 | Progress Note-Post Operative ---
Post-Operative Progess Note Surgeon (s)/Construction Job Cost Estimator (s) Surgeon CALEB NGUYEN MD Construction Job Cost Estimator: NONE Pre-Operative Diagnosis LT RENAL STONES Post-Operative Diagnosis SAME Procedure & Operative Findings Date of Procedure 01/23/20 Procedure Performed/Findings LT ESWL Anesthesia Type GENERAL Estimated Blood Loss Estimated blood loss (mL): NONE Specimens/Packing Specimens Removed NONE Packing: NONE CALEB NGUYEN MD Jan 23, 2020 10:54
--- NOTE | 2020-01-23 10:54 | Discharge Inst-Urology ---
Discharge Inst-Urology Reconcile Patient Problems Problems Reviewed?: Yes Final Diagnosis LT RENAL STONES Patient Instructions/Follow Up Plan/Assessment/Instructions Please make appointment to been seen in office Monday 02/05, KUB prior to it KUB on way home Stay off ASA and Plavix Post ESWL instructions Increase oral fluids for 48 hours and then as needed. Diet and Activity as tolerated. If questions or concerns contact your physician Or seek help at emergency department. CALEB NGUYEN MD Jan 23, 2020 10:54
[2020-01-23] MEDS ORDERED: fentaNYL INJECTION 100 MCG/2 ML AMP IVP ONE (11:30)
[2020-01-23] MEDS ORDERED: MEPERIDINE (DEMEROL) INJ 50 MG/ML IVP ONE (11:30)
[2020-01-23] MEDS ORDERED: ONDANSETRON 4 MG/2 ML (SDV) Z0FRAN IVP PRN (11:30)
--- NOTE | 2020-01-23 12:18 | Anesthesia-General Post-Op ---
General Patient Condition Mental Status/LOC: Same as Preop Cardiovascular: Satisfactory Nausea/Vomiting: Absent Respiratory: Satisfactory Pain: Controlled Complications: Absent Post Op Complications Complications None Follow Up Care/Instructions Patient Instructions None needed. Anesthesia/Patient Condition Patient Condition Patient is doing well, no complaints, stable vital signs, no apparent adverse anesthesia problems. No complications reported per nursing. RADHIKA LOWE CRNA Jan 23, 2020 12:18
[2020-01-23] MEDS ORDERED: TRM50T PO (12:28)
[2020-01-23] MEDS ORDERED: TMSL.4C PO (12:28)
[2020-01-23] MEDS ORDERED: NITR-65 PO (12:28)
--- NOTE | 2020-01-23 13:33 | Diagnostic Imaging Report ---
INDICATION: Postop ESWL. FINDINGS: There is fragmentation and reduced stone burden at the lower pole of the left kidney when compared to an exam of earlier this same date. A calculus projecting over the right renal lower pole is unchanged. No radiopaque stone along the course of the stented left ureter. IMPRESSION: Interval reduction in left [id number] third renal stone burden with no adverse interval development. Dictated by: Dictated on workstation # [id number]
--- NOTE | 2020-01-23 18:39 | OPERATIVE REPORT ---
DATE OF SERVICE: 01/23/2020 PREOPERATIVE DIAGNOSIS: Left renal stones. POSTOPERATIVE DIAGNOSIS: Left renal stones. OPERATION PERFORMED: Left ESWL. SURGEON: Marlon Nguyen MD ANESTHESIA: General. COMPLICATIONS: None. DESCRIPTION OF PROCEDURE: Under satisfactory general anesthesia, the patient in supine position on the ESWL table, we concentrated on the big stone. We localized it and delivered shocks at a kV of 6. Total of 3000 shocks completely fragmented the stone, which was not completely fragmented the stone. The patient received 40 mg of Lasix and 30 mg of Toradol IV at the end of the procedure. He tolerated the procedure and anesthesia well and was sent to recovery room in stable condition. PLAN: We will reevaluate in 2 weeks and see if he needs another ESWL for any remnant as well as the other two stones in that kidney. Job ID: [id number] DocumentID: [id number] Dictated Date: 01/23/2020 11:14:19 Electronic Component Processor Date: 01/23/2020 18:39:00 Dictated By: MARLON NGUYEN MD
== END 2020-01-23 13:20 | disposition home or self-care (01) ==
LOC: SDC 09:06
PROVIDERS: ATTEND Urology
DX: N20.0 Calculus of kidney (principal); Z11.2 Encounter for screening for other bacterial diseases; N40.0 Benign prostatic hyperplasia without lower urinary tract symptoms; N52.9 Male erectile dysfunction, unspecified; I25.10 Atherosclerotic heart disease of native coronary artery without angina pectoris; I10 Essential (primary) hypertension; I73.9 Peripheral vascular disease, unspecified; E78.00 Pure hypercholesterolemia, unspecified; M19.91 Primary osteoarthritis, unspecified site; F32.9 Major depressive disorder, single episode, unspecified; Z95.1 Presence of aortocoronary bypass graft; E78.5 Hyperlipidemia, unspecified; F17.210 Nicotine dependence, cigarettes, uncomplicated; Z79.02 Long term (current) use of antithrombotics/antiplatelets; Z79.82 Long term (current) use of aspirin; Z79.899 Other long term (current) drug therapy
CPT/HCPCS: 74018; 87081

== ENCOUNTER → 2020-01-30 | Outpatient (CLI) | payer MEDICAID ==
[~2020-01-30] MED LIST changes: +NITR-65 PO; +TRM50T PO
--- NOTE | 2020-02-01 11:50 | Diagnostic Imaging Report ---
EXAM: PET/CT INDICATION: Lung nodule. EXAMINATION: After intravenous administration of 15.9 mCi of F18-FDG into the left hand, a series of overlapping emission and transmission PET images was obtained. In the coronal, transaxial and sagittal planes, the area imaged extended from the skull base through the upper thighs. Height: 5' 7" Weight: 230 Blood glucose level: 119 There are no prior PET/CT examinations available for comparison. The CTA chest, abdomen and pelvis exam of 01/13/2020 noted a 12.7 mm nodule in the periphery of the anterior aspect of the right middle lobe. This nodule has increased in size since the previous CT abdomen/pelvis exam of 12/01/2019 when it measured 11 mm. On this study, that nodule is again identified and unchanged in size or appearance. The nodule is not hypermetabolic. This has a maximum SUV of less than 1, consequently, I do suspect this is a benign process. There is no other hypermetabolic activity seen within the chest to suggest malignancy. The chronic pulmonary changes noted on the prior study are again evident and no different. There is cardiomegaly, coronary disease and evidence of prior cardiac surgery, as well. There is no hypermetabolic activity in the abdomen or pelvis to indicate malignancy. Physiologic activity is evident in the kidneys, bowel and bladder. The CT images failed to show any sign of an acute abnormality. The obstructive calculus involving the left collecting system seen on the prior study, is no longer evident. There is now a ureteral stent in place on the left. The stent seems to be in good position and the left renal pelvis is decompressed. However, the images through the neck show that there is a small 1.2 x 1.4 cm rounded mass immediately posterior to the medial pterygoid muscle on the left in the parapharyngeal space. This mass is intensely hypermetabolic with a maximum SUV of 15.2. Consequently, this finding is worrisome for neoplastic disease. If further imaging is desired, then CT of the neck with contrast would be recommended. An ENT consult would also be recommended. There is no other abnormality identified. IMPRESSION: 1. The small nodule in the periphery of the right middle lobe seen on the CTA chest exam is not hypermetabolic and is most likely a benign process. A six-month follow-up CT chest exam would be recommended for continued evaluation, however. 2. There is an intensely hypermetabolic nodular mass posterior to the medial pterygoid muscle on the left in the parapharyngeal space.. This should be considered neoplastic until proven otherwise. Recommendations as above. 3. There is no other hypermetabolic activity to suggest the presence of malignancy. 4. There is no acute abnormality identified. 5. The obstructive calculus in the left collecting system seen previously has been removed and there is now a ureteral stent in place on the left. The left renal pelvis does appear to be decompressed. Dictated by: Dictated on workstation # [id number]
== END ==
LOC: RAD 09:34
PROVIDERS: ATTEND Internal Medicine
DX: N13.30 Unspecified hydronephrosis (principal); N20.2 Calculus of kidney with calculus of ureter; R91.1 Solitary pulmonary nodule; R91.8 Other nonspecific abnormal finding of lung field; Z20.828 Contact with and (suspected) exposure to other viral communicable diseases; Z96.0 Presence of urogenital implants
CPT/HCPCS: 78815; A9552

== ENCOUNTER 2020-02-02 16:28 | Inpatient (IN) | payer MEDICAID ==
[~2020-02-02] VITALS: Ht 170.8 cm; Wt 102.1 kg
[~2020-02-02 16:28] MED LIST changes: +ACHD5005 PO; +ASPI-1238 PO; -ASPI-983 PO; -HYDR-3812 PO
[2020-02-02] MEDS ORDERED: NS IV 1000 ML 1,000 ML IV SCH (16:37)
[2020-02-02] MEDS ORDERED: ONDANSETRON 4 MG/2 ML (SDV) Z0FRAN IVP ONE (17:00)
[2020-02-02] MEDS: RT-ALBUTEROL INHALER HFA (VENTOLIN HFA) 18 GM IH SCH (17:32)
[2020-02-02 17:40] LABS: BASOPHILS % (AUTO) 0 % (0-10); EOSINOPHILS % (AUTO) 0 % (0-10); HEMATOCRIT 42 % (40-54); HEMOGLOBIN 13.5 G/DL (13.3-17.7); LYMPHOCYTES # (AUTO) 1.1 X 10^3 (1.0-4.0); LYMPHOCYTES % (AUTO) 6 % (12-44); MEAN CORPUSCULAR HEMOGLOBIN 26 PG (25-34); MEAN CORPUSCULAR HGB CONC 32 G/DL (32-36); MEAN CORPUSCULAR VOLUME 82 FL (80-99); MEAN PLATELET VOLUME 10.7 FL (7.4-10.4); MONOCYTES % (AUTO) 5 % (0-12); NEUTROPHILS # (AUTO) 15.9 X 10^3 (1.8-7.8); NEUTROPHILS % (AUTO) 88 % (42-75); PLATELET COUNT 290 10^3/uL (130-400)
[2020-02-02 17:45] LABS: BILIRUBIN,URINE NEGATIVE (NEGATIVE); CLARITY,URINE CLEAR; COLOR,URINE DARK YELLOW; GLUCOSE, URINE (UA) NEGATIVE (NEGATIVE); KETONES,URINE NEGATIVE (NEGATIVE); LEUKOCYTE ESTERASE ,URINE TRACE (NEGATIVE); NITRITE,URINE NEGATIVE (NEGATIVE); PROTEIN,URINE TRACE (NEGATIVE)
[2020-02-02 17:53] LABS: ALBUMIN 3.7 GM/DL (3.2-4.5); CHLORIDE 101 MMOL/L (98-107); POTASSIUM 3.6 MMOL/L (3.6-5.0); SODIUM 134 MMOL/L (135-145)
[2020-02-02 17:54] LABS: CALCIUM 8.6 MG/DL (8.5-10.1)
[2020-02-02 17:55] LABS: BACTERIA,URINE TRACE /HPF; RBC,URINE 25-50 /HPF; SQUAMOUS EPITHELIAL CELL,UR 0-2 /HPF
[2020-02-02 17:55] LABS: GLUCOSE 100 MG/DL (70-105); TOTAL PROTEIN 7.4 GM/DL (6.4-8.2)
[2020-02-02 17:56] LABS: CARBON DIOXIDE 23 MMOL/L (21-32)
[2020-02-02 17:57] LABS: BILIRUBIN,TOTAL 0.6 MG/DL (0.1-1.0)
[2020-02-02 17:59] LABS: ALKALINE PHOSPHATASE 91 U/L (40-136); CREATININE SERUM 0.79 MG/DL (0.60-1.30); GFR ESTIMATED > 60
[2020-02-02 17:59] LABS: AMPHETAMINE SCREEN, URINE NEGATIVE (NEGATIVE); BARBITURATE SCREEN URINE NEGATIVE (NEGATIVE); BENZODIAZEPINES SCREEN URINE NEGATIVE (NEGATIVE); CANNABINOID SCREEN, URINE POSITIVE (NEGATIVE); COCAINE SCREEN URINE NEGATIVE (NEGATIVE); METHADONE STAT NEGATIVE (NEGATIVE); METHAMPHETAMINE SCREEN URINE S NEGATIVE (NEGATIVE); OPIATE SCREEN URINE NEGATIVE (NEGATIVE); OXYCODONE STAT NEGATIVE (NEGATIVE); PROPOXYPHENE STAT NEGATIVE (NEGATIVE); TRICYCLIC ANTIDEPRESSANTS SCRE NEGATIVE (NEGATIVE)
[2020-02-02 18:00] LABS: BUN/CREATININE RATIO 11
[2020-02-02 18:02] LABS: ALANINE AMINOTRANSFERASE 11 U/L (0-55); LIPASE 8 U/L (8-78)
[2020-02-02 18:06] LABS: PROTHROMBIN TIME PATIENT 13.8 SEC (12.2-14.7)
--- NOTE | 2020-02-02 18:08 | ED General ---
General Chief Complaint: Abdominal/GI Problems Stated Complaint: ABD PAIN;FEVER Nursing Triage Note: Pt arrives c/o Lt flank pain, abd pain, fever, et nausea. Was DC'd from [place] last week for a blockage in ureter et stone " blasted" by Dr. James last week Nursing Sepsis Screen: Possible Severe Sepsis Risk Source of Information: Patient, Old Records Exam Limitations: No Limitations (KING DOYLE MD) History of Present Illness Date Seen by Provider: Feb 02, 2020 Time Seen by Provider: 16:35 Initial Comments This 59-year-old man presents to the emergency room with complaints of left- sided abdominal pain and fever. He had lithotripsy performed for ureteral stone on January 22. Since then his pain has not really been relieved despite taking pain medications. He has since developed fever. He reports a little bit of shortness of breath and he is noted to be wheezing on exam. He also was recently diagnosed with a lung nodule. He has history of methamphetamine abuse. He had negative COVID-19 tests on January 12. (KING DOYLE MD) Allergies and Home Medications Allergies Coded Allergies: morphine (Verified Allergy, Unknown, TAKES LORTAB AT HOME, 08/03/08) Home Medications Atorvastatin Calcium 80 Mg Tablet, 80 MG PO DAILY, (Reported) Docusate Sodium 100 Mg Capsule, 200 MG PO DAILY, (Reported) Duloxetine HCl 20 Mg Cap, 20 MG PO DAILY, (Reported) Gabapentin 600 Mg Tablet, 600 MG PO TID, (Reported) Hydrocodone/Acetaminophen 1 Each Tablet, 1 EACH PO Q6H PRN for PAIN-BREAKTHROUGH Prescribed by: BROOKE PARHAM on 12/01/19 1817 Isosorbide Dinitrate 20 Mg Tablet, 40 MG PO BID, (Reported) Multivitamin 1 Each Tablet, 1 EACH PO DAILY, (Reported) Nitrofurantoin Monohyd/M-Cryst 100 Mg Capsule, 1 TAB PO BID Prescribed by: OPAL ROMERO on 01/23/20 1228 [place] 3 Polyunsat Fatty Acids 1,000 Mg Cap, 1,000 MG PO DAILY, (Reported) Pregabalin 50 Mg Capsule, 50 MG PO TID, (Reported) Pregabalin 25 Mg Capsule, 25 MG PO TID, (Reported) Solifenacin Succinate 5 Mg Tablet, 5 MG PO DAILY, (Reported) Tamsulosin HCl 0.4 Mg Cap, 0.4 MG PO DAILY, (Reported) Tamsulosin HCl 0.4 Mg Cap, 0.4 MG PO DAILY Prescribed by: OPAL ROMERO on 01/23/20 1228 Tramadol HCl 50 Mg Tablet, 1-2 MG PO Q4H PRN for PAIN-MODERATE (5-7) Prescribed by: OPAL ROMERO on 01/23/20 1228 Patient Home Medication List Home Medication List Reviewed: Yes (KING DOYLE MD) Review of Systems Review of Systems Constitutional: see HPI EENTM: no symptoms reported Respiratory: see HPI Cardiovascular: no symptoms reported Gastrointestinal: see HPI, abdominal pain, nausea Genitourinary: see HPI Musculoskeletal: no symptoms reported Skin: no symptoms reported Psychiatric/Neurological: No Symptoms Reported Hematologic/Lymphatic: No Symptoms Reported Immunological/Allergic: no symptoms reported (KING DOYLE MD) Past Vzapagj-Nlpagn-Cebxot Hx Past Med/Social Hx: Reviewed Nursing Past Med/Soc Hx (KING DOYLE MD) Patient Social History Drug of Choice: POT Type Used: Cigarettes 2nd Hand Smoke Exposure: Yes Recent Foreign Travel: No Contact w/Someone Who Travel: No Recent Infectious Disease Expo: No Recent Hopitalizations: No (KING DOYLE MD) Immunizations Up To Date Tetanus Booster (TDap): Unknown PED Vaccines UTD: Yes Date of Pneumonia Vaccine: May 31, 2015 (KING DOYLE MD) Seasonal Allergies Seasonal Allergies: No (KING DOYLE MD) Past Medical History Surgeries: Yes (BYPASS X 3) CABG, Eye Surgery, Gallbladder Respiratory: Yes (LUMP ON LUNG) Currently Using CPAP: No Currently Using BIPAP: No Cardiac: Yes Coronary Artery Disease, High Cholesterol, Hypertension Neurological: No Reproductive Disorders: No Genitourinary: Yes ("KIDNEY ISSUES") Kidney Stones Gastrointestinal: No Musculoskeletal: No Endocrine: No HEENT: No Cancer: No Psychosocial: Yes Suicide Attempts, Schizophrenia Integumentary: No Blood Disorders: No Adverse Reaction/Blood Tranf: No (KING DOYLE MD) Family Medical History Patient reports no known family medical history. Diabetes, Hypertension (KING DOYLE MD) Physical Exam-Suspected Sepsis Physical Exam Vital Signs Vital Signs - First Documented 02/02/20 16:45 Temp 38.7 Pulse 97 Resp 24 B/P (MAP) 126/73 (90) Pulse Ox 94 O2 Delivery Room Air (JESS PERLA APRN) Vital Signs Capillary Refill : Less Than 3 Seconds (KING DOYLE MD) Blood Pressure Mean: 90 Height, Weight, BMI Height: 5'11.00" Weight: 214lbs. 0.0oz. 97.155287ji; 34.00 BMI Method:Estimated General Appearance: WD/WN, Mild Distress, Obese HEENT: PERRL/EOMI, Normal ENT Inspection, Other (oropharynx dry) Neck: Normal Inspection Respiratory: Lungs Clear, Normal Breath Sounds, No Accessory Muscle Use, No Respiratory Distress Cardiovascular: Regular Rate, Rhythm, No Edema, No Murmur Gastrointestinal: Normal Bowel Sounds, Soft, Tenderness (left mid abdomen) Extremity: Normal Inspection, No Pedal Edema Neurologic/Psychiatric: Alert, Oriented x3, No Motor/Sensory Deficits, Normal Mood/Affect, risk management manager II-XII Norm as Tested, Other (dystonic movements) Skin: normal color, warm/dry (KING DOYLE MD) Focused Exam Lactate Level 02/02/20 17:30: Lactic Acid Level 1.40 (JESS PERLA APRN) Lactic Acid Level Laboratory Tests Test 02/02/20 17:30 Lactic Acid Level 1.40 MMOL/L (0.50-2.00) (JESS PERLA APRN) Progress/Results/Core Measures Suspected Sepsis Recent Fever Within 48 Hours: Yes Infection Criteria Present: Suspected New Infection New/Unexplained Altered Menta: No Sepsis Screen: Possible Severe Sepsis Risk SIRS Temperature: Pulse: 97 Respiratory Rate: 24 Laboratory Tests 02/02/20 17:30: White Blood Count 18.0H Blood Pressure 126 /73 Mean: 90 02/02/20 17:30: Lactic Acid Level 1.40 Laboratory Tests 02/02/20 17:30: Creatinine 0.79, INR Comment 1.0, Platelet Count 290, Total Bilirubin 0.6 (KING DOYLE MD) Results/Orders Lab Results Laboratory Tests Test 02/02/20 17:30 02/02/20 17:42 Range/Units White Blood Count 18.0 H 4.3-11.0 10^3/uL Red Blood Count 5.11 4.35-5.85 10^6/uL Hemoglobin 13.5 13.3-17.7 G/DL Hematocrit 42 40-54 % Mean Corpuscular Volume 82 80-99 FL Mean Corpuscular Hemoglobin 26 25-34 PG Mean Corpuscular Hemoglobin Concent 32 32-36 G/DL Red Cell Distribution Width 17.2 H 10.0-14.5 % Platelet Count 290 130-400 10^3/uL Mean Platelet Volume 10.7 H 7.4-10.4 FL Neutrophils (%) (Auto) 88 H 42-75 % Lymphocytes (%) (Auto) 6 L 12-44 % Monocytes (%) (Auto) 5 0-12 % Eosinophils (%) (Auto) 0 0-10 % Basophils (%) (Auto) 0 0-10 % Neutrophils # (Auto) 15.9 H 1.8-7.8 X 10^3 Lymphocytes # (Auto) 1.1 1.0-4.0 X 10^3 Monocytes # (Auto) 1.0 0.0-1.0 X 10^3 Eosinophils # (Auto) 0.0 0.0-0.3 10^3/uL Basophils # (Auto) 0.0 0.0-0.1 10^3/uL Neutrophils % (Manual) 83 % Lymphocytes % (Manual) 7 % Monocytes % (Manual) 2 % Eosinophils % (Manual) 1 % Band Neutrophils 5 % Atypical Lymphocytes 2 % Poikilocytosis SLIGHT Basophilic Stippling SLIGHT Anisocytosis SLIGHT Prothrombin Time 13.8 12.2-14.7 SEC INR Comment 1.0 0.8-1.4 Activated Partial Thromboplast Time 38 H 24-35 SEC Sodium Level 134 L 135-145 MMOL/L Potassium Level 3.6 3.6-5.0 MMOL/L Chloride Level 101 98-107 MMOL/L Carbon Dioxide Level 23 21-32 MMOL/L Anion Gap 10 5-14 MMOL/L Blood Urea Nitrogen 9 7-18 MG/DL Creatinine 0.79 0.60-1.30 MG/DL Estimat Glomerular Filtration Rate > 60 BUN/Creatinine Ratio 11 Glucose Level 100 70-105 MG/DL Lactic Acid Level 1.40 0.50-2.00 MMOL/L Calcium Level 8.6 8.5-10.1 MG/DL Corrected Calcium 8.8 8.5-10.1 MG/DL Total Bilirubin 0.6 0.1-1.0 MG/DL Aspartate Amino Transf (AST/SGOT) 13 5-34 U/L Alanine Aminotransferase (ALT/SGPT) 11 0-55 U/L Alkaline Phosphatase 91 40-136 U/L C-Reactive Protein High Sensitivity 10.51 H 0.00-0.50 MG/DL B-Type Natriuretic Peptide 70.7 <100.0 PG/ML Total Protein 7.4 6.4-8.2 GM/DL Albumin 3.7 3.2-4.5 GM/DL Lipase 8 8-78 U/L Urine Color DARK YELLOW Urine Clarity CLEAR Urine pH 6.0 5-9 Urine Specific [place] 1.010 L 1.016-1.022 Urine Protein TRACE H NEGATIVE Urine Glucose (UA) NEGATIVE NEGATIVE Urine Ketones NEGATIVE NEGATIVE Urine Nitrite NEGATIVE NEGATIVE Urine Bilirubin NEGATIVE NEGATIVE Urine Urobilinogen 0.2 < = 1.0 MG/DL Urine Leukocyte Esterase TRACE H NEGATIVE Urine RBC (Auto) 2+ H NEGATIVE Urine RBC 25-50 H /HPF Urine WBC 5-10 H /HPF Urine Squamous Epithelial Cells 0-2 /HPF Urine Crystals NONE /LPF Urine Bacteria TRACE /HPF Urine Casts NONE /LPF Urine Mucus NEGATIVE /LPF Urine Culture Indicated NO Urine Opiates Screen NEGATIVE NEGATIVE Urine Oxycodone Screen NEGATIVE NEGATIVE Urine Methadone Screen NEGATIVE NEGATIVE Urine Propoxyphene Screen NEGATIVE NEGATIVE Urine Barbiturates Screen NEGATIVE NEGATIVE Ur Tricyclic Antidepressants Screen NEGATIVE NEGATIVE Urine Phencyclidine Screen NEGATIVE NEGATIVE Urine Amphetamines Screen NEGATIVE NEGATIVE Urine Methamphetamines Screen NEGATIVE NEGATIVE Urine Benzodiazepines Screen NEGATIVE NEGATIVE Urine Cocaine Screen NEGATIVE NEGATIVE Urine Cannabinoids Screen POSITIVE H NEGATIVE (JESS PERLA APRN) My Orders Orders - JESS PERLA APRN Ct Abd/Pelvis Wo(Kidney Stone) (02/02/20 17:53) BNP (02/02/20 18:52) Ceftriaxone For Iv Use (Rocephin For I (02/02/20 19:00) Coronavirus Sars-Cov-2 So 2019 (02/02/20 18:53) Fentanyl Injection (Sublimaze Injection (02/02/20 19:30) Covid 19 Inhouse Test (02/02/20 20:04) (JESS PERLA APRN) Medications Given in ED Current Medications Medications Dose Ordered Sig/[place] Route Start Time Stop Time Status Last Admin Dose Admin Ceftriaxone Sodium 1000 mg/ Sterile Water 10 ml @ 200 mls/hr ONCE ONCE IV 02/02/20 19:00 02/02/20 19:02 DC 02/02/20 19:33 200 MLS/HR Fentanyl Citrate 50 mcg ONCE ONCE IVP 02/02/20 19:30 02/02/20 19:31 DC 02/02/20 19:34 50 MCG Ondansetron HCl 4 mg ONCE ONCE IVP 02/02/20 17:00 02/02/20 17:01 DC 02/02/20 17:32 4 MG (JESS PERLA APRN) Vital Signs/I&O 02/02/20 16:45 Temp 38.7 Pulse 97 Resp 24 B/P (MAP) 126/73 (90) Pulse Ox 94 O2 Delivery Room Air (JESS PERLA APRN) Vital Signs/I&O Capillary Refill : Less Than 3 Seconds (KING DOYLE MD) Blood Pressure Mean: 90 Progress Note : Time: 18:08 Progress Note Patient was initially treated with IV fluids and Zofran. Septic workup is being pursued. Care is being transitioned to Jess Perla NP at this time. Albuterol inhaler was given for his wheezing. There is evidence of pyelonephritis with UTI noted on urinalysis and an elevated WBC. CT is pending. (KING DOYLE MD) Diagnostic Imaging Diagonstic Imaging: Xray Plain Films/CT/US/NM/MRI: chest Comments NAME: JENNIFER BUSTAMANTE [facility] REC#: [id number] PT STATUS: REG ER : 1960 PHYSICIAN: KING DOYLE MD ADMIT DATE: 02/02/20/ER Draft Date of Exam:02/02/20 CHEST 1 VIEW, AP/PA ONLY INDICATION: Wheezing. COMPARISON: 01/13/2020. EXAMINATION: Single frontal radiographic view of the chest was obtained. FINDINGS: Mild cardiomegaly and pulmonary vascular congestion. Lungs also show diffuse prominence of the interstitium. There is no large effusion or pneumothorax. Osseous structures show no acute abnormality. Sternotomy wires are noted. IMPRESSION: 1. Mild diffuse prominence of pulmonary interstitium. 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 Interstitial pneumonia may have a similar appearance. Clinical correlation is recommended. 2. Mild cardiomegaly and vascular congestion as well. Dictated on workstation # [id number] Dict: 02/02/20 1826 Trans: 02/02/20 1830 [facility] [id number] Interpreted by: NICOLLE BROWN MD Electronically signed by: NAME: JENNIFER BUSTAMANTE [facility] REC#: [id number] PT STATUS: REG ER : 1960 PHYSICIAN: JESS PERLA DISPATCHER SERVICE OR WORK ADMIT DATE: 02/02/20/ER Draft Date of Exam:02/02/20 CT ABD/PELVIS WO(KIDNEY STONE) CT Abd/pelvis w/o(kidney stone) TECHNIQUE: Unenhanced CT imaging of the abdomen and pelvis was performed. 2-D reformats are created and submitted for interpretation. Automatic exposure controls were utilized to optimize patient dose. INDICATION: Left flank pain. Recent left renal stone. COMPARISON: CT abdomen and pelvis from 01/13/2020. FINDINGS: Evaluation of the abdominal viscera is mildly limited without contrast. Lower chest: Right middle lobe 12 mm pulmonary nodule has not changed. No new mass or consolidation within lung bases. Peritoneum: No free intraperitoneal air or fluid. Liver and biliary system: Unenhanced liver is normal. Cholecystectomy. No pathologic biliary duct dilatation. Spleen and Pancreas: Spleen is normal. Unenhanced pancreas is grossly normal. Adrenals: Normal. tract: Left nephroureteral stent is well-positioned and left hydronephrosis has resolved. The previously noted left UPJ stone has been removed. There remain bilateral nonobstructing stones measuring between 3-5 mm. No ureteral stone on either side. No solid renal mass. Urinary bladder is normally filled without wall thickening. GI tract: Stomach is decompressed. No bowel obstruction. No pericolonic inflammatory changes. Normal appendix. Vasculature and Lymph nodes: Normal caliber aorta with moderate atherosclerotic plaquing. No abdominal or pelvic lymphadenopathy. Musculoskeletal: No concerning osseous lesion. IMPRESSION: 1. Left nephroureteral stent is well-positioned and there is no residual left hydronephrosis. The obstructing left UPJ stone has been removed. 2. Bilateral nonobstructing renal stones are otherwise stable. 3. No acute abnormality in the abdomen or pelvis. Dictated on workstation # [id number] Dict: 02/02/20 1836 Trans: 02/02/20 1844 [facility] [id number] Interpreted by: LIBRA IVAN MD Electronically signed by: (JESS PERLA APRN) Departure Communication (Admissions) Time/Spoke to Admitting Phy: 20:10 Fever was 38.7 on arrival chest x-ray was read as possibly interstitial edema but his BNP is normal. We will admit on Rocephin, swab for Covid, oxygen saturation has been around 89-92% on room air. Will give supplemental oxygen as needed. Spoke with Dr. Jackson, agrees to admit. (JESS PERLA APRN) Impression Primary Impression: Leukocytosis Qualified Codes: D72.829 - Elevated white blood cell count, unspecified Additional Impressions: Shortness of breath left ureteral stent Disposition: 01 HOME, SELF-CARE Condition: Stable Admissions Decision to Admit Reason: Admit from ER (General) Decision to Admit/Date: Feb 02, 2020 Time/Decision to Admit Time: 20:10 (JESS PERLA APRN) Departure-Patient Inst. Referrals: MIRELLA GONZALES MD (PCP/Family) Primary Care Physician KING DOYLE MD Feb 02, 2020 18:08 JESS PERLA APRN Feb 02, 2020 18:51
[2020-02-02 18:12] LABS: ANISOCYTOSIS SLIGHT; ATYPICAL LYMPHOCYTES 2 %; BAND NEUTROPHILS 5 %; EOSINOPHILS % (MANUAL) 1 %; LYMPHOCYTES % (MANUAL) 7 %; MONOCYTES % (MANUAL) 2 %; NEUTROPHILS % (MANUAL) 83 %; POIKILOCYTOSIS SLIGHT
--- NOTE | 2020-02-02 18:30 | Diagnostic Imaging Report ---
INDICATION: Wheezing. COMPARISON: 01/13/2020. EXAMINATION: Single frontal radiographic view of the chest was obtained. FINDINGS: Mild cardiomegaly and pulmonary vascular congestion. Lungs also show diffuse prominence of the interstitium. There is no large effusion or pneumothorax. Osseous structures show no acute abnormality. Sternotomy wires are noted. IMPRESSION: 1. Mild diffuse prominence of pulmonary interstitium. This is favored to be new accounts banking representative of interstitial pulmonary edema. Interstitial pneumonia may have a similar appearance. Clinical correlation is recommended. 2. Mild cardiomegaly and vascular congestion as well. Dictated by: Dictated on workstation # [id number]
--- NOTE | 2020-02-02 18:44 | Diagnostic Imaging Report ---
CT Abd/pelvis w/o(kidney stone) TECHNIQUE: Unenhanced CT imaging of the abdomen and pelvis was performed. 2-D reformats are created and submitted for interpretation. Automatic exposure controls were utilized to optimize patient dose. INDICATION: Left flank pain. Recent left renal stone. COMPARISON: CT abdomen and pelvis from 01/13/2020. FINDINGS: Evaluation of the abdominal viscera is mildly limited without contrast. Lower chest: Right middle lobe 12 mm pulmonary nodule has not changed. No new mass or consolidation within lung bases. Peritoneum: No free intraperitoneal air or fluid. Liver and biliary system: Unenhanced liver is normal. Cholecystectomy. No pathologic biliary duct dilatation. Spleen and Pancreas: Spleen is normal. Unenhanced pancreas is grossly normal. Adrenals: Normal. tract: Left nephroureteral stent is well-positioned and left hydronephrosis has resolved. The previously noted left UPJ stone has been removed. There remain bilateral nonobstructing stones measuring between 3-5 mm. No ureteral stone on either side. No solid renal mass. Urinary bladder is normally filled without wall thickening. GI tract: Stomach is decompressed. No bowel obstruction. No pericolonic inflammatory changes. Normal appendix. Vasculature and Lymph nodes: Normal caliber aorta with moderate atherosclerotic plaquing. No abdominal or pelvic lymphadenopathy. Musculoskeletal: No concerning osseous lesion. IMPRESSION: 1. Left nephroureteral stent is well-positioned and there is no residual left hydronephrosis. The obstructing left UPJ stone has been removed. 2. Bilateral nonobstructing renal stones are otherwise stable. 3. No acute abnormality in the abdomen or pelvis. Dictated by: Dictated on workstation # [id number]
[2020-02-02] MEDS ORDERED: cefTRIAXone FOR IV USE 1,000 MG in WATER (STERILE) FOR INJECTION 10 ML IV ONE (19:00)
[2020-02-02] MEDS ORDERED: fentaNYL INJECTION 100 MCG/2 ML AMP IVP ONE (19:30)
[2020-02-02] MEDS ORDERED: NS IV 1000 ML 1,000 ML ONE (22:01)
[2020-02-02 22:04] VITALS: BP 142/71
--- NOTE | 2020-02-02 22:05 | NUR ---
JENNIFER BUSTAMANTE admitted to room 421-1, with an admitting diagnosis of Leukocytosis, Left ureteral stent, fever, pneumonia on 02/02/20 from ED via , accompanied by ED STAFF. JENNIFER BUSTAMANTE introduced to surroundings, call light, bed controls, phone, TV, temperature control, lights, meal times, smoking policy, visitor policy, side rail policy, bathrooms and showers. Patient Rights given to patient in the handbook. JENNIFER BUSTAMANTE verbalizes understanding that [facility] is not responsible for the loss or damage to any personal effects or valuables that are kept in the patients posession during their hospitalization. JENNIFER BUSTAMANTE verbalizes understanding of Interdisciplinary Patient Education. Patient and/or family were informed about the Rapid Response Team and its purpose.
--- NOTE | 2020-02-02 22:09 | NUR ---
PT'S ORDERS FROM ED MISSING DIET. THIS RN CALLED ED TO CLARIFY DIET ORDER. ORDER FOR LOW SODIUM DIET RECEIVED.
[2020-02-02] MEDS ORDERED: ONDANSETRON 4 MG/2 ML (SDV) Z0FRAN IVP PRN (22:15)
--- NOTE | 2020-02-02 22:22 | NUR ---
PT REQUESTING A COUPLE HOME MEDICATIONS AT THIS TIME. GABAPENTIN 600 MG PO TID AND LYRICA [address] STANTON NOTIFIED. NEW ORDERS TO RESTART THESE MEDICATIONS GIVEN AT THIS TIME.
[2020-02-02] MEDS: NS IV 1000 ML 1,000 ML IV SCH (22:29)
[2020-02-02] MEDS ORDERED: GABAPENTIN 600 MG (NEURONTIN) TAB PO ONE (22:30)
[2020-02-02] MEDS ORDERED: PREGABALIN 75 MG (LYRICA) CAP PO ONE (22:30)
[2020-02-02] MEDS ORDERED: GABAPENTIN 600 MG (NEURONTIN) TAB ONE (22:39)
[2020-02-02] MEDS: HYDROcodone/APAP 5 MG/325 MG (LORTAB) TAB PO PRN (22:56)
[2020-02-03 00:32] VITALS: BP 114/58
[2020-02-03] MEDS: RT-ALBUTEROL INHALER HFA (VENTOLIN HFA) 18 GM IH SCH ×6 (02:59→23:37)
[2020-02-03] MEDS: HYDROcodone/APAP 5 MG/325 MG (LORTAB) TAB PO PRN ×3 (03:15→18:27)
[2020-02-03 04:00] VITALS: BP 102/54
[2020-02-03 08:41] LABS: BASOPHILS % (AUTO) 0 % (0-10); EOSINOPHILS # (AUTO) 0.1 10^3/uL (0.0-0.3); EOSINOPHILS % (AUTO) 0 % (0-10); HEMATOCRIT 41 % (40-54); HEMOGLOBIN 13.1 G/DL (13.3-17.7); LYMPHOCYTES # (AUTO) 1.1 X 10^3 (1.0-4.0); LYMPHOCYTES % (AUTO) 6 % (12-44); MEAN CORPUSCULAR HEMOGLOBIN 27 PG (25-34); MEAN CORPUSCULAR HGB CONC 32 G/DL (32-36); MEAN CORPUSCULAR VOLUME 83 FL (80-99); MEAN PLATELET VOLUME 10.8 FL (7.4-10.4); MONOCYTES # (AUTO) 1.6 X 10^3 (0.0-1.0); MONOCYTES % (AUTO) 8 % (0-12); NEUTROPHILS # (AUTO) 16.5 X 10^3 (1.8-7.8); NEUTROPHILS % (AUTO) 85 % (42-75); PLATELET COUNT 256 10^3/uL (130-400); WHITE BLOOD COUNT 19.3 10^3/uL (4.3-11.0)
[2020-02-03 08:56] LABS: ALBUMIN 3.5 GM/DL (3.2-4.5); CHLORIDE 102 MMOL/L (98-107); POTASSIUM 3.6 MMOL/L (3.6-5.0); SODIUM 136 MMOL/L (135-145)
[2020-02-03 08:57] LABS: CALCIUM 8.5 MG/DL (8.5-10.1)
[2020-02-03 08:58] LABS: GLUCOSE 140 MG/DL (70-105); TOTAL PROTEIN 7.1 GM/DL (6.4-8.2)
[2020-02-03 08:59] LABS: CARBON DIOXIDE 24 MMOL/L (21-32)
[2020-02-03 09:00] LABS: BILIRUBIN,TOTAL 0.4 MG/DL (0.1-1.0)
[2020-02-03 09:02] LABS: ALKALINE PHOSPHATASE 88 U/L (40-136); GFR ESTIMATED > 60
[2020-02-03 09:03] LABS: BUN/CREATININE RATIO 10
[2020-02-03 09:05] LABS: ALANINE AMINOTRANSFERASE 9 U/L (0-55)
[2020-02-03] MEDS: GABAPENTIN 600 MG (NEURONTIN) TAB PO SCH ×3 (10:33→20:04)
[2020-02-03] MEDS: PREGABALIN 75 MG (LYRICA) CAP PO SCH ×3 (10:33→20:05)
[2020-02-03] MEDS: NS IV 1000 ML 1,000 ML IV SCH ×3 (10:33→23:58)
[2020-02-03] MEDS: IBUPROFEN 600 MG (MOTRIN) TAB PO PRN ×2 (10:46→20:05)
[2020-02-03] MEDS ORDERED: ACETAMINOPHEN 325 MG TABLET PO PRN (11:45)
[2020-02-03 12:15] VITALS: BP 99/58
--- NOTE | 2020-02-03 12:28 | History & Physical-Hospitalist ---
History of Present Illness HPI/Chief Complaint Chief complaint: Sepsis History of present illness: This is a 59-year-old white male who presented with shortness of breath hypoxia and fever and required a COVID swab. Patient was in isolation and PPE was used during exam. Rocephin was initiated for UTI considering her any had a stent in place due to lithotripsy performed by local urologist. Currently he is doing much better feels a lot of chronic pain and he has had some fevers but all of that is much improved since admission. Source: patient Exam Limitations: no limitations Date Seen 02/03/20 Time Seen by a Provider: 10:45 Attending Physician Jenn Jackson DO PCP Demetri Duckworth MD Referring Physician Date of Admission Feb 02, 2020 at 20:08 Home Medications & Allergies Home Medications Reviewed patient Home Medication Reconciliation performed by pharmacy medication reconciliations geotechnicial properties technician and/or nursing. Patients Allergies have been reviewed. Allergies Allergies Coded Allergies morphine (Verified Allergy, Unknown, TAKES LORTAB AT HOME, 08/03/08) Past Lzgcjwp-Sabwno-Oanrqf Hx Past Med/Social Hx: Reviewed Nursing Past Med/Soc Hx, Reviewed and Corrections made Patient Social History Marrital Status: single Employed/Student: unemployed Alcohol Use: Denies Use Recreational Drug Use: Yes (SMOKES 2 PPD) Drug of Choice: POT, states hx meth use (quit 18 months ago) Smoking Status: Current Everyday Smoker Type Used: Cigarettes 2nd Hand Smoke Exposure: Yes Recent Foreign Travel: No Contact w/other who traveled: No Recent Hopitalizations: No Recent Infectious Disease Expo: No Immunizations Up To Date Tetanus Booster (TDap): Unknown Pediatric: Yes Date of Pneumonia Vaccine: May 31, 2015 Seasonal Allergies Seasonal Allergies: No Past Medical History Surgeries: CABG, Eye Surgery, Gallbladder Currently Using CPAP: No Currently Using BIPAP: No Cardiac: Coronary Artery Disease, High Cholesterol, Hypertension Reproductive: No Genitourinary: Kidney Stones Psychosocial: Suicide Attempts, Schizophrenia History of Blood Disorders: No Adverse Reaction to Blood Marley: No Family History Patient reports no known family medical history. Diabetes, Hypertension Review of Systems Constitutional: see HPI, dizziness, fever, malaise, weakness Respiratory: cough, dyspnea on exertion Physical Exam Physical Exam Vital Signs Vital Signs - First Documented 02/02/20 02/03/20 02/03/20 16:45 00:32 03:18 Temp 38.7 Pulse 97 Resp 24 B/P (MAP) 126/73 (90) Pulse Ox 94 O2 Delivery Room Air O2 Flow Rate 1.50 FiO2 93 Capillary Refill : Less Than 3 Seconds Height, Weight, BMI Height: 5'11.00" Weight: 214lbs. 0.0oz. [id number]; 34.99 BMI Method:Estimated General Appearance: No Apparent Distress, Anxious, Chronically ill Eyes: Right Eye Normal Inspection, Right Eye PERRL HEENT: PERRL/EOMI, Normal ENT Inspection, Pharynx Normal, Moist Mucous Membranes Neck: Full Range of Motion, Normal Inspection, Non Tender Respiratory: Chest Non Tender, Lungs Clear, Normal Breath Sounds, No Accessory Muscle Use, No Respiratory Distress Cardiovascular: Regular Rate, Rhythm, No Edema, No Gallop, No JVD, No Murmur, Normal Peripheral Pulses Gastrointestinal: Normal Bowel Sounds, No Organomegaly, No Pulsatile Mass, Non Tender, Soft Back: Normal Inspection, No CVA Tenderness, No Vertebral Tenderness Extremity: Normal Capillary Refill, Normal Inspection, Normal Range of Motion, Non Tender, No Calf Tenderness, No Pedal Edema Neurologic/Psychiatric: Alert, Oriented x3, No Motor/Sensory Deficits, Normal Mood/Affect Skin: Normal Color, Warm/Dry Lymphatic: No Adenopathy Results Results/Procedures Labs Laboratory Tests 02/02/20 17:30 02/03/20 08:27 Patient resulted labs reviewed. Assessment/Plan Admission Diagnosis Assessment: Sepsis Presumed UTI Ureteral stent in place Cough Hypoxia COVID swabbed Plan: Await COVID swab Isolation Rocephin line gentle IV fluids Fever treatment Admission Status: Inpatient Order (span 2 midnights) Reason for Inpatient Admission: sepsis Diagnosis/Problems Diagnosis/Problems (1) Fever (2) LEFT URETERAL STENT (3) Shortness of breath Status: Acute (4) Leukocytosis Status: Acute Qualifiers: Leukocytosis type: unspecified Qualified Codes: D72.829 - Elevated white blood cell count, unspecified (5) Hyperlipidemia Status: Chronic (6) Hypertension Status: Chronic Clinical Quality Measures DVT/VTE Risk/Contraindication: Risk Factor Score Per Nursin RFS Level Per Nursing on Admit: 3=High JENN JACKSON DO Feb 03, 2020 12:28
[2020-02-03] MEDS: ENOXAPARIN 40 MG/0.4 ML (LOVENOX) SYR SC SCH (12:58)
[2020-02-03 16:22] VITALS: BP 91/52
[2020-02-03 17:30] VITALS: BP 126/76
[2020-02-03] MEDS: cefTRIAXone 1,000 MG/SWFI 10 ML IV PUSH IV SCH ×2 (19:53)
[2020-02-03 19:55] VITALS: BP 139/86
--- NOTE | 2020-02-03 21:45 | NUR ---
LAB CALLED AND NOTIFIED THAT THIS PT COVID RESULT CAME BACK NEGATIVE. DR STANTON INFORMED AND NEW ORDER TO DC ISOLATION PRECAUTIONS
[2020-02-04 00:13] VITALS: BP 108/60
[2020-02-04] MEDS: RT-ALBUTEROL INHALER HFA (VENTOLIN HFA) 18 GM IH SCH ×6 (01:48→21:58)
[2020-02-04] MEDS: HYDROcodone/APAP 5 MG/325 MG (LORTAB) TAB PO PRN ×4 (02:14→20:27)
[2020-02-04 04:18] VITALS: BP 110/64
--- NOTE | 2020-02-04 06:31 | Progress Note - Hospitalist ---
Subjective HPI/CC On Admission Date Seen by Provider: Feb 04, 2020 Time Seen by Provider: 11:00 Chief complaint: Sepsis History of present illness: This is a 59-year-old white male who presented with shortness of breath hypoxia and fever and required a COVID swab. Patient was in isolation and PPE was used during exam. Rocephin was initiated for UTI considering her any had a stent in place due to lithotripsy performed by local urologist. Currently he is doing much better feels a lot of chronic pain and he has had some fevers but all of that is much improved since admission. Subjective/Events-last exam Staph in 08/01 BCx Added Vanc Spoke to Dr Tucker since lithotripsy performed last week Has had abx for 3 months essentially Review of Systems General: Fatigue, Malaise Focused Exam Lactate Level 02/02/20 17:30: Lactic Acid Level 1.40 Objective Exam Vital Signs Vital Signs Date Time Temp Pulse Resp B/P (MAP) Pulse Ox O2 Delivery O2 Flow Rate FiO2 02/04/20 16:15 38.3 92 20 102/68 (79) 95 Room Air 02/03/20 10:12 0.50 02/03/20 03:18 93 Capillary Refill : Less Than 3 Seconds General Appearance: No Apparent Distress, WD/WN, Chronically ill Respiratory: Chest Non Tender, Lungs Clear, Normal Breath Sounds, No Accessory Muscle Use, No Respiratory Distress Cardiovascular: Regular Rate, Rhythm, No Edema, No Gallop, No JVD, No Murmur, Normal Peripheral Pulses Results/Procedures Lab Laboratory Tests 02/04/20 06:51 Patient resulted labs reviewed. Assessment/Plan Assessment and Plan Assess & Plan/Chief Complaint Assessment: Sepsis Staph bacteremia Presumed UTI Ureteral stent in place Cough Hypoxia COVID swabbed Plan: Await COVID swab Isolation Rocephin line gentle IV fluids Fever treatment Vancomycin Diagnosis/Problems Diagnosis/Problems (1) Fever (2) LEFT URETERAL STENT (3) Shortness of breath Status: Acute (4) Leukocytosis Status: Acute Qualifiers: Leukocytosis type: unspecified Qualified Codes: D72.829 - Elevated white blood cell count, unspecified (5) Hyperlipidemia Status: Chronic (6) Hypertension Status: Chronic Clinical Quality Measures DVT/VTE Risk/Contraindication: Risk Factor Score Per Nursin RFS Level Per Nursing on Admit: 3=High NAVA STANTON DO Feb 04, 2020 06:30
[2020-02-04 07:06] LABS: BASOPHILS % (AUTO) 0 % (0-10); EOSINOPHILS % (AUTO) 0 % (0-10); HEMATOCRIT 41 % (40-54); HEMOGLOBIN 13.1 G/DL (13.3-17.7); LYMPHOCYTES % (AUTO) 7 % (12-44); MEAN CORPUSCULAR HEMOGLOBIN 27 PG (25-34); MEAN CORPUSCULAR HGB CONC 32 G/DL (32-36); MEAN CORPUSCULAR VOLUME 83 FL (80-99); MEAN PLATELET VOLUME 10.7 FL (7.4-10.4); MONOCYTES # (AUTO) 0.7 X 10^3 (0.0-1.0); MONOCYTES % (AUTO) 5 % (0-12); NEUTROPHILS # (AUTO) 13.1 X 10^3 (1.8-7.8); NEUTROPHILS % (AUTO) 88 % (42-75); PLATELET COUNT 230 10^3/uL (130-400); WHITE BLOOD COUNT 14.9 10^3/uL (4.3-11.0)
[2020-02-04 07:19] LABS: ALANINE AMINOTRANSFERASE 9 U/L (0-55); ALBUMIN 3.1 GM/DL (3.2-4.5); ALKALINE PHOSPHATASE 84 U/L (40-136); BILIRUBIN,TOTAL 0.3 MG/DL (0.1-1.0); BUN/CREATININE RATIO 15; CALCIUM 8.5 MG/DL (8.5-10.1); CARBON DIOXIDE 22 MMOL/L (21-32); CHLORIDE 107 MMOL/L (98-107); CREATININE SERUM 0.71 MG/DL (0.60-1.30); GFR ESTIMATED > 60; GLUCOSE 121 MG/DL (70-105); POTASSIUM 3.6 MMOL/L (3.6-5.0); SODIUM 138 MMOL/L (135-145); TOTAL PROTEIN 6.2 GM/DL (6.4-8.2)
[2020-02-04 08:00] VITALS: BP 121/68
[2020-02-04] MEDS: VANCOMYCIN INJECTION 1,000 MG in NS (IVPB) 250 ML IV SCH ×2 (09:23→20:27)
[2020-02-04] MEDS: PREGABALIN 75 MG (LYRICA) CAP PO SCH ×3 (09:23→20:27)
[2020-02-04] MEDS: GABAPENTIN 600 MG (NEURONTIN) TAB PO SCH ×3 (09:23→20:27)
[2020-02-04] MEDS: NS IV 1000 ML 1,000 ML IV SCH (09:30)
--- NOTE | 2020-02-04 09:30 | NUR ---
LORTAB 5 PO FOR GENERAL DISCOMFORT.
[2020-02-04 12:00] VITALS: BP 120/63
[2020-02-04] MEDS ORDERED: DULO20CA19 PO (12:35)
[2020-02-04] MEDS ORDERED: TMSL.4C PO (12:35)
[2020-02-04] MEDS ORDERED: MIRT45TA75 PO (12:35)
[2020-02-04] MEDS: ENOXAPARIN 40 MG/0.4 ML (LOVENOX) SYR SC SCH (12:48)
[2020-02-04] MEDS: DULoxetine 20 MG (CYMBALTA) CAP PO SCH (12:48)
--- NOTE | 2020-02-04 12:52 | NUR ---
HERE. STATES SHE FORGOT TO BRING HOME MED LIST. STILL UNABLE TO RECONCILE HOME MEDS.
--- NOTE | 2020-02-04 14:23 | Diagnostic Imaging Report ---
REASON FOR EXAM: Left-sided stones. COMPARISON: 02/02/2020. TECHNIQUE: 2 views of the abdomen FINDINGS: A left ureteral stent is visualized in appropriate configuration. No unexpected calcifications are seen along the course of the ureters bilaterally. Focal calcifications are noted in the expected location of the kidneys representing previously noted nonobstructing calculi. The bowel gas pattern is nondistended. No large collection of free intraperitoneal air is seen. A moderate amount of gas and fecal material are present in the colon. No abnormal extraosseous calcifications are present. The osseous structures are age-appropriate. IMPRESSION: 1. Left ureteral stent in place. No calcifications are seen along the expected course of the ureters to suggest obstructing calculi. Bilateral nonobstructive calculi are again noted. 2. No evidence of bowel obstruction or large collection of free intraperitoneal air. 3. Moderate amount of stool in the colon, suggestive of constipation. Dictated by: Dictated on workstation # [id number]
--- NOTE | 2020-02-04 15:30 | NUR ---
TEMP 38.3. PT PULLED RT EJ OUT WHILE SHOWERING. SITE CLEAR. LORTAB PO FOR C/O GENERAL DISCOMFORT AND MOTRIN PO FOR ELEVATED TEMP.
[2020-02-04] MEDS: IBUPROFEN 600 MG (MOTRIN) TAB PO PRN (15:55)
[2020-02-04 16:15] VITALS: BP 102/68
[2020-02-04] MEDS: TAMSULOSIN 0.4 MG (FLOMAX) CAP PO SCH (17:32)
[2020-02-04 19:21] VITALS: BP 106/68
[2020-02-04] MEDS: cefTRIAXone 1,000 MG/SWFI 10 ML IV PUSH IV SCH ×2 (20:27)
[2020-02-04] MEDS: MIRTAZAPINE 15 MG (REMERON) TAB PO SCH (20:30)
[2020-02-05] VITALS (7 sets, daily range): BP systolic 102–157; BP diastolic 57–80
[2020-02-05] MEDS: HYDROcodone/APAP 5 MG/325 MG (LORTAB) TAB PO PRN ×4 (01:50→22:02)
[2020-02-05] MEDS: RT-ALBUTEROL INHALER HFA (VENTOLIN HFA) 18 GM IH SCH ×6 (04:36→21:58)
--- NOTE | 2020-02-05 06:45 | Progress Note - Hospitalist ---
Subjective HPI/CC On Admission Date Seen by Provider: Feb 05, 2020 Time Seen by Provider: 16:30 Chief complaint: Sepsis History of present illness: This is a 59-year-old white male who presented with shortness of breath hypoxia and fever and required a COVID swab. Patient was in isolation and PPE was used during exam. Rocephin was initiated for UTI considering her any had a stent in place due to lithotripsy performed by local urologist. Currently he is doing much better feels a lot of chronic pain and he has had some fevers but all of that is much improved since admission. Subjective/Events-last exam Patient doing well today Wants WILMER Kent treating bacteremia Reviewed KUB Consult Dr Baker Review of Systems General: Fatigue, Malaise Focused Exam Lactate Level 02/02/20 17:30: Lactic Acid Level 1.40 Objective Exam Vital Signs Vital Signs Date Time Temp Pulse Resp B/P (MAP) Pulse Ox O2 Delivery O2 Flow Rate FiO2 02/05/20 16:24 36.6 72 20 129/61 (83) 95 Room Air 02/03/20 10:12 0.50 02/03/20 03:18 93 Capillary Refill : Less Than 3 SecondsLess Than 3 Seconds General Appearance: No Apparent Distress, WD/WN, Chronically ill Respiratory: Chest Non Tender, Lungs Clear, Normal Breath Sounds, No Accessory Muscle Use, No Respiratory Distress Cardiovascular: Regular Rate, Rhythm, No Edema, No Gallop, No JVD, No Murmur, Normal Peripheral Pulses Neurologic/Psychiatric: Alert, Oriented x3, No Motor/Sensory Deficits, Normal Mood/Affect Results/Procedures Lab Laboratory Tests 02/05/20 07:53 Patient resulted labs reviewed. Assessment/Plan Assessment and Plan Assess & Plan/Chief Complaint Assessment: Sepsis Staph bacteremia Presumed UTI Ureteral stent in place Cough Hypoxia COVID swabbed Plan: Await COVID swab Isolation Rocephin line gentle IV fluids Fever treatment Vancomycin 02/05/20: WILMER Baker consult for low suspicion for endocarditis Diagnosis/Problems Diagnosis/Problems (1) Fever (2) LEFT URETERAL STENT (3) Shortness of breath Status: Acute (4) Leukocytosis Status: Acute Qualifiers: Leukocytosis type: unspecified Qualified Codes: D72.829 - Elevated white blood cell count, unspecified (5) Hyperlipidemia Status: Chronic (6) Hypertension Status: Chronic Clinical Quality Measures DVT/VTE Risk/Contraindication: Risk Factor Score Per Nursin RFS Level Per Nursing on Admit: 3=High NAVA STANTON DO Feb 05, 2020 06:45
[2020-02-05 08:29] LABS: BASOPHILS % (AUTO) 0 % (0-10); EOSINOPHILS # (AUTO) 0.1 10^3/uL (0.0-0.3); EOSINOPHILS % (AUTO) 1 % (0-10); HEMATOCRIT 37 % (40-54); HEMOGLOBIN 11.8 G/DL (13.3-17.7); LYMPHOCYTES # (AUTO) 1.4 X 10^3 (1.0-4.0); LYMPHOCYTES % (AUTO) 11 % (12-44); MEAN CORPUSCULAR HEMOGLOBIN 26 PG (25-34); MEAN CORPUSCULAR HGB CONC 32 G/DL (32-36); MEAN CORPUSCULAR VOLUME 82 FL (80-99); MEAN PLATELET VOLUME 11.4 FL (7.4-10.4); MONOCYTES # (AUTO) 0.6 X 10^3 (0.0-1.0); MONOCYTES % (AUTO) 5 % (0-12); NEUTROPHILS % (AUTO) 84 % (42-75); PLATELET COUNT 237 10^3/uL (130-400); WHITE BLOOD COUNT 13.1 10^3/uL (4.3-11.0)
[2020-02-05 08:49] LABS: ALBUMIN 3.1 GM/DL (3.2-4.5)
[2020-02-05 08:50] LABS: CHLORIDE 108 MMOL/L (98-107); POTASSIUM 3.2 MMOL/L (3.6-5.0); SODIUM 140 MMOL/L (135-145)
[2020-02-05 08:51] LABS: CALCIUM 8.4 MG/DL (8.5-10.1)
[2020-02-05 08:52] LABS: GLUCOSE 145 MG/DL (70-105); TOTAL PROTEIN 6.5 GM/DL (6.4-8.2)
[2020-02-05 08:53] LABS: CARBON DIOXIDE 22 MMOL/L (21-32)
[2020-02-05 08:54] LABS: BILIRUBIN,TOTAL 0.2 MG/DL (0.1-1.0)
[2020-02-05 08:55] LABS: ALKALINE PHOSPHATASE 90 U/L (40-136)
[2020-02-05 08:56] LABS: CREATININE SERUM 0.82 MG/DL (0.60-1.30); GFR ESTIMATED > 60
[2020-02-05 08:57] LABS: BUN/CREATININE RATIO 13
[2020-02-05 08:58] LABS: ALANINE AMINOTRANSFERASE 11 U/L (0-55)
[2020-02-05] MEDS ORDERED: VANCOMYCIN INJECTION 1,500 MG in NS IV 500 ML 500 ML IV SCH ×2 (09:00→21:00)
[2020-02-05] MEDS: GABAPENTIN 600 MG (NEURONTIN) TAB PO SCH ×3 (09:19→21:15)
[2020-02-05] MEDS: PREGABALIN 75 MG (LYRICA) CAP PO SCH ×3 (09:19→21:15)
[2020-02-05] MEDS: DULoxetine 20 MG (CYMBALTA) CAP PO SCH (09:19)
[2020-02-05] MEDS: VANCOMYCIN INJECTION 1,000 MG in NS (IVPB) 250 ML IV SCH (09:29)
--- NOTE | 2020-02-05 09:30 | NUR ---
LORTAB PO FOR PAIN.
[2020-02-05] MEDS ORDERED: VANCOMYCIN 500 MG/NS 100 ML IV ONE ×2 (10:00)
[2020-02-05] MEDS ORDERED: KCL 10 MEQ TAB (MICRO K) PO NR (10:45)
[2020-02-05] MEDS: ENOXAPARIN 40 MG/0.4 ML (LOVENOX) SYR SC SCH (12:03)
--- NOTE | 2020-02-05 16:55 | Consultation-Cardiology ---
HPI-Cardiology Cardiology Consultation: Date of Consultation 02/05/20 Date of Admission Attending Physician Jenn Stanton DO Admitting Physician Demetri Duckworth MD Consulting Physician Jess BAKER MD HPI: Time Seen by a Provider: 16:55 Chief Complaint: UTI sepsis This is a 59-year-old gentleman who presented to the ER with complains of left- sided abdominal pain and fever. He had recently had lithotripsy and urethral stone on 01/23/2020. Mild shortness of breath and wheezing. He has history of CAD/CABG. He also has PAD with interventions done in fall off 2018. Methamphetamine abuse and active smoking. He denied any chest pain or shortness of breath on my visit. Pertinent family history is positive. Review of Systems-Cardiology Review of Systems Constitutional: As described under HPI; No As described under HPI, No no symptoms reported, No chills, No fever, No lightheadedness Eyes: No As described under HPI, No no symptoms reported, No blindness, No blurred vision, No contact lenses, No drainage, No decreased acuity, No foreign body sensation, No pain, No vision change Ears/Nose/Throat: No As described under HPI, No no symptoms reported, No chronic hearing loss, No ear discharge, No ear pain, No nasal drainage, No ulcerations Respiratory: No no symptoms reported; As described under HPI; No As described under HPI, No cough, No orthopnea, No shortness of breath, No SOB with excertion Cardiovascular: No no symptoms reported; As described under HPI; No As described under HPI, No chest pain, No edema, No irregular heart rate, No lightheadedness, No palpitations Gastrointestinal: No no symptoms reported, No As described under HPI, No abdomen distended; abdominal pain; No blood streaked bowels, No constipation, No diarrhea, No nausea, No vomiting, No stool coloration changes Genitourinary: As described under HPI, burning; No dysuria, No discharge, No frequency, No flank pain, No hematuria, No urgency Skin: No rash, No skin related problems, No ulcerations Psychiatric/Neurological: No anxiety, No depression, No seizure, No focal weakness, No syncope Hematologic: No bleeding abnormalities EMD-Kxembr-Sueuoc Hx Patient Social History Marrital Status: single Employed/Student: unemployed Alcohol Use: Denies Use Recreational Drug Use: Yes (SMOKES 2 PPD) Drug of Choice: POT, states hx meth use (quit 18 months ago) Smoking Status: Current Everyday Smoker Type Used: Cigarettes 2nd Hand Smoke Exposure: Yes Recent Foreign Travel: No Recent Infectious Disease Expo: No Hospitalization with Isolation: Denies Immunizations Up To Date Tetanus Booster (TDap): Unknown Date of Pneumonia Vaccine: May 31, 2015 Past Medical History PMH As described under Assessment. Family Medical History Family History: Patient reports no known family medical history. Allergies and Home Medications Allergies Coded Allergies: morphine (Verified Allergy, Unknown, TAKES LORTAB AT HOME, 08/03/08) Home Medications Aspirin 81 Mg Tablet.dr, 81 MG PO DAILY, (Reported) Clopidogrel Bisulfate 75 Mg Tablet, 75 MG PO DAILY, (Reported) Docusate Sodium 100 Mg Capsule, 200 MG PO DAILY, (Reported) Doxycycline Hyclate 100 Mg Tablet, 100 MG PO BID Prescribed by: JENN STANTON on 02/06/20 1053 Duloxetine HCl 20 Mg Capsule.dr, 20 MG PO BID, (Reported) Gabapentin 600 Mg Tablet, 600 MG PO QID, (Reported) Hydrocodone/Acetaminophen 1 Each Tablet, 1 TAB PO Q4H PRN for PAIN-MODERATE (5- 7) Prescribed by: JENN STANTON on 02/06/20 1053 Ibuprofen 800 Mg Tablet, 800 MG PO TID PRN for PAIN-MILD (1-4), (Reported) Isosorbide Dinitrate 20 Mg Tablet, 40 MG PO BID, (Reported) Mirtazapine 45 Mg Tablet, 45 MG PO HS, (Reported) Multivitamin 1 Each Tablet, 2 EACH PO DAILY, (Reported) Hiland 3 Polyunsat Fatty Acids 1,000 Mg Cap, 1,000 MG PO DAILY, (Reported) Pregabalin 75 Mg Capsule, 75 MG PO TID, (Reported) Simvastatin 80 Mg Tablet, 80 MG PO DAILY, (Reported) Solifenacin Succinate 5 Mg Tablet, 5 MG PO DAILY, (Reported) Tamsulosin HCl 0.4 Mg Cap, 0.4 MG PO DAILY, (Reported) Patient Home Medication List Home Medication List Reviewed: Yes Physical Exam-Cardiology Physical Exam Vital Signs/I&O 02/06/20 02/06/20 02/06/20 02/06/20 07:49 08:05 08:30 10:39 Temp 36.5 Pulse 74 Resp 18 B/P (MAP) 164/87 (112) Pulse Ox 95 95 94 O2 Delivery Room Air Room Air Room Air Room Air 02/06/20 02/06/20 11:39 14:20 Temp 36.8 36.8 Pulse 72 72 Resp 18 18 B/P (MAP) 143/75 (97) 143/75 Pulse Ox 94 94 O2 Delivery Room Air Room Air 02/06/20 00:00 Intake Total 1782 ml Output Total 1750 ml Balance 32 ml Capillary Refill : Less Than 3 SecondsLess Than 3 Seconds Constitutional: appears stated age, AAO x 3; No apparent distress; well- developed, well-nourished HEENT: PERRL; No discharge; hearing is well preserved, oral hygience is good; No ulceration, No xanthelasmas are seen Neck: No carotid bruit; carotid pulses are 2 + bilaterally Respiratory: chest is bilaterally symmetric, lungs clear to auscultation Cardiovascular: regular rate-rhythm, S1 and S2 Gastrointestinal: soft, audible bowel sounds; No spleenomegaly Rectal: deferred Extremities: normal range of motion, non-tender, normal inspection, pedal edema; No clubbing, No cyanosis, No significant edema Neurologic/Psychiatric: no motor/sensory deficits, alert, normal mood/affect, oriented x 3, power is 5/5 both on sides Skin: normal color, warm/dry Data Review Labs Laboratory Tests 02/06/20 08:02: White Blood Count 9.5, Red Blood Count 4.69, Hemoglobin 12.0L, Hematocrit 39L, Mean Corpuscular Volume 82, Mean Corpuscular Hemoglobin 26, Mean Corpuscular Hemoglobin Concent 31L, Red Cell Distribution Width 17.7H, Platelet Count 255, Mean Platelet Volume 11.1H, Neutrophils (%) (Auto) 70, Lymphocytes (%) (Auto) 22, Monocytes (%) (Auto) 7, Eosinophils (%) (Auto) 0, Basophils (%) (Auto) 0, Neutrophils # (Auto) 6.7, Lymphocytes # (Auto) 2.1, Monocytes # (Auto) 0.7, Eosinophils # (Auto) 0.0, Basophils # (Auto) 0.0, Sodium Level 142, Potassium Level 3.2L, Chloride Level 108H, Carbon Dioxide Level 24, Anion Gap 10, Blood Urea Nitrogen 9, Creatinine 0.94, Estimat Glomerular Filtration Rate > 60, BUN/Creatinine Ratio 10, Glucose Level 123H, Calcium Level 9.0, Corrected Calcium 9.6, Total Bilirubin 0.2, Aspartate Amino Transf (AST/SGOT) 17, Alanine Aminotransferase (ALT/SGPT) 13, Alkaline Phosphatase 103, Total Protein 6.8, Albumin 3.2, Vancomycin Level Trough 19.9 Microbiology 02/02/20 Blood Culture - Final, Complete Staphylococcus hominis A/P-Cardiology Assessment/Admission Diagnosis UTI sepsis, Urolithiasis, Recent urethral stent, History of CAD/CABG, History of PAD, peripheral interventions in 2019, Active smoking, Meth abuse. Plan UTI sepsis, Urolithiasis, Recent urethral stent, defer to Dr. Tucker and the primary team. History of CAD/CABG, continue outpatient medical therapy. Echocardiogram. History of PAD, peripheral interventions in 2019, no active complaints. Patient had , in iliac stent as well as SFA stenting. Active smoking, smoking cessation was strongly recommended. Meth abuse. Thank you for your consultation. Please call me if you have any questions. Julieth Baker MD, FACP, FACC, FSCAI, FHRS, CCDS Interventional Cardiology Cardiac Electrophysiology Vascular Medicine and Endovascular Interventions Clinical Quality Measures DVT/VTE Risk/Contraindication: Risk Factor Score Per Nursin RFS Level Per Nursing on Admit: 3=High Jess BAKER MD Feb 05, 2020 16:55
--- NOTE | 2020-02-05 16:56 | NUR ---
WAS HERE. CHECKED FOR HOME MEDICATION LIST TO RECONCILE MEDS AND WAS TOLD THAT SHE FORGOT IT AGAIN. UNABLE TO RECONCILE HOME MEDS.
[2020-02-05] MEDS: KCL 10 MEQ TAB (MICRO K) PO SCH (17:40)
[2020-02-05] MEDS: TAMSULOSIN 0.4 MG (FLOMAX) CAP PO SCH (17:40)
[2020-02-05] MEDS: MIRTAZAPINE 15 MG (REMERON) TAB PO SCH (21:16)
[2020-02-06] MEDS: RT-ALBUTEROL INHALER HFA (VENTOLIN HFA) 18 GM IH SCH ×3 (02:00→10:38)
[2020-02-06] MEDS: HYDROcodone/APAP 5 MG/325 MG (LORTAB) TAB PO PRN (02:02)
[2020-02-06 04:00] VITALS: BP 116/58
[2020-02-06] MEDS ORDERED: TROUGH ORDER-PHARMACY XX NR (08:00)
[2020-02-06] MEDS: KCL 10 MEQ TAB (MICRO K) PO SCH (08:04)
[2020-02-06 08:30] VITALS: BP 164/87
[2020-02-06 08:32] LABS: BASOPHILS % (AUTO) 0 % (0-10); EOSINOPHILS % (AUTO) 0 % (0-10); HEMATOCRIT 39 % (40-54); LYMPHOCYTES # (AUTO) 2.1 X 10^3 (1.0-4.0); LYMPHOCYTES % (AUTO) 22 % (12-44); MEAN CORPUSCULAR HEMOGLOBIN 26 PG (25-34); MEAN CORPUSCULAR HGB CONC 31 G/DL (32-36); MEAN CORPUSCULAR VOLUME 82 FL (80-99); MEAN PLATELET VOLUME 11.1 FL (7.4-10.4); MONOCYTES # (AUTO) 0.7 X 10^3 (0.0-1.0); MONOCYTES % (AUTO) 7 % (0-12); NEUTROPHILS # (AUTO) 6.7 X 10^3 (1.8-7.8); NEUTROPHILS % (AUTO) 70 % (42-75); PLATELET COUNT 255 10^3/uL (130-400); WHITE BLOOD COUNT 9.5 10^3/uL (4.3-11.0)
[2020-02-06 08:59] LABS: ALANINE AMINOTRANSFERASE 13 U/L (0-55); ALBUMIN 3.2 GM/DL (3.2-4.5); ALKALINE PHOSPHATASE 103 U/L (40-136); BILIRUBIN,TOTAL 0.2 MG/DL (0.1-1.0); BUN/CREATININE RATIO 10; CARBON DIOXIDE 24 MMOL/L (21-32); CHLORIDE 108 MMOL/L (98-107); CREATININE SERUM 0.94 MG/DL (0.60-1.30); GFR ESTIMATED > 60; GLUCOSE 123 MG/DL (70-105); POTASSIUM 3.2 MMOL/L (3.6-5.0); SODIUM 142 MMOL/L (135-145); TOTAL PROTEIN 6.8 GM/DL (6.4-8.2)
[2020-02-06 09:06] LABS: VANCOMYCIN,TROUGH 19.9 UG/ML (10.0-20.0)
[2020-02-06] MEDS: DULoxetine 20 MG (CYMBALTA) CAP PO SCH (09:09)
[2020-02-06] MEDS: PREGABALIN 75 MG (LYRICA) CAP PO SCH ×2 (09:09→13:13)
[2020-02-06] MEDS: GABAPENTIN 600 MG (NEURONTIN) TAB PO SCH ×2 (09:09→13:13)
[2020-02-06] MEDS ORDERED: GABA800T10 PO (09:47)
[2020-02-06] MEDS ORDERED: ASPI-1238 PO (09:47)
[2020-02-06] MEDS ORDERED: PREG75CA75 PO (09:47)
[2020-02-06] MEDS ORDERED: SIMV80TA21 PO (09:47)
[2020-02-06] MEDS ORDERED: CLOP75TA28 PO (09:47)
--- NOTE | 2020-02-06 09:47 | NUR ---
VANCOMYCIN DOSING TROUGH LEVEL 19.9 - DECREASED DOSE TO VANC 1250 MG Q12H
[2020-02-06] MEDS ORDERED: IBUP-1780 PO (09:53)
[2020-02-06] MEDS ORDERED: VANCOMYCIN 1250 MG/NS 250 ML IVPB IV SCH ×2 (10:00)
--- NOTE | 2020-02-06 10:01 | NUR ---
I SPOKE WITH THE PATIENT'S ZIGGY, AND WENT THROUGH THE EXTERNAL MED HISTORY TO COMPLETE THIS MED REC. OTC: FISH OIL ASPIRIN COLACE MULTI-VITAMIN I CHANGED THE CONTINUED DULOXETINE 20 MG FROM DAILY TO BID
[2020-02-06] MEDS ORDERED: ACHD5005 PO (10:53)
[2020-02-06] MEDS ORDERED: DOXY100T2 PO (10:53)
[2020-02-06 11:39] VITALS: BP 143/75
--- NOTE | 2020-02-06 12:04 | Physician Query Clarification ---
PQ-Link Infection to Dev/Proc Admission/Discharge Admission Date: Feb 02, 2020 at 20:08 Discharge Date: Dr. Jackson, The medical record reflects the following clinical scenario: History/Risk Factors: Sepsis UTI Recent lithotripsy procedure for ureteral calculus. Left nephroureteral stent. Clinical Findings: Blood culture positive for Staphylococcus hominis. Treatment:IV Rocephin and IV Vancomycin HCI 1,000mg. Question: Can you specify if the Sepsis is due to/associated with recent lithotripsy? Please document a response in Progress Note or Discharge Summary. 1. Yes - Sepsis is due to/associated with recent lithotripsy procedure with nephroureteral stent. 2. No - Sepsis is not due to/associated with recent lithotripsy procedure with nephroureteral stent. 3. Other, with explanation of the clinical findings. 4. Clinically undetermined, no explanation for the clinical findings. PHYSICIAN RESPONSE Specify if infection: 2 Please remember a lack of response to the above will prompt a phone page by CDI/Coding staff. In responding to this query, please exercise your independent professional venecia gment. The purpose of this communication is to more accurately reflect the complexity of your patients condition. The fact that a question is asked does not imply that any particular answer is desired or expected. Thank you for your timely response to this clarification. Requestors name: Kiana Gamboa [facility] Phone # ext [phone] or [phone] THIS PHYSICIAN QUERY FORM IS A PERMANENT PART OF THE MEDICAL RECORD KIANA GAMBOA Feb 06, 2020 12:04 NAVA JACKSON DO Feb 06, 2020 14:35
--- NOTE | 2020-02-06 12:43 | Discharge Summary ---
Discharge Summary Hospital Course Was the Problem List Reviewed?: Yes Problems/Dx: (1) Sepsis due to Staphylococcus hominis (2) Fever (3) LEFT URETERAL STENT (4) Shortness of breath Status: Acute (5) Leukocytosis Status: Acute Qualifiers: Qualified Codes: D72.829 - Elevated white blood cell count, unspecified (6) Hyperlipidemia Status: Chronic (7) Hypertension Status: Chronic (8) Bacteremia due to Staphylococcus Hospital Course Date of Admission: Feb 02, 2020 at 20:08 Admission Diagnosis : Family Physician/Provider: Demetri Duckworth MD Date of Discharge: 02/06/20 Discharge Diagnosis: Assessment: Sepsis Staph bacteremia Presumed UTI Ureteral stent in place Cough Hypoxia COVID swabbed Plan: Await COVID swab Isolation Rocephin line gentle IV fluids Fever treatment Vancomycin Hospital Course: Hospital course: Pt had an uneventful hospital course, he was admitted for fever and leukocytosis, COVID swab ultimately returned back negative, blood cultures returned back as Staphylococcus Hominis, Doxycycline was initiated after Vanc for four days and Pt was afebrile. Leukocytosis had resolved. Dr. Tucker saw him in consultation, he will see in one week and he will remain on antibiotics for an additional seven days. I did consult cardiology for endocarditis but he did not fit the clinical picture, he will see him in consultation just to be sure. If he has any reoccurrence of the fever, we will need to monitor that closely. Labs and Pending Lab Test: Laboratory Tests 02/06/20 08:02: White Blood Count 9.5, Red Blood Count 4.69, Hemoglobin 12.0L, Hematocrit 39L, Mean Corpuscular Volume 82, Mean Corpuscular Hemoglobin 26, Mean Corpuscular Hemoglobin Concent 31L, Red Cell Distribution Width 17.7H, Platelet Count 255, Mean Platelet Volume 11.1H, Neutrophils (%) (Auto) 70, Lymphocytes (%) (Auto) 2 2, Monocytes (%) (Auto) 7, Eosinophils (%) (Auto) 0, Basophils (%) (Auto) 0, Neutrophils # (Auto) 6.7, Lymphocytes # (Auto) 2.1, Monocytes # (Auto) 0.7, Eosinophils # (Auto) 0.0, Basophils # (Auto) 0.0, Sodium Level 142, Potassium Level 3.2L, Chloride Level 108H, Carbon Dioxide Level 24, Anion Gap 10, Blood Urea Nitrogen 9, Creatinine 0.94, Estimat Glomerular Filtration Rate > 60, BUN/Creatinine Ratio 10, Glucose Level 123H, Calcium Level 9.0, Corrected Calcium 9.6, Total Bilirubin 0.2, Aspartate Amino Transf (AST/SGOT) 17, Alanine Aminotransferase (ALT/SGPT) 13, Alkaline Phosphatase 103, Total Protein 6.8, Albumin 3.2, Vancomycin Level Trough 19.9 Microbiology 02/02/20 Blood Culture - Final, Complete Staphylococcus hominis Home Meds Active Doxycycline Hyclate 100 Mg Tablet 100 Mg PO BID Hydrocodone-Acetamin 5-325 mg (Hydrocodone/Acetaminophen) 1 Each Tablet 1 Tab PO Q4H PRN Reported Ibuprofen 800 Mg Tablet 800 Mg PO TID PRN Aspirin EC (Aspirin) 81 Mg Tablet.dr 81 Mg PO DAILY Clopidogrel (Clopidogrel Bisulfate) 75 Mg Tablet 75 Mg PO DAILY Simvastatin 80 Mg Tablet 80 Mg PO DAILY Pregabalin 75 Mg Capsule 75 Mg PO TID Flomax (Tamsulosin HCl) 0.4 Mg Cap 0.4 Mg PO DAILY Duloxetine HCl 20 Mg Capsule.dr 20 Mg PO BID Mirtazapine 45 Mg Tablet 45 Mg PO HS Vesicare (Solifenacin Succinate) 5 Mg Tablet 5 Mg PO DAILY Isosorbide Dinitrate 20 Mg Tablet 40 Mg PO BID Gabapentin 600 Mg Tablet 600 Mg PO QID Stool Softener (Docusate Sodium) 100 Mg Capsule 200 Mg PO DAILY Fish Oil 1,000 mg Capsule ([place] 3 Polyunsat Fatty Acids) 1,000 Mg Cap 1,000 Mg PO DAILY Multi-Vitamin Daily (Multivitamin) 1 Each Tablet 2 Each PO DAILY Assessment/Pt Instructions chc this week Discharge Planning: <30 minutes discharge planning Discharge Instructions Discharge Diet: No Restrictions Activity as Tolerated: Yes Discharge Physical Examination Vital Signs Vital Signs Date Time Temp Pulse Resp B/P (MAP) Pulse Ox O2 Delivery O2 Flow Rate FiO2 02/06/20 11:39 36.8 72 18 143/75 (97) 94 Room Air 02/03/20 10:12 0.50 02/03/20 03:18 93 General Appearance: No Apparent Distress, WD/WN Respiratory: Normal Breath Sounds Cardiovascular: Regular Rate, Rhythm Neurologic/Psychiatric: Alert, Oriented x3, Normal Mood/Affect Allergies: Coded Allergies: morphine (Verified Allergy, Unknown, TAKES LORTAB AT HOME, 08/03/08) Discharge Summary Date of Admission Feb 02, 2020 at 20:08 Date of Discharge Discharge Date: Feb 06, 2020 Admission Diagnosis Assessment: Sepsis Presumed UTI Ureteral stent in place Cough Hypoxia COVID swabbed Plan: Await COVID swab Isolation Rocephin line gentle IV fluids Fever treatment Discharge Diagnosis Assessment: Sepsis Staph bacteremia Presumed UTI Ureteral stent in place Cough Hypoxia COVID swabbed Plan: Await COVID swab Isolation Rocephin line gentle IV fluids Fever treatment Vancomycin 02/05/20: DC Rocephin Vanc Dr Baker consult for low suspicion for endocarditis (1) Fever (2) LEFT URETERAL STENT (3) Shortness of breath Status: Acute (4) Leukocytosis Status: Acute Qualifiers: Qualified Codes: D72.829 - Elevated white blood cell count, unspecified (5) Hyperlipidemia Status: Chronic (6) Hypertension Status: Chronic Clinical Quality Measures DVT/VTE Risk/Contraindication: Risk Factor Score Per Nursin RFS Level Per Nursing on Admit: 3=High NAVA STANTON DO Feb 06, 2020 12:43
[2020-02-06] MEDS: ENOXAPARIN 40 MG/0.4 ML (LOVENOX) SYR SC SCH (13:05)
[2020-02-06 14:20] VITALS: BP 143/75
--- NOTE | 2020-02-06 14:38 | CONSULTATION REPORT ---
DATE OF SERVICE: 02/06/2020 ATTENDING PHYSICIAN: Jenn Jackson DO SUMMARY: A 59-year-old white man with bilateral renal stones, who previously had an obstructing renal stone at the [facility] on the left side, was septic and dealt with insertion of a stent followed by a left ESWL on 01/23/2020, uneventful, went home and was supposed to see me back in the office today. However, he was admitted by Dr. Jackson for staph infection, which has been treated appropriately. He had a CT scan and a KUB that showed excellent results on ESWL on the obstructing stone, still has the small stone in the right kidney and then the stones in the left kidney, which will need to be addressed later on. He is responding well to the treatment. Denies any problem. His H and P was reviewed from Dr. Jackson and [place] previously and no change in mine. IMPRESSION: Bilateral renal stone post, left ESWL with staph infection. PLAN: Change the appointment today to next week later on once he recovers from infection. We will proceed with ESWL on the remaining stones in the left kidney. We recommend that he stays on antibiotic until he sees me at the office next week. The plan was fully explained to the patient and Dr. Jackson. Job ID: [id number] DocumentID: [id number] Dictated Date: 02/06/2020 10:08:04 Embedded Linux Developer Date: 02/06/2020 10:25:00 Dictated By: CALEB NGUYEN MD
--- NOTE | 2020-02-06 14:41 | NUR ---
RD ASSESSMENT PMHx: CAD; hypercholesterolemia; HTN; schizophrenia PT INTERACTION: Pt was awake and pleasant during nutrition assessment. Pt states current appetite is "so-so" and has been this way since admit. Note avg PO intake of 50-75% meals, per chart review. Pt states following a regular diet at home, and has no issues with chewing/swallowing food. Pt states no recent issues with nausea, vomiting, or diarrhea. Pt states recent issues with constipation, and that his last BM was 02/03. Note pt not currently on bowel regimen per chart review. Pt states recent wt changes "up and down." Note recent 5# wt loss x3w, per chart review. ABNORMAL NUTRITION-RELATED LAB VALUES LOW: K 3.2; HIGH: Cl 108; glu 123 Est. kcal needs: 1525 kcal | 15 kcal/kg Est. Pro needs: 82 g Pro | 0.8 g Pro/kg PES STATEMENT: Inadequate oral intake (NI-2.1) related to loss of appetite | constipation as evidenced by pt interview | avg PO intake 50-75% meals INTERVENTION: Continue with current diet order of 2000mg Na diet. Pt may benefit from nutrition supplementation if PO intake declines. Pt may benefit from more aggressive bowel regimen if constipation persists. Will continue to follow and reassess as pt needs, intake, and status change. MONITOR/EVALUATE: PO Intake; Plan of Care; Hydration Status; Weight Status; Lab Values Alonso Bates, MS, RD, LD
--- NOTE | 2020-02-06 16:27 | Cardiology Progress Note ---
Cardiology SOAP Progress Note Subjective: No cardiac complaints. Objective: I&O/Vital Signs 02/06/20 02/06/20 02/06/20 02/06/20 07:49 08:05 08:30 10:39 Temp 36.5 Pulse 74 Resp 18 B/P (MAP) 164/87 (112) Pulse Ox 95 95 94 O2 Delivery Room Air Room Air Room Air Room Air 02/06/20 02/06/20 11:39 14:20 Temp 36.8 36.8 Pulse 72 72 Resp 18 18 B/P (MAP) 143/75 (97) 143/75 Pulse Ox 94 94 O2 Delivery Room Air Room Air 02/06/20 00:00 Intake Total 1782 ml Output Total 1750 ml Balance 32 ml Weight (Pounds): 214 Weight (Ounces): 0.0 Weight (Calculated Kilograms): 97.115240 Constitutional: appears stated age, AAO x 3; No apparent distress; well- developed, well-nourished Respiratory: chest is bilaterally symmetric, lungs clear to auscultation Cardiovascular: regular rate-rhythm, S1 and S2 Gastrointestional: soft, audible bowel sounds; No spleenomegaly Extremities: normal range of motion, non-tender, normal inspection, pedal edema; No clubbing, No cyanosis, No significant edema Neurologic/Psychiatric: no motor/sensory deficits, alert, normal mood/affect, oriented x 3, power is 5/5 both on sides Skin: normal color, warm/dry Results/Procedures: Labs Laboratory Tests 02/06/20 08:02: White Blood Count 9.5, Red Blood Count 4.69, Hemoglobin 12.0L, Hematocrit 39L, Mean Corpuscular Volume 82, Mean Corpuscular Hemoglobin 26, Mean Corpuscular Hemoglobin Concent 31L, Red Cell Distribution Width 17.7H, Platelet Count 255, Mean Platelet Volume 11.1H, Neutrophils (%) (Auto) 70, Lymphocytes (%) (Auto) 22, Monocytes (%) (Auto) 7, Eosinophils (%) (Auto) 0, Basophils (%) (Auto) 0, Neutrophils # (Auto) 6.7, Lymphocytes # (Auto) 2.1, Monocytes # (Auto) 0.7, Eosinophils # (Auto) 0.0, Basophils # (Auto) 0.0, Sodium Level 142, Potassium Level 3.2L, Chloride Level 108H, Carbon Dioxide Level 24, Anion Gap 10, Blood Urea Nitrogen 9, Creatinine 0.94, Estimat Glomerular Filtration Rate > 60, BUN/Creatinine Ratio 10, Glucose Level 123H, Calcium Level 9.0, Corrected Calcium 9.6, Total Bilirubin 0.2, Aspartate Amino Transf (AST/SGOT) 17, Alanine Aminotransferase (ALT/SGPT) 13, Alkaline Phosphatase 103, Total Protein 6.8, Albumin 3.2, Vancomycin Level Trough 19.9 Microbiology 02/02/20 Blood Culture - Final, Complete Staphylococcus hominis A/P: Assessment/Dx: UTI sepsis, Urolithiasis, Recent urethral stent, History of CAD/CABG, History of PAD, peripheral interventions in 2019, Active smoking, Meth abuse. Plan: UTI sepsis, Urolithiasis, Recent urethral stent, defer to Dr. Tucker and the primary team. History of CAD/CABG, continue outpatient medical therapy. Echocardiogram shows normal LV function with no wall motion abnormalities. No obvious vegetations on the valves. No significant valvular regurgitation. History of PAD, peripheral interventions in 2019, no active complaints. Patient had common iliac stent as well as SFA stenting. Active smoking, smoking cessation was strongly recommended. Meth abuse. Thank you for your consultation. Please call me if you have any questions. Julieth Baker MD, FACP, FACC, FSCAI, FHRS, CCDS Interventional Cardiology Cardiac Electrophysiology Vascular Medicine and Endovascular Interventions Jess BAKER MD Feb 06, 2020 16:27
== END 2020-02-06 14:20 | disposition home or self-care (01) | DRG 872 ==
LOC: EDUNIT# 16:28 → ER 16:29 → 4TH 20:08
PROVIDERS: ADMIT Internal Medicine; ATTEND Internal Medicine
DX: A41.1 Sepsis due to other specified staphylococcus (principal); N39.0 Urinary tract infection, site not specified; N20.0 Calculus of kidney; R91.1 Solitary pulmonary nodule; F17.210 Nicotine dependence, cigarettes, uncomplicated; I25.10 Atherosclerotic heart disease of native coronary artery without angina pectoris; I10 Essential (primary) hypertension; E78.00 Pure hypercholesterolemia, unspecified; E78.5 Hyperlipidemia, unspecified; E66.9 Obesity, unspecified; R09.02 Hypoxemia; Z98.890 Other specified postprocedural states; Z87.442 Personal history of urinary calculi; Z95.1 Presence of aortocoronary bypass graft; Z68.35 Body mass index [BMI] 35.0-35.9, adult; Z91.5 Personal history of self-harm; Z20.828 Contact with and (suspected) exposure to other viral communicable diseases
CPT/HCPCS: 36415; 71045; 74018; 74176; 80053; 80202; 80306; 81000; 83605; 83690; 83880; 85007; 85025; 85027; 85610; 85730; 86141; 87040; 87077; 87186; 87635; 93306; 94640; 94664; 94760

== ENCOUNTER → 2020-02-13 | Outpatient (CLI) | payer MEDICAID ==
[~2020-02-13] MED LIST changes: +DOXY100T2 PO; +DULO20CA19 PO; +GABA800T10 PO; +IBUP-1780 PO; +MIRT45TA75 PO; +PREG75CA75 PO
--- NOTE | 2020-02-13 16:57 | Diagnostic Imaging Report ---
EXAMINATION: Supine abdomen at 3:28 PM. INDICATION: Nephrolithiasis. FINDINGS: As noted on the prior exam of 02/04/2020, there is a ureteral stent in place on the left. There are also numerous calcifications overlying the left kidney. There is no sign of a calculus along the path of the stent, however. The prior exam also suggested nephrolithiasis on the right. That finding is again evident and no different. The right kidney is partially obscured by bowel gas and fecal material, however. The wire mesh stent overlying the left iliac artery seen previously is again evident. IMPRESSION: 1. The ureteral stent on the left remains in place. There is still no sign of a calculus along the path of the stent. 2. There are calculi overlying each kidney. Dictated by: Dictated on workstation # [id number]
== END ==
LOC: RAD 15:22
PROVIDERS: ATTEND Urology
DX: N20.0 Calculus of kidney (principal); Z96.0 Presence of urogenital implants; Z20.828 Contact with and (suspected) exposure to other viral communicable diseases
CPT/HCPCS: 74018

== ENCOUNTER 2020-02-15 05:42 | Outpatient (CLI) | payer MEDICAID ==
[~2020-02-15] VITALS: Ht 170 cm; Wt 105.0 kg
== END 2020-02-15 15:10 | disposition home or self-care (01) ==
LOC: PREOP 05:42
PROVIDERS: ATTEND Urology
DX: Z01.818 Encounter for other preprocedural examination (principal)

== ENCOUNTER 2020-02-20 06:09 | Day surgery (SDC) | payer MEDICAID ==
[~2020-02-20] VITALS: Ht 170 cm; Wt 105.0 kg
[2020-02-20] VITALS (9 sets, daily range): BP systolic 120–148; BP diastolic 79–88
[2020-02-20] MEDS ORDERED: LACTATED RINGERS 1,000 ML IV PRN (06:17)
[2020-02-20] MEDS ORDERED: ONDANSETRON 4 MG/2 ML (SDV) Z0FRAN ONE (06:30)
[2020-02-20] MEDS ORDERED: cefTRIAXone FOR IV USE 1,000 MG in WATER (STERILE) FOR INJECTION 10 ML IV ONE (06:30)
[2020-02-20] MEDS ORDERED: LIDOCAINE PF 2% 5 ML (XYLOCAINE) VIAL ONE (06:30)
[2020-02-20] MEDS ORDERED: proPOfol 200 MG/20 ML (DIPRIVAN) VIAL IV ONE (06:30)
[2020-02-20] MEDS ORDERED: SEVOFLURANE (ULTANE) 15 ML INHAL SOLN ONE ×3 (06:30→07:40)
[2020-02-20] MEDS ORDERED: fentaNYL INJECTION 100 MCG/2 ML AMP ONE (06:31)
[2020-02-20] MEDS ORDERED: MIDAZOLAM 2 MG/2 ML (VERSED) VIAL ONE (06:31)
[2020-02-20] MEDS ORDERED: CATHETER FLUSH 10 ML SYR IV PRN (07:00)
--- NOTE | 2020-02-20 07:01 | Progress Note-Pre Operative ---
Pre-Operative Progress Note H&P Reviewed The H&P was reviewed, patient examined and no changes noted. Date Seen by Provider: Feb 20, 2020 Time Seen by Provider: 07:01 Date H&P Reviewed: Feb 20, 2020 Time H&P Reviewed: 07:01 Pre-Operative Diagnosis: LT RENAL STONES CALEB NGUYEN MD Feb 20, 2020 07:01
--- NOTE | 2020-02-20 07:28 | Diagnostic Imaging Report ---
INDICATION: ESWL left renal stone EXAMINATION: Abdomen dated 02/20/2020 at 6:29 a.m. COMPARISON: 02/13/2020 FINDINGS: Left-sided ureteral stent is similar in appearance with a vascular stent in the left pelvis unchanged. Multiple hyperdensities in the left mid abdomen likely the known stones and similar to previous. Some vague hypodensities in the expected location of the right kidney also noted. There is evidence of previous cholecystectomy. Nonobstructive bowel gas pattern IMPRESSION: 1. Bilateral nephrolithiasis and a post procedure changes fairly stable to previous imaging. Dictated by: Dictated on workstation # [id number]
--- NOTE | 2020-02-20 07:30 | Discharge Inst-Urology ---
Discharge Inst-Urology Reconcile Patient Problems Problems Reviewed?: Yes Final Diagnosis LT RENAL STONES Patient Instructions/Follow Up Plan/Assessment/Instructions Please make appointment to been seen in office Sunday 03/04, KUB prior to it. KUB on way home Post ESWL instructions In 72 hours, if no bleedings, may resume ASA and Plavix Increase oral fluids for 48 hours and then as needed. Diet and Activity as tolerated. If questions or concerns contact your physician Or seek help at emergency department. CALEB NGUYEN MD Feb 20, 2020 07:30
--- NOTE | 2020-02-20 07:31 | Progress Note-Post Operative ---
Post-Operative Progess Note Surgeon (s)/Regulatory Affairs Portfolio Leader (s) Surgeon CALEB NGUYEN MD Regulatory Affairs Portfolio Leader: NONE Pre-Operative Diagnosis LT RENAL STONES Post-Operative Diagnosis SAME Procedure & Operative Findings Date of Procedure 02/20/20 Procedure Performed/Findings LT ESWL Anesthesia Type GENERAL Estimated Blood Loss Estimated blood loss (mL): NONE Specimens/Packing Specimens Removed NONE Packing: NONE CALEB NGUYEN MD Feb 20, 2020 07:31
[2020-02-20] MEDS ORDERED: KETOROLAC 30 MG/ML VIAL ONE (07:41)
[2020-02-20] MEDS ORDERED: FUROSEMIDE 40 MG/4 ML INJ (LASIX) ONE (07:41)
[2020-02-20] MEDS ORDERED: TMSL.4C PO (09:00)
[2020-02-20] MEDS ORDERED: NITR-65 PO (09:00)
[2020-02-20] MEDS ORDERED: TRM50T PO (09:00)
--- NOTE | 2020-02-20 12:23 | Diagnostic Imaging Report ---
INDICATION: Status post lithotripsy. COMPARISON: 02/18/2020 at 6:29 AM. FINDINGS: Stable position of left nephroureteral stent. The cluster of mineralizations projecting over the lower pole of the left kidney are less well-defined than prior exam. No new mineralizations are seen. Cholecystectomy. Nonobstructive bowel gas pattern. Small volume of stool within the right hemicolon is unchanged. IMPRESSION: 1. Left renal calculi are less well-defined status post lithotripsy, and this may be due to fragmentation. Dictated by: Dictated on workstation # [id number]
--- NOTE | 2020-02-20 12:25 | OPERATIVE REPORT ---
DATE OF SERVICE: 02/20/2020 PREOPERATIVE DIAGNOSIS: Left renal stones. POSTOPERATIVE DIAGNOSIS: Left renal stones. OPERATION PERFORMED: Left ESWL. SURGEON: Marlon Nguyen MD ANESTHESIA: General. COMPLICATIONS: None. DESCRIPTION OF PROCEDURE: Under satisfactory general anesthesia, the patient in supine position on the ESWL table. We localized the left renal stones in groups and delivered shocks at kV of 6, a total of 3000 shocks, distributed among the different groups. The stones looked fragmented well. The patient received 40 mg of Lasix and 30 mg of Toradol IV. He tolerated the procedure and anesthesia well and was sent to recovery room in stable condition. Job ID: [id number] DocumentID: [id number] Dictated Date: 02/20/2020 07:44:17 Field Foreman Date: 02/20/2020 12:25:18 Dictated By: MARLON NGUYEN MD
--- NOTE | 2020-02-20 14:32 | Anesthesia-General Post-Op ---
General Patient Condition Mental Status/LOC: Same as Preop Cardiovascular: Satisfactory Nausea/Vomiting: Absent Respiratory: Satisfactory Pain: Controlled Complications: Absent Post Op Complications Complications None Follow Up Care/Instructions Patient Instructions None needed. Anesthesia/Patient Condition Patient Condition Patient is doing well, no complaints, stable vital signs, no apparent adverse anesthesia problems. No complications reported per nursing. MARIO WANG CRNA Feb 20, 2020 14:32
== END 2020-02-20 09:50 | disposition home or self-care (01) ==
LOC: SDC 06:09
PROVIDERS: ATTEND Urology
DX: N20.0 Calculus of kidney (principal); N40.0 Benign prostatic hyperplasia without lower urinary tract symptoms; N52.9 Male erectile dysfunction, unspecified; I73.9 Peripheral vascular disease, unspecified; E70.0 Classical phenylketonuria; M19.91 Primary osteoarthritis, unspecified site; F32.9 Major depressive disorder, single episode, unspecified; I25.119 Atherosclerotic heart disease of native coronary artery with unspecified angina pectoris; I11.0 Hypertensive heart disease with heart failure; E78.5 Hyperlipidemia, unspecified; F20.9 Schizophrenia, unspecified; F17.210 Nicotine dependence, cigarettes, uncomplicated; Z11.2 Encounter for screening for other bacterial diseases; Z88.5 Allergy status to narcotic agent; Z79.82 Long term (current) use of aspirin; Z79.02 Long term (current) use of antithrombotics/antiplatelets; Z79.899 Other long term (current) drug therapy; Z95.1 Presence of aortocoronary bypass graft
CPT/HCPCS: 74018; 87081

== ENCOUNTER → 2020-02-26 | Outpatient (CLI) | payer MEDICAID ==
[~2020-02-26] MED LIST changes: +CATHETER FLUSH 10 ML SYR IV PRN; +HOLD METFORMIN - RECEIVED CONTRAST 20 ML VIAL IV SCH; +IOHEXOL 350 MG/ML 100 ML (OMNIPAQUE 350) VIAL IV ONE; +NS 100 ML (IVPB) BAG IV ONE
[2020-02-26 11:41] LABS: CALCIUM 8.7 MG/DL (8.5-10.1); CREATININE SERUM 1.85 MG/DL (0.60-1.30); POTASSIUM 3.3 MMOL/L (3.6-5.0); TOTAL PROTEIN 6.7 GM/DL (6.4-8.2)
--- NOTE | 2020-02-26 12:12 | Diagnostic Imaging Report ---
PROCEDURE: CT neck soft tissue with contrast. TECHNIQUE: Multiple contiguous axial images were obtained through the neck after the administration of contrast. Auto Exposure Controls were utilized during the CT exam to meet ALARA standards for radiation dose reduction. INDICATION: Left-sided neck mass. Reportedly, there is clinical concern regarding left neck mass. However, at the time of this exam, the patient could not clearly identify a mass. Consequently a marker was not placed over the area of concern. There is no mass or adenopathy identified. The parotid and submandibular glands appear symmetrical and within normal limits. The thyroid gland does not appear to be enlarged. The thyroid gland was partially obscured by streak artifact, but the thyroid gland does not seem to have changed significantly since the prior CT cervical spine exam of 11/12/2017. The tracheal air shadow is not compressed or deviated. The bone windows show no evidence for fracture or for destructive lesion. The degenerative disc and bony disease at C5-C6 and C6-C7 seen on the prior CT cervical spine exam is again evident and has not progressed. There is still narrowing of the neural foramen on the right at C5-C6 and moderate central stenosis at C6-C7. The intracranial contents of the lung apices were visualized are unremarkable for an acute abnormality. IMPRESSION: 1. There is no mass lesion identified. There is no adenopathy noted either. 2. There is no acute abnormality of the neck. Dictated by: Dictated on workstation # [id number]
== END ==
LOC: RAD 11:15
PROVIDERS: ATTEND Internal Medicine
DX: R22.1 Localized swelling, mass and lump, neck (principal)
CPT/HCPCS: 36415; 70491; 80053

== ENCOUNTER 2020-02-28 22:44 | Inpatient (IN) | payer MEDICAID ==
[~2020-02-28] VITALS: Ht 170 cm; Wt 99.4 kg
[~2020-02-28 22:44] MED LIST changes: -CATHETER FLUSH 10 ML SYR IV PRN; -HOLD METFORMIN - RECEIVED CONTRAST 20 ML VIAL IV SCH; -IOHEXOL 350 MG/ML 100 ML (OMNIPAQUE 350) VIAL IV ONE; -NS 100 ML (IVPB) BAG IV ONE
--- NOTE | 2020-02-28 23:15 | NUR ---
PT PROVIDED URINAL UNABLE TO VOID AT THIS TIME.
[2020-02-28 23:24] LABS: BASOPHILS # (AUTO) 0.1 10^3/uL (0.0-0.1); BASOPHILS % (AUTO) 0 % (0-10); EOSINOPHILS # (AUTO) 0.4 10^3/uL (0.0-0.3); EOSINOPHILS % (AUTO) 3 % (0-10); HEMATOCRIT 42 % (40-54); HEMOGLOBIN 13.4 g/dL (13.3-17.7); LYMPHOCYTES # (AUTO) 1.3 10^3/uL (1.0-4.0); LYMPHOCYTES % (AUTO) 8 % (12-44); MEAN CORPUSCULAR HEMOGLOBIN 26 pg (25-34); MEAN CORPUSCULAR HGB CONC 32 g/dL (32-36); MEAN CORPUSCULAR VOLUME 81 fL (80-99); MEAN PLATELET VOLUME 11.4 fL (9.0-12.2); MONOCYTES % (AUTO) 6 % (0-12); NEUTROPHILS # (AUTO) 12.7 10^3/uL (1.8-7.8); NEUTROPHILS % (AUTO) 80 % (42-75); PLATELET COUNT 296 10^3/uL (130-400); WHITE BLOOD COUNT 15.9 10^3/uL (4.3-11.0)
[2020-02-28 23:35] LABS: ALBUMIN 3.1 GM/DL (3.2-4.5)
[2020-02-28 23:36] LABS: PROTHROMBIN TIME PATIENT 13.3 SEC (12.2-14.7)
[2020-02-28 23:37] LABS: CALCIUM 8.7 MG/DL (8.5-10.1)
[2020-02-28 23:38] LABS: TOTAL PROTEIN 6.8 GM/DL (6.4-8.2)
[2020-02-28 23:42] LABS: CREATININE SERUM 1.72 MG/DL (0.60-1.30)
[2020-02-28 23:48] LABS: ANISOCYTOSIS SLIGHT; BAND NEUTROPHILS 6 %; EOSINOPHILS % (MANUAL) 4 %; LYMPHOCYTES % (MANUAL) 9 %; METAMYELOCYTES % 2 %; MICROCYTOSIS SLIGHT; MONOCYTES % (MANUAL) 9 %; NEUTROPHILS % (MANUAL) 70 %; SPHEROCYTES SLIGHT
[2020-02-28] MEDS ORDERED: NS IV 1000 ML 1,000 ML IV SCH (23:58)
[2020-02-29] VITALS (7 sets, daily range): BP systolic 99–147; BP diastolic 70–87
[2020-02-29] MEDS ORDERED: POTASSIUM CL 10MEQ/50ML IVPB 50 ML IV ONE
[2020-02-29 01:37] LABS: BILIRUBIN,URINE NEGATIVE (NEGATIVE); CLARITY,URINE CLOUDY; COLOR,URINE YELLOW; GLUCOSE, URINE (UA) NEGATIVE (NEGATIVE); KETONES,URINE NEGATIVE (NEGATIVE); LEUKOCYTE ESTERASE ,URINE 3+ (NEGATIVE); NITRITE,URINE NEGATIVE (NEGATIVE); PROTEIN,URINE 2+ (NEGATIVE)
[2020-02-29 01:45] LABS: BACTERIA,URINE MODERATE /HPF; RBC,URINE 50-100 /HPF; WBC,URINE TNTC /HPF
[2020-02-29 01:50] LABS: AMPHETAMINE SCREEN, URINE NEGATIVE (NEGATIVE); BARBITURATE SCREEN URINE NEGATIVE (NEGATIVE); BENZODIAZEPINES SCREEN URINE NEGATIVE (NEGATIVE); CANNABINOID SCREEN, URINE NEGATIVE (NEGATIVE); COCAINE SCREEN URINE NEGATIVE (NEGATIVE); METHADONE STAT NEGATIVE (NEGATIVE); METHAMPHETAMINE SCREEN URINE S NEGATIVE (NEGATIVE); OPIATE SCREEN URINE POSITIVE (NEGATIVE); OXYCODONE STAT NEGATIVE (NEGATIVE); PROPOXYPHENE STAT NEGATIVE (NEGATIVE); TRICYCLIC ANTIDEPRESSANTS SCRE NEGATIVE (NEGATIVE)
[2020-02-29] MEDS ORDERED: cefTRIAXone FOR IV USE 1,000 MG in WATER (STERILE) FOR INJECTION 10 ML IV ONE (02:00)
--- NOTE | 2020-02-29 02:10 | ED Abdominal Pain ---
General Chief Complaint: Abdominal/GI Problems Stated Complaint: FEVER/SOA Nursing Triage Note: C/O ABDOMINAL PAIN/SOA X9 DAYS S/P LITHOTRIPSY. INTERMITTANT FEVER Sepsis Screen: Possible Severe Sepsis Risk Source of Information: Patient, Old Records Exam Limitations: No Limitations History of Present Illness Date Seen by Provider: Feb 28, 2020 Time Seen by Provider: 23:05 Initial Comments This 59-year-old man presents to the emergency room with generalized abdominal pain and intermittent fever since having lithotripsy 8 days ago. He reports his symptoms have not really changed in that amount of time. He also has felt a little short of breath which he attributes to heart failure. Patient also has a history of left ureteral stent placement. Allergies and Home Medications Allergies Coded Allergies: morphine (Verified Allergy, Unknown, TAKES LORTAB AT HOME, 08/03/08) Home Medications Docusate Sodium 100 Mg Capsule, 200 MG PO DAILY, (Reported) Duloxetine HCl 20 Mg Capsule.dr, 20 MG PO BID, (Reported) Gabapentin 600 Mg Tablet, 600 MG PO QID, (Reported) Hydrocodone/Acetaminophen 1 Each Tablet, 1 TAB PO Q4H PRN for PAIN-MODERATE (5- 7) Prescribed by: NAVA STANTON on 02/06/20 1053 Ibuprofen 800 Mg Tablet, 800 MG PO TID PRN for PAIN-MILD (1-4), (Reported) Isosorbide Dinitrate 20 Mg Tablet, 40 MG PO BID, (Reported) Mirtazapine 45 Mg Tablet, 45 MG PO HS, (Reported) Multivitamin 1 Each Tablet, 2 EACH PO DAILY, (Reported) Nitrofurantoin Monohyd/M-Cryst 100 Mg Capsule, 1 TAB PO BID Prescribed by: JU JOHNSON on 02/20/20 0900 [place] 3 Polyunsat Fatty Acids 1,000 Mg Cap, 1,000 MG PO DAILY, (Reported) Pregabalin 75 Mg Capsule, 75 MG PO TID, (Reported) Simvastatin 80 Mg Tablet, 80 MG PO DAILY, (Reported) Solifenacin Succinate 5 Mg Tablet, 5 MG PO DAILY, (Reported) Tamsulosin HCl 0.4 Mg Cap, 0.4 MG PO DAILY, (Reported) Tamsulosin HCl 0.4 Mg Cap, 0.4 MG PO DAILY Prescribed by: JU JOHNSON on 02/20/20 09 Tramadol HCl 50 Mg Tablet, 1-2 TAB PO Q4H PRN for PAIN-MILD (1-4) Prescribed by: JU JOHNSON on 02/20/20 0900 Patient Home Medication List Home Medication List Reviewed: Yes Review of Systems Review of Systems Constitutional: see HPI EENTM: No Symptoms Reported Respiratory: See HPI Cardiovascular: See HPI Gastrointestinal: See HPI Genitourinary: See HPI Musculoskeletal: no symptoms reported Skin: no symptoms reported Psychiatric/Neurological: No Symptoms Reported Endocrine: No Symptoms Reported Hematologic/Lymphatic: No Symptoms Reported Past Upkwgxk-Oinubu-Gykybc Hx Past Med/Social Hx: Reviewed Nursing Past Med/Soc Hx Patient Social History Alcohol Use: Denies Use Recreational Drug Use: No Drug of Choice: HX Smoking Status: Current Everyday Smoker Type Used: Cigarettes 2nd Hand Smoke Exposure: Yes Recent Foreign Travel: No Contact w/Someone Who Travel: No Recent Infectious Disease Expo: No Recent Hopitalizations: No Immunizations Up To Date Tetanus Booster (TDap): Unknown PED Vaccines UTD: No Date of Pneumonia Vaccine: May 31, 2015 Seasonal Allergies Seasonal Allergies: No Past Medical History Surgeries: Yes (BYPASS X 3, kidney stones,LITHOTRIPSY) CABG, Eye Surgery, Gallbladder, Renal (left ureteral stent) Respiratory: Yes Currently Using CPAP: No Currently Using BIPAP: No Cardiac: Yes Coronary Artery Disease, High Cholesterol, Hypertension Neurological: No Reproductive Disorders: No Genitourinary: Yes Kidney Stones Gastrointestinal: No Musculoskeletal: No Endocrine: No HEENT: No Cancer: No Psychosocial: Yes Suicide Attempts, Schizophrenia Integumentary: No Blood Disorders: No Adverse Reaction/Blood Tranf: No Family Medical History Patient reports no known family medical history. Diabetes, Hypertension Physical Exam Vital Signs Vital Signs - First Documented 02/28/20 23:00 Temp 37.5 Pulse 102 Resp 24 B/P (MAP) 124/87 (99) Pulse Ox 96 O2 Delivery Room Air Capillary Refill : Less Than 3 Seconds Height/Weight/BMI Height: 5'11.00" Weight: 214lbs. 0.0oz. 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, no motor/sensory deficits, alert, normal mood/affect, oriented x 3 Skin: normal color, warm/dry Focused Exam Lactate Level 02/28/20 23:10: Lactic Acid Level 1.91 Lactic Acid Level Laboratory Tests Test 02/28/20 23:10 Lactic Acid Level 1.91 MMOL/L (0.50-2.00) Progress/Results/Core Measures Results/Orders Lab Results Laboratory Tests Test 02/28/20 23:10 02/29/20 01:29 Range/Units White Blood Count 15.9 H 4.3-11.0 10^3/uL Red Blood Count 5.17 4.30-5.52 10^6/uL Hemoglobin 13.4 13.3-17.7 g/dL Hematocrit 42 40-54 % Mean Corpuscular Volume 81 80-99 fL Mean Corpuscular Hemoglobin 26 25-34 pg Mean Corpuscular Hemoglobin Concent 32 32-36 g/dL Red Cell Distribution Width 17.8 H 10.0-14.5 % Platelet Count 296 130-400 10^3/uL Mean Platelet Volume 11.4 9.0-12.2 fL Immature Granulocyte % (Auto) 3 % Neutrophils (%) (Auto) 80 H 42-75 % Lymphocytes (%) (Auto) 8 L 12-44 % Monocytes (%) (Auto) 6 0-12 % Eosinophils (%) (Auto) 3 0-10 % Basophils (%) (Auto) 0 0-10 % Neutrophils # (Auto) 12.7 H 1.8-7.8 10^3/uL Lymphocytes # (Auto) 1.3 1.0-4.0 10^3/uL Monocytes # (Auto) 1.0 0.0-1.0 10^3/uL Eosinophils # (Auto) 0.4 H 0.0-0.3 10^3/uL Basophils # (Auto) 0.1 0.0-0.1 10^3/uL Immature Granulocyte # (Auto) 0.4 H 0.0-0.1 10^3/uL Neutrophils % (Manual) 70 % Lymphocytes % (Manual) 9 % Monocytes % (Manual) 9 % Eosinophils % (Manual) 4 % Metamyelocytes % 2 % Band Neutrophils 6 % Anisocytosis SLIGHT Microcytosis SLIGHT Spherocytes SLIGHT Prothrombin Time 13.3 12.2-14.7 SEC INR Comment 1.0 0.8-1.4 Activated Partial Thromboplast Time 36 H 24-35 SEC Sodium Level 135 135-145 MMOL/L Potassium Level 3.0 L 3.6-5.0 MMOL/L Chloride Level 99 98-107 MMOL/L Carbon Dioxide Level 21 21-32 MMOL/L Anion Gap 15 H 5-14 MMOL/L Blood Urea Nitrogen 20 H 7-18 MG/DL Creatinine 1.72 H 0.60-1.30 MG/DL Estimat Glomerular Filtration Rate 41 BUN/Creatinine Ratio 12 Glucose Level 132 H 70-105 MG/DL Lactic Acid Level 1.91 0.50-2.00 MMOL/L Calcium Level 8.7 8.5-10.1 MG/DL Corrected Calcium 9.4 8.5-10.1 MG/DL Total Bilirubin 1.0 0.1-1.0 MG/DL Aspartate Amino Transf (AST/SGOT) 30 5-34 U/L Alanine Aminotransferase (ALT/SGPT) 37 0-55 U/L Alkaline Phosphatase 306 H 40-136 U/L Lactate Dehydrogenase 124 L 125-220 U/L C-Reactive Protein High Sensitivity 8.38 H 0.00-0.50 MG/DL B-Type Natriuretic Peptide 127.6 H <100.0 PG/ML Total Protein 6.8 6.4-8.2 GM/DL Albumin 3.1 L 3.2-4.5 GM/DL Lipase 17 8-78 U/L Procalcitonin 1.80 H <0.10 NG/ML Urine Color YELLOW Urine Clarity CLOUDY Urine pH 7.0 5-9 Urine Specific [place] 1.010 L 1.016-1.022 Urine Protein 2+ H NEGATIVE Urine Glucose (UA) NEGATIVE NEGATIVE Urine Ketones NEGATIVE NEGATIVE Urine Nitrite NEGATIVE NEGATIVE Urine Bilirubin NEGATIVE NEGATIVE Urine Urobilinogen 0.2 < = 1.0 MG/DL Urine Leukocyte Esterase 3+ H NEGATIVE Urine RBC (Auto) 3+ H NEGATIVE Urine RBC 50-100 H /HPF Urine WBC TNTC H /HPF Urine Crystals NONE /LPF Urine Bacteria MODERATE H /HPF Urine Casts NONE /LPF Urine Mucus NEGATIVE /LPF Urine Culture Indicated CULTURE PENDING Urine Opiates Screen POSITIVE H NEGATIVE Urine Oxycodone Screen NEGATIVE NEGATIVE Urine Methadone Screen NEGATIVE NEGATIVE Urine Propoxyphene Screen NEGATIVE NEGATIVE Urine Barbiturates Screen NEGATIVE NEGATIVE Ur Tricyclic Antidepressants Screen NEGATIVE NEGATIVE Urine Phencyclidine Screen NEGATIVE NEGATIVE Urine Amphetamines Screen NEGATIVE NEGATIVE Urine Methamphetamines Screen NEGATIVE NEGATIVE Urine Benzodiazepines Screen NEGATIVE NEGATIVE Urine Cocaine Screen NEGATIVE NEGATIVE Urine Cannabinoids Screen NEGATIVE NEGATIVE My Orders Orders - KING DOYLE MD Cbc With Automated Diff (02/28/20 23:12) Comprehensive Metabolic Panel (02/28/20 23:12) Blood Culture (02/28/20 23:12) Sputum Culture (02/28/20 23:12) Urinalysis (02/28/20 23:12) Urine Culture (02/28/20 23:12) Protime With Inr (02/28/20 23:12) Partial Thromboplastin Time (02/28/20 23:12) Chest 1 View, Ap/Pa Only (02/28/20 23:12) Ed Iv/Invasive Line Start (02/28/20 23:12) Ed Iv/Invasive Line Start (02/28/20 23:12) Vital Signs Adult Sepsis Patie Q15M (02/28/20 23:12) O2 (02/28/20 23:12) Remove Rings In Anticipation O (02/28/20 23:12) Lactic Acid Analyzer (02/28/20 23:12) Procalcitonin (Pct) (02/28/20 23:12) Hs C Reactive Protein (02/28/20 23:12) LDH (02/28/20 23:12) BNP (02/28/20 23:12) Drug Screen Stat (Urine) (02/28/20 23:12) Manual Differential (02/28/20 23:10) Potassium Cl 10meq/50ml Ivpb (Kcl 10 Meq (02/29/20 00:00) Ns Iv 1000 Ml (Sodium Chloride 0.9%) (02/28/20 23:58) Ct Abd/Pelvis Wo(Kidney Stone) (02/29/20 00:27) Lipase (02/29/20 01:28) Ceftriaxone For Iv Use (Rocephin For I (02/29/20 02:00) Medications Given in ED Current Medications Medications Dose Ordered Sig/[place] Route Start Time Stop Time Status Last Admin Dose Admin Ceftriaxone Sodium 1000 mg/ Sterile Water 10 ml @ 200 mls/hr ONCE ONCE IV 02/29/20 02:00 02/29/20 02:02 DC 02/29/20 02:23 200 MLS/HR Potassium Chloride 50 ml @ 50 mls/hr ONCE ONCE IV 02/29/20 00:00 02/29/20 00:59 DC 02/29/20 00:30 50 MLS/HR Vital Signs/I&O 02/28/20 23:00 Temp 37.5 Pulse 102 Resp 24 B/P (MAP) 124/87 (99) Pulse Ox 96 O2 Delivery Room Air Blood Pressure Mean: 99 Progress Progress Note : Progress Note Septic workup was pursued. Patient was given replacement of potassium by IV route along with 1 L of normal saline. Antibiotic therapy with Rocephin was initiated. Cultures from prior admission were reviewed. Vancomycin was added on admission orders. Diagnostic Imaging Diagonstic Imaging: Xray Plain Films/CT/US/NM/MRI: chest Comments Chest x-ray viewed by me and report reviewed. See report below: NAME: JENNIFER BUSTAMANTE [employer] REC#: [id number] PT STATUS: ADM IN : 1960 PHYSICIAN: KING DOYLE MD ADMIT DATE: 02/29/20 Signed Date of Exam:02/28/20 CHEST 1 VIEW, AP/PA ONLY Indication: Sepsis Portable chest 7:43 PM There are postoperative changes from CABG surgery. Heart size and pulmonary vascularity are within normal limits. There is some discoid atelectasis right lung base. IMPRESSION: Right basilar discoid atelectasis Dictated by: Dictated on workstation # [id number] Dict: 02/29/20 0424 Trans: 02/29/20 0425 TB [id number] Interpreted by: MARIA GUADALUPE RODRIGUEZ MD Electronically signed by: MARIA GUADALUPE RODRIGUEZ MD 02/29/205 Diagonstic Imaging: CT Plain Films/CT/US/NM/MRI: abdomen, pelvis Comments In addition to known kidney stones and stent, there appears to be due to evidence of right pyelonephritis. CT scan reviewed by me and [facility] report reviewed. Departure Communication (Admissions) Time/Spoke to Admitting Phy: 02:00 Dr. Gault Impression Primary Impression: Sepsis Qualified Codes: A41.9 - Sepsis, unspecified organism Additional Impressions: Pyelonephritis Hypokalemia Disposition: ADMITTED INPATIENT Condition: Improved Admissions Decision to Admit Reason: Admit from ER (General) Decision to Admit/Date: Feb 29, 2020 Time/Decision to Admit Time: 01:50 Departure-Patient Inst. Referrals: MIRELLA GONZALES MD (PCP/Family) Primary Care Physician KING DOYLE MD Feb 29, 2020 02:10
[2020-02-29] MEDS ORDERED: cefTRIAXone 1,000 MG IV (ROCEPHIN) VIAL ONE (02:15)
[2020-02-29] MEDS ORDERED: WATER (STERILE) FOR INJECTION 10 ML ONE (02:15)
--- NOTE | 2020-02-29 02:45 | NUR ---
JENNIFER BUSTAMANTE admitted to room 425-1, with an admitting diagnosis of SEPSIS, POLYNEPHRITIS,HYPOKALEMIA on 02/29/20 from ED via WHEELCHAIR, accompanied by STAFF. JENNIFER BUSTAMANTE introduced to surroundings, call light, bed controls, phone, TV, temperature control, lights, meal times, smoking policy, visitor policy, side rail policy, bathrooms and showers. Patient Rights given to patient in the handbook. JENNIFER BUSTAMANTE verbalizes understanding that [facility] is not responsible for the loss or damage to any personal effects or valuables that are kept in the patients posession during their hospitalization.JENNIFER BUSTAMANTE verbalizes understanding of Interdisciplinary Patient Education. Patient and/or family were informed about the Rapid Response Team and its purpose.
[2020-02-29] MEDS ORDERED: NS W/KCL 40 MEQ/L 1,000 ML IV ONE (03:00)
[2020-02-29] MEDS ORDERED: NS (IVPB) 500 ML ONE (03:24)
[2020-02-29] MEDS ORDERED: VANCOMYCIN 1000 MG/VIAL ONE (03:24)
[2020-02-29] MEDS ORDERED: NS W/KCL 40 MEQ/L 1,000 ML IV SCH (03:30)
[2020-02-29] MEDS ORDERED: ONDANSETRON 4 MG/2 ML (SDV) Z0FRAN IVP PRN (03:30)
[2020-02-29] MEDS: HYDROcodone/APAP 5 MG/325 MG (LORTAB) TAB PO PRN ×4 (03:40→20:43)
[2020-02-29] MEDS: VANCOMYCIN 1 GM/NS 250 ML IVPB IV SCH ×4 (03:46→04:50)
--- NOTE | 2020-02-29 04:26 | Diagnostic Imaging Report ---
Indication: Sepsis Portable chest 7:43 PM There are postoperative changes from CABG surgery. Heart size and pulmonary vascularity are within normal limits. There is some discoid atelectasis right lung base. IMPRESSION: Right basilar discoid atelectasis Dictated by: Dictated on workstation # [id number]
--- NOTE | 2020-02-29 06:31 | Diagnostic Imaging Report ---
PROCEDURE: CT urinary tract, rule out kidney stone. TECHNIQUE: Multiple contiguous axial images were obtained through the abdomen and pelvis without the use of intravenous contrast. Auto Exposure Controls were utilized during the CT exam to meet ALARA standards for radiation dose reduction. INDICATION: Flank pain There are some atelectasis at the right lung base. There is a 14 mm peripheral nodule in the lateral segment of the right middle lobe. Left lung is clear. There are postoperative changes from CABG surgery. Liver appears normal. Gallbladder surgically absent. Pancreas appears normal. Spleen is not enlarged. There is less double-J ureteral stent appears be good position. There are calculi in lower pole calyces of left kidney. There are calculi in lower pole calyx of the right kidney. There is no hydronephrosis. Right ureter is clear. There are several small calculi layering out in the floor of the urinary bladder. There is calcific atherosclerosis of aorta and branches. Small bowel is not dilated. There is no evidence of appendicitis. Colon is unremarkable. IMPRESSION: Bilateral nephrolithiasis. There are bladder calculi present. Left double-J ureteral stent appears be good position. Right middle lobe pulmonary nodule unchanged from most recent study. I agree with preliminary interpretation. Dictated by: Dictated on workstation # [id number]
[2020-02-29] MEDS ORDERED: FLU QUADRIvalent (3YOA+) 60 mcg/0.5 ml 2020-21 (AFLURIA) IM ONE (06:45)
[2020-02-29 06:49] LABS: BASOPHILS # (AUTO) 0.1 10^3/uL (0.0-0.1); BASOPHILS % (AUTO) 1 % (0-10); EOSINOPHILS # (AUTO) 0.5 10^3/uL (0.0-0.3); EOSINOPHILS % (AUTO) 4 % (0-10); HEMATOCRIT 37 % (40-54); HEMOGLOBIN 11.6 g/dL (13.3-17.7); LYMPHOCYTES # (AUTO) 1.5 10^3/uL (1.0-4.0); LYMPHOCYTES % (AUTO) 12 % (12-44); MEAN CORPUSCULAR HEMOGLOBIN 26 pg (25-34); MEAN CORPUSCULAR HGB CONC 32 g/dL (32-36); MEAN CORPUSCULAR VOLUME 83 fL (80-99); MEAN PLATELET VOLUME 11.8 fL (9.0-12.2); MONOCYTES # (AUTO) 0.7 10^3/uL (0.0-1.0); MONOCYTES % (AUTO) 6 % (0-12); NEUTROPHILS # (AUTO) 9.8 10^3/uL (1.8-7.8); NEUTROPHILS % (AUTO) 74 % (42-75); PLATELET COUNT 252 10^3/uL (130-400); WHITE BLOOD COUNT 13.2 10^3/uL (4.3-11.0)
[2020-02-29 07:20] LABS: ALBUMIN 2.6 GM/DL (3.2-4.5); BILIRUBIN,TOTAL 0.7 MG/DL (0.1-1.0); CALCIUM 7.9 MG/DL (8.5-10.1); CREATININE SERUM 1.59 MG/DL (0.60-1.30); POTASSIUM 2.9 MMOL/L (3.6-5.0); TOTAL PROTEIN 5.8 GM/DL (6.4-8.2)
--- NOTE | 2020-02-29 07:43 | NUR ---
PTD VANCOMYCIN LABS: 100.1 KG, SCr 1.59, CrCl 52, BMI 34.6 PLAN: VANCOMYCIN LOADING DOSE 20MG/KG x 100.1 KG = 2 GRAMS; MAINT DOSE 15MG/KG x 100.1 KG = 1500 MG Q24H; VANCOMYCIN TROUGH DUE 03/03 @ 0300. IF TROUGH >20, HOLD DOSE AND NOTIFY PHARMACY FOR ADJUSTMENTS.
[2020-02-29] MEDS ORDERED: KCL 20 MEQ TAB (K-DUR) PO NR (10:00)
--- NOTE | 2020-02-29 10:01 | CONSULTATION REPORT ---
DATE OF SERVICE: 02/29/2020 ATTENDING PHYSICIAN: Dr. Pathak. SUMMARY: A 59-year-old white man known to me because of urolithiasis and a previous extracorporeal shock wave lithotripsy on the left side and stenting, who apparently has not been feeling very well after the surgery and I will call my office. No other complaint. Admitted through the emergency room with urosepsis. A CAT scan showed the stent to be in the proper place and the fragments some in the bladder, some in the kidney, no KUB was obtained. The patient's white count is getting better. Kidney function better. He is afebrile. He is feeling better. Has a little bit of pain on the left flank. IMPRESSION: Bilateral urolithiasis with urosepsis, post left ESWL. PLAN: We will obtain a KUB. Continue present management and I will check him on a daily basis. Job ID: [id number] DocumentID: [id number] Dictated Date: 02/29/2020 09:38:59 Principal System Software Engineer Date: 02/29/2020 09:59:52 Dictated By: CALEB NGUYEN MD
--- NOTE | 2020-02-29 10:02 | Diagnostic Imaging Report ---
Indication: Nephrolithiasis KUB 9:48 AM There are some calculi project over the inferior pole of left kidney. There is a left double-J ureteral stent in place. Right kidney is largely obscured by fecal material in the colon. IMPRESSION: Left nephrolithiasis. Double-J ureteral stent projects over appropriate structures. Dictated by: Dictated on workstation # [id number]
--- NOTE | 2020-02-29 12:00 | History & Physical ---
ABDELRAHMAN ROOT MED STUDENT 02/29/20 1200: HPI History of Present Illness: CC: nephrolithiasis, secondary pyelonephritis HPI: 59 yo pt presents with bilateral flank pain that radiates to the groin. pain is rated as 4/10, pain is described as sharp and throbbing. pt stated that this is the second time that this has happened. pt stated that he had a ureteral stent placed three months ago. Source: patient Exam Limitations: no limitations Date seen by provider: Feb 29, 2020 Time Seen by Provider: 08:30 Attending Physician Felicitas Pathak MD PCP Demetri Duckworth MD Consult Date of Admission Feb 29, 2020 at 02:07 Home Medications Home Medications Reviewed patient Home Medication Reconciliation performed by pharmacy medication reconciliations hospital technician and/or nursing. Patients Allergies have been reviewed. Allergies Coded Allergies: morphine (Verified Allergy, Unknown, TAKES LORTAB AT HOME, 08/03/08) PEO-[id number] Hx Patient Social History Employed/Student: unemployed Alcohol Use: Denies Use Recreational Drug Use: No Drug of Choice: HX Smoking Status: Current Everyday Smoker Type Used: Cigarettes 2nd Hand Smoke Exposure: Yes Recent Foreign Travel: No Contact w/other who traveled: No Recent Hopitalizations: No Recent Infectious Disease Expo: No Immunizations Up To Date Tetanus Booster (TDap): Unknown Date of Pneumonia Vaccine: May 31, 2015 Past Medical History PMHx: Schizophrenia Osteoarthritis Carotid occlusion right Essential hypertension Depression BPH Hyperlipidemia Peripheral arterial disease Pulmonary hypertension Chronic diastolic congestive heart failure Methamphetamine use THC use Depression Arthritis SurgHx: Cholecystectomy hyperlipidemia Family Medical History Significant Family History: Diabetes, Hypertension Family History: Patient reports no known family medical history. Review of Systems ([facility]) Constitutional: No chills, No fever, No malaise Respiratory: No cough, No short of breath Cardiovascular: No chest pain, No palpitations Gastrointestinal: abdominal pain (bilateral flank pain, bilateral pain to groin ); No constipation, No diarrhea, No nausea, No vomiting Genitourinary: No dysuria, No frequency, No hematuria Musculoskeletal: back pain Physical Exam-([facility]) Physical Exam Vital Signs VS - Last 72 Hours, by Label 02/28/20 02/29/20 02/29/20 02/29/20 23:00 02:17 03:01 03:30 Temp 37.5 36.3 36.6 Pulse 102 70 73 Resp 24 14 16 B/P (MAP) 124/87 (99) 102/69 99/70 Pulse Ox 96 95 93 O2 Delivery Room Air Room Air Room Air Room Air 02/29/20 02/29/20 02/29/20 02/29/20 03:47 07:27 08:00 11:35 Temp 36.4 36.5 36.6 Pulse 70 64 62 Resp 18 20 16 B/P (MAP) 120/70 (87) 128/82 (97) 145/87 (106) Pulse Ox 95 95 95 96 O2 Delivery Room Air Room Air Room Air Room Air Capillary Refill : Less Than 3 Seconds General Appearance: WD/WN, no apparent distress HEENT: No scleral icterus (R), No scleral icterus (L) Neck: non-tender; No lymphadenopathy (R), No lymphadenopathy (L) Respiratory: chest non-tender, lungs clear, normal breath sounds, no respiratory distress, no accessory muscle use Cardiovascular: normal peripheral pulses, regular rate, rhythm, no murmur Peripheral Pulses: 2+ Carotid (R), 2+ Carotid (L), 2+ Dorsalis Pedis (R), 2+ Left Dors-Pedis (L), 2+ Radial Pulses (R), 2+ Radial Pulses (L) Gastrointestinal: normal bowel sounds, soft, tenderness Back: CVA tenderness (R), CVA tenderness (L) 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, no motor/sensory deficits, alert, oriented x 3 Skin: normal color, warm/dry; No diaphoresis Lymphatic: no adenopathy Assessment/Plan Assessment/Plan (1) Nephrolithiasis Status: Acute Assessment & Plan: continue IVF, vancomycin and ceftriaxone pain medication prn (2) Pyelonephritis Status: Acute Assessment & Plan: continue vancomycin and ceftriaxone (3) Hypokalemia Status: Acute Assessment & Plan: continue IV KCl (4) Hyperlipidemia Status: Chronic Assessment & Plan: continue home dosage of simvastatin (5) Hypertension Status: Chronic Assessment & Plan: continue to monitor blood pressures (6) DVT prophylaxis Status: Acute Assessment & Plan: lovenox injections (7) Chronic diastolic (congestive) heart failure Status: Chronic Assessment & Plan: continue home dosage of isosorbide dinitrate (8) Schizophrenia Status: Chronic Assessment & Plan: continue home doses of mirtazapine and duloxetine Clinical Quality Measures DVT/VTE Risk/Contraindication: Risk Factor Score Per Nursin RFS Level Per Nursing on Admit: 4+=Very High FELICITAS PATHAK MD 02/29/20 2130: HPI History of Present Illness: Patient with know kidney stones and recent lithrotrypsy that now presents with pain and fever. Patient has stent in place. States that he has had blood in his urine. Denies any previous pyelonephritis, but has had multiple UTIs in the past. Source: patient Exam Limitations: no limitations Home Medications Allergies Coded Allergies: morphine (Verified Allergy, Unknown, TAKES LORTAB AT HOME, 08/03/08) [id number] Hx Past Medical History Nephrolithiasis BPH HLD Family Medical History Family History: Patient reports no known family medical history. Review of Systems ([facility]) Constitutional: no symptoms reported; No chills, No fever, No malaise EENTM: no symptoms reported; No mouth pain, No nose congestion, No nose pain Respiratory: no symptoms reported; No cough, No dyspnea on exertion, No short of breath Cardiovascular: no symptoms reported; No chest pain, No edema, No palpitations Gastrointestinal: abdominal pain (bilateral flank pain, bilateral pain to groin ); No constipation, No diarrhea, No nausea, No vomiting Genitourinary: No dysuria, No frequency; hematuria Musculoskeletal: back pain Skin: no symptoms reported; No lesions, No rash Psychiatric/Neurological: No Symptoms Reported; Denies Headache, Denies Numbness Reviewed Test Results Reviewed Test Results Lab Laboratory Tests Test 02/28/20 23:10 02/29/20 01:29 02/29/20 06:10 02/29/20 15:01 Range/Units White Blood Count 15.9 H 13.2 H 4.3-11.0 10^3/uL Red Blood Count 5.17 4.45 4.30-5.52 10^6/uL Hemoglobin 13.4 11.6 L 13.3-17.7 g/dL Hematocrit 42 37 L 40-54 % Mean Corpuscular Volume 81 83 80-99 fL Mean Corpuscular Hemoglobin 26 26 25-34 pg Mean Corpuscular Hemoglobin Concent 32 32 32-36 g/dL Red Cell Distribution Width 17.8 H 17.5 H 10.0-14.5 % Platelet Count 296 252 130-400 10^3/uL Mean Platelet Volume 11.4 11.8 9.0-12.2 fL Immature Granulocyte % (Auto) 3 4 % Neutrophils (%) (Auto) 80 H 74 42-75 % Lymphocytes (%) (Auto) 8 L 12 12-44 % Monocytes (%) (Auto) 6 6 0-12 % Eosinophils (%) (Auto) 3 4 0-10 % Basophils (%) (Auto) 0 1 0-10 % Neutrophils # (Auto) 12.7 H 9.8 H 1.8-7.8 10^3/uL Lymphocytes # (Auto) 1.3 1.5 1.0-4.0 10^3/uL Monocytes # (Auto) 1.0 0.7 0.0-1.0 10^3/uL Eosinophils # (Auto) 0.4 H 0.5 H 0.0-0.3 10^3/uL Basophils # (Auto) 0.1 0.1 0.0-0.1 10^3/uL Immature Granulocyte # (Auto) 0.4 H 0.6 H 0.0-0.1 10^3/uL Neutrophils % (Manual) 70 % Lymphocytes % (Manual) 9 % Monocytes % (Manual) 9 % Eosinophils % (Manual) 4 % Metamyelocytes % 2 % Band Neutrophils 6 % Anisocytosis SLIGHT Microcytosis SLIGHT Spherocytes SLIGHT Prothrombin Time 13.3 12.2-14.7 SEC INR Comment 1.0 0.8-1.4 Activated Partial Thromboplast Time 36 H 24-35 SEC Sodium Level 135 139 141 135-145 MMOL/L Potassium Level 3.0 L 2.9 L 3.9 3.6-5.0 MMOL/L Chloride Level 99 106 109 H 98-107 MMOL/L Carbon Dioxide Level 21 19 L 21 21-32 MMOL/L Anion Gap 15 H 14 11 5-14 MMOL/L Blood Urea Nitrogen 20 H 19 H 20 H 7-18 MG/DL Creatinine 1.72 H 1.59 H 1.44 H 0.60-1.30 MG/DL Estimat Glomerular Filtration Rate 41 45 50 BUN/Creatinine Ratio 12 12 14 Glucose Level 132 H 141 H 105 70-105 MG/DL Lactic Acid Level 1.91 0.50-2.00 MMOL/L Calcium Level 8.7 7.9 L 8.1 L 8.5-10.1 MG/DL Corrected Calcium 9.4 9.0 8.5-10.1 MG/DL Total Bilirubin 1.0 0.7 0.1-1.0 MG/DL Aspartate Amino Transf (AST/SGOT) 30 25 5-34 U/L Alanine Aminotransferase (ALT/SGPT) 37 30 0-55 U/L Alkaline Phosphatase 306 H 234 H 40-136 U/L Lactate Dehydrogenase 124 L 125-220 U/L C-Reactive Protein High Sensitivity 8.38 H 0.00-0.50 MG/DL B-Type Natriuretic Peptide 127.6 H <100.0 PG/ML Total Protein 6.8 5.8 L 6.4-8.2 GM/DL Albumin 3.1 L 2.6 L 3.2-4.5 GM/DL Lipase 17 8-78 U/L Procalcitonin 1.80 H <0.10 NG/ML Urine Color YELLOW Urine Clarity CLOUDY Urine pH 7.0 5-9 Urine Specific [place] 1.010 L 1.016-1.022 Urine Protein 2+ H NEGATIVE Urine Glucose (UA) NEGATIVE NEGATIVE Urine Ketones NEGATIVE NEGATIVE Urine Nitrite NEGATIVE NEGATIVE Urine Bilirubin NEGATIVE NEGATIVE Urine Urobilinogen 0.2 < = 1.0 MG/DL Urine Leukocyte Esterase 3+ H NEGATIVE Urine RBC (Auto) 3+ H NEGATIVE Urine RBC 50-100 H /HPF Urine WBC TNTC H /HPF Urine Crystals NONE /LPF Urine Bacteria MODERATE H /HPF Urine Casts NONE /LPF Urine Mucus NEGATIVE /LPF Urine Culture Indicated CULTURE PENDING Urine Opiates Screen POSITIVE H NEGATIVE Urine Oxycodone Screen NEGATIVE NEGATIVE Urine Methadone Screen NEGATIVE NEGATIVE Urine Propoxyphene Screen NEGATIVE NEGATIVE Urine Barbiturates Screen NEGATIVE NEGATIVE Ur Tricyclic Antidepressants Screen NEGATIVE NEGATIVE Urine Phencyclidine Screen NEGATIVE NEGATIVE Urine Amphetamines Screen NEGATIVE NEGATIVE Urine Methamphetamines Screen NEGATIVE NEGATIVE Urine Benzodiazepines Screen NEGATIVE NEGATIVE Urine Cocaine Screen NEGATIVE NEGATIVE Urine Cannabinoids Screen NEGATIVE NEGATIVE Physical Exam-([facility]) Physical Exam General Appearance: WD/WN, no apparent distress Neck: non-tender, full range of motion, supple Respiratory: chest non-tender, lungs clear, normal breath sounds, no respiratory distress, no accessory muscle use Cardiovascular: normal peripheral pulses, regular rate, rhythm, no edema, no murmur Gastrointestinal: normal bowel sounds, soft, tenderness Back: CVA tenderness (R), CVA tenderness (L) Extremities: normal range of motion, no pedal edema, no calf tenderness, normal capillary refill 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, no motor/sensory deficits, alert, normal mood/affect, oriented x 3 Skin: normal color, warm/dry Lymphatic: no adenopathy Assessment/Plan Assessment/Plan Admission Status: Inpatient Order (span 2 midnights) Reason for Inpatient Admission: Patient requiring IV antibiotics (1) Pyelonephritis Status: Acute Assessment & Plan: continue vancomycin and ceftriaxone 02/28: Consulted Urology, appreciate recommendations, culture pending (2) Nephrolithiasis Status: Acute Assessment & Plan: continue IVF, vancomycin and ceftriaxone pain medication prn 02/28: Continue Flomax (3) Hypokalemia Status: Acute Assessment & Plan: continue IV KCl (4) Hyperlipidemia Status: Chronic Assessment & Plan: continue home dosage of simvastatin (5) Hypertension Status: Chronic Assessment & Plan: continue to monitor blood pressures (6) Chronic diastolic (congestive) heart failure Status: Chronic Assessment & Plan: continue home dosage of isosorbide dinitrate (7) Schizophrenia Status: Chronic Assessment & Plan: - Continue home meds (8) DVT prophylaxis Status: Acute Assessment & Plan: lovenox injections Supervisory-Addendum Brief Supervisory Addendum Verification and Attestation of Medical Student E/M Service A medical student performed and documented this service in my presence. I reviewed and verified all information documented by the medical student and made modifications to such information, when appropriate. I personally performed the physical exam and medical decision making. Felicitas Pathak, Feb 29, 2020,21:31 ABDELRAHMAN [employer] STUDENT Feb 29, 2020 12:00 FELICITAS PATHAK MD Feb 29, 2020 21:30
[2020-02-29 15:25] LABS: CALCIUM 8.1 MG/DL (8.5-10.1); CREATININE SERUM 1.44 MG/DL (0.60-1.30); POTASSIUM 3.9 MMOL/L (3.6-5.0)
[2020-02-29] MEDS ORDERED: VANCOMYCIN 1250 MG/NS 250 ML IVPB IV SCH ×2 (21:30)
[2020-03-01] MEDS: cefTRIAXone 1,000 MG/SWFI 10 ML IV PUSH IV SCH ×2 (02:08)
[2020-03-01] MEDS ORDERED: VANCOMYCIN 1500 MG/NS 500 ML IVPB IV SCH ×2 (04:00)
[2020-03-01 04:15] VITALS: BP 150/90
[2020-03-01 06:29] LABS: BASOPHILS # (AUTO) 0.1 10^3/uL (0.0-0.1); BASOPHILS % (AUTO) 1 % (0-10); EOSINOPHILS # (AUTO) 0.7 10^3/uL (0.0-0.3); EOSINOPHILS % (AUTO) 6 % (0-10); HEMATOCRIT 38 % (40-54); HEMOGLOBIN 11.9 g/dL (13.3-17.7); LYMPHOCYTES # (AUTO) 1.7 10^3/uL (1.0-4.0); LYMPHOCYTES % (AUTO) 14 % (12-44); MEAN CORPUSCULAR HEMOGLOBIN 26 pg (25-34); MEAN CORPUSCULAR HGB CONC 31 g/dL (32-36); MEAN CORPUSCULAR VOLUME 83 fL (80-99); MEAN PLATELET VOLUME 11.1 fL (9.0-12.2); MONOCYTES # (AUTO) 0.8 10^3/uL (0.0-1.0); MONOCYTES % (AUTO) 6 % (0-12); NEUTROPHILS # (AUTO) 8.8 10^3/uL (1.8-7.8); NEUTROPHILS % (AUTO) 69 % (42-75); PLATELET COUNT 243 10^3/uL (130-400); WHITE BLOOD COUNT 12.9 10^3/uL (4.3-11.0)
[2020-03-01 06:35] LABS: ALBUMIN 2.8 GM/DL (3.2-4.5); CHLORIDE 108 MMOL/L (98-107)
[2020-03-01 06:36] LABS: POTASSIUM 3.4 MMOL/L (3.6-5.0); SODIUM 140 MMOL/L (135-145)
[2020-03-01 06:37] LABS: CALCIUM 8.3 MG/DL (8.5-10.1)
[2020-03-01 06:38] LABS: GLUCOSE 109 MG/DL (70-105); TOTAL PROTEIN 6.1 GM/DL (6.4-8.2)
[2020-03-01 06:39] LABS: CARBON DIOXIDE 20 MMOL/L (21-32)
[2020-03-01 06:40] LABS: BILIRUBIN,TOTAL 0.5 MG/DL (0.1-1.0)
[2020-03-01 06:41] LABS: ALKALINE PHOSPHATASE 244 U/L (40-136)
[2020-03-01 06:42] LABS: GFR ESTIMATED > 60
[2020-03-01 06:43] LABS: BUN/CREATININE RATIO 14
[2020-03-01 06:44] LABS: ALANINE AMINOTRANSFERASE 28 U/L (0-55)
[2020-03-01] MEDS: TAMSULOSIN 0.4 MG (FLOMAX) CAP PO SCH (07:54)
[2020-03-01 08:00] VITALS: BP 149/81
[2020-03-01] MEDS: HYDROcodone/APAP 5 MG/325 MG (LORTAB) TAB PO PRN ×3 (08:02→20:30)
--- NOTE | 2020-03-01 09:51 | Progress Note - Urology ---
Progress Note-Urology Progress Notes/Assess & Plan Progress/Assessment & Plan KUB REVIEWED. KEEP APPOINTMENT IN OFFICE PREVIOUSLY PLANNED Final Diagnosis UROSEPSIS CALEB NGUYEN MD Mar 01, 2020 09:51
--- NOTE | 2020-03-01 11:27 | Progress Note ---
ABDELRAHMAN ROOT MED STUDENT 03/01/20 1127: Subjective Subjective/Events-last exam pt stated that he was not doing too well this morning. pt stated that he was a little depressed because he has been dealing with this problem for the last three months. pt is still having pain, rated as 7/10, still radiating to the groin. pt said that he has been feeling tired lately. pt denies dysuria, but is having frequency. Review of Systems General: No Chills; Fatigue Pulmonary: No Dyspnea, No Cough Cardiovascular: No: Chest Pain, Palpitations Gastrointestinal: Abdominal Pain; No: Nausea, Vomiting, Diarrhea, Constipation Genitourinary: No Dysuria; Frequency; No Incontinence Musculoskeletal: back pain (bilateral radiation to groin ) Focused Exam Lactate Level 02/28/20 23:10: Lactic Acid Level 1.91 Respiratory: Chest Non Tender, Lungs Clear, Normal Breath Sounds, No Accessory Muscle Use, No Respiratory Distress Cardiovascular: Regular Rate, Rhythm, No Edema, No Murmur, Normal Peripheral Pulses Peripheral Pulses: 2+ Carotid (R), 2+ Carotid (L), 2+ Dorsalis Pedis (R), 2+ Left Dors-Pedis (L), 2+ Radial Pulses (R), 2+ Radial Pulses (L) Skin: normal color, warm/dry; No cyanosis, No diaphoresis Objective Exam Last Set of Vital Signs Vital Signs Date Time Temp Pulse Resp B/P (MAP) Pulse Ox O2 Delivery O2 Flow Rate FiO2 03/01/20 08:00 95 Room Air 03/01/20 08:00 36.2 62 18 149/81 (103) Capillary Refill : Less Than 3 Seconds I&O Intake and Output 03/01/20 00:00 Intake Total 4150 ml Output Total 2020 ml Balance 2130 ml Intake Oral 1570 ml IV Total 2580 ml Output Urine Total 2020 ml # Bowel Movements 1 Daily Weight Change Yes, 2-13 lbs Yes, 2-13 lbs General: Alert, Oriented X3, Cooperative, No Acute Distress Neck: Supple Lungs: Clear to Auscultation, Normal Air Movement Heart: Regular Rate, No Murmurs Abdomen: Normal Bowel Sounds, Soft Extremities: No Cyanosis, No Edema, No Tenderness/Swelling Neuro: Normal Speech, Cranial Nerves 3-12 NL Psych/Mental Status: Mental Status NL Results/Procedures Lab Laboratory Tests 02/29/20 15:01: Sodium Level 141, Potassium Level 3.9, Chloride Level 109H, Carbon Dioxide Level 21, Anion Gap 11, Blood Urea Nitrogen 20H, Creatinine 1.44H, Estimat Glomerular Filtration Rate 50, BUN/Creatinine Ratio 14, Glucose Level 105, Calcium Level 8.1L 03/01/20 05:42: Sodium Level 140, Potassium Level 3.4L, Chloride Level 108H, Carbon Dioxide Level 20L, Anion Gap 12, Blood Urea Nitrogen 17, Creatinine 1.20, Estimat Glomerular Filtration Rate > 60, BUN/Creatinine Ratio 14, Glucose Level 109H, Calcium Level 8.3L, White Blood Count 12.9H, Red Blood Count 4.56, Hemoglobin 11.9L, Hematocrit 38L, Mean Corpuscular Volume 83, Mean Corpuscular Hemoglobin 26, Mean Corpuscular Hemoglobin Concent 31L, Red Cell Distribution Width 17.9H, Platelet Count 243, Mean Platelet Volume 11.1, Immature Granulocyte % (Auto) 5, Neutrophils (%) (Auto) 69, Lymphocytes (%) (Auto) 14, Monocytes (%) (Auto) 6, Eosinophils (%) (Auto) 6, Basophils (%) (Auto) 1, Neutrophils # (Auto) 8.8H, Lymphocytes # (Auto) 1.7, Monocytes # (Auto) 0.8, Eosinophils # (Auto) 0.7H, Basophils # (Auto) 0.1, Immature Granulocyte # (Auto) 0.7H, Corrected Calcium 9.3, Total Bilirubin 0.5, Aspartate Amino Transf (AST/SGOT) 27, Alanine Aminotransferase (ALT/SGPT) 28, Alkaline Phosphatase 244H, Total Protein 6.1L, Albumin 2.8L Microbiology 02/29/20 Urine Culture - Final, Complete NO GROWTH 02/28/20 Blood Culture - Preliminary, Resulted No growth Assessment/Plan Assessment/Plan (1) Pyelonephritis Status: Acute Assessment & Plan: continue vancomycin and ceftriaxone 02/28: Consulted Urology, appreciate recommendations, culture pending 03/01: culture negative, d/c vancomycin, continue rocephin (2) Nephrolithiasis Status: Acute Assessment & Plan: continue IVF, vancomycin and ceftriaxone pain medication prn 02/28: Continue Flomax 03/01: continue IVF, ceftriaxone, and flomax (3) Hypokalemia Status: Acute Assessment & Plan: continue IV KCl 03/01: K Dur tablet (4) Hyperlipidemia Status: Chronic Assessment & Plan: continue home dosage of simvastatin (5) Hypertension Status: Chronic Assessment & Plan: continue to monitor blood pressures (6) Chronic diastolic (congestive) heart failure Status: Chronic Assessment & Plan: continue home dosage of isosorbide dinitrate (7) Schizophrenia Status: Chronic Assessment & Plan: - Continue home meds (8) DVT prophylaxis Status: Acute Assessment & Plan: lovenox injections Clinical Quality Measures DVT/VTE Risk/Contraindication: Risk Factor Score Per Nursin RFS Level Per Nursing on Admit: 4+=Very High FELICITAS PATHAK MD 03/01/20 1513: Subjective Subjective/Events-last exam Patient feeling better but he is very down with his mood this AM. States that he is done dealing with all of this as it has been going on for the last 3 months. Tolerating PO diet and ambulation. Review of Systems General: No Chills; Fatigue, Malaise Pulmonary: No Dyspnea, No Cough Cardiovascular: No: Chest Pain, Palpitations, Edema Gastrointestinal: Abdominal Pain; No: Nausea, Vomiting, Diarrhea, Constipation Genitourinary: Dysuria; No Hematuria Musculoskeletal: back pain (bilateral radiation to groin ) Neurological: No: Weakness, Numbness, Incoordination Objective Exam General: Alert, Oriented X3, Cooperative, No Acute Distress Lungs: Clear to Auscultation, Normal Air Movement Heart: Regular Rate, No Murmurs Abdomen: Normal Bowel Sounds, Soft, No Tenderness Extremities: No Edema, No Tenderness/Swelling Skin: No Rashes, No Breakdown Neuro: Normal Speech, Strength at 5/5 X4 Ext, Sensation Intact, Cranial Nerves 3-12 NL Psych/Mental Status: Mental Status NL Assessment/Plan Assessment/Plan (1) Pyelonephritis Status: Acute Assessment & Plan: continue vancomycin and ceftriaxone 02/28: Consulted Urology, appreciate recommendations, culture pending 03/01: culture negative, d/c vancomycin, continue rocephin, plan on d/c tomorrow (2) Nephrolithiasis Status: Acute Assessment & Plan: continue IVF, vancomycin and ceftriaxone pain medication prn 02/28: Continue Flomax 03/01: continue IVF, ceftriaxone, and flomax, continue to follow with Dr Tucker (3) Hypokalemia Status: Acute Assessment & Plan: continue IV KCl 03/01: K Dur tablet (4) Hyperlipidemia Status: Chronic Assessment & Plan: continue home dosage of simvastatin (5) Hypertension Status: Chronic Assessment & Plan: continue to monitor blood pressures (6) Chronic diastolic (congestive) heart failure Status: Chronic Assessment & Plan: continue home dosage of isosorbide dinitrate (7) Schizophrenia Status: Chronic Assessment & Plan: - Continue home meds (8) DVT prophylaxis Status: Acute Assessment & Plan: lovenox injections Supervisory-Addendum Brief Supervisory Addendum Verification and Attestation of Medical Student E/M Service A medical student performed and documented this service in my presence. I reviewed and verified all information documented by the medical student and made modifications to such information, when appropriate. I personally performed the physical exam and medical decision making. Felicitas Pathak, Mar 01, 2020,15:13 [employer]MAN [employer] STUDENT Mar 01, 2020 11:27 FELICITAS PATHAK MD Mar 01, 2020 15:13
[2020-03-01 12:00] VITALS: BP 133/82
[2020-03-01 15:30] VITALS: BP 146/83
--- NOTE | 2020-03-01 16:11 | NUR ---
No yarsanism preference. Product Design Manager provided brief visit.
[2020-03-01 20:00] VITALS: BP 127/78
[2020-03-01] MEDS: PREGABALIN 75 MG (LYRICA) CAP PO SCH (20:27)
[2020-03-01] MEDS: DULoxetine 20 MG (CYMBALTA) CAP PO SCH (20:27)
[2020-03-01] MEDS: ISOSORBIDE DINITRATE 20 MG (ISORDIL) TAB PO SCH (20:27)
[2020-03-01] MEDS ORDERED: MIRTAZAPINE 15 MG (REMERON) TAB PO SCH (21:00)
[2020-03-02] VITALS: BP 108/56
[2020-03-02] MEDS: cefTRIAXone 1,000 MG/SWFI 10 ML IV PUSH IV SCH ×2 (03:15)
[2020-03-02] MEDS: HYDROcodone/APAP 5 MG/325 MG (LORTAB) TAB PO PRN ×3 (03:15→14:21)
[2020-03-02 04:00] VITALS: BP 133/83
[2020-03-02 06:27] LABS: BASOPHILS # (AUTO) 0.1 10^3/uL (0.0-0.1); BASOPHILS % (AUTO) 1 % (0-10); EOSINOPHILS # (AUTO) 0.5 10^3/uL (0.0-0.3); EOSINOPHILS % (AUTO) 4 % (0-10); HEMATOCRIT 36 % (40-54); HEMOGLOBIN 11.5 g/dL (13.3-17.7); LYMPHOCYTES # (AUTO) 1.9 10^3/uL (1.0-4.0); LYMPHOCYTES % (AUTO) 17 % (12-44); MEAN CORPUSCULAR HEMOGLOBIN 26 pg (25-34); MEAN CORPUSCULAR HGB CONC 32 g/dL (32-36); MEAN CORPUSCULAR VOLUME 83 fL (80-99); MEAN PLATELET VOLUME 11.5 fL (9.0-12.2); MONOCYTES # (AUTO) 0.7 10^3/uL (0.0-1.0); MONOCYTES % (AUTO) 6 % (0-12); NEUTROPHILS # (AUTO) 7.5 10^3/uL (1.8-7.8); NEUTROPHILS % (AUTO) 67 % (42-75); PLATELET COUNT 263 10^3/uL (130-400); WHITE BLOOD COUNT 11.1 10^3/uL (4.3-11.0)
[2020-03-02 06:42] LABS: BUN/CREATININE RATIO 14; CALCIUM 8.3 MG/DL (8.5-10.1); CARBON DIOXIDE 21 MMOL/L (21-32); CHLORIDE 106 MMOL/L (98-107); CREATININE SERUM 1.07 MG/DL (0.60-1.30); GFR ESTIMATED > 60; GLUCOSE 103 MG/DL (70-105); POTASSIUM 3.1 MMOL/L (3.6-5.0); SODIUM 141 MMOL/L (135-145)
--- NOTE | 2020-03-02 06:45 | Progress Note - Hospitalist ---
Focused Exam Lactate Level 02/28/20 23:10: Lactic Acid Level 1.91 Objective Exam Vital Signs Vital Signs Date Time Temp Pulse Resp B/P (MAP) Pulse Ox O2 Delivery O2 Flow Rate FiO2 03/02/20 08:00 36.1 56 16 106/69 (81) 94 Room Air Capillary Refill : Less Than 3 Seconds Results/Procedures Lab Laboratory Tests 03/02/20 05:42 Patient resulted labs reviewed. Clinical Quality Measures DVT/VTE Risk/Contraindication: Risk Factor Score Per Nursin RFS Level Per Nursing on Admit: 4+=Very High NAVA STANTON DO Mar 02, 2020 06:45
[2020-03-02 08:00] VITALS: BP 106/69
[2020-03-02] MEDS: TAMSULOSIN 0.4 MG (FLOMAX) CAP PO SCH (08:11)
[2020-03-02] MEDS: PREGABALIN 75 MG (LYRICA) CAP PO SCH ×2 (08:11→12:46)
[2020-03-02] MEDS: DULoxetine 20 MG (CYMBALTA) CAP PO SCH (08:11)
[2020-03-02] MEDS: ISOSORBIDE DINITRATE 20 MG (ISORDIL) TAB PO SCH (08:14)
[2020-03-02] MEDS ORDERED: KCL 20 MEQ TAB (K-DUR) PO ONE (11:45)
[2020-03-02 12:00] VITALS: BP 141/76
[2020-03-02] MEDS ORDERED: CEFD300C3 PO (12:10)
--- NOTE | 2020-03-02 12:11 | Discharge Summary ---
Discharge Summary Hospital Course Was the Problem List Reviewed?: Yes Problems/Dx: (1) Pyelonephritis Status: Acute (2) Schizophrenia Status: Chronic (3) Chronic diastolic (congestive) heart failure Status: Chronic (4) Nephrolithiasis Status: Acute Hospital Course Date of Admission: Feb 29, 2020 at 02:07 Admission Diagnosis : Family Physician/Provider: Demetri Duckworth MD Date of Discharge: 03/02/20 Discharge Diagnosis: acute pyelonephritis, kidney stones, mental illness Hospital Course: Patient was admitted and placed on IVF and IV abx. Dr Tucker provided consultation for kidney stones. Pain was well controlled. UCx returned NGTD but abx were indicated so he was dc on abx to complete that regimen and had f/u already arranged with Dr Tucker. Labs and Pending Lab Test: Laboratory Tests 03/02/20 05:42: White Blood Count 11.1H, Red Blood Count 4.39, Hemoglobin 11.5L, Hematocrit 36L, Mean Corpuscular Volume 83, Mean Corpuscular Hemoglobin 26, Mean Corpuscular Hemoglobin Concent 32, Red Cell Distribution Width 17.4H, Platelet Count 263, Mean Platelet Volume 11.5, Immature Granulocyte % (Auto) 4, Neutrophils (%) (Auto) 67, Lymphocytes (%) (Auto) 17, Monocytes (%) (Auto) 6, Eosinophils (%) (Auto) 4, Basophils (%) (Auto) 1, Neutrophils # (Auto) 7.5, Lymphocytes # (Auto) 1.9, Monocytes # (Auto) 0.7, Eosinophils # (Auto) 0.5H, Basophils # (Auto) 0.1, Immature Granulocyte # (Auto) 0.5H, Sodium Level 141, Potassium Level 3.1L, Chloride Level 106, Carbon Dioxide Level 21, Anion Gap 14, Blood Urea Nitrogen 15, Creatinine 1.07, Estimat Glomerular Filtration Rate > 60, BUN/Creatinine Ratio 14, Glucose Level 103, Calcium Level 8.3L Microbiology 02/29/20 Urine Culture - Final, Complete NO GROWTH 02/28/20 Blood Culture - Preliminary, Resulted No growth Home Meds Active Cefdinir 300 Mg Capsule 300 Mg PO BID Tramadol HCl 50 Mg Tablet 1-2 Tab PO Q4H PRN Flomax (Tamsulosin HCl) 0.4 Mg Cap 0.4 Mg PO DAILY Macrobid 100 mg Capsule (Nitrofurantoin Monohyd/M-Cryst) 100 Mg Capsule 1 Tab PO BID Hydrocodone-Acetamin 5-325 mg (Hydrocodone/Acetaminophen) 1 Each Tablet 1 Tab PO Q4H PRN Reported Ibuprofen 800 Mg Tablet 800 Mg PO TID PRN Simvastatin 80 Mg Tablet 80 Mg PO DAILY Pregabalin 75 Mg Capsule 75 Mg PO TID Flomax (Tamsulosin HCl) 0.4 Mg Cap 0.4 Mg PO DAILY Duloxetine HCl 20 Mg Capsule.dr 20 Mg PO BID Mirtazapine 45 Mg Tablet 45 Mg PO HS Vesicare (Solifenacin Succinate) 5 Mg Tablet 5 Mg PO DAILY Isosorbide Dinitrate 20 Mg Tablet 40 Mg PO BID Gabapentin 600 Mg Tablet 600 Mg PO QID Stool Softener (Docusate Sodium) 100 Mg Capsule 200 Mg PO DAILY Fish Oil 1,000 mg Capsule ([place] 3 Polyunsat Fatty Acids) 1,000 Mg Cap 1,000 Mg PO DAILY Multi-Vitamin Daily (Multivitamin) 1 Each Tablet 2 Each PO DAILY Assessment/Pt Instructions [facility] 1 week Discharge Planning: <30 minutes discharge planning Discharge Instructions Discharge Diet: No Restrictions Activity as Tolerated: Yes Discharge Physical Examination Vital Signs Vital Signs Date Time Temp Pulse Resp B/P (MAP) Pulse Ox O2 Delivery O2 Flow Rate FiO2 03/02/20 08:00 36.1 56 16 106/69 (81) 94 Room Air General Appearance: No Apparent Distress, WD/WN, Chronically ill Respiratory: Chest Non Tender, Lungs Clear, Normal Breath Sounds, No Accessory Muscle Use, No Respiratory Distress Cardiovascular: Regular Rate, Rhythm, No Edema, No Gallop, No JVD, No Murmur, Normal Peripheral Pulses Neurologic/Psychiatric: Alert, Oriented x3, No Motor/Sensory Deficits, Normal Mood/Affect Allergies: Coded Allergies: morphine (Verified Allergy, Unknown, TAKES LORTAB AT HOME, 08/03/08) Discharge Summary Date of Admission Feb 29, 2020 at 02:07 Date of Discharge Discharge Date: Mar 02, 2020 Clinical Quality Measures DVT/VTE Risk/Contraindication: Risk Factor Score Per Nursin RFS Level Per Nursing on Admit: 4+=Very High NAVA STANTON DO Mar 02, 2020 12:11
[2020-03-02 15:06] VITALS: BP 141/76
[2020-03-03] MEDS ORDERED: TROUGH ORDER-PHARMACY XX NR (03:00)
--- NOTE | 2020-03-06 00:46 | Physician Query Clarification ---
PQ-Uncertain Diagnosis Admission/Discharge Admission Date: Feb 29, 2020 at 02:07 Discharge Date: Mar 02, 2020 at 15:08 NAVA STANTON DO The medical record reflects the following clinical scenario: History/Risk Factors: 59 yo patient presents with bilateral flank pain that radiates to the groin found to have nephrolithiasis. ED Physician note, 02/28: Sepsis, Pyelonephritis, Septic workup was pursued. Patient was given replacement of potassium by IV route along with 1 L of normal saline. Antibiotic therapy with Rocephin was initiated. Cultures from prior admission were reviewed. Vancomycin was added on admission orders. Hand P, 02/28: Nephrolithiasis and Pyelonephritis, continue IVF, Vancomycin and Ceftrioxone. Consultation, 03/01: Bilateral urolithiasis with urosepsis. Clinical Findings: [list no more than 2] Treatment: [list no more than 2] Question: Is [diagnosis] a clinically valid diagnosis? [diagnosis] was documented in the [dates and type of documents] with no further documentation in the medical record. Please document a response in Progress Note or Discharge Summary. 1. Yes, clinically valid, condition resolved. 2. No, condition ruled out. 3. Other, with explanation of clinical findings. 4. Undetermined, no explanation for clinical findings. Please remember a lack of response to the above will prompt a phone page by CDI/Coding staff. In responding to this query, please exercise your independent professional judgment. The purpose of this communication is to more accurately reflect the complexity of your patients condition. The fact that a question is asked does not imply that any particular answer is desired or expected. Thank you for your timely response to this clarification. Requestors name: [ ] Phone # [ ] THIS PHYSICIAN QUERY FORM IS A PERMANENT PART OF THE MEDICAL RECORD IRMA REYNOLDS Mar 06, 2020 00:46
--- NOTE | 2020-03-06 01:48 | Physician Query Clarification ---
PQ-Intro New Diagnosis Admission/Discharge Admission Date: Feb 29, 2020 at 02:07 Discharge Date: Mar 02, 2020 at 15:08 NAVA STANTON DO The medical record reflects the following clinical scenario: History/Risk Factors: 59 y/o patient presents with bilateral flank pain that radiates to the groin found to have nephrolithiasis. ED Physician note, 02/28: Sepsis, Pyelonephritis, Septic workup was pursued. Patient was given replacement of potassium by IV route along with 1 L of normal saline. Antibiotic therapy with Rocephin was initiated. Cultures from prior admission were reviewed. Vancomycin was added on admission orders. Hand P, 02/28: Nephrolithiasis and Pyelonephritis, continue IVF, Vancomycin and Ceftriaxone. Consultation, 03/01: Bilateral urolithiasis with urosepsis. Urology Progress notes, 03/01: Urosepsis Discharge summary, 03/02: acute pyelonephritis, kidney stones, mental illness, placed on IVF and IV antibiotics. consultation for kidney stones. Pain was well controlled. UCx returned negative but antibiotics were indicated so he was dc on abx to complete that regimen Clinical Findings: Pulse- 102, WBC- 15.9 Treatment: IV Vancomycine and Ceftriaxone. Question: What condition best reflects the above clinical scenario? Please document a response in the Progress Noter or Discharge Summary. 1. Sepsis 2/2 Pyelonephritis 2. Pyelonephritis only 3. Other, with explanation of the clinical findings. 4. Clinically undetermined, no explanation for the clinical findings. PHYSICIAN RESPONSE What condition reflects above: 1 Please remember a lack of response to the above will prompt a phone page by CDI/Coding staff. In responding to this query, please exercise your independent professional judgment. The purpose of this communication is to more accurately reflect the complexity of your patients condition. The fact that a question is asked does not imply that any particular answer is desired or expected. Thank you for your timely response to this clarification. Requestors name: [[employer]] Phone # [ ] THIS PHYSICIAN QUERY FORM IS A PERMANENT PART OF THE MEDICAL RECORD IRMA REYNOLDS Mar 06, 2020 01:48 NAVA STANTON DO Mar 06, 2020 04:39
== END 2020-03-02 15:08 | disposition home or self-care (01) | DRG 872 ==
LOC: EDUNIT# 22:44 → ER 22:46 → 4TH 02-29 02:07
PROVIDERS: ADMIT Family Medicine; ATTEND Family Medicine
DX: A41.9 Sepsis, unspecified organism (principal); I50.32 Chronic diastolic (congestive) heart failure; N20.0 Calculus of kidney; I11.0 Hypertensive heart disease with heart failure; I25.10 Atherosclerotic heart disease of native coronary artery without angina pectoris; I27.20 Pulmonary hypertension, unspecified; Z66 Do not resuscitate; N40.0 Benign prostatic hyperplasia without lower urinary tract symptoms; F17.210 Nicotine dependence, cigarettes, uncomplicated; I73.9 Peripheral vascular disease, unspecified; E87.6 Hypokalemia; E78.00 Pure hypercholesterolemia, unspecified; E78.5 Hyperlipidemia, unspecified; F20.9 Schizophrenia, unspecified; M19.91 Primary osteoarthritis, unspecified site; I65.21 Occlusion and stenosis of right carotid artery; F32.9 Major depressive disorder, single episode, unspecified; Z95.1 Presence of aortocoronary bypass graft; Z91.5 Personal history of self-harm
CPT/HCPCS: 36415; 71045; 74018; 74176; 80048; 80053; 80306; 81000; 83605; 83615; 83690; 83880; 84145; 85007; 85025; 85027; 85610; 85730; 86141; 87040; 87088; 90686

== ENCOUNTER → 2020-03-04 | Outpatient (CLI) | payer MEDICAID ==
[~2020-03-04] MED LIST changes: +CEFD300C3 PO
--- NOTE | 2020-03-04 13:46 | Diagnostic Imaging Report ---
INDICATION: Nephrolithiasis Comparison made with prior examination of 02/29/2020. FINDINGS: A left nephroureteral stent remains in place. There are calcifications projected over both kidneys. Bowel gas pattern is nonspecific. There are mild degenerative changes in spine. IMPRESSION: Bilateral nephrolithiasis. The left nephroureteral stent appears to remain in satisfactory position. Nonspecific bowel gas pattern Dictated by: Dictated on workstation # [id number]
== END ==
LOC: RAD 13:21
PROVIDERS: ATTEND Urology
DX: N20.0 Calculus of kidney (principal); Z20.828 Contact with and (suspected) exposure to other viral communicable diseases; Z96.0 Presence of urogenital implants
CPT/HCPCS: 74018

== ENCOUNTER 2021-09-14 05:08 | Emergency (ER) | payer MEDICAID ==
[~2021-09-14] VITALS: Ht 180 cm; Wt 105.0 kg
[~2021-09-14 05:08] MED LIST changes: -CIPR500T4 PO; +CIPR500T5 PO; -DOCU-238 PO; +DOCU-26 PO; -LISI1TAB26 PO; +LISI1TAB48 PO; +MIRT-69 PO; -MIRT30TA6 PO
[2021-09-14 05:10] VITALS: BP 122/105
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
[2021-09-14] MEDS ORDERED: TETANUS,DIPTH,PERTUSS P/F (BOOSTRIX) 0.5 ML VIAL IM ONE (05:45)
[2021-09-14 05:49] LABS: BILIRUBIN,URINE NEGATIVE (NEGATIVE); CLARITY,URINE CLEAR; COLOR,URINE YELLOW; GLUCOSE, URINE (UA) NEGATIVE (NEGATIVE); KETONES,URINE TRACE (NEGATIVE); LEUKOCYTE ESTERASE ,URINE NEGATIVE (NEGATIVE); NITRITE,URINE NEGATIVE (NEGATIVE); PROTEIN,URINE 1+ (NEGATIVE)
[2021-09-14 05:51] LABS: BASOPHILS # (AUTO) 0.1 10^3/uL (0.0-0.1); BASOPHILS % (AUTO) 0 % (0-10); EOSINOPHILS % (AUTO) 0 % (0-10); HEMATOCRIT 47 % (40-54); HEMOGLOBIN 14.7 g/dL (13.3-17.7); LYMPHOCYTES # (AUTO) 0.9 10^3/uL (1.0-4.0); LYMPHOCYTES % (AUTO) 5 % (12-44); MEAN CORPUSCULAR HEMOGLOBIN 25 pg (25-34); MEAN CORPUSCULAR HGB CONC 32 g/dL (32-36); MEAN CORPUSCULAR VOLUME 80 fL (80-99); MEAN PLATELET VOLUME 10.3 fL (9.0-12.2); MONOCYTES # (AUTO) 1.1 10^3/uL (0.0-1.0); MONOCYTES % (AUTO) 6 % (0-12); NEUTROPHILS # (AUTO) 16.3 10^3/uL (1.8-7.8); NEUTROPHILS % (AUTO) 88 % (42-75); PLATELET COUNT 306 10^3/uL (130-400); WHITE BLOOD COUNT 18.5 10^3/uL (4.3-11.0)
[2021-09-14 05:58] LABS: BACTERIA,URINE NEGATIVE /HPF; SQUAMOUS EPITHELIAL CELL,UR 0-2 /HPF
[2021-09-14 06:04] LABS: AMPHETAMINE SCREEN, URINE NEGATIVE (NEGATIVE); BARBITURATE SCREEN URINE NEGATIVE (NEGATIVE); BENZODIAZEPINES SCREEN URINE NEGATIVE (NEGATIVE); CANNABINOID SCREEN, URINE POSITIVE (NEGATIVE); CHLORIDE 102 MMOL/L (98-107); COCAINE SCREEN URINE POSITIVE (NEGATIVE); METHADONE STAT NEGATIVE (NEGATIVE); METHAMPHETAMINE SCREEN URINE S POSITIVE (NEGATIVE); OPIATE SCREEN URINE POSITIVE (NEGATIVE); OXYCODONE STAT NEGATIVE (NEGATIVE); POTASSIUM 3.6 MMOL/L (3.6-5.0); PROPOXYPHENE STAT NEGATIVE (NEGATIVE); SODIUM 142 MMOL/L (135-145); TRICYCLIC ANTIDEPRESSANTS SCRE NEGATIVE (NEGATIVE)
[2021-09-14 06:05] LABS: BAND NEUTROPHILS 5 %; CALCIUM 9.7 MG/DL (8.5-10.1); LYMPHOCYTES % (MANUAL) 9 %; MONOCYTES % (MANUAL) 7 %; NEUTROPHILS % (MANUAL) 79 %; RBC MORPH NORMAL
[2021-09-14 06:07] LABS: GLUCOSE 89 MG/DL (70-105); TOTAL PROTEIN 8.1 GM/DL (6.4-8.2)
[2021-09-14 06:08] LABS: CARBON DIOXIDE 16 MMOL/L (21-32)
[2021-09-14 06:10] LABS: ALKALINE PHOSPHATASE 101 U/L (40-136); CREATININE SERUM 1.29 MG/DL (0.60-1.30); GFR ESTIMATED 63
[2021-09-14 06:12] LABS: BUN/CREATININE RATIO 14
[2021-09-14 06:13] LABS: ALANINE AMINOTRANSFERASE 21 U/L (0-55); SALICYLATE < 5.0 MG/DL (5.0-20.0)
[2021-09-14 06:14] LABS: CREATINE KINASE 974 U/L (30-200)
[2021-09-14 06:16] LABS: ACETAMINOPHEN < 10 UG/ML (10-30)
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
--- NOTE | 2021-09-14 06:54 | Diagnostic Imaging Report ---
EXAMINATION: Chest radiograph, portable AP view. DATE: 09/14/2021 6:12 AM INDICATION: 61-year-old male, chest pain. COMPARISON: February 28, 2020. FINDINGS: There are median sternotomy wires. Heart size and mediastinal contours are unchanged. There is no identified pneumothorax. There is no large pleural effusion. There is no identified focal airspace consolidation. IMPRESSION: No identified acute cardiopulmonary abnormality. Dictated by: Dictated on workstation # [id number]
== END 2021-09-14 06:48 | disposition left against medical advice (07) ==
LOC: EDUNIT# 05:08 → ER 05:10
DX: S00.411A Abrasion of right ear, initial encounter (principal); F19.10 Other psychoactive substance abuse, uncomplicated; R45.851 Suicidal ideations; R77.8 Other specified abnormalities of plasma proteins; Z20.822 Contact with and (suspected) exposure to COVID-19; Z23 Encounter for immunization; V87.7XXA Person injured in collision between other specified motor vehicles (traffic), initial encounter
CPT/HCPCS: 70450; 71045; 72125; 80053; 80306; 81000; 82550; 84484; 85007; 85027; 85610; 85730; 87636; 93005; 93041; 99284; G0480 ×3; 36415; 80320; 80329; 90715

== ENCOUNTER 2022-09-21 20:15 | Observation (INO) | payer MEDICAID ==
[~2022-09-21] VITALS: Ht 172.7 cm; Wt 122.2 kg
[2022-09-21 21:25] VITALS: BP 166/100
[2022-09-21 22:00] VITALS: BP 113/89
[2022-09-21] MEDS ORDERED: NITROGLYCERIN 0.4 MG SL TABS BTL 25'S SL PRN (22:30)
[2022-09-21] MEDS ORDERED: PATIENT MAY USE OWN MEDS, ALL PO SCH (22:30)
[2022-09-21] MEDS ORDERED: ONDANSETRON 4 MG/2 ML (SDV) Z0FRAN IVP PRN (22:30)
[2022-09-21 23:00] VITALS: BP 140/90
[2022-09-21] MEDS ORDERED: ENOXAPARIN 40 MG/0.4 ML (LOVENOX) SYR SC SCH (23:00)
[2022-09-22] VITALS (9 sets, daily range): BP systolic 116–155; BP diastolic 62–100
[2022-09-22 03:44] LABS: BASOPHILS # (AUTO) 0.1 10^3/uL (0.0-0.1); BASOPHILS % (AUTO) 1 % (0-10); EOSINOPHILS % (AUTO) 0 % (0-10); HEMATOCRIT 49 % (40-54); HEMOGLOBIN 15.5 g/dL (13.3-17.7); LYMPHOCYTES # (AUTO) 3.6 10^3/uL (1.0-4.0); LYMPHOCYTES % (AUTO) 26 % (12-44); MEAN CORPUSCULAR HEMOGLOBIN 26 pg (25-34); MEAN CORPUSCULAR HGB CONC 32 g/dL (32-36); MEAN CORPUSCULAR VOLUME 81 fL (80-99); MEAN PLATELET VOLUME 10.6 fL (9.0-12.2); MONOCYTES # (AUTO) 0.9 10^3/uL (0.0-1.0); MONOCYTES % (AUTO) 6 % (0-12); NEUTROPHILS # (AUTO) 9.2 10^3/uL (1.8-7.8); NEUTROPHILS % (AUTO) 66 % (42-75); PLATELET COUNT 264 10^3/uL (130-400); WHITE BLOOD COUNT 13.9 10^3/uL (4.3-11.0)
[2022-09-22 04:13] LABS: ALBUMIN 3.3 GM/DL (3.2-4.5); BILIRUBIN,TOTAL 0.3 MG/DL (0.1-1.0); CALCIUM 8.5 MG/DL (8.5-10.1); CREATININE SERUM 0.84 MG/DL (0.60-1.30); POTASSIUM 3.8 MMOL/L (3.6-5.0); TOTAL PROTEIN 6.6 GM/DL (6.4-8.2)
--- NOTE | 2022-09-22 08:38 | Consultation-Cardiology ---
HPI-Cardiology Cardiology Consultation: Date of Consultation 09/22/22 Time Seen by a Provider: 07:50 Date of Admission Attending Physician Demetri Duckworth MD Admitting Physician Admitting Physician: Chelsey Chi MD Attending Physician: Chelsey Chi MD Consulting Physician CARLEE CHENG MD, MA, FACP, FACC, [facility], CCDS Physician requesting consult: Dr Chi HPI: Chief Complaint: Reason for cardiology consultation: Mildly elevated troponin 62 yo man who developed palpitations consisting of a feeling of a rapid heart and vague discomfort in the chest that he feels was mild and mainly due to a feeling of rapid heart beat. He went to the ER at [facility]. He was treated with adenosin 12 mg and converted o sinus. Immediately, he strated to feel well. Has not had any recurrenc or symptoms. Denies any chest pain. Denies syncope. Denies swelling. Notes mild to mod, chronic shortness of breath that is unchanged in the recent past. Denies fever or chills. Wishes to go home. Refuses to stay in the hospital any longer. Also currently refusing to take any meds. Review of Systems-Cardiology Review of Systems Constitutional: No malaise, No tiredness, No weight loss, No weight gain Eyes: No vision change Ears/Nose/Throat: No ear discharge, No nasal drainage, No recent hearing loss, No ulcerations Respiratory: As described under HPI Cardiovascular: As described under HPI Gastrointestinal: No abdominal pain, No diarrhea, No nausea, No vomiting Genitourinary: No dysuria, No hematuria, No urine frequency changes Musculoskeletal: No back pain, No joint pain Skin: No rash, No ulcerations Psychiatric/Neurological: No seizure, No focal weakness, No syncope Hematologic: No bleeding abnormalities IBK-[id number] Hx Patient Social History Smoking Status: Current Everyday Smoker 2nd Hand Smoke Exposure: Yes Have you traveled recently?: No Alcohol Use?: No Substance type: Marijuana Pt feels they are or have been: No Tobacco type used: Cigarettes Immunizations Up To Date Tetanus Booster (TDap): Unknown Date of Pneumonia Vaccine: May 31, 2015 Past Medical History PMH As described under Assessment. Family Medical History Family Medical History: He does not report fam h/o early CAD or SCD Family History: Patient reports no known family medical history. Allergies and Home Medications Allergies Coded Allergies: morphine (Verified Allergy, Unknown, TAKES LORTAB AT HOME, 08/03/08) Patient Home Medication List Home Medication List Reviewed: Yes Cefdinir (Cefdinir) 300 Mg Capsule, 300 MG PO BID Prescribed by: NAVA STANTON on 03/02/20 1210 Docusate Sodium (Stool Softener) 100 Mg Capsule, 200 MG PO DAILY, (Reported) Entered as Reported by: KATHLEEN JANE on 02/23/19 1153 Duloxetine HCl (Duloxetine HCl) 20 Mg Capsule.dr, 20 MG PO BID, (Reported) Entered as Reported by: NAVA STANTON on 02/04/20 1235 Gabapentin (Gabapentin) 600 Mg Tablet, 600 MG PO QID, (Reported) Entered as Reported by: KATHLEEN JANE on 02/23/19 1158 Hydrocodone/Acetaminophen (Hydrocodone-Acetamin 5-325 mg) 1 Each Tablet, 1 TAB PO Q4H PRN for PAIN-MODERATE (5-7) Prescribed by: NAVA STANTON on 02/06/20 1053 Ibuprofen (Ibuprofen) 800 Mg Tablet, 800 MG PO TID PRN for PAIN-MILD (1-4), (Reported) Entered as Reported by: CARLOS ANDREWS on 02/06/20 0953 Isosorbide Dinitrate (Isosorbide Dinitrate) 20 Mg Tablet, 40 MG PO BID, (Reported) Entered as Reported by: KATHLEEN JANE on 02/23/19 1204 Mirtazapine (Mirtazapine) 45 Mg Tablet, 45 MG PO HS, (Reported) Entered as Reported by: NAVA STANTON on 02/04/20 1235 Multivitamin (Multi-Vitamin Daily) 1 Each Tablet, 2 EACH PO DAILY, (Reported) Entered as Reported by: KATHLEEN JANE on 02/23/19 1152 [place] 3 Polyunsat Fatty Acids (Fish Oil 1,000 mg Capsule) 1,000 Mg Cap, 1,000 MG PO DAILY, (Reported) Entered as Reported by: KATHLEEN JANE on 02/23/19 1152 Pregabalin (Pregabalin) 75 Mg Capsule, 75 MG PO TID, (Reported) Entered as Reported by: CARLOS ANDREWS on 02/06/20 0947 Simvastatin (Simvastatin) 80 Mg Tablet, 80 MG PO DAILY, (Reported) Entered as Reported by: CARLOS ANDREWS on 02/06/20 0947 Solifenacin Succinate (Vesicare) 5 Mg Tablet, 5 MG PO DAILY, (Reported) Entered as Reported by: JUAN DIEGO RODARTE on 01/22/20 1250 Tamsulosin HCl (Flomax) 0.4 Mg Cap, 0.4 MG PO DAILY, (Reported) Entered as Reported by: NAVA STANTON on 02/04/20 1235 Tamsulosin HCl (Flomax) 0.4 Mg Cap, 0.4 MG PO DAILY Prescribed by: JU JOHNSON on 02/20/20 0900 Tramadol HCl (Tramadol HCl) 50 Mg Tablet, 1-2 TAB PO Q4H PRN for PAIN-MILD (1-4) Prescribed by: JU JOHNSON on 02/20/20 0900 Physical Exam-Cardiology Physical Exam Vital Signs/I&O 09/21/22 09/21/22 09/21/22 09/21/22 21:25 21:35 21:55 22:00 Temp 36.2 Pulse 58 57 57 Resp 18 12 B/P (MAP) 166/100 (122) 113/89 (97) Pulse Ox 95 95 92 O2 Delivery Room Air Room Air Room Air 09/21/22 09/22/22 09/22/22 09/22/22 23:00 00:00 00:21 01:00 Temp 36.1 Pulse 50 53 60 Resp 20 17 B/P (MAP) 140/90 (107) 155/100 (118) Pulse Ox 92 94 O2 Delivery Room Air Room Air 09/22/22 09/22/22 09/22/22 09/22/22 01:00 02:00 03:00 04:00 Pulse 53 50 58 51 Resp 19 17 13 14 B/P (MAP) 116/62 (80) 122/68 (86) 135/78 (97) 145/84 (104) Pulse Ox 92 91 91 91 O2 Delivery Room Air Room Air Room Air Room Air 09/22/22 09/22/22 09/22/22 05:00 06:00 07:16 Pulse 52 51 56 Resp 14 14 B/P (MAP) 129/71 (90) 142/84 (103) Pulse Ox 93 91 O2 Delivery Room Air Room Air Capillary Refill : Constitutional: AAO x 3, well-developed, well-nourished HEENT: EOMI, hearing is well preserved, xanthelasmas are seen Neck: carotid pulses are 2 + bilaterally, with good upstrokes Respiratory: No accessory muscle use; chest expansion is symmetric, chest is bilaterally symmetric, other (good, bilateral air entry) Cardiovascular: regular rate-rhythm, S1 and S2, systolic murmur (soft COMPA at card base) Gastrointestinal: No tender, No guarding, No rebound; audible bowel sounds Extremities: No clubbing, No cyanosis, No significant edema Neurologic/Psychiatric: oriented x 3, other (moves all limbs equally) Skin: No rash on exposed areas, No ulcerations on exposed areas Data Review Labs Laboratory Tests 09/22/22 03:03: White Blood Count 13.9H, Red Blood Count 6.02H, Hemoglobin 15.5, Hematocrit 49, Mean Corpuscular Volume 81, Mean Corpuscular Hemoglobin 26, Mean Corpuscular Hemoglobin Concent 32, Red Cell Distribution Width 16.6H, Platelet Count 264, Mean Platelet Volume 10.6, Immature Granulocyte % (Auto) 1, Neutrophils (%) (Auto) 66, Lymphocytes (%) (Auto) 26, Monocytes (%) (Auto) 6, Eosinophils (%) (Auto) 0, Basophils (%) (Auto) 1, Neutrophils # (Auto) 9.2H, Lymphocytes # (Auto) 3.6, Monocytes # (Auto) 0.9, Eosinophils # (Auto) 0.0, Basophils # (Auto) 0.1, Immature Granulocyte # (Auto) 0.2H, Sodium Level 137, Potassium Level 3.8, Chloride Level 102, Carbon Dioxide Level 26, Anion Gap 9, Blood Urea Nitrogen 14, Creatinine 0.84, Estimat Glomerular Filtration Rate 99, BUN/Creatinine Ratio 17, Glucose Level 165H, Calcium Level 8.5, Corrected Calcium 9.1, Total Bilirubin 0.3, Aspartate Amino Transf (AST/SGOT) 23, Alanine Aminotransferase (ALT/SGPT) 12, Alkaline Phosphatase 94, Total Protein 6.6, Albumin 3.3, Triglycerides Level 236H, Cholesterol Level 212H, LDL Cholesterol Direct 147H, VLDL Cholesterol 47H, HDL Cholesterol 34L Laboratory Tests 09/22/22 03:03 A/P-Cardiology Assessment/Admission Diagnosis PSVT with heart rate greater than 180 on 09/22/22 - treated with 12 mg iv adeonsine at [facility], restoring NSR, no recurrence Mildly elevated troponin - probably type 2 MN related to a fast heart rate prior to conversion with adenosine Uncontrolled hypertension Abnormal ECG - suggestive of LVH and repol abn, but cannot exclude ischemia - stable on serial evals during this admission CAD and h/o CABG, pt reports h/o 3-vessel bypass more than 10 years ago H/o urolithiasis History of PAD, peripheral interventions in 2019, no active complaints. 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 He refuses * Advised echo. He refuses * Advised myocardial perfusion imaging. He refuses * Advised to quit smoking. He refuses * Also refuses any cardiac testing or any cardiovascular meds. Does not offer any specific reason other than that he is ready to go whenever * He does understand all of his cardiovascular issues * I called his attending Dr Chi and asked her to evaluate the patient for depression / suicidal ideation etc CARLEE CHENG MD FACP FAC CCDS Sep 22, 2022 08:37
[2022-09-22] MEDS ORDERED: meTOproloL SUCCINATE 50 MG (TOPROL XL) TAB PO SCH (09:00)
[2022-09-22] MEDS ORDERED: ENOXAPARIN 40 MG/0.4 ML (LOVENOX) SYR SC SCH (11:00)
--- NOTE | 2022-09-22 16:42 | Discharge Summary ---
Discharge Summary Hospital Course Hospital Course Date of Admission: Sep 21, 2022 at 21:19 Admission Diagnosis : Family Physician/Provider: Demetri Duckworth MD Date of Discharge: 09/22/22 Discharge Diagnosis: Coronary artery disease Atrial fibrillation Depression Left AMA Hospital Course: Patient admitted with elevated troponin after an episode of A fib with RVR, converted in ER after adenosine. Reported feeling better and declined any treatment including medications or evaluation including echo or stress test. He reportedly stated he did not care if he , but when asked he denied suicideal ideation or plans. He left against medical advice before I saw him, in spite of being notified I would be seeing him within an hour. Labs and Pending Lab Test: Laboratory Tests 09/22/22 03:03: White Blood Count 13.9H, Red Blood Count 6.02H, Hemoglobin 15.5, Hematocrit 49, Mean Corpuscular Volume 81, Mean Corpuscular Hemoglobin 26, Mean Corpuscular Hemoglobin Concent 32, Red Cell Distribution Width 16.6H, Platelet Count 264, Mean Platelet Volume 10.6, Immature Granulocyte % (Auto) 1, Neutrophils (%) (Auto) 66, Lymphocytes (%) (Auto) 26, Monocytes (%) (Auto) 6, Eosinophils (%) (Auto) 0, Basophils (%) (Auto) 1, Neutrophils # (Auto) 9.2H, Lymphocytes # (Auto) 3.6, Monocytes # (Auto) 0.9, Eosinophils # (Auto) 0.0, Basophils # (Auto) 0.1, Immature Granulocyte # (Auto) 0.2H, Sodium Level 137, Potassium Level 3.8, Chloride Level 102, Carbon Dioxide Level 26, Anion Gap 9, Blood Urea Nitrogen 14, Creatinine 0.84, Estimat Glomerular Filtration Rate 99, BUN/Creatinine Ratio 17, Glucose Level 165H, Calcium Level 8.5, Corrected Calcium 9.1, Total Bilirubin 0.3, Aspartate Amino Transf (AST/SGOT) 23, Alanine Aminotransferase (ALT/SGPT) 12, Alkaline Phosphatase 94, Total Protein 6.6, Albumin 3.3, Triglycerides Level 236H, Cholesterol Level 212H, LDL Cholesterol Direct 147H, VLDL Cholesterol 47H, HDL Cholesterol 34L Home Meds Active Cefdinir 300 Mg Capsule 300 Mg PO BID Tramadol HCl 50 Mg Tablet 1-2 Tab PO Q4H PRN Flomax (Tamsulosin HCl) 0.4 Mg Cap 0.4 Mg PO DAILY Hydrocodone-Acetamin 5-325 mg (Hydrocodone/Acetaminophen) 1 Each Tablet 1 Tab PO Q4H PRN Reported Ibuprofen 800 Mg Tablet 800 Mg PO TID PRN Simvastatin 80 Mg Tablet 80 Mg PO DAILY Pregabalin 75 Mg Capsule 75 Mg PO TID Flomax (Tamsulosin HCl) 0.4 Mg Cap 0.4 Mg PO DAILY Duloxetine HCl 20 Mg Capsule.dr 20 Mg PO BID Mirtazapine 45 Mg Tablet 45 Mg PO HS Vesicare (Solifenacin Succinate) 5 Mg Tablet 5 Mg PO DAILY Isosorbide Dinitrate 20 Mg Tablet 40 Mg PO BID Gabapentin 600 Mg Tablet 600 Mg PO QID Stool Softener (Docusate Sodium) 100 Mg Capsule 200 Mg PO DAILY Fish Oil 1,000 mg Capsule ([place] 3 Polyunsat Fatty Acids) 1,000 Mg Cap 1,000 Mg PO DAILY Multi-Vitamin Daily (Multivitamin) 1 Each Tablet 2 Each PO DAILY Assessment/Pt DC Instructions Left against medical advice Discharge Physical Examination Allergies: Coded Allergies: morphine (Verified Allergy, Unknown, TAKES LORTAB AT HOME, 08/03/08) PAOLA LEE MD Sep 22, 2022 16:42
== END 2022-09-22 08:55 | disposition left against medical advice (07) ==
LOC: ICU 21:19
PROVIDERS: ADMIT Family Medicine; ATTEND Family Medicine
DX: I47.1 Supraventricular tachycardia (principal); R77.8 Other specified abnormalities of plasma proteins; I10 Essential (primary) hypertension; F17.210 Nicotine dependence, cigarettes, uncomplicated; F12.90 Cannabis use, unspecified, uncomplicated; I25.10 Atherosclerotic heart disease of native coronary artery without angina pectoris; I73.9 Peripheral vascular disease, unspecified; Z91.148 Patient's other noncompliance with medication regimen for other reason; Z91.198 Patient's noncompliance with other medical treatment and regimen for other reason; Z95.1 Presence of aortocoronary bypass graft; Z95.820 Peripheral vascular angioplasty status with implants and grafts; Z79.899 Other long term (current) drug therapy; Z88.5 Allergy status to narcotic agent
CPT/HCPCS: 80053; 80061; 85025; 93005; 96372; G0378; G0379; 36415